=== PATIENT | female | born 1975 | race Caucasian/White ===

== ENCOUNTER 2017-09-21 10:27 | Emergency (ER) | payer OTHER, SELFPAY ==
[2017-09-21 10:27] VITALS: BP 152/92; PULSE 80; RESP 15; TEMP 36.8; O2SAT 97; BMI 38.5
[2017-09-21 10:36] VITALS: BP 121/73; PULSE 77; RESP 16; O2SAT 100
--- NOTE | 2017-09-21 10:40 | EKG12_ITS ---
Test Reason : REPEAT TROP. Blood Pressure : / mmHG Vent. Rate : 063 BPM Atrial Rate : 063 BPM P-R Int : 138 ms QRS Dur : 078 ms QT Int : 418 ms P-R-T Axes : 026 006 023 degrees QTc Int : 427 ms Normal sinus rhythm Normal ECG Confirmed by GIOVANA ZAPATA, ZOHAIB ([id number]), video tape editor JAZLYN MARIANO ([id number]) on 09/25/2017 1:57:03 PM Referred By: SPENCER Confirmed By:ZOHAIB AKHTAR MD
[2017-09-21 10:59] LABS: Hematocrit 37.9 % (37-47); Hemoglobin 11.9 g/dl (12.0-15.0); Mean Corp Hgb Conc 31.4 g/gl (32-36); Mean Corpuscular Hgb 26.5 pg (27.0-32.0); Mean Corpuscular Volume 84.4 fL (81-99); Mean Platelet Vol. 10.1 fl (6.2-12.0); Platelet Count 272 K/mm3 (150-450); RBC Distribution Width CV 14.4 % (11.6-14.6); RBC Distribution Width SD 44.4 fl (35.1-43.9); Red Blood Count 4.49 M/mm3 (4.2-5.4); White Blood Count 7.2 K/mm3 (4.4-11.0)
[2017-09-21 11:00] LABS: Scan Indicated on CBC? Y/N NO
[2017-09-21 11:16] LABS: Anion Gap 5 (5-15); BUN 11 mg/dL (7-18); BUN/Creat Ratio 13.4 RATIO (10-20); Calcium,Total 8.6 mg/dL (8.5-10.1); Chloride 107 mmol/L (98-107); Creatinine, Serum 0.82 mg/dL (0.55-1.02); EST Glomerular Filtration Rate 81 mL/min (>60); Est Glom Filt Rate - Afr Amer 98 mL/min (>60); Estimated Creatinine Clearance 83.67 ml/min; Glucose 89 mg/dL (74-106); Potassium 4.1 mmol/L (3.5-5.1); Sodium Level 140 mmol/L (136-145)
[2017-09-21 11:36] VITALS: BP 117/70; PULSE 80; RESP 14; O2SAT 100
--- NOTE | 2017-09-21 11:38 | RAD_ITS ---
STUDY: X-RAY CHEST REASON FOR EXAM: Female, 41 years old. Chest pain. TECHNIQUE: PA and lateral views of the chest. COMPARISON: None. FINDINGS: The lungs are clear and expanded. There is no demonstrated pleural abnormality. Normal size heart. Normal mediastinum and maame. Normal visualized pulmonary arteries. Normal visualized aortic arch and descending thoracic aorta. There are stable multilevel degenerative changes of the visualized thoracic spine. Normal visualized ribs, clavicles, and shoulders. There is no demonstrated abnormality of the visualized soft tissue structures of the upper abdomen. RAD/Chest PA and Lateral IMPRESSION: No acute cardiopulmonary disease. Electronically Signed: Tommie London MD at 12:09 EDT , Service support ,
[2017-09-21 12:05] VITALS: BP 125/70; PULSE 80; RESP 14; O2SAT 99
[2017-09-21 13:02] VITALS: BP 136/74; PULSE 75; RESP 14; O2SAT 98
--- NOTE | 2017-09-21 13:45 | EKG12_ITS ---
Test Reason : CP Blood Pressure : / mmHG Vent. Rate : 067 BPM Atrial Rate : 067 BPM P-R Int : 142 ms QRS Dur : 078 ms QT Int : 394 ms P-R-T Axes : 011 002 017 degrees QTc Int : 416 ms Normal sinus rhythm Normal ECG Confirmed by ZOHAIB AKHTAR MD ([id number]), communications editor JAZLYN MARIANO ([id number]) on 09/25/2017 1:40:48 PM Referred By: Confirmed By:ZOHAIB AKHTAR MD
[2017-09-21 14:22] VITALS: BP 128/78; PULSE 68; RESP 14; O2SAT 99
--- NOTE | 2017-09-21 14:29 | ED.VISSUMM ---
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 She had no associated symptoms. She had prior episode 10 years ago that lasted intermittently for 5 months. No workup was undertaken at that time. She denies history of hiatal hernia, reflux or peptic ulcer disease. She denies hematemesis, melena hematochezia. She denied radiation to her back or extremities. She denies headache. Denies visual, ocular auditory symptoms. I trouble speech or swallowing. She localizes the pain in the xiphoid region. She denies food intolerance. Denies leg pain, swelling discoloration. Physical Examination: Signs are unremarkable. Patient appears slightly uncomfortable. Head is atraumatic normocephalic. Pupils are equal round reactive. Extraocular muscles are intact. TMs are pearly white with landmarks noted. Nares patent with no drainage. Posterior pharynx without erythema or exudate. Uvula is midline. There is no dysphonia or dysphasia. Trachea is midline. There is no stridor with auscultation of the neck. Heart is regular without murmur, gallop or rub. S1 and S2 are normal. Lungs are clear to auscultation with good movement of air bilaterally. Abdomen is soft nontender with negative Mcwilliams sign. There is no CVA tenderness noted. There is no asymmetry, swelling, discoloration, leg vein distention, palpable cords or tenderness along the distribution of the deep venous system. Neuro exam is nonfocal. Test Results: Next field EKG #1 sinus rhythm with no ischemic changes and is normal. EKG #2 obtained 3 hours later is normal with a rate of 63. First troponin second troponin less than 0.015. Delta 0. Hemoglobin is 11.9. Emergency Department Course and Treatment: Based on description this may represent GI versus cardiac etiology. Workup included EKG, chest x-ray and appropriate blood work. 3 hour troponin was obtained. She reported increased pain and was given a GI cocktail with resolution of her symptoms. Since there is a published study in [employer] in the 80s that include documents relief of pain with GI cocktail was not really out cardiac etiology, some presented symptoms of cardiac etiology reason for repeat troponin and EKG. Treatment Plan: H2 david and follow-up with PCP Disposition: Discharged home Impression: Chest pain secondary to esophageal/GI etiology This note was generated with [employer] dictation software. It may contain incorrect words, spelling, and punctuation that were not noted in review of the chart prior to signing ED Disposition - Plan for ED Patient: Disposition: Home or Assisted Living Chief Complaint: Chest Pain Instructions: ED GERD Prescriptions: Famotidine [Pepcid] 40 mg PO DAILY #30 tab Referrals: Dhara Guzman MD [Primary Care Provider] - 1-2 Weeks
== END 2017-09-21 14:48 | disposition home or self-care (01) ==
PROVIDERS: Emergency Provider Emergency Medicine; Family Provider Family Medicine; PCP Family Medicine
DX: R07.89 Other chest pain (principal); E66.9 Obesity, unspecified; Z68.38 Body mass index [BMI] 38.0-38.9, adult
CPT/HCPCS: 71046; 80048; 84484; 85027; 93005; 99285; A4216

== ENCOUNTER 2020-07-10 09:28 | Outpatient (RCR) | payer OTHER, SELFPAY | END 2020-07-10 23:59 | LOC: IMMUN 09:28 | PROVIDERS: Visit Provider Family Medicine | DX: Z23 Encounter for immunization (principal) | CPT/HCPCS: 0011A; 0012A ==

== ENCOUNTER 2023-05-28 01:28 | Emergency (ER) | payer OTHER, SELFPAY ==
[2023-05-28 01:30] VITALS: BP 129/92; PULSE 79; RESP 18; TEMP 36.3; O2SAT 94; BMI 37.1
--- OUTSIDE RECORDS SUMMARY | 2023-05-28 01:41 | XMS RPT_ITS | CCD ---
Author Name Unknown Address [address] [place] [address] Organization [facility] Care Team Providers Care Ultrasound Supervisor Name Role Phone Tony WHEELER, Tameka Primary Care Provider YELITZA WONG CNP Attending Unavail able TONY MANE-PRESERVATIONIST, TAMEKA Primary Care Unavaila ble TONY MANE-SHAMAR, TAMEKA Primary Care Physician Tony WHEELER, Tameka Primary Care Provider PROVIDER, UNKNOWN Referring Unavailable JIMENEZ, TAMEKA Primary Care Unavailable JUDITH MANE-SHAMAR, YELITZA Musa Primary Care Physi chele JIMENEZ, TAMEKA Primary Care Unavailable MCKEON, SYDNI Referring Unavailable JIMENEZ, TAMEKA Primary Care Unavailable MCKEON, SYDNI Attending Unavailable JIMENEZ, TAMEKA Primary Care Unavailable LENNIE DAWSON Referring Unavailable JIMENEZ, TAMEKA Primary Care Unavailable MCKEON, SYDNI Referring Unavailable JIMENEZ, TAMEKA Primary Care Unavailable JIMENEZ, TAMEKA Primary Care Unavailable JIMENEZ, TAMEKA Primary Care Unavailable EWA KATE Referring Unavailable JIMENEZ, TAMEKA Primary Care Unavailable MCKEON, SYDNI Referring Unavailable JIMENEZ, TAMEKA Primary Care Unavailable MCKEON, SYDNI Referring Unavailable Allergies Allergy Classification Reported Allergen(s) Allergy Type Date of Onset Reaction(s) Facility (14 sources) Homeopathic Products; Translations: [HOMEOPATHIC PRODUCTS] Propensity to adverse reactions 6 [facility] (12 sources) no drug allergies [Other] Propensity to adverse reactions 8 [facility] Work Phone: (2 sources) Allergic rhinitis due to pollen Allergy to substance Itching of eye (finding), Asthma (disorder), Sneezing (finding), Watery eye (finding) [facility] [place] (2 sources) OTHER; Translations: [OTHER] Propensity to adverse reactions (disorder) [facility] Other [facility] Medications Current Medications Medication Drug Class(es) Dates Sig (Normalized) Sig (Original) gabapentin 100 mg oral capsule (1 source) Anti-epileptic Agent Start: 3 End: 3 gabapentin 100 mg oral capsule Dose : 100 mg = 1 cap(s), Oral, TID, # 42 cap(s), 0 Refill(s), Pharmacy: [facility]/pharmacy #[id number], Burn of right thigh, 167.6, cm, 01/22/23 16:50:00 EDT, Height, 107.4, kg, 01/22/23 16:42:00 EDT, Dosing Weight Start Date: 01/22/23 Stop Date: 02/05/23 Status: Ordered methylPREDNISolone (1 source) Corticosteroid Start: 3 End: 3 methylPREDNISolone (MEDROL, BILL,) 4 mg Dose-Pack Indications: Burning sensation of skin Follow dosing instructions, take with food. 21 tablet 0 01/13/2023 01/19/2023 Active Completed/Discontinued Medications Medication Drug Class(es) Dates Sig (Normalized) Sig (Original) cyclobenzaprine hydrochloride 10 mg oral tablet (3 sources) Muscle Relaxant Start: 02-20-2022 End: 05-16-2022 take 5-10 mg by mouth every eight hours as needed cyclobenzaprine (FLEXERIL) 10 mg tablet Take 0.5-1 tablets by mouth three times daily as needed for muscle spasm. 12 tablet 0 02/20/2022 05/16/2022 Discontinued Problems Active Problems Problem Classification Problem Date Documented Date Episodic/Chronic Abdominal pain (2 sources) Pain in pelvis 02-27-2022 Episodic Disorders of teeth and jaw (2 sources) Temporomandibular hxoda-unlq-duhrelorine syndrome 08-09-2021 Episodic Esophageal disorders (1 source) Gastroesophageal reflux disease 11-21-2022 Chronic Nonmalignant breast conditions (1 source) Other specified disorders of breast; Translations: [Pseudoangiomatous stromal hyperplasia of breast] Onset: 01-24-2023 Episodic Other circulatory disease (2 sources) Elevated blood-pressure reading without diagnosis of hypertension 12-16-2021 Episodic Other nervous system disorders (1 source) Burning sensation of skin; Translations: [Other disturbances of skin sensation] 01-13-2023 Episodic Other screening for suspected conditions (not mental disorders or infectious disease) (13 sources) Patient encounter status; Translations: [Encounter for screening mammogram for malignant neoplasm of breast] Onset: 05-16-2022 Episodic Residual codes; unclassified (1 source) Past history of procedure 08-09-2022 Episodic Past or Other Problems Problem Classification Problem Date Documented Da te Episodic/Chronic Other and unspecified benign neoplasm (12 sources) Benign neoplasm of soft tissue; Translations: [Benign neoplasm of connective and other soft tissue, unspecified] Onset: 09-15-2005 09-15-2005 Episodic Other skin disorders (12 sources) Skin lesion; Translations: [Disorder of the skin and subcutaneous tissue, unspecified] Onset: 10-17-2013 10-17-2013 Episodic Varicose veins of lower extremity (12 sources) Varicose vein of leg with phlebitis; Translations: [Varicose veins of unspecified lower extremity with inflammation] Onset: 09-22-2005 09-22-2005 Episodic Results Test Name Value Interpretation Reference Range Facil ity Vital Signs Date Time Vital Sign Value Performing Clinician Lashell muniz 01-13-2023 08:22-0400 Body temperature 97.9 [degF] Veronica Vivas APRN.CNP Work Phone: [facility] 01-13-2023 08:22-0400 Body weight 107.05 kg Veronica Vivas APRN.PRESERVATIONIST Work Phone: [facility] 01-13-2023 08:22-0400 Diastolic blood pressure 82 mm[Hg] Veronica Vivas APRN.PRESERVATIONIST Work Phone: [facility] 01-13-2023 08:22-0400 Heart rate 72 /min Veronica Vivas APRN.PRESERVATIONIST Work Phone: [facility] 01-13-2023 08:22-0400 Respiratory rate 18 /min Veronica Vivas APRN.PRESERVATIONIST Work Phone: [facility] 01-13-2023 08:22-0400 SaO2% (BldA) [Mass fraction] 98 % Veronica Vivas APRN.PRESERVATIONIST Work Phone: [facility] 01-13-2023 08:22-0400 Systolic blood pressure 118 mm[Hg] Veronica Vivas APRN.PRESERVATIONIST Work Phone: [facility] 05-16-2022 12:58-0500 Body height 167.6 cm Sydni Mckeon APRN.PRESERVATIONIST Work Phone: [facility] 05-16-2022 12:58-0500 Body weight 107.5 kg Sydni Mckeon APRN.PRESERVATIONIST Work Phone: [facility] 05-16-2022 12:58-0500 Diastolic blood pressure 72 mm[Hg] Sydni Mckeon APRN.PRESERVATIONIST Work Phone: [facility] 05-16-2022 12:58-0500 Systolic blood pressure 128 mm[Hg] Sydni Mckeon APRN.PRESERVATIONIST Work Phone: [facility] Encounters Encounter Date Encounter Type Care Provider Facility Start: 01-24-2023 End: 01-24-2023 ambulatory SYDNI MCKEON Facility:[facility] Start: 01-23-2023 End: 01-23-2023 Patient encounter procedure YELITZA WONG APRN-PRESERVATIONIST [facility] Start: 01-13-2023 End: 01-13-2023 ambulatory ATMEKA JIMENEZ Facility:[facility] Start: 01-13-2023 End: 01-13-2023 Patient encounter procedure Veronica Vivas APRN.PRESERVATIONIST Work Phone: [facility] Procedures Date Procedure Procedure Detail Performing Clinician Start: 07-17-2022 Bx breast w/device 1 st lesion stereotactic guid Ewa Kate MD Work Phone: Start: 06-28-2022 Us breast uni real t bryon with image limited Burt Lenz MD Work Phone: Start: 06-13-2022 Us breast uni real t bryon with image limited Sydni Mckeon APRN.PRESERVATIONIST Work Phone: Start: 06-13-2022 MARTY CRISTINA W DELFIN LEFT Am y Mike MANE.SHAMAR Work Phone: Start: 05-16-2022 End: 05-16-2022 Mammography Sydni Mckeon APRN.PRESERVATIONIST Work Phone: Start: 05-10-2021 Mammography Lennie Dawson PA-C Work Phone: Start: 02-09-2011 Lipid 1996 panel - S breanna or Plasma Us 1 Work Phone: Plan of Treatment Date Care Activity Detail Author Start: 05-14-2028 Urine microalbumin profile [facility] Start: 05-10-2026 HPV TESTING HPV TESTING [facility] Start: 05-10-2026 PAP TESTING PAP TESTING [facility] Start: 05-16-2023 Mammography [facility] Start: 01-12-2023 Covid-19 Vaccine ( season) Covid-19 Vaccine ( season) [facility] Start: 01-12-2023 Influenza vaccination [facility] Start: 05-14-2022 DEPRESSION ASSESSMENT DEPRESSION ASSESSMENT [facility] Start: 05-10-2022 Mammography MAMMOGRAM [facility] Start: 01-12-2022 Influenza vaccination INFLUENZA (#1) [facility] Start: 07-06-2021 COVID-19 VACCINE (5 - Booster for Moderna series) COVID-19 VACCINE (5 - Booster for Moderna series) [facility] Start: 07-06-2021 COVID-19 VACCINE (5 - Moderna series) COVID-19 VACCINE (5 - Moderna series) [facility] Start: 05-14-2021 DEPRESSION ASSESSMENT DEPRESSION ASSESSMENT [facility] Start: 09-30-2020 COVID-19 VACCINE (3 - Booster for Moderna series) COVID-19 VACCINE (3 - Booster for Moderna series) [facility] Start: 12-05-2019 COLOGUARD (FIT-DNA) COLOGUARD (FIT-DNA) [facility] Start: 12-05-2019 Colonoscopy COLONOSCOPY [facility] Start: 12-05-2019 COLORECTAL CANCER SCREENING COLORECTAL CANCER SCREENING [facility] Start: 12-05-[address] COLONOGRAPHY [facility] Start: 12-05-2019 DIABETES SCREEN DIABETES SCREEN [facility] Start: 12-05-2019 Diabetes Screening Diabetes Screening [facility] Start: 12-05-2019 FECAL OCCULT BLOOD FECAL OCCULT BLOOD [facility] Start: 12-05-2019 Lipid 1996 panel - Serum or Plasma Lipid Screening [facility] Start: 12-05-2019 LIPID SCREEN LIPID SCREEN [facility] Start: 12-05-2019 SIGMOIDOSCOPY SIGMOIDOSCOPY [facility] Start: 1992 HEPATITIS C SCREENING HEPATITIS C SCREENING [facility] Start: 1992 HIV SCREENING HIV SCREENING [facility] Start: 1974 HEPATITIS B (1 of 3 - 3-dose series) HEPATITIS B (1 of 3 - 3-dose series) [facility] Start: 1974 Hepatitis B Vaccine (1 of 3 - 3-dose series) Hepatitis B Vaccine (1 of 3 - 3-dose series) [facility] End: 07-28-2023 Bx breast w/device 1st lesion stereotactic guid MARTY STEREO BX BREAST LT Radiology Routine Abnormal finding on radiological examination of breast 1 Occurrences starting 06/28/2022 until 07/28/2023 [facility] Work Phone: Immunizations Immunization Date Immunization Notes Care Provider Juliette alvarenga 05-11-2021 SARS-CoV-2 mRNA (tobarbinameran) vaccine YELITZA WONG DAY CARE ATTENDANT-PRESERVATIONIST [facility] 08-22-2020 SARS-CoV-2 (COVID-19 ) Ad26 vaccine, recombinant YELITZA WONG DAY CARE ATTENDANT-PRESERVATIONIST [facility] 08-05-2020 SARS-CoV-2 (COVID-19 ) mRNA-1273 vaccine YELITZA WONG DAY CARE ATTENDANT-PRESERVATIONIST [facility] 07-08-2020 SARS-CoV-2 (COVID-19 ) mRNA-1273 vaccine YELITZA WONG DAY CARE ATTENDANT-PRESERVATIONIST [facility] Payers Date Payer Category Payer Unknown [id number] 2018 Unknown [id number] 1975 Unknown [id number] Social History Date Type Detail Facility Start: 11-10-2020 End: 02-20-2022 Tobacco smoking status NHIS Never smoked tobacco [facility] Work Phone: Start: 02-20-2022 Tobacco use and exposure Smokeless tobacco non-user [facility] Work Phone: Start: 02-20-2022 End: 05-16-2022 Alcohol intake Current non-drinker of alcohol (finding) [facility] Start: 05-05-2020 History SDOH Social Connections Phone 5 [facility] Start: 05-05-2020 History SDOH Social Connections Get Together 2 [facility] Start: 05-05-2020 History SDOH Social Connections Membership 1 [facility] Start: 05-05-2020 History SDOH Social Connections Meetings 3 [facility] Start: 05-05-2020 History SDOH Physical Activity MPS 6 [facility] Start: 1975 Sex Assigned At Female [facility] Start: 02-10-2022 End: 02-20-2022 Exposure to SARS-CoV-2 (event) Not sure [facility] Work Phone: Sex Assigned At Sex [facility] Start: 05-05-2020 End: 06-06-2022 History of Social function [facility] Work Phone: Start: 05-05-2020 End: 06-06-2022 Social connection and isolation panel [facility] Work Phone: Do you belong to any clubs or organizations such as catholic groups, unions, fraternal or athletic groups, or school groups? Yes [facility] Work Phone: Are you now , , , , never or living with a partner? [facility] Work Phone: Do you feel stress - tense, restless, nervous, or anxious, or unable to sleep at night because your mind is troubled all the time - these days [OSQ] Only a little [facility] Work Phone: National Score (1-10 0), lower number is lower risk 63 [facility] Start: 02-20-2022 Sexual orientation Heterosexual (finding) [facility] Medical Equipment Procedure Code Equipment Code Equipment Origin al Text Equipment Identifier Dates Stereotactic Bio psy Clip [id number] Start: 07-17-2022 Clinical Notes 02-20-2022 to 01-24-2023 Patient InstructionsVeronica Vivas APRN.PRESERVATIONIST - 01/13/2023 8:31 AM EDTPatient Education - Danelle Monzon, RT(R) - 07/17/2022 12:12 PM Lisa Johnson RT(R) - 06/13/2022 3:00 PM EST Note Date & Type Note Facility 01-24-2023 Note HNO ID: [id number] Author: Antony Cunha Mammo Tech Service: ? Author Type: Technologist Type: Progress Notes Filed: 01/24/2023 1:45 PM Note Text: Radiology Service Progress Note PATIENT NAME: Gladys Dodd DATE OF SERVICE: January 24, 2023 TIME: 1:31 PM PATIENT IDENTITY VERIFICATION COMPLETED USING TWO (2) IDENTIFIERS: Name and Date of confirmed by patient verbally. FALL SCREENING: Has the patient had 2 falls in the last year or 1 fall with injury or currently using an Ambulatory Assistive Device (Walker, Cane, Wheelchair, Crutches, etc.)? No PATIENT GENDER DATA: Female. status: : No status: NO. PATIENT RELEVANT IMPLANT DATA REVIEWED: Not Applicable RADIOLOGY DEPARTMENT: Mammography PERIPHERAL IV DATA: Not applicable SIGNED BY: Melchor Peralta January 24, 2023 1:31 PM [facility] 01-13-2023 Note HNO ID: [id number] Author: Veronica Vivas APRN.PRESERVATIONIST Service: ? Author Type: Nurse Practitioner Type: Progress Notes Filed: 01/13/2023 9:21 AM Note Text: Subjective HPI Gladys Dodd is a 47 year old female who presents with a burning sensation on right thigh, present for the past 2 weeks. She believes this started as a bug bite in the area but does not recall a specific area of inflammation. She had several other bug bites at the same time, including one on her right lower back area with an area of rash surrounding it. She states this area on her right lower back was not painful but it was itchy. It is now dried and no longer itching. She has used hydrocortisone cream on her right thigh without relief. She denies back pain. Review of Systems Constitutional: Negative for chills, fever and malaise/fatigue. Respiratory: Negative. Cardiovascular: Negative. Musculoskeletal: Negative for back pain and myalgias. Skin: Positive for itching and rash (right lower back, resolving). BP 118/82 Pulse 72 Temp 36.6 ?C (97.9 ?F) Resp 18 Wt 107 kg (236 lb) LMP 05/05/2022 SpO2 98% BMI 38.09 kg/m? PAST MEDICAL HISTORY Diagnosis Date Other specified anemias PMS (premenstrual syndrome) Seasonal allergies Springtime. PAST SURGICAL HISTORY Procedure Laterality Date PAST SURGICAL HISTORY OF cyst removed from right wrist TYMPANOSTOMY LOCAL/TOPICAL ANESTHESIA 1979 ALLERGIES Hayfever [Homeopathic Products] and No Drug Allergies [Other] MEDICATIONS methylPREDNISolone (MEDROL, BILL,) 4 mg Dose-Pack Follow dosing instructions, take with food. FAMILY HISTORY Problem Relation Age of Onset Diabetes Mother Hypertension Mother other (dermatomyositis) Mother other (congestive heart failure) Father age 80 Diabetes Maternal Grandmother other (Ovarian Cancer) Maternal Grandmother Heart Maternal Grandfather Hypertension Maternal Grandfather Diabetes Maternal Grandfather other (CVA) Maternal Grandfather Social History Tobacco Use Smoking status: Never Smokeless tobacco: Never Vaping Use Vaping Use: Never used Substance Use Topics Alcohol use: No Drug use: No Objective Physical Exam Vitals and nursing note reviewed. Constitutional: Appearance: Normal appearance. Cardiovascular: Rate and Rhythm: Normal rate. Pulmonary: Effort: Pulmonary effort is normal. Skin: General: Skin is warm and dry. Findings: Rash present. No bruising, erythema or lesion. Neurological: Mental Status: She is alert. ASSESSMENT/PLAN: 1. Burning sensation of skin - ICD9: 782.0, ICD10: R20.8 - suspect shingles neuropathy - METHYLPREDNISOLONE 4 MG TABLETS IN A DOSE PACK - Follow-up with your PCP in 3-5 days if symptoms have not improved or sooner if symptoms worsen - Discussed red flags and need for immediate medical evaluation if any occur. - Discussed supportive care treatment with fluids, rest and analgesia. - Discussed expected course of illness Veronica Vivas APRN.CNP [facility] 01-13-2023 Instructions Veronica Vivas APRN.CNP - 01/13/2023 8:33 AM EDT ASSESSMENT/PLAN: 1. Burning sensation of skin - ICD9: 782.0, ICD10: R20.8 - METHYLPREDNISOLONE 4 MG TABLETS IN A DOSE PACK - Follow-up with your PCP in 3-5 days if symptoms have not improved or sooner if symptoms worsen - Discussed red flags and need for immediate medical evaluation if any occur. - Discussed supportive care treatment with fluids, rest and analgesia. - Discussed expected course of illness Veronica Vivas APRN.SHAMAR documented in this encounter [facility] 01-13-2023 History of Present illness Narrative Images from the original note were not included. Subjective HPI Gladys Dodd is a 47 year old female who presents with a burning sensation on right thigh, present for the past 2 weeks. She believes this started as a bug bite in the area but does not recall a specific area of inflammation. She had several other bug bites at the same time, including one on her right lower back area with an area of rash surrounding it. She states this area on her right lower back was not painful but it was itchy. It is now dried and no longer itching. She has used hydrocortisone cream on her right thigh without relief. She denies back pain. Review of Systems Constitutional: Negative for chills, fever and malaise/fatigue. Respiratory: Negative. Cardiovascular: Negative. Musculoskeletal: Negative for back pain and myalgias. Skin: Positive for itching and rash (right lower back, resolving). BP 118/82 Pulse 72 Temp 36.6 C (97.9 F) Resp 18 Wt 107 kg (236 lb) LMP 05/05/2022 SpO2 98% BMI 38.09 kg/m PAST MEDICAL HISTORY Diagnosis Date Other specified anemias PMS (premenstrual syndrome) Seasonal allergies Springtime. PAST SURGICAL HISTORY Procedure Laterality Date PAST SURGICAL HISTORY OF cyst removed from right wrist TYMPANOSTOMY LOCAL/TOPICAL ANESTHESIA 1979 ALLERGIES Hayfever [Homeopathic Products] and No Drug Allergies [Other] MEDICATIONS methylPREDNISolone (MEDROL, BILL,) 4 mg Dose-Pack Follow dosing instructions, take with food. FAMILY HISTORY Problem Relation Age of Onset Diabetes Mother Hypertension Mother other (dermatomyositis) Mother other (congestive heart failure) Father age 80 Diabetes Maternal Grandmother other (Ovarian Cancer) Maternal Grandmother Heart Maternal Grandfather Hypertension Maternal Grandfather Diabetes Maternal Grandfather other (CVA) Maternal Grandfather Social History Tobacco Use Smoking status: Never Smokeless tobacco: Never Vaping Use Vaping Use: Never used Substance Use Topics Alcohol use: No Drug use: No Objective Physical Exam Vitals and nursing note reviewed. Constitutional: Appearance: Normal appearance. Cardiovascular: Rate and Rhythm: Normal rate. Pulmonary: Effort: Pulmonary effort is normal. Skin: General: Skin is warm and dry. Findings: Rash present. No bruising, erythema or lesion. Neurological: Mental Status: She is alert. ASSESSMENT/PLAN: 1. Burning sensation of skin - ICD9: 782.0, ICD10: R20.8 - suspect shingles neuropathy - METHYLPREDNISOLONE 4 MG TABLETS IN A DOSE PACK - Follow-up with your PCP in 3-5 days if symptoms have not improved or sooner if symptoms worsen - Discussed red flags and need for immediate medical evaluation if any occur. - Discussed supportive care treatment with fluids, rest and analgesia. - Discussed expected course of illness Veronica Vivas APRN.SHAMAR documented in this encounter [facility] 07-17-2022 Miscellaneous Notes AMBULATORY PATIENT EDUCATION RADIOLOGY TOPIC: Pre- Procedure Teaching:Logistics / Protocols / Complication Prevention Post- Procedure Teaching: Symptom Management / Wound Care READINESS TO LEARN COGNITIVE ABILITY: Alert and oriented MOTIVATION TO LEARN: Interested FAMILY SUPPORT: Unable to assess - Family not present INSTRUCTION PROVIDED TO: Patient PATIENT LEARNS BEST BY: Individual Instruction Written Instruction - Hand-outs Verbal Instruction FACTORS AFFECTING LEARNING: None PHYSICAL LIMITATIONS AFFECTING LEARNING: None LEARNING RESPONSE Radiology Procedures Breast BX, Vacuum Assist METHOD OF INSTRUCTION: Individual instruction Written instruction - handouts Verbal instruction PATIENT / FAMILY RESPONSE: Performs skill independently: Wound care FOLLOW-UP PLAN: Follow up phone call. SUPPLEMENTAL MATERIAL: Homegoing instructions REFERRAL (RECOMMENDATION): None documented in this encounter [facility] 06-13-2022 Note HNO ID: [id number] Author: RT Daniel(Cosmo) Service: ? Author Type: Technologist Type: Progress Notes Filed: 06/13/2022 3:01 PM Note Text: Radiology Service Progress Note PATIENT NAME: Gladys Dodd DATE OF SERVICE: June 13, 2022 TIME: 2:59 PM PATIENT IDENTITY VERIFICATION COMPLETED USING TWO (2) IDENTIFIERS: Name and Date of confirmed by patient verbally. FALL SCREENING: Has the patient had 2 falls in the last year or 1 fall with injury or currently using an Ambulatory Assistive Device (Walker, Cane, Wheelchair, Crutches, etc.)? No PATIENT GENDER DATA: Female. status: : No status: NO. PATIENT RELEVANT IMPLANT DATA REVIEWED: Not Applicable RADIOLOGY DEPARTMENT: Mammography PERIPHERAL IV DATA: Not applicable SIGNED BY: RT Daniel(Cosmo) June 13, 2022 2:59 PM [facility] 06-13-2022 History of Present illness Narrative Radiology Service Progress Note PATIENT NAME: Gladys Dodd DATE OF SERVICE: June 13, 2022 TIME: 2:59 PM PATIENT IDENTITY VERIFICATION COMPLETED USING TWO (2) IDENTIFIERS: Name and Date of confirmed by patient verbally. FALL SCREENING: Has the patient had 2 falls in the last year or 1 fall with injury or currently using an Ambulatory Assistive Device (Walker, Cane, Wheelchair, Crutches, etc.)? No PATIENT GENDER DATA: Female. status: : No status: NO. PATIENT RELEVANT IMPLANT DATA REVIEWED: Not Applicable RADIOLOGY DEPARTMENT: Mammography PERIPHERAL IV DATA: Not applicable SIGNED BY: RT Daniel(R) June 13, 2022 2:59 PM documented in this encounter [facility] 05-17-2022 Miscellaneous Notes May 17, 2022 PID: [id number] Gladys Dodd [address] [place] [address] Dear Ms. Mercedes Dodd, Your recent breast imaging exam on 05/16/2022 showed a possible finding that requires additional imaging studies for a complete evaluation. Most such findings are probably benign (not cancer). Your mammogram demonstrates that you have dense breast tissue, which could hide abnormalities. Dense breast tissue, in and of itself, is a relatively common condition. Therefore, this information is not provided to cause undue concern; rather, it is to raise your awareness and promote discussion with your health care provider regarding the presence of dense breast tissue in addition to other risk factors. If you have a healthcare provider who ordered/prescribed your screening mammogram: Please call [phone] or EXT: [id number] to schedule an appointment for your additional imaging (if you have not already done so). If you DO NOT have a healthcare provider (ie you did not have an order/prescription for your screening mammogram): Please call to schedule an appointment for your additional imaging (if you have not already done so). You must have an order/prescription from your physician when calling to schedule your appointment. If your order/prescription is not electronic, you must bring the hard copy with you on the day of your exam to avoid delays. Your imaging studies and reports are kept on file at [facility] as part of your permanent medical record, and are available for your continuing care. Thank you for allowing us to help in meeting your health care needs. Sincerely, Dr. Duncan Interpreting Radiologist [facility] Center (Additional imaging) documented in this encounter [facility] 05-16-2022 Note HNO ID: [id number] Author: RT Daniel(R) Service: ? Author Type: Technologist Type: Progress Notes Filed: 05/16/2022 2:04 PM Note Text: Radiology Service Progress Note PATIENT NAME: Gladys Dodd DATE OF SERVICE: May 16, 2022 TIME: 1:55 PM PATIENT IDENTITY VERIFICATION COMPLETED USING TWO (2) IDENTIFIERS: Name and Date of confirmed by patient verbally. FALL SCREENING: Has the patient had 2 falls in the last year or 1 fall with injury or currently using an Ambulatory Assistive Device (Walker, Cane, Wheelchair, Crutches, etc.)? No PATIENT GENDER DATA: Female. status: : No status: NO. PATIENT RELEVANT IMPLANT DATA REVIEWED: Not Applicable RADIOLOGY DEPARTMENT: Mammography PERIPHERAL IV DATA: Not applicable SIGNED BY: RT Daniel(R) May 16, 2022 1:55 PM [facility] 05-16-2022 Note HNO ID: [id number] Author: Sydni Mckeon APRN.PRESERVATIONIST Service: ? Author Type: Nurse Practitioner Type: Progress Notes Filed: 05/16/2022 1:20 PM Note Text: Die Cast Operator offered: Patient declinesHilary Chávez is a 46 year old who presents for an annual gynecologic exam without complaints. Menses: Menses: cycles every 28 days and 3-4 days of flow. Contraception: vasectomy HPV vaccine: No Last Pap: 05/10/2021 normal HPV: negative History of abnormal pap: No Last mammogram: 04/2021 normal Abnormal mammogram: No - normal bilateral diagnostic mammogram for breast pain Sexually active: Yes Patient concerns for STD exposure: No. Time with current partner: 23 years Pain with intercourse: No Postcoital bleeding: No Hot flashes: 2/weeks Night sweats: generally warm Documentation from previous visit of 05/10/2021 was copied and pasted, documentation has been reviewed and edited as necessary for today's visit. 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 PAST SURGICAL HISTORY Procedure Laterality Date PAST SURGICAL HISTORY OF cyst removed from right wrist TYMPANOSTOMY LOCAL/TOPICAL ANESTHESIA 1979 FAMILY HISTORY Problem Relation Age of Onset Diabetes Mother Hypertension Mother other (dermatomyositis) Mother other (congestive heart failure) Father age 80 Diabetes Maternal Grandmother other (Ovarian Cancer) Maternal Grandmother Heart Maternal Grandfather Hypertension Maternal Grandfather Diabetes Maternal Grandfather other (CVA) Maternal Grandfather SOCIAL HISTORY Social History Tobacco Use Smoking status: Never Smokeless tobacco: Never Vaping Use Vaping Use: Never used Substance Use Topics Alcohol use: No Drug use: No REVIEW OF SYSTEMS Abdomen: No abdominal pain, nausea, vomiting, diarrhea, or constipation. No bloating, early satiety, indigestion, or increased flatulence. Bladder: No dysuria, gross hematuria, urinary frequency, urinary urgency, or incontinence. Breast: No breast lumps, nipple d/c, overlying skin changes, redness or skin retraction. Allergies and current medication updated:Yes EXAM: BP 128/72 Ht 5' 6 (1.68m) Wt 237 lb (107.5kg) LMP 05/05/2022 BMI 38.27 kg/(m2). GENERAL: pleasant, female in no apparent distress HEENT: Normocephalic, atraumatic, mucus membranes moist, and no lesions NECK: Supple, full range of motion, no adenopathy, and thyroid normal DERMATOLOGY: Normal, without lesions, non-icteric, and non-hirsute BREAST: soft, non-tender, symmetric, no dominant mass, normal nipple-areolar complex, no lymphadenopathy, and no nipple discharge CHEST: Normal inspiratory effort ABDOMEN: soft, non-tender, and no masses PELVIC: external genitalia normal, normal Bartholin's glands, urethra, Welch's glands, no vulvar lesions, no cervical lesions, good vaginal support, physiologic discharge present, normal appearing perineal body and perianal region BIMANUAL: uterus normal size, shape and consistency, no adnexal masses, and non-tender RECTOVAGINAL: deferred. NEURO: alert and oriented x3,exam grossly non-focal EXTREMITIES: normal ASSESSMENT/PLAN: 1) Health maintenance: Pap/HPV up to date. Mammogram ordered. Nutrition, exercise and routine health maintenance exams reviewed. 2) Contraception: vasectomy. Contraceptive options reviewed and information provided. 3) STD screening: Declined STD check. 4) Follow up one year or sooner as needed Syndi Mckeon APRN.SHAMAR [facility] 05-16-2022 History of Present illness Narrative Radiology Service Progress Note PATIENT NAME: Gladys Dodd DATE OF SERVICE: May 16, 2022 TIME: 1:55 PM PATIENT IDENTITY VERIFICATION COMPLETED USING TWO (2) IDENTIFIERS: Name and Date of confirmed by patient verbally. FALL SCREENING: Has the patient had 2 falls in the last year or 1 fall with injury or currently using an Ambulatory Assistive Device (Walker, Cane, Wheelchair, Crutches, etc.)? No PATIENT GENDER DATA: Female. status: : No status: NO. 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 Gladys is a 46 year old who presents for an annual gynecologic exam without complaints. Menses: Menses: cycles every 28 days and 3-4 days of flow. Contraception: vasectomy HPV vaccine: No Last Pap: 05/10/2021 normal HPV: negative History of abnormal pap: No Last mammogram: 04/2021 normal Abnormal mammogram: No - normal bilateral diagnostic mammogram for breast pain Sexually active: Yes Patient concerns for STD exposure: No. Time with current partner: 23 years Pain with intercourse: No Postcoital bleeding: No Hot flashes: 2/weeks Night sweats: generally warm Documentation from previous visit of 05/10/2021 was copied and pasted, documentation has been reviewed and edited as necessary for today's visit. 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 PAST SURGICAL HISTORY Procedure Laterality Date PAST SURGICAL HISTORY OF cyst removed from right wrist TYMPANOSTOMY LOCAL/TOPICAL ANESTHESIA 1979 FAMILY HISTORY Problem Relation Age of Onset Diabetes Mother Hypertension Mother other (dermatomyositis) Mother other (congestive heart failure) Father age 80 Diabetes Maternal Grandmother other (Ovarian Cancer) Maternal Grandmother Heart Maternal Grandfather Hypertension Maternal Grandfather Diabetes Maternal Grandfather other (CVA) Maternal Grandfather SOCIAL HISTORY Social History Tobacco Use Smoking status: Never Smokeless tobacco: Never Vaping Use Vaping Use: Never used Substance Use Topics Alcohol use: No Drug use: No REVIEW OF SYSTEMS Abdomen: No abdominal pain, nausea, vomiting, diarrhea, or constipation. No bloating, early satiety, indigestion, or increased flatulence. Bladder: No dysuria, gross hematuria, urinary frequency, urinary urgency, or incontinence. Breast: No breast lumps, nipple d/c, overlying skin changes, redness or skin retraction. Allergies and current medication updated:Yes EXAM: BP 128/72 Ht 5' 6 (1.68m) Wt 237 lb (107.5kg) LMP 05/05/2022 BMI 38.27 kg/(m^2). GENERAL: pleasant, female in no apparent distress HEENT: Normocephalic, atraumatic, mucus membranes moist, and no lesions NECK: Supple, full range of motion, no adenopathy, and thyroid normal DERMATOLOGY: Normal, without lesions, non-icteric, and non-hirsute BREAST: soft, non-tender, symmetric, no dominant mass, normal nipple-areolar complex, no lymphadenopathy, and no nipple discharge CHEST: Normal inspiratory effort ABDOMEN: soft, non-tender, and no masses PELVIC: external genitalia normal, normal Bartholin's glands, urethra, Welch's glands, no vulvar lesions, no cervical lesions, good vaginal support, physiologic discharge present, normal appearing perineal body and perianal region BIMANUAL: uterus normal size, shape and consistency, no adnexal masses, and non-tender RECTOVAGINAL: deferred. NEURO: alert and oriented x3,exam grossly non-focal EXTREMITIES: normal ASSESSMENT/PLAN: 1) Health maintenance: Pap/HPV up to date. Mammogram ordered. Nutrition, exercise and routine health maintenance exams reviewed. 2) Contraception: vasectomy. Contraceptive options reviewed and information provided. 3) STD screening: Declined STD check. 4) Follow up one year or sooner as needed Sydni Mckeon APRN.SHAMAR documented in this encounter [facility] 02-21-2022 Miscellaneous Notes Patient given results and verbalized understanding of instructions given. Marlee Kwong ----- Message from Veronica Vivas APRN.SHAMAR sent at 02/21/2022 9:55 AM EDT ----- Urine culture did not show clear evidence of infection, however it appears sample may have been contaminated with skin bacteria during collection. If not improving, recommend follow up with PCP. Veronica Vivas CNP documented in this encounter [facility] 02-20-2022 Miscellaneous Notes Patient given results and verbalized understanding of instructions given. Marlee Kwong Please let patient know that her XR showed some degenerative (arthritic) changes. Otherwise normal. Recommend treatment plan as discussed at office visit. Follow up in 5-7 days if not improving, sooner if any worsening symptoms. Lennie Dawson PA-C 02/20/2022 documented in this encounter [facility] 02-20-2022 Note HNO ID: [id number] Author: Maria L Thorne RT(R) Service: Radiology Author Type: Technologist Type: Progress Notes Filed: 02/20/2022 8:14 AM Note Text: Radiology Service Progress Note PATIENT NAME: Gladys Dodd DATE OF SERVICE: February 20, 2022 TIME: 8:02 AM PATIENT IDENTITY VERIFICATION COMPLETED USING TWO (2) IDENTIFIERS: Name and Date of confirmed by patient verbally. FALL SCREENING: Has the patient had 2 falls in the last year or 1 fall with injury or currently using an Ambulatory Assistive Device (Walker, Cane, Wheelchair, Crutches, etc.)? No PATIENT GENDER DATA: Female. status: : No status: NO. PATIENT RELEVANT IMPLANT DATA REVIEWED: Yes RADIOLOGY DEPARTMENT: General X-ray: Exam(s) Completed: Spine X-Ray(s): Lumbar AP / LAT / L5-S1 PERIPHERAL IV DATA: Not applicable SIGNED BY: RT Shimon(R) February 20, 2022 8:02 AM [facility] 02-20-2022 Note HNO ID: [id number] Author: Lennie Dawson PA-C Service: ? Author Type: Physician Quill Reamer Type: Progress Notes Filed: 02/20/2022 12:31 PM Note Text: 02/20/2022 Patient presents with: Back Pain: low back pain started in right groin area x 1 day SUBJECTIVE: This is a 46 year old that is here today for Complaint(s) of right lower pelvic paint that has radiated and now moved to mid low back.Tells me started in right lower pelvic/groin then moved more to h ip area and this morning now mid back. Does have previous history of throwing out back . Pain worse with certain movements. Pain with walking. No radiation of symptoms into the legs and no numbness/tingling. Denies fever/chills, vomiting, diarrhea, dysuria, urinary frequency, hematuria, bowel or bladder incontinence, saddle anesthesia, hx of kidney stones, hx of ovarian cysts, chest pain, SOB, rash, weakness. PAST MEDICAL HISTORY Diagnosis Date Other specified anemias PMS (premenstrual syndrome) Seasonal allergies Springtime. ALLERGIES Hayfever [Homeopathic Products] and No Drug Allergies [Other] MEDICATIONS No current outpatient medications on file. No current facility-administered medications for this visit. SOCIAL HISTORY Social History Tobacco Use Smoking status: Never Smokeless tobacco: Never Vaping Use Vaping Use: Never used Substance Use Topics Alcohol use: No Drug use: No REVIEW OF SYSTEMS See HPI OBJECTIVE: BP 128/80 Pulse 88 Temp 37.1 ?C (98.7 ?F) Resp 16 Wt 106.1 kg (234 lb) LMP 04/21/2021 (Exact Date) SpO2 98% BMI 36.92 kg/m? APPEARANCE Well appearing, alert, in no acute distress, well-hydrated, well nourished. NECK Supple, no adenopathy; thyroid symmetric, normal size, no bruits HEART RRR with normal S1 and S2 LUNG clear to auscultation ABDOMEN soft, non-tender, non-distended, without organomegaly or palpable masses, no tenderness to palpation BACK: Normal exam, no vertebral TTP. No CVA TTP. Limited ROM with flexion/extension and rotation secondary to pain. EXTREMITIES Extremities normal, No deformities, No skin discoloration, No edema, and Normal pulses bilaterally. Neuro: reflexes normal and symmetric. Sensation grossly intact. SKIN no obvious rash. ASSESSMENT/PLAN: 1. Acute bilateral low back pain without sciatica - ICD9: 724.2, 338.19, ICD10: M54.50 Ice/heat, stretching, rest Reviewed red flags and when to seek care sooner in ER Recommend f/u in 3-5 days if not improving. If persisting pain and returning right lower pelvic discomfort consider additional imaging, including pelvic US. Patient f/u with [facility] in the next few weeks. - UA DIP, URINE (POC) - URINE CULTURE - XR LUMBAR GENERAL 3V AP/LAT/L5-S1 The patient indicates understanding of these issues and agrees with the plan. Lennie Dawson PA-C I spent a total of 30 minutes on the date of the service which included [id number] patient care, completing clinical documentation, performing a medically appropriate examination, counseling and educating the patient/family/caregiver, ordering medications, tests, or procedures, and communicating results to the patient/family/caregiver. [facility] Evaluation + Plan note No data available for this section [facility] [place] [facility] [place] [facility] Diagnosis Abnormal finding on radiological examination of breast- Primary Other (abnormal) findings on radiological examination of breast documented in this encounter [facility] note* Diagnosis Abnormal mammogram Abnormal mammogram, unspecified documented in this encounter [facility] note* Diagnosis Abnormal finding on radiological examination of breast Other (abnormal) findings on radiological examination of breast documented in this encounter [facility] note* Diagnosis Burning sensation of skin- Primary documented in this encounter [facility] note* Diagnosis Encounter for gynecological examination (general) (routine) without abnormal findings Encounter for screening mammogram for breast cancer documented in this encounter [facility] note* Diagnosis Abnormal mammogram Abnormal mammogram, unspecified documented in this encounter [facility] note* Diagnosis Abnormal mammogram Abnormal mammogram, unspecified documented in this encounter [facility] Discharge instructions No data available for this section [facility] Progress note No data available for this section [facility] Reason for referral (narrative)* Diagnostic Procedure Only (Routine) - Pending Review Specialty Diagnoses / Procedures Referred By Cassius espinoza Referred To Contact [facility] Diagnoses Encounter for screening mammogram for breast cancer Dense breast tissue Procedures M[facility]Y SCREENING W DELFIN SCREENING DIGITAL BREAST TOMOSYNTHESIS BI SCREENING MAMMOGRAPHY BI 2-VIEW BREAST INC Sydni Arzate APRN.CNP [address] [place] [address] [facility] [address] [place] [phone] Referral ID Status Reason Start Date Expiration Date Visits Requested Visits Authorized [id number] Pending Review Auto-Generat ed Referral 05/16/2022 06/15/2023 1 1 [facility] for referral (narrative)* Diagnostic Procedure Only (Routine) - Authorized Specialty Diagnoses / Procedures Referred By Cassius espinoza Referred To Contact [facility] Diagnoses Abnormal finding on radiological examination of breast Procedures M[facility]Y STEREO BX BREAST LT BX BREAST W/DEVICE 1ST [facility] Ewa Gale MD [address] [place] [address] [facility] [address] [place] [address] Referral ID Status Reason Start Date Expiration Date Visits Requested Visits Authorized [id number] Authorized Auto-Generat ed Referral 06/28/2022 07/28/2023 1 1 [facility] for referral (narrative)* Diagnostic Procedure Only (Routine) - Closed Specialty Diagnoses / Procedures Referred By Contac t Referred To Contact [facility] Diagnoses Abnormal finding on radiological examination of breast Procedures [facility]Y STEREO BX BREAST LT BX BREAST W/DEVICE 1ST [facility] GUID Ewa Kate MD [address] [place] [address] [facility] [address] [place] [phone] Referral ID Status Reason Start Date Expiration Date V isits Requested Visits Authorized [id number] Closed Auto-Generate d Referral 06/28/2022 07/28/2023 1 1 [facility] for referral (narrative)* Diagnostic Procedure Only (Routine) - Closed Specialty Diagnoses / Procedures Referred By Contac t Referred To Contact [facility] Diagnoses Encounter for gynecological examination (general) (routine) without abnormal findings Encounter for screening mammogram for breast cancer Procedures [place] SCREENING SCREENING MAMMOGRAPHY BI 2-VIEW BREAST INC CAD Sydni Mckeon APRN.CNP [address] [place] [address] [facility] [address] [place] [address] Referral ID Status Reason Start Date Expiration Date V isits Requested Visits Authorized [id number] Closed Auto-Generate d Referral 05/10/2021 06/09/2022 1 1 [facility] for referral (narrative)* Diagnostic Procedure Only (Routine) - Closed Specialty Diagnoses / Procedures Referred By Contac t Referred To Contact [facility] Diagnoses Abnormal mammogram Procedures US BREAST LTD LT US BREAST UNI REAL TIME WITH IMAGE LIMITED Sydni Mckeon APRN.CNP [address] [place] [address] [facility] [address] [place] [phone] Referral ID Status Reason Start Date Expiration Date V isits Requested Visits Authorized [id number] Closed Auto-Generate d Referral 05/17/2022 06/16/2023 1 1 [facility] for visit Narrative* Diagnostic Procedure Only (Routine) - Closed Specialty Diagnoses / Procedures Referred By Contac t Referred To Contact [facility] Diagnoses Abnormal mammogram Procedures US BIOPSY BREAST LT BX BREAST W/DEVICE 1ST [facility] ULTRASOUND Burt Flower MD [address] [place] [address] [facility] [address] [place] [phone] Referral ID Status Reason Start Date Expiration Date V isits Requested Visits Authorized [id number] Closed Auto-Generate d Referral 06/14/2022 07/14/2023 1 1 [facility] for visit Narrative* Diagnostic Procedure Only (Routine) - Closed Specialty Diagnoses / Procedures Referred By Contac t Referred To Contact [facility] Diagnoses Abnormal finding on radiological examination of breast Procedures M[facility]Y STEREO BX BREAST LT BX BREAST W/DEVICE 1[facility] Ewa Gale MD [address] [place] [address] [facility] [address] [place], [place] [phone] Referral ID Status Reason Start Date Expiration Date V isits Requested Visits Authorized [id number] Closed Auto-Generate d Referral 06/28/2022 07/28/2023 1 1 [facility] for visit Narrative* Diagnostic Procedure Only (Routine) - Closed Specialty Diagnoses / Procedures Referred By Contac t Referred To Contact [facility] Diagnoses Encounter for gynecological examination (general) (routine) without abnormal findings Encounter for screening mammogram for breast cancer Procedures [place] SCREENING SCREENING MAMMOGRAPHY BI 2-VIEW BREAST INC Sydni Arzate APRN.PRESERVATIONIST [address] [place] [address] [facility] [address] [place] [address] Referral ID Status Reason Start Date Expiration Date V isits Requested Visits Authorized [id number] Closed Auto-Generate d Referral 05/10/2021 06/09/2022 1 1 [facility] for visit Narrative* Diagnostic Procedure Only (Routine) - Closed Specialty Diagnoses / Procedures Referred By Contac t Referred To Contact [facility] Diagnoses Abnormal mammogram Procedures M[facility]Y DIAGNOSTIC LT DIAGNOSTIC MAMMOGRAPHY COMPUTER-AIDED DETCJ UNI Sydni Mckeon APRN.PRESERVATIONIST [address] [place] [address] [facility] [address] [place] [phone] Referral ID Status Reason Start Date Expiration Date V isits Requested Visits Authorized [id number] Closed Auto-Generate d Referral 05/17/2022 06/16/2023 1 1 [facility] for visit Narrative* Diagnostic Procedure Only (Routine) - Closed Specialty Diagnoses / Procedures Referred By Contac t Referred To Contact [facility] Diagnoses Abnormal mammogram Procedures US BREAST LTD LT US BREAST UNI REAL TIME WITH IMAGE LIMITED Sydni Mckeon, DAY CARE ATTENDANT.PRESERVATIONIST [address] [place] [address] [facility] [address] [place] [address] Referral ID Status Reason Start Date Expiration Date V isits Requested Visits Authorized [id number] Closed Auto-Generate d Referral 05/17/2022 06/16/2023 1 1 [facility] Summary Purpose Family History No Family History Records FoundNo Family History Records Found No data available for this section No Family History Records Found Advance Directives No Advanced Directives Records FoundNo Advanced Directives Records FoundNo Advanced Directives Records Found Medications Administered Section Inactive Administered Medications - up to 3 most recent administrations Medication Order MAR Action Action Date Dose Rate Site bupivacaine-EPINEPHrine 0.5 %-1:200,000 injection (SENSORCAINE) OTHER, X (OR/PROCEDURE) PRN, Starting on 07/17/22 at 1159, Until Sun07/17/22 at 1159, Intraprocedure Given 07/17/2022 11:59 AM EST 10 mL Breast, Left lidocaine 20 mg/mL (2 %) injection (XYLOCAINE) X (OR/PROCEDURE) PRN, Starting on Sun07/17/22 at 1155, Until Sun07/17/22 at 1155, Intraprocedure Given 07/17/2022 11:55 AM EST 5 mL Breast, Left Additional Source Comments Source Comments (unrecognize d section and content) In the event this informatio n is protected by the Federal Confidentiality of Alcohol and Drug Abuse Patient Records regulations: The Federal rules restrict any use of the information to criminally investigate or prosecute any alcohol or drug abuse patient.[facility] the event this information is protected by the Federal Confidentiality of Alcohol and Drug Abuse Patient Records regulations: The Federal rules restrict any use of the information to criminally investigate or prosecute any alcohol or drug abuse patient.[facility] the event this information is protected by the Federal Confidentiality of Alcohol and Drug Abuse Patient Records regulations: The Federal rules restrict any use of the information to criminally investigate or prosecute any alcohol or drug abuse patient.[facility] the event this information is protected by the Federal Confidentiality of Alcohol and Drug Abuse Patient Records regulations: The Federal rules restrict any use of the information to criminally investigate or prosecute any alcohol or drug abuse patient.[facility] the event this information is protected by the Federal Confidentiality of Alcohol and Drug Abuse Patient Records regulations: The Federal rules restrict any use of the information to criminally investigate or prosecute any alcohol or drug abuse patient.[facility] the event this information is protected by the Federal Confidentiality of Alcohol and Drug Abuse Patient Records regulations: The Federal rules restrict any use of the information to criminally investigate or prosecute any alcohol or drug abuse patient.[facility] Hospital[facility] the event this information is protected by the Federal Confidentiality of Alcohol and Drug Abuse Patient Records regulations: The Federal rules restrict any use of the information to criminally investigate or prosecute any alcohol or drug abuse patient.[facility] the event this information is protected by the Federal Confidentiality of Alcohol and Drug Abuse Patient Records regulations: The Federal rules restrict any use of the information to criminally investigate or prosecute any alcohol or drug abuse patient.[facility] HospitalIn the event this information is protected by the Federal Confidentiality of Alcohol and Drug Abuse Patient Records regulations: The Federal rules restrict any use of the information to criminally investigate or prosecute any alcohol or drug abuse patient.[facility] HospitalIn the event this information is protected by the Federal Confidentiality of Alcohol and Drug Abuse Patient Records regulations: The Federal rules restrict any use of the information to criminally investigate or prosecute any alcohol or drug abuse patient.[facility] HospitalIn the event this information is protected by the Federal Confidentiality of Alcohol and Drug Abuse Patient Records regulations: The Federal rules restrict any use of the information to criminally investigate or prosecute any alcohol or drug abuse patient.[facility] HospitalIn the event this information is protected by the Federal Confidentiality of Alcohol and Drug Abuse Patient Records regulations: The Federal rules restrict any use of the information to criminally investigate or prosecute any alcohol or drug abuse patient.[facility] Reason for Visit (unrecogniz ed section and content) Reason Comments Results, Lab Reason Comments Well Woman Reason Comments Derm Problem Bug bite R thigh and rash on back with bite x 1.5 wks Care Teams (unrecognized sec tion and content) Ultrasound Supervisor Relationship Specialty Start Date End Date Tameka Jimenez APRN.PRESERVATIONIST [address] [place] [address] PCP - General Family Medicine 02/20/22 Ultrasound Supervisor Relationship Specialty Start Date End Date Tameka Jimenez APRN.PRESERVATIONIST [address] [place] [address] PCP - General Family Medicine 02/20/22 Ultrasound Supervisor Relationship Specialty Start Date End Date Tameka Jimenez APRN.PRESERVATIONIST [address] [place] [address] PCP - General Family Medicine 02/20/22 Ultrasound Supervisor Relationship Specialty Start Date End Date Tameka Jimenez APRN.PRESERVATIONIST [address] [place] [address] PCP - General Family Medicine 02/20/22 Ultrasound Supervisor Relationship Specialty Start Date End Date Tameka Jimenez APRN.PRESERVATIONIST [address] [place] [address] PCP - General Family Medicine 02/20/22 Ultrasound Supervisor Relationship Specialty Start Date End Date Tamkea Jimenez APRN.CNP [address] [place] [address] PCP - General Family Medicine 02/20/22 Ultrasound Supervisor Relationship Specialty Start Date End Date Tameka Jimenez APRN.CNP [address] [place] [address] PCP - General Family Medicine 02/20/22 INFORMATION SOURCE (unrecogn ized section and content) DATE CREATED AUTHOR AUTHOR'S ORGANIZ ATION 06/29/2022 [facility] DATE CREATED AUTHOR AUTHOR'S ORGANIZ ATION 01/26/2023 [facility] Care Team (unrecognized sect ion and content) Care Team Personnel Name: TAMEKA JIMENEZ APRN-SHAMAR Position: P4 Advanced Practice Nurse Member Role: Primary Care Physician Address: Address: [address] [place] [id number]- Care Team Related Persons Name: TC DODD FOR RECORDS PERTAINING TO PATIENTS WHO ARE OR HAVE BEEN ENROLLED IN A CHEMICAL DEPENDENCY/SUBSTANCEABUSE PROGRAM, SOME INFORMATION MAY BE OMITTED. This clinical summary was aggregated from multiple sources. Caution should be exercised in using it in the provision of clinical care. This summary normalizes information from multiple sources, and as a consequence, information in this document may materially change the coding, format and clinical context of patient data. In addition, data may be omitted in some cases. CLINICAL DECISIONS SHOULD BE BASED ON THE PRIMARY CLINICAL RECORDS. [employer] provides no warranty or guarantee of the accuracy or completeness of information in this document.
--- NOTE | 2023-05-28 01:44 | EX.ED.UPPERE ---
HPI History of Present Illness HPI Narrative: Patient presents with pain in her right shoulder and scapular area that began yesterday. Patient states it came on gradually. Patient states the pain is constant. Patient describes it as dull and aching. Patient states it is worse with certain movements. Patient denies any trauma or injury. Patient denies any paresthesias or weakness. Patient denies any chest pain or shortness of breath. Patient denies any fevers or chills. Patient denies any redness or swelling. Chief Complaint: Upper Extremity Injury Informant: patient Onset/Context/Timing Onset: Yesterday Context: Gradual Onset Timing: Continuous Quality of Pain: Dull and Aching Location: Right shoulder and scapula Worsened by: Movement Relieved by: Nothing Associated Symptoms Associated Symptoms: Negative for Parasthesia, Weakness or Loss of Funtion PFSH PFSH Medical History no medical history Home Medications pantoprazole 20 mg tablet,delayed release (Protonix) 20 mg PO DAILY 05/28/23 [History Last Taken Unknown] Allergy/AdvReac Type Severity Reaction Status Date / Time No Known Allergies Allergy Verified 05/28/23 01:28 Surgical History no surgical history no surgical history Social History Smoking Status: Never smoker ROS ROS ED Constitutional Constitutional ED: Denies chills or fever(s) Eyes Eyes: Denies blurry vision or change in vision ENT ENT ED: Denies rhinorrhea or sore throat Cardiovascular Cardiovascular: Denies chest pain or palpitations Respiratory/Chest Respiratory/Chest: Denies cough or dyspnea Gastrointestinal Gastrointestinal: Denies nausea or vomiting Genitourinary Genitourinary ED: Denies dysuria or hematuria Musculoskeletal Musculoskeletal: Reports back pain; Denies neck pain Integumentary Denies abscess or rash Neurologic Neurologic: Denies headache(s) or weakness Allergic/Immunologic Allergic/Immunologic ED: Denies mouth swelling or urticaria EXAM Physical Exam Const Vital Signs: 05/28/23 01:30 Temperature 97.4 F L Temperature Source Temporal Pulse Rate 79 Respiratory Rate 18 Blood Pressure 129/92 H Blood Pressure Mean 104 Pulse Ox 94 Positive well nourished and well developed General Appearance ED: well developed and NAD HEENT Reports moist mucous membranes Neck full ROM and supple Chest Wall palpation of chest normal Extremity Extremity Narrative: There is tenderness over the posterior aspect of the right shoulder. There is no bony crepitance or step-off. There is no deformity noted. No edema or ecchymosis noted. Range of motion was only slightly limited in extension and abduction secondary to pain. Strength is 5/5 in the radial, median, and ulnar areas. Sensation was intact to light touch in the radial, median, ulnar, and axillary areas. Radial pulses are equal bilaterally. Neuro oriented x3, CN's II-XII intact bilaterally, moves all extremities, no focal motor deficits and no sensory deficits noted Sensorium / Orientation: alert Motor Exam: strength 5/5 throughout Psych mental status grossly normal MDM MDM MDM Narrative Medical decision making narrative: Differential diagnosis includes degenerative arthritis, occult fracture, and right upper lobe infiltrate. X-rays of the right shoulder will be obtained to assess for arthritis and fracture. Chest x-ray will be obtained to assess for pneumonia. Radiography Chest X-Ray - ED: 2 View, Read by ED Physician, Read by Radiologist and No Acute Disease Diagnostic Testing: X-rays of the right shoulder were obtained. There are 4 views. On my independent interpretation, there is no acute fracture or dislocation noted. There is no degenerative changes noted. Radiologist also interpreted the x-rays and agrees. PA and lateral chest x-ray was obtained. There are 2 views. On my independent interpretation, lung ceja are clear. There is normal cardiac silhouette. Bony thorax is normal. There is no acute process noted. Radiologist also interpreted the x-ray and agrees. Treatment and Re-Evaluation Narrative: Patient was advised of her findings. Patient was instructed use ice to the area. Patient was instructed to take Tylenol or ibuprofen as needed for pain. Patient was instructed to follow-up with her primary care physician in 5 to 7 days. Patient understood and was agreeable with the plan. All questions were answered. Discharge Plan Triage Chief Complaint: Upper Extremity Injury ED Provider: Nick Polo Dx/Rx/DC Orders Clinical Impression: Acute pain of right shoulder Instructions: ED Shoulder Pain, Uncertain Cause Prescriptions: No Action pantoprazole [Protonix] 20 mg tablet,delayed release (DR/EC) 20 mg PO DAILY Primary Care Provider: Raysa Jesus NP Referrals: Raysa Jesus NP, COMMUNICATIONS ATTENDANT-C [Primary Care Provider] - 3-5 Days Disposition Disposition: Home, Self Care
--- NOTE | 2023-05-28 02:37 | RAD_ITS ---
EXAM: XR RIGHT SHOULDER COMPLETE, 2 OR MORE VIEWS CLINICAL INDICATION: Injury/Pain TECHNIQUE: Two or more views of the right shoulder. COMPARISON: No relevant prior studies available. FINDINGS: BONES/JOINTS: Unremarkable. No acute fracture. No subluxation. Normal alignment. Preservation of the joint space. No sclerotic or destructive changes observed. SOFT TISSUES: Unremarkable. No soft tissue swelling or gas. No radiopaque foreign body. RAD/Shoulder min 2 Views IMPRESSION: Negative right shoulder x-rays. Electronically Signed: Weston Dumont MD at 3:54 EST ,
--- NOTE | 2023-05-28 03:20 | RAD_ITS ---
EXAM: XR CHEST, 2 VIEWS CLINICAL INDICATION: Pain TECHNIQUE: Frontal and lateral views of the chest. COMPARISON: No relevant prior studies available. FINDINGS: LUNGS AND PLEURAL SPACES: Unremarkable. No consolidation or edema. No pneumothorax. No effusion. HEART: Unremarkable. Cardiac silhouette not enlarged. MEDIASTINUM: Central airways and mediastinal contour are unremarkable. BONES/JOINTS: Unremarkable. No acute fracture. SOFT TISSUES: Unremarkable. RAD/Chest PA and Lateral IMPRESSION: No radiographic evidence of acute cardiopulmonary disease. Electronically Signed: Weston Dumont MD at 3:53 EST ,
== END 2023-05-28 04:40 | disposition home or self-care (01) ==
PROVIDERS: Emergency Provider Emergency Medicine; PCP Registered Nurse; Visit Provider Emergency Medicine
DX: M25.511 Pain in right shoulder (principal); Z79.899 Other long term (current) drug therapy
CPT/HCPCS: 71046; 73030; 99282

== ENCOUNTER 2023-08-21 19:06 | Emergency (ER) | payer OTHER, SELFPAY ==
[2023-08-21 19:07] VITALS: BP 140/86; PULSE 98; RESP 16; TEMP 36.3; O2SAT 99; BMI 37.1
--- NOTE | 2023-08-21 19:09 | EKG12_ITS ---
Test Reason : CP Blood Pressure : / mmHG Vent. Rate : 073 BPM Atrial Rate : 073 BPM P-R Int : 150 ms QRS Dur : 078 ms QT Int : 392 ms P-R-T Axes : 010 002 028 degrees QTc Int : 431 ms Normal sinus rhythm Normal ECG Confirmed by Weston Solares ([id number]), editor trade journal DUSTY HERRERA ([id number]) on 08/22/2023 10:35:09 AM Referred By: Confirmed By:Weston Solares
[2023-08-21 19:26] LABS: Absolute Lymphocyte Count 2.39 X10^3/uL (0.83-4.51); Absolute Neutrophil Count 5.7 X10^3/uL (2.0-7.7); Basophil# 0.05 X10^3/uL; Basophil% 0.6 % (0-1); Eosinophil# 0.07 X10^3/uL; Eosinophils% 0.8 % (0-5); Hematocrit 38.8 % (37-47); Hemoglobin 12.4 g/dL (12.0-15.0); Lymphocyte # 2.39 X10^3/ul (0.83-4.51); Lymphocyte % 27.4 % (19-41); Mean Corpuscular Hgb 26.8 pg (27.0-32.0); Monocyte# 0.52 X10^3/uL; NRBC Flagged by Analyzer 0 % (0-5); Neutrophil # 5.67 X10^3/uL (2.7-7.7); Platelet Count 314 K/mm3 (150-450); RBC Distribution Width CV 13.5 % (11.6-14.6); RBC Distribution Width SD 41.3 fl (35.1-43.9); Red Blood Count 4.62 M/mm3 (4.2-5.4); White Blood Count 8.7 K/mm3 (4.4-11.0)
--- NOTE | 2023-08-21 19:35 | RAD_ITS ---
STUDY: X-RAY CHEST REASON FOR EXAM: Female, 47 years old. chest pain TECHNIQUE: AP portable COMPARISON: May 28, 2023. FINDINGS: The lungs are clear and expanded. There is no demonstrated pleural abnormality. Normal size heart. Normal mediastinum and maame. Normal visualized pulmonary arteries. Normal visualized aortic arch and descending thoracic aorta. Normal visualized thoracic spine. Normal visualized ribs, clavicles, and shoulders. There is no demonstrated abnormality of the visualized soft tissue structures of the upper abdomen. RAD/Chest 1 View (Portable) IMPRESSION: Normal x-ray examination of the chest. Electronically Signed: Anselmo Paez MD at 19:58 EDT ,
[2023-08-21 19:46] LABS: Anion Gap 6 (5-15); BUN 14 mg/dL (7-18); BUN/Creat Ratio 15.7 RATIO (10-20); Calcium,Total 9.4 mg/dL (8.5-10.1); Chloride 103 mmol/L (98-107); Creatinine, Serum 0.89 mg/dL (0.55-1.02); EST Glomerular Filtration Rate 72 mL/min (>60); Est Glom Filt Rate - Afr Amer 87 mL/min (>60); Estimated Creatinine Clearance 94.41 ml/min; Glucose 97 mg/dL (74-106); Potassium 3.5 mmol/L (3.5-5.1); Sodium Level 137 mmol/L (136-145); Troponin-I HS (w/2H Reflex) 5 pg/mL (3.0-54.0)
[2023-08-21 20:07] VITALS: BP 122/78; PULSE 78; RESP 22; O2SAT 98
--- NOTE | 2023-08-21 20:23 | EDS_ITS ---
HPI History of Present Illness Chief Complaint: Chest Pain Narrative Narrative: 47-year-old female presenting with chest pain. It is very mild dull ache in the left shoulder. She equates it to her GERD which is severe. She has had it since about 10 or 11 this morning. Denies lightheadedness or dizziness. No fevers or chills. No cough or shortness of breath. The pain does not radiate. Patient history. No history of DVT/PE and no risk factors. Patient states that she noticed she had some pain on the anterior thigh today. She states that it gets this way from time to time. States is worse when she sitting and gets better when she gets up to move around. Patient went to urgent care today with a constellation of symptoms she was sent to the emergency room. Patient did take an extra pantoprazole today. She said that she currently feels better. [facility] Medical History Anemia Chronic GERD HTN (hypertension) Migraine Nausea Pelvic pain RUQ abdominal pain TMJ syndrome Home Medications pantoprazole 40 mg tablet,delayed release 40 mg PO DAILY 07/20/23 [History Last Taken Unknown] sumatriptan succinate 25 mg tablet See Rx Instructions PO .COMPLEX 07/20/23 [History Last Taken Unknown] Allergy/AdvReac Type Severity Reaction Status Date / Time No Known Allergies Allergy Verified 08/21/23 19:07 Family History Mother High cholesterol Rheumatic arteritis Diabetes Lung disease due to connective tissue disorder Grandmother Diabetes Uterine cancer Surgical History History of breast biopsy Social History Smoking Status: Never smoker alcohol intake: never ROS ROS ED Constitutional Constitutional ED: Denies chills or fever(s) Eyes Eyes: Denies blurry vision or change in vision ENT ENT ED: Denies rhinorrhea or sore throat Cardiovascular Cardiovascular: Reports chest pain; Denies palpitations Respiratory/Chest Respiratory/Chest: Denies cough or dyspnea Gastrointestinal Gastrointestinal: Denies nausea or vomiting Genitourinary Genitourinary ED: Denies dysuria or hematuria Musculoskeletal Musculoskeletal: Reports back pain and other Details: Left leg pain ; Denies neck pain Integumentary Denies abscess or rash Neurologic Neurologic: Denies headache(s) or weakness Allergic/Immunologic Allergic/Immunologic ED: Denies mouth swelling or urticaria EXAM Physical Exam Const Vital Signs: 08/21/23 19:07 08/21/23 19:28 08/21/23 19:28 Temperature 97.3 F L Temperature Source Temporal Pulse Rate 98 Respiratory Rate 16 Respiratory Effort Normal Blood Pressure 140/86 H Blood Pressure Mean 104 Pulse Ox 99 Oxygen Delivery Method Room Air 08/21/23 20:07 Temperature Temperature Source Pulse Rate 78 Respiratory Rate 22 H Respiratory Effort Blood Pressure 122/78 H Blood Pressure Mean 92 Pulse Ox 98 Oxygen Delivery Method Room Air Positive well nourished General Appearance ED: Negative for pallor HEENT Reports moist mucous membranes normocephalic and atraumatic Eyes PERRL Resp normal respiratory effort and clear to auscultation bilaterally Auscultation: Negative for rales, rhonchi or wheezes Cardio regular rate and regular rhythm GI normal to inspection, nondistended, normoactive bowel sounds Neuro oriented x3 and CN's II-XII intact bilaterally Sensorium / Orientation: awake Psych mental status grossly normal Skin General Skin Exam: Negative for jaundice or pallor Heart Score History: Slightly/Non-Suspicious Age: </= 45 years Risk Factors: No Risk Factors Troponin: </= Normal Limit Score: 0 MDM MDM MDM Narrative Medical decision making narrative: Patient presenting with chest pain which she felt was a dull pressure. Is been present today for over 9 hours. High-sensitivity troponin was 5. EKG on my interpretation shows a sinus rhythm with a ventricular rate of 73 bpm without sign of ischemic change or ectopy. Chest x-ray my interpretation shows no acute process. The radiologist interprets this and agrees. CBC shows normal white blood cell count, hemoglobin, platelets. BMP shows normal renal function, electrolytes. High-sensitivity troponin again normal at 5. I do not believe she did delta troponin. On examination she has some tenderness over the anterior thigh distally but nothing in the deep vein distribution and no cords palpated. This is not reproducible with range of motion however. I do not believe she has a DVT nor do I believe she has a PE as she is PERC negative. Patient will be discharged home to follow-up with her PCP and return precautions discussed. Impression: 1. Chest pain 2. Leg pain Lab Data Attestation: I reviewed the patient's lab results. Labs: Laboratory Results - last 24 hr 08/21/23 19:15 WBC 8.7 RBC 4.62 Hgb 12.4 Hct 38.8 MCV 84.0 MCH 26.8 L MCHC 32.0 RDW Std Deviation 41.3 RDW Coeff of [place] 13.5 Plt Count 314 MPV 10.0 Immature Gran % (Auto) 0.200 Neut % (Auto) 65.0 Lymph % (Auto) 27.4 Mineral % (Auto) 6.0 Eos % (Auto) 0.8 Baso % (Auto) 0.6 Absolute Neuts (auto) 5.7 Absolute Lymphs (auto) 2.39 Nucleated RBC % 0 Sodium 137 Potassium 3.5 Chloride 103 Carbon Dioxide 28.0 Anion Gap 6 BUN 14 Creatinine 0.89 Estim Creat Clear Calc 94.41 Est GFR (MDRD) Af Amer 87 Est GFR (MDRD) Non-Af 72 BUN/Creatinine Ratio 15.7 Glucose 97 Calcium 9.4 Troponin I High Sens 5 Radiography Diagnostic Testing: Clinical Impression(s) from Imaging Studies Chest X-Ray 08/21/23 19:35 IMPRESSION: Normal x-ray examination of the chest. Electronically Signed: Anselmo Paez MD at 19:58 EDT , Discharge Plan Triage Chief Complaint: Chest Pain ED Provider: Donald Holguin Dx/Rx/DC Orders Instructions: ED Chest Pain, Noncardiac Prescriptions: No Action pantoprazole 40 mg tablet,delayed release (DR/EC) 40 mg PO DAILY sumatriptan succinate 25 mg tablet See Rx Instructions PO .COMPLEX Rx Instructions: take 1 tab at onset of headache; if no relief may repeat 1 tab after at least 2 hrs; max = 4 tabs/24 hr PO Primary Care Provider: Raysa Jesus NP Referrals: Raysa Jesus NP, [facility] [Primary Care Provider] - Disposition Disposition: Home, Self Care
[2023-08-21 20:47] VITALS: BP 125/86; PULSE 72; RESP 16; TEMP 36.9; O2SAT 99
[2023-08-21 21:22] LABS: Reflex Troponin-HS? (from REC) Y
== END 2023-08-21 20:50 | disposition home or self-care (01) ==
LOC: ED 20:21
PROVIDERS: Emergency Provider Student in an Organized Health Care Education/Training Program; PCP Registered Nurse; Visit Provider Student in an Organized Health Care Education/Training Program
DX: R07.9 Chest pain, unspecified (principal); M79.606 Pain in leg, unspecified
CPT/HCPCS: 71045; 80048; 84484; 85025; 93005; 99284; A4216

== ENCOUNTER 2023-10-26 05:55 | Day surgery (SDC) | payer OTHER, SELFPAY ==
--- NOTE | 2023-10-25 08:42 | PCM.HP.BLA ---
History and Physical Date of Admission: 10/26/23 Expand All Collapse AllExpand All by Default Pre-Op History and Physical HPI: The patient is a 47 year old female presenting for discussion regarding endocervical polyp. Noted on routine exam and on ultrasound. Pt also has fibroid uterus. No concerns with AUB. pre-operative visit. She is scheduled for Hysteroscopy D&C and polypectomy with symphion, for endocervical polyp on 10/26/23. Procedure discussed along with risks, benefits and complications. Other alternatives discussed for management. Consent form signed? Yes. PAST MEDICAL HISTORY PAST MEDICAL HISTORY Diagnosis Date ? Other specified anemias ? PMS (premenstrual syndrome) ? 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 Seasonal allergies Springtime. PAST SURGICAL HISTORY PAST SURGICAL HISTORY Procedure Laterality Date ? BX OF BREAST; INCISIONAL Left 2022 PASH ? PAST SURGICAL HISTORY OF cyst removed from right wrist ? TYMPANOSTOMY LOCAL/TOPICAL ANESTHESIA 05/14/1979 CURRENT MEDICATIONS Current Outpatient Medications Medication Sig Dispense Refill ? pantoprazole DR (PROTONIX) 40 mg tablet No current facility-administered medications for this visit. ALLERGIES: Hayfever [Homeopathic Products] PERSONAL HISTORY: SOCIAL HISTORY Social History Tobacco Use ? Smoking status: Never ? Smokeless tobacco: Never Vaping Use ? Vaping Use: Never used Substance Use Topics ? Alcohol use: No ? Drug use: No FAMILY HISTORY: FAMILY HISTORY FAMILY HISTORY Problem Relation Age of Onset ? Diabetes Mother ? Hypertension Mother ? other (dermatomyositis) Mother ? other (congestive heart failure) Father age 80 ? Diabetes Maternal Grandmother ? other (Ovarian Cancer) Maternal Grandmother ? Heart Maternal Grandfather ? Hypertension Maternal Grandfather ? Diabetes Maternal Grandfather ? other (CVA) Maternal Grandfather REVIEW OF SYMPTOMS: negative except as noted above PHYSICAL EXAMINATION: VITALS: Blood pressure 118/74, weight 230 lb (104.3 kg), last menstrual period 10/04/2023. GENERAL: The patient is well nourished, well hydrated in no acute distress. , The patient is oriented to time, place, and person. NECK: full range of motion LUNGS: Clear to auscultation bilaterally. no wheezes, rhonchi or rales HEART: Regular rate and rhythm, Normal heart sounds, and No murmurs or gallops GENITALIA: deferred WET PREP: Not indicated IMPRESSION: 47yo with Endocervical polyp PLAN: Hysteroscopy, D&C, polypectomy with symphion Pt has been counseled on risks/benefits and alternatives of surgery including but not limited to anesthesia, bleeding, infection, uterine perforation injury to pelvic structures including bowel, bladder, ureters and vessels. Pt wishes to proceed with surgery at this time. Pre and post op instructions reviewed I have reviewed and updated past medical and surgical history, medications and allergies Meghan Redd MD
[2023-10-26] VITALS (8 sets, daily range): BP systolic 100–119; BP diastolic 67–75; PULSE 67–81; RESP 16–18; TEMP 36.1–36.3; O2SAT 93–98; BMI 37.3
[2023-10-26 06:23] LABS: Internal QC Validated? YES +Cl - CLEAR BKGD; Pregnancy, Urine Negative Negative
[2023-10-26] MEDS: Lactated Ringers 1,000 ML 15 ML IV (06:46)
--- NOTE | 2023-10-26 07:27 | PRE.ANES_ITS ---
ASA Classification* ASA Classification ASA Classification: 3 Assessment & Plan Anesthesia* Anesthesia Assessment Anesthesia Assessment: Discussed sedation and/or anesthesia options, risks, benefits, and alternatives with patient/parents/legal guardian/POA. Questions invited. The patient/parents/legal guardian/POA seems to understand and agrees to proceed with anesthesia plan. Reviewed the physical assessment, medical history, allergy history and patient home medications list prior to surgery/procedure/anesthetic and documented any changes. Performed airway and anesthesia risk assessments. 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 When Was Last Pacemaker Check QUESTION #4 FULL TEXT: You/Your Family Experience fever (hyperthermia) with Anesthesia Last Oral Intake Last Oral intake: Last Oral Intake NPO since 00:00 10/26/23 06:15 Meds taken in AM with sips of Yes 10/26/23 06:15 water? Meds patient instructed to see mar 10/26/23 06:15 take am of surgery PONV PONV - powder worker tnt: PONV - powder worker tnt Female Yes 10/15/23 11:13 HX of Motion Sickness No 10/15/23 11:13 HX of N/V After Surgery No 10/15/23 11:13 Non-Smoker Yes 10/15/23 11:13 Duration of Surgery greater No 10/15/23 11:13 than 60 minutes Number of Risk Factors 2 10/15/23 11:13 PONV Score Moderate Risk 10/15/23 11:13 Height & Weight Height & Weight: Anesthesia: Height & Weight Height 5 ft 6 in 10/26/23 06:15 Weight: 104.78 kg 10/26/23 06:15 Body Mass Index (BMI) 37.3 10/26/23 06:15 Respiratory Assessment Respiratory Assessment - powder worker tnt: Respiratory Tract Infection Hx - powder worker tnt Hx Respiratory Tract Infection No 10/15/23 11:13 STOP Sleep Apnea STOP Sleep Apnea - powder worker tnt: STOP Sleep Apnea - powder worker tnt Hx Hypertension No 10/15/23 11:13 Hx Sleep Apnea No 10/15/23 11:13 CPAP BIPAP Do you snore loudly (louder No 10/15/23 11:13 than talking or can be heard Do you often feel tired/ No 10/15/23 11:13 fatigued/ sleepy during daytime? Has anyone observed you stop No 10/15/23 11:13 breathing during sleep? STOP Results Negative 10/15/23 11:13 QUESTION #5 FULL TEXT : Do you snore loudly (louder than talking or can be heard through closed doors)? 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 Specify any problems Hx of Preganancy in last 3 No 10/15/23 11:13 Months Nurse Filling Out Transfusion DSCHRIBER 10/15/23 11:13 & Questions: Date: 10/15/23 10/15/23 11:13 Time: 11:14 10/15/23 11:13 Patient unable to answer at this time (ie. confused, unrespo /Reproduction History /Reproductive History - powder worker tnt: /Reproductive Hx- powder worker tnt Hx Now No 10/15/23 11:13 Gestational Age (in weeks): EDC: Hx Hx Para Hx Section SAB No 10/15/23 11:13 Active Medications Active Medications: Current Medications Generic Name Dose Route Start Last Admin Trade Name Freq PRN Reason Stop Dose Admin Lactated Ringer's 1,000 mls @ 15 mls/hr 10/26/23 06:15 10/26/23 06:46 IV 15 mls/hr .Q48H YUNIER Administration Anesthesia Focused Assessment* Temperature: 97.4 F Pulse Rate: 68 Blood Pressure: 119/75 Respiratory Rate: 16 Pulse Ox: 98 Airway Assessment Mouth opens: >3 cm Mallampati Score: III Focused Labs Anesthesia Preop lab: CBC WBC 8.7 K/mm3 (4.4-11.0) 08/21/23 19:15 RBC 4.62 M/mm3 (4.2-5.4) 08/21/23 19:15 Hgb 12.4 g/dL (12.0-15.0) 08/21/23 19:15 Hct 38.8 % (37-47) 08/21/23 19:15 Plt Count 314 K/mm3 (150-450) 08/21/23 19:15 CHEMISTRY Potassium 3.5 mmol/L (3.5-5.1) 08/21/23 19:15 Sodium 137 mmol/L (136-145) 08/21/23 19:15 BUN 14 mg/dL (7-18) 08/21/23 19:15 Creatinine 0.89 mg/dL (0.55-1.02) 08/21/23 19:15 Glucose 97 mg/dL (74-106) 08/21/23 19:15 COAG Urine Test Negative Negative 10/26/23 06:10 Review of Systems (Anesthesia) ROS Narrative System reviewed and no additional complaints, except as documented. [facility] Medical History Wears glasses Arthritis Back pain Gastric reflux Non-smoker Leg cramps TMJ syndrome Pelvic pain Anemia Migraine Home Medications ?Medication ?Instructions ?Recorded ?Last Taken ?Type pantoprazole 40 mg tablet,delayed 40 mg PO DAILY 07/20/23 10/26/23 05:15 History release sumatriptan succinate 25 mg tablet 25 mg PO PRN PRN migraine headache 07/20/23 Unknown History Allergy/AdvReac Type Severity Reaction Status Date / Time No Known Allergies Allergy Verified 10/26/23 06:14 Family History Mother High cholesterol Rheumatic arteritis Diabetes Lung disease due to connective tissue disorder Grandmother Diabetes Uterine cancer Social History Smoking Status: Never smoker alcohol intake: never
--- NOTE | 2023-10-26 07:30 | EMB_PTH ---
PATIENT: GLADYS PETER LOC: [facility] U#:[id number] AGE/SX: 47/F ROOM: RE10/26/[address]: Dr. Meghan Mares, MDDOB: 1975 BED: DIS: 10/26/2023 SPEC #: [id number] RECD: 10/26/23 10:50 STATUS: GALDINO BING #: [id number] RENU: 10/26/23 07:[address]: Meghan Mares DEPT: SURGICAL PATHOLOGY RECD BY: Cece Vicente ENTERED: 10/26/23 12:36 SP TYPE: ENDOM BX/C MILES DR: Raysa Jesus, SEAMER OPERATOR-C Tissues: Endometrium, NOS Procedures: Surgery Specimen Level IV HEADER OPERATION: Hysteroscopy D&C, polypectomy, syphmion PRE-OP DIAGNOSIS: Endocervical polyp TISSUE SUBMITTED: Endometrial shavings, endocervical polyp MICROSCOPIC DIAGNOSIS Endometrium, curettings and polyp: Secretory endometrium. Fragments of benign myometrial and endocervical tissue. RACHEL/ 10/29/2023 MICROSCOPIC DESCRIPTION Slides are reviewed. GROSS DESCRIPTION Received in fixative is one container labeled with the patient's name and designated Endocervical shavings and polyp. The specimen consists of multiple irregular fragments of bernstein soft tissue that in aggregate measure 5.0 x 3.0 x 0.3 cm. The specimen is totally submitted in two cassettes. RIC/ 10/26/2023 TC:5 CPT:48940
--- NOTE | 2023-10-26 08:12 | PCM.POST.ANE ---
Anesthesia: Postop Eval I Current Vital Signs Temperature: 97 F Pulse Rate: 80 Blood Pressure: 107/73 Respiratory Rate: 18 Pulse Ox: 93 Oxygen Delivery Method: Room Air Assessment Airway patent: Yes Spontaneous unlabored respirations: Yes Mental status: Awake nausea: No Vomiting: No Anesthesia Complication: No Fluid Hydration Crystalloid volume administer (ml): 500 Total IV fluid infused: 500 Progress Note Anesthesia document: Postop Eval 1 completed: Yes
--- NOTE | 2023-10-26 08:41 | PCM.DC ---
Discharge Instructions Diet Discharge Diet: No restrictions Activity May resume sexual activity in: 1 week Dressing / Incision Call your doctor if you observe: Fever of 101 or Higher, Inability to urinate, Using more than 1 pad per hour and Uncontrolled pain Follow Up Care Please Follow Up With: Meghan Mares MD When: 1-2 weeks post OP if you need an appointment please call [phone] Test Results: Test results from this visit will be discussed in further detail at your follow-up appointment, if applicable. Discharge Plan Admission Attending Provider: Meghan Mares Primary Care Provider: Raysa Jesus NP Instructions Print Language: [place] Discharge Orders/Prescriptions Prescriptions: No Action pantoprazole 40 mg tablet,delayed release (DR/EC) 40 mg PO DAILY sumatriptan succinate 25 mg tablet 25 mg PO PRN PRN (Reason: migraine headache) Rx Instructions: take 1 tab at onset of headache; if no relief may repeat 1 tab after at least 2 hrs; max = 4 tabs/24 hr PO Referrals / Follow Up: Raysa Jesus NP, GREEN MARKETING SPECIALIST-C [Primary Care Provider] - Disposition Disposition (needs filled in before D/C Order can be placed): Home, Self Care
--- NOTE | 2023-10-26 08:42 | OP.PCM_ITS ---
Report of Operation Date of Procedure: 10/26/23 Pre-Operative Diagnosis: Endocervical polyp Post-Operative Diagnosis: Same Surgery/Procedure Performed:: Hysteroscopy, D&C, polypectomy Description of Surgical Findings:: Endocervical polyp Surgeon: Meghan Mares manager cargo: None Type of Anesthesia: MAC Specimen's removed: endocervical polyp, Endometrial curettings Estimated Blood Loss (mL): <5cc Fluids Replaced: 500 Description of Procedure: [facility] Medical Records Department [address] [place] [address] Operative Report 10/26/23 0758 MR#: [id number] Acct: [id number] Name: GERALD FRAGA Rep #: [id number] : 06/25/1998 25 From: Meghan Mares MD PCP: Care Physician,No Primary Status: ADM IN Location: [place] [address] Informed consent was obtained the patient was taken the operating room she was placed in supine position. She was given anesthesia. She was then placed in the [facility] where she was prepped and draped in the normal sterile fashion. bladder drained prior to start of procedure. At this time the weighted speculum was placed in the posterior fornix of vagina. Single-tooth tenaculum was used to gently grasp the anterior lip the cervix. At this time the uterine cavity was sounded to approximately 8 cm. endocervical polyp noted prolapsing out of os. Gentle dilatation was performed once adequate dilatation of the cervix was achieved the hysteroscope using normal saline as a distention medium was placed. Tubal ostia visualized. Symphion resecting device used to obtain endometrial curettings and to perform endocervical polypectomy. Tissue will be sent to pathology for evaluation. Tenaculum removed. Good hemostasis. Instrument, lap count correct x 2. Vaginal Sweep was negative. fluid deficit 600cc Grafts/Implants Used: none Procedure Start Time: 07:50 Procedure Stop Time: 07:58 Complications none Admit VTE Documentation VTE Present on Admission: Yes VTE Mechan Device Prophylaxis: SCD's VTE Pharm Prophylaxis ordered?: No Reason prophylaxis not ordered:: Procedure Not Indicated
--- NOTE | 2023-10-26 09:32 | POSTOPAN2_ITS ---
Anesthesia Postop Eval I Sum Postop Eval Completion status Anesthesia document: Postop Eval 1 completed: Yes Anesthesia Postop Eval I Summary Anesthesia Postop Eval I Summary: Anesthesia Postop Eval I: Assessment Summary Airway patent Yes 10/26/23 08:13 DRIVER COURIER.CSIR Spontaneous unlabored Yes 10/26/23 08:13 DRIVER COURIER.CSIR respirations Mental status Awake 10/26/23 08:13 DRIVER COURIER.CSIR nausea No 10/26/23 08:13 DRIVER COURIER.CSIR Vomiting No 10/26/23 08:13 DRIVER COURIER.CSIR Anesthesia Postop Eval I: Fluid Summary Crystalloid volume administer 500 10/26/23 08:13 DRIVER COURIER.CSIR (ml) Colloids volume administered ( ml) Blood Product volume administered (ml) Total IV fluid infused 500 10/26/23 08:13 DRIVER COURIER.CSIR Anesthesia Postop Eval I: Summary Notes Anesthesia Complication No 10/26/23 08:13 DRIVER COURIER.CSIR Anesthesia Complication Comment: Post-operative progress note Anesthesia: Postop Eval II Evaluation Mental status: Awake Pain Level: 0 nausea: No Vomiting: No Complications Anesthesia Complication: No
--- NOTE | 2023-10-26 09:32 | PCM.POSTANE2 ---
Anesthesia Postop Eval I Sum Postop Eval Completion status Anesthesia document: Postop Eval 1 completed: Yes Anesthesia Postop Eval I Summary Anesthesia Postop Eval I Summary: Anesthesia Postop Eval I: Assessment Summary Airway patent Yes 10/26/23 08:13 BUSINESS DEVELOPMENT SALES EXECUTIVE.CSIR Spontaneous unlabored Yes 10/26/23 08:13 BUSINESS DEVELOPMENT SALES EXECUTIVE.CSIR respirations Mental status Awake 10/26/23 08:13 BUSINESS DEVELOPMENT SALES EXECUTIVE.CSIR nausea No 10/26/23 08:13 BUSINESS DEVELOPMENT SALES EXECUTIVE.CSIR Vomiting No 10/26/23 08:13 BUSINESS DEVELOPMENT SALES EXECUTIVE.CSIR Anesthesia Postop Eval I: Fluid Summary Crystalloid volume administer 500 10/26/23 08:13 BUSINESS DEVELOPMENT SALES EXECUTIVE.CSIR (ml) Colloids volume administered ( ml) Blood Product volume administered (ml) Total IV fluid infused 500 10/26/23 08:13 BUSINESS DEVELOPMENT SALES EXECUTIVE.CSIR Anesthesia Postop Eval I: Summary Notes Anesthesia Complication No 10/26/23 08:13 BUSINESS DEVELOPMENT SALES EXECUTIVE.CSIR Anesthesia Complication Comment: Post-operative progress note Anesthesia: Postop Eval II Evaluation Mental status: Awake Pain Level: 0 nausea: No Vomiting: No Complications Anesthesia Complication: No
== END 2023-10-26 08:57 | disposition home or self-care (01) ==
LOC: SDC 05:56 → AC 05:57
PROVIDERS: PCP Registered Nurse; Referring Provider Obstetrics & Gynecology; Visit Provider Obstetrics & Gynecology
PROC: 0UB98ZZ Excision of Uterus, Via Natural or Artificial Opening Endoscopic (ICD-10-PCS; CPT 58558; principal; 2023-10-26 07:15)
DX: N84.1 Polyp of cervix uteri (principal); D25.9 Leiomyoma of uterus, unspecified; K21.9 Gastro-esophageal reflux disease without esophagitis; Z79.899 Other long term (current) drug therapy
CPT/HCPCS: 58558; 00952; 81025; 88305; J7120; J2405

== ENCOUNTER → 2024-01-03 | Outpatient (CLI) | payer OTHER, SELFPAY ==
[2024-01-03 17:26] LABS: Erythrocyte Sedimentation Rate 10 mm/hr (0-30)
[2024-01-03 17:45] LABS: Amylase 41 U/L (25-115); CPK Total, Creatine Kinase 111 U/L (26-192); CRP < 2.90 mg/L (0.0-3.0); LDH 202 U/L (84-246); Lipase 54 U/L (13-75)
[2024-01-05 18:10] LABS: Bedside Glucose 116 mg/dL (74-106)
[2024-01-10 17:08] LABS: Albumin 3.7 g/dL (2.9-4.4); Alpha-1-Globulins 0.2 g/dL (0.0-0.4); Alpha-2-Globulins 0.6 g/dL (0.4-1.0); Cytoplasmic Ab (C-ANCA) <1:20 titer (Neg:<1:20); Endomysial Antibody IgA Negative (Negative); Gamma Globulin 1.5 g/dL (0.4-1.8); Gastrin, Serum 55 pg/mL (0-115); Immunoglobulin A 242 mg/dL (87-352); Immunoglobulin E 24 IU/mL (6-495); Immunoglobulin G 1334 mg/dL (586-1602); Immunoglobulin M 332 mg/dL (26-217); Intrinsic Factor Ab 1.1 AU/mL (0.0-1.1); Perinuclear Ab (P-ANCA) <1:20 titer (Neg:<1:20); t-Transglutaminase IgA <2 U/mL (0-3)
[2024-01-11 04:07] LABS: Anti-Centromere B Ab <0.2 AI (0.0-0.9); Anti-Chromatin <0.2 AI (0.0-0.9); Anti-Jo <0.2 AI (0.0-0.9); Anti-Scleroderma-70 AB <0.2 AI (0.0-0.9); Anti-dsDNA Ab <1 IU/mL (0-9); Beef <0.10 kU/L (Class 0); Chocolate <0.10 kU/L (Class 0); Codfish <0.10 kU/L (Class 0); Corn <0.10 kU/L (Class 0); Egg, Whole <0.10 kU/L (Class 0); Milk (Cow) <0.10 kU/L (Class 0); Mussels <0.10 kU/L (Class 0); Peanut <0.10 kU/L (Class 0); Pork <0.10 kU/L (Class 0); RNP Ab 0.2 AI (0.0-0.9); SJOGREN'S Anti-SS-A test < 0.2 AI (0.0-0.9); SJOGREN'S Anti-SS-B test < 0.2 AI (0.0-0.9); Salmon <0.10 kU/L (Class 0); Shrimp <0.10 kU/L (Class 0); Smith Ab <0.2 AI (0.0-0.9); Soybean <0.10 kU/L (Class 0); Tuna <0.10 kU/L (Class 0); Wheat <0.10 kU/L (Class 0)
== END | disposition home or self-care (01) ==
LOC: LAB 16:26
PROVIDERS: PCP Registered Nurse; Referring Provider Internal Medicine Gastroenterology; Visit Provider Internal Medicine Gastroenterology
DX: K21.9 Gastro-esophageal reflux disease without esophagitis (principal)
CPT/HCPCS: 36415; 82150; 82550; 82784; 82785; 82941; 82962; 83516; 83615; 83690; 84165; 85652; 86003; 86005; 86140; 86225; 86235; 86255; 86256; 86334; 86340

== ENCOUNTER → 2024-01-21 | Outpatient (CLI) | payer OTHER, SELFPAY ==
--- NOTE | 2024-01-21 07:55 | US_ITS ---
INDICATION: bloating EXAMINATION: Ultrasound US Abdomen Limited (quadrant) TECHNIQUE: Dyer scale and color doppler imaging was performed of the right upper quadrant. COMPARISON: No relevant prior comparison study available FINDINGS: LIVER: 15.1 cm length. Increased echogenicity. GALLBLADDER Size: Distended. Stones: None. Wall thickness: Not thickened. 2 mm. Pericholecystic fluid: None. Sonographic Mcwilliams sign: Negative. EXTRAHEPATIC BILE DUCTS: Common bile duct 4 mm not dilated. PANCREAS: Unremarkable. RIGHT KIDNEY: No hydronephrosis. ASCITES: None. US/Abdomen Limited IMPRESSION: No acute findings. Fatty infiltration liver. Electronically Signed: Carolina Burgos MD at 8:04 EDT ,
== END | disposition home or self-care (01) ==
PROVIDERS: PCP Registered Nurse; Referring Provider Internal Medicine Gastroenterology; Visit Provider Internal Medicine Gastroenterology
DX: K21.9 Gastro-esophageal reflux disease without esophagitis (principal)
CPT/HCPCS: 76705

== ENCOUNTER 2024-01-22 06:01 | Day surgery (SDC) | payer OTHER, SELFPAY ==
[2024-01-22] VITALS (8 sets, daily range): BP systolic 108–112; BP diastolic 68–74; PULSE 71–82; RESP 14–18; TEMP 35.8–36.4; O2SAT 94–98; BMI 33.1
--- NOTE | 2024-01-22 | GASB_PTH ---
PATIENT: GLADYS PETER LOC: [place] U#:[id number] AGE/SX: 48/F ROOM: RE01/22/[address]: Dr. Mikey Solares DO : 1975 BED: DIS: 01/22/2024 SPEC #: [id number] RECD: 01/22/24 08:37 STATUS: GALIDNO REDuke #: [id number] RENU: 01/22/24 00:[address]: Mikey Solares DEPT: SURGICAL PATHOLOGY RECD BY: Tadeo Newell ENTERED: 01/22/24 10:19 SP TYPE: Gastric Bx OTHR DR: Raysa Jesus, DECORATING MACHINE OPERATOR-C Tissues: A - Duodenum, NOS B - Gastric mucous membrane C - Esophageal mucous membrane Procedures: Special Stain Group I Surgery Specimen Level IV Alcian Blue/PAS (control) HEADER OPERATION: EGD, biopsy PRE-OP DIAGNOSIS: Nausea/vomiting, GERD TISSUE SUBMITTED: A- Duodenum biopsy, B- Antrum biopsy, C- Distal esophagus biopsy MICROSCOPIC DIAGNOSIS A. Duodenum, biopsy: Fragments of duodenal mucosa, no pathologic diagnosis. B. Antrum, biopsy: Mild gastritis. See microscopic description and comment. C. Distal esophagus, biopsy: Fragments of gastroesophageal mucosa with moderate chronic inflammation. Intestinal metaplasia (goblet cell metaplasia) not identified. See comment. 01/23/2024 COMMENT B. The results of immunohistochemistry for Helicobacter pylori will be reported separately ([id number]). C. Alcian blue/PAS stain with matched control is used in the evaluation of the specimen. MICROSCOPIC DESCRIPTION Slides are reviewed. B. The specimen shows fragments of gastric mucosa with chronic inflammatory cell infiltrates in the lamina propria consisting of lymphocytes and plasma cells, consistent with mild chronic gastritis. GROSS DESCRIPTION A. Received in fixative is one container labeled with the patient's name and designated Duodenum biopsy. The specimen consists of two irregular fragments of light bernstein soft tissue that in aggregate measure 0.8 x 0.4 x 0.1 cm. The specimen is totally submitted in one cassette. B. Received in fixative is one container labeled with the patient's name and designated Antrum biopsy. The specimen consists of two irregular fragments of light bernstein soft tissue that in aggregate measure 0.8 x 0.4 x 0.1 cm. The specimen is totally submitted in one cassette. C. Received in fixative is one container labeled with the patient's name and designated Distal esophagus biopsy. The specimen consists of two irregular fragments of light bernstein soft tissue that in aggregate measure 0.8 x 0.5 x 0.1 cm. The specimen is totally submitted in one cassette. SJ.mr 01/22/2024 TC:3 CPT:[id number],74918
--- NOTE | 2024-01-22 06:32 | HP.PCM_ITS ---
History and Physical Date of Admission: 01/22/24 GLADYS BROCK, is a 48 F who presents to the office today for initial consult. *BGI established 8pt reports that she will have episodes of nausea that last for about a month. Pt reports that in November she had a week of bad gas pressure and had to sleep propped up, her PCP switched her from pantoprazole to Nexium which she reports has been helpful; denies HB or reflux symptoms. Pt reports that she has never had an EGD. ROS Const Constitutional: No fatigue, fever(s) or weight change ENT ENT: No difficulty swallowing Gastro GI: No abdominal pain, belching, bloating, change in bowel habits, change in stool character, coffee ground emesis, constipation, cramping, diarrhea, heartburn, difficulty swallowing, feeling full early, excessive flatus, incontinent of stools, Vomiting blood/hematemesis, Blood in stool, loose stools, Black,tarry stools, nausea/dyspepsia, pain with swallowing, vomiting or other Musc Musculoskeletal: Positive for back pain; No joint pain Skin Skin: No yellowing of the eye or itchy eyes Psych Psychiatric: No anxiety and No depression Endo Endocrine: No fatigue or weight change Aller/Imm Allergy/Immunologic: No itchy eyes Maynor/Lymp Hematologic/Lymphatic: No easy bleeding or easy bruising Exam Const General: cooperative and comfortable Nutritional Appearance: average body habitus and well nourished [facility] Head: normal to inspection Ears: hearing grossly normal bilaterally Nose: external nose normal Face and sinus: normal facial exam Mouth: oral mucosae normal Throat: posterior oropharynx normal Eyes General: appearance normal, both eyes and all related structures Neck Neck: normal visual inspection Chest Chest palpation & inspection: normal inspection of the chest and normal palpation of entire chest wall Resp Effort & Inspection: normal respiratory effort Auscultation: Bilateral: Clear to Auscultation Cardio Palpation: normal PMI Rate: regular rate Rhythm: regular rhythm GI Inspection: normal to inspection Auscultation: normal bowel sounds Percussion: normal to percussion Palpation: no hepatosplenomegaly Skin General: no rashes or lesions noted Neuro General: patient alert Extrem General: normal to inspection Psych Affect: normal affect Assessment and Plan Assessment and Plan (1) Nausea and vomiting: (2) GERD (gastroesophageal reflux disease): Status: Acute Plan: Very pleasant 48-year-old with a year of new onset nausea associated with some bloating and intermittent reflux symptoms. She has not had any surgeries. She does not smoke cigarettes. She does not drink much alcohol. She has no known food allergies. She has no previous diagnosis of functional GI disease. She did have an right upper quadrant ultrasound at another institution but she does not know what the findings were. She does not know if she has had a any functional test including gastric emptying study or HIDA scan with cholecystokinin. She denies any rash, arthralgia. She does have some neck pain and some low back pain which she sees a chiropractor for. She is possibly preme nopausal. She has no previous history of osteoporosis, iron deficiency anemia or any other hematologic problem. She has no past medical history of autoimmune disease. Her weight has been about the same. Differential diagnosis includes erosive esophagitis, gastroparesis, gas bloat syndrome, atypical gallbladder abnormalities including bile induced gastritis and esophagitis. Recommendations include gastric emptying study, HIDA scan with CCK, upper endoscopy with biopsies for Rushing's esophagus screening, gastritis with or without H. pylori and duodenitis. Also because this is acute onset we will look for signs of autoimmune disease since her mom of dermatomyositis. Orders: Orders Allergen, Food Profile 14 Today K21.9 - Gastro-esophageal reflux disease without esophagitis Anti-Parietal Cell AB, QN Today K21.9 - Gastro-esophageal reflux disease without esophagitis Gastrin, Serum Today K21.9 - Gastro-esophageal reflux disease without esophagitis Intrinsic Factor Ab Today K21.9 - Gastro-esophageal reflux disease without esophagitis ADDISON + Protein Elect, Serum Today K21.9 - Gastro-esophageal reflux disease without esophagitis Celiac Disease Profile Today K21.9 - Gastro-esophageal reflux disease without esophagitis ANCA Today K21.9 - Gastro-esophageal reflux disease without esophagitis CRP Today K21.9 - Gastro-esophageal reflux disease without esophagitis Erythrocyte Sed Rate Today K21.9 - Gastro-esophageal reflux disease without esophagitis Immunoglobulins G/A/M/E Today K21.9 - Gastro-esophageal reflux disease without esophagitis LDH Today K21.9 - Gastro-esophageal reflux disease without esophagitis Gastric Emptying Study Today K21.9 - Gastro-esophageal reflux disease without esophagitis Hepatobilliary Img w/Pharm Int Today K21.9 - Gastro-esophageal reflux disease without esophagitis Abdomen Limited Today K21.9 - Gastro-esophageal reflux disease without esophagitis Amylase Today K21.9 - Gastro-esophageal reflux disease without esophagitis Lipase Today K21.9 - Gastro-esophageal reflux disease without esophagitis SOHAIL Comprehensive Panel Today K21.9 - Gastro-esophageal reflux disease without esophagitis CPK Total, Creatine Kinase Today K21.9 - Gastro-esophageal reflux disease without esophagitis I have examined the patient and the H&P has been reviewed. There are no clinical changes since date of exam.
[2024-01-22 06:33] LABS: Internal QC Validated? YES +Cl - CLEAR BKGD; Pregnancy, Urine Negative Negative
[2024-01-22] MEDS: Lactated Ringers 1,000 ML 15 ML IV (06:34)
--- NOTE | 2024-01-22 07:00 | IMM_PTH ---
PATIENT: GLADYS PETER LOC: [place] U#:[id number] AGE/SX: 48/F ROOM: RE01/22/[address]: Dr. Mikey Solares DO : 1975 BED: DIS: 01/22/2024 SPEC #: [id number] RECD: 01/22/24 10:29 STATUS: GALDINO REQ #: [id number] RENU: 01/22/24 07:[address]: Mikey Solares DEPT: IMMUNOHISTOCHEMISTRY RECD BY: Sancho Julian ENTERED: 01/22/24 10:29 SP TYPE: IMMUNO OTHR DR: Raysa Jesus, FEED ADVISER-C Tissues: B - Gastric mucous membrane Procedures: H Pylori (initial) PHYSICIAN & INSTITUTION [place] [address] SPECIMEN INFORMATION: Tissue Source: B- Antrum biopsy Clinical Info: Nausea/vomiting, GERD Specimen Number: [id number] CPT code: 08816 METHODOLOGY: Deparaffinized sections of prefer/formalin-fixed tissue or PAP/DQ stained slides are incubated with monoclonal/polyclonal antibodies/oligonucleotide probes. Localization is made via biotin free immunoperoxidase method. Appropriate controls are performed and reacted as expected. Results on target cell population are indicated in the following table: RESULTS: ANTIBODY / CLONE RESULT Block B H Pylori (polyclonal) negative These tests were developed and their performance characteristics determined by Laboratory. They may not have been cleared or approved by the U.S. Food and Drug Administration. The FDA has determined that such clearance or approval is not necessary. The above immunohistochemical/dualISH markers are ordered and reviewed by the Pathologist. INTERPRETATION: B. Antrum, biopsy: Negative for Helicobacter pylori organisms. 01/23/2024
--- NOTE | 2024-01-22 07:05 | PRE.ANES_ITS ---
ASA Classification* ASA Classification ASA Classification: 2 Assessment & Plan Anesthesia* Anesthesia Assessment Anesthesia Assessment: Discussed sedation and/or anesthesia options, risks, benefits, and alternatives with patient/parents/legal guardian/POA. Questions invited. The patient/parents/legal guardian/POA seems to understand and agrees to proceed with anesthesia plan. Reviewed the physical assessment, medical history, allergy history and patient home medications list prior to surgery/procedure/anesthetic and documented any changes. Performed airway and anesthesia risk assessments. Anesthesia Type Anesthesia Type: MAC (see written pre anesthesia record for full assessment) Anesthesia Focused Assessment* Temperature: 97.5 F Pulse Rate: 78 Blood Pressure: 112/68 Respiratory Rate: 18 Pulse Ox: 98 Airway Assessment Mouth opens: >3 cm Mallampati Score: II Focused Labs Anesthesia Preop lab: CBC WBC 8.7 K/mm3 (4.4-11.0) 08/21/23 19:15 RBC 4.62 M/mm3 (4.2-5.4) 08/21/23 19:15 Hgb 12.4 g/dL (12.0-15.0) 08/21/23 19:15 Hct 38.8 % (37-47) 08/21/23 19:15 Plt Count 314 K/mm3 (150-450) 08/21/23 19:15 CHEMISTRY Potassium 3.5 mmol/L (3.5-5.1) 08/21/23 19:15 Sodium 137 mmol/L (136-145) 08/21/23 19:15 BUN 14 mg/dL (7-18) 08/21/23 19:15 Creatinine 0.89 mg/dL (0.55-1.02) 08/21/23 19:15 Glucose 97 mg/dL (74-106) 08/21/23 19:15 POC Glucose 116 mg/dL (74-106) H 01/03/24 16:44 COAG Urine Test Negative Negative 01/22/24 06:20 Pre-Assessment Diagnosis/Proposed Procedure Planned Operative Procedure(s): EGD Anesthesia History 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 When Was Last Pacemaker Check QUESTION #4 FULL TEXT: You/Your Family Experience fever (hyperthermia) with Anesthesia Last Oral Intake Last Oral intake: Last Oral Intake NPO since 00:00 01/22/24 06:35 Meds taken in AM with sips of No 01/22/24 06:35 water? Meds patient instructed to take am of surgery PONV PONV - telephone interceptor operator: PONV - telephone interceptor operator Female Yes 01/17/24 12:43 HX of Motion Sickness No 01/17/24 12:43 HX of N/V After Surgery No 01/17/24 12:43 Non-Smoker Yes 01/17/24 12:43 Duration of Surgery greater No 01/17/24 12:43 than 60 minutes Number of Risk Factors 2 01/17/24 12:43 PONV Score Moderate Risk 01/17/24 12:43 Height & Weight Height & Weight: Anesthesia: Height & Weight Height 5 ft 10 in 01/22/24 06:35 Weight: 104.689 kg 01/22/24 06:35 Body Mass Index (BMI) 33.1 01/22/24 06:35 Respiratory Assessment Respiratory Assessment - telephone interceptor operator: Respiratory Tract Infection Hx - telephone interceptor operator Hx Respiratory Tract Infection No 01/17/24 12:43 STOP Sleep Apnea STOP Sleep Apnea - telephone interceptor operator: STOP Sleep Apnea - telephone interceptor operator Hx Hypertension No 01/17/24 12:43 Hx Sleep Apnea No 01/17/24 12:43 CPAP BIPAP Do you snore loudly (louder No 01/17/24 12:43 than talking or can be heard Do you often feel tired/ No 01/17/24 12:43 fatigued/ sleepy during daytime? Has anyone observed you stop No 01/17/24 12:43 breathing during sleep? STOP Results Negative 01/17/24 12:43 QUESTION #5 FULL TEXT : Do you snore loudly (louder than talking or can be heard through closed doors)? 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 Specify any problems Hx of Preganancy in last 3 No 01/17/24 12:43 Months Nurse Filling Out Transfusion VCHRISTIN 01/17/24 12:43 & Questions: Date: 01/17/24 01/17/24 12:43 Time: 12:45 01/17/24 12:43 Patient unable to answer at this time (ie. confused, unrespo /Reproduction History /Reproductive History - telephone interceptor operator: /Reproductive Hx- telephone interceptor operator Hx Now Gestational Age (in weeks): EDC: Hx Hx Para Hx Section SAB No 01/17/24 12:43 Active Medications Active Medications: Current Medications Generic Name Dose Route Start Last Admin Trade Name Freq PRN Reason Stop Dose Admin Lactated Ringer's 1,000 mls @ 15 mls/hr 01/22/24 06:15 01/22/24 06:34 IV 15 mls/hr .Q48H YUNEIR Administration PFSH Medical History Wears glasses Arthritis Back pain Gastric reflux Non-smoker Leg cramps TMJ syndrome Pelvic pain Anemia Migraine Home Medications ?Medication ?Instructions ?Recorded ?Last Taken ?Type sumatriptan succinate 25 mg tablet 25 mg PO PRN PRN migraine headache 07/20/23 Unknown History esomeprazole magnesium 20 mg 20 mg PO DAILY 01/03/24 01/21/24 History capsule,delayed release (Nexium) Lactobacillus acidophilus 10 100 mmu cells PO DAILY 01/17/24 01/21/24 History billion cell capsule (NewFlora) Allergy/AdvReac Type Severity Reaction Status Date / Time No Known Allergies Allergy Verified 01/22/24 06:32 Family History Mother High cholesterol Rheumatic arteritis Diabetes Lung disease due to connective tissue disorder Grandmother Diabetes Uterine cancer Surgical History History of hysteroscopy Social History Smoking Status: Never smoker alcohol intake: never Review of Systems (Anesthesia) ROS Narrative System reviewed and no additional complaints, except as documented.
--- NOTE | 2024-01-22 07:29 | OP.EGD_ITS ---
Patient Name: Saira Dodd Procedure Date: 01/22/2024 7:06 AM Date of : 1975 Age: 48 Procedure: Upper GI endoscopy Indications: Functional Dyspepsia Providers: Mikey Solares DO Medicines: Monitored Anesthesia Care Patient Profile: This is a 48 year old female. Refer to note in patient chart for documentation of history and physical. Patient has symptoms of chronic dyspepsia and chronic nausea. Complications: No immediate complications. Procedure: Pre-Anesthesia Assessment: - Prior to the procedure, a History and Physical was performed, and patient medications and allergies were reviewed. The patient is competent. The risks and benefits of the procedure and the sedation options and risks were discussed with the patient. All questions were answered and informed consent was obtained. Patient identification and proposed procedure were verified by the physician in the pre-procedure area. Mental Status Examination: alert and oriented. Airway Examination: normal oropharyngeal airway and neck mobility. Respiratory Examination: clear to auscultation. CV Examination: normal. Prophylactic Antibiotics: The patient does not require prophylactic antibiotics. Prior Anticoagulants: The patient has taken no anticoagulant or antiplatelet agents. ASA Grade Assessment: II - A patient with mild systemic disease. After reviewing the risks and benefits, the patient was deemed in satisfactory condition to undergo the procedure. The anesthesia plan was to use monitored anesthesia care (MAC). Immediately prior to administration of medications, the patient was re-assessed for adequacy to receive sedatives. The heart rate, respiratory rate, oxygen saturations, blood pressure, adequacy of pulmonary ventilation, and response to care were monitored throughout the procedure. The physical status of the patient was re-assessed after the procedure. After obtaining informed consent, the endoscope was passed under direct vision. Throughout the procedure, the patient's blood pressure, pulse, and oxygen saturations were monitored continuously. The Endoscope was introduced through the mouth, and advanced to the second part of duodenum. The upper GI endoscopy was accomplished without difficulty. The patient tolerated the procedure well. Scope In: 7:17:29 AM Scope Out: 7:23:24 AM Total Procedure Duration Time 0 hours 5 minutes 55 seconds Findings: The Z-line was irregular and was found 38 cm from the incisors. Biopsies were taken with a cold forceps for histology. Verification of patient identification for the specimen was done. Estimated blood loss was minimal. Patchy mildly erythematous mucosa without bleeding was found in the gastric antrum. Biopsies were taken with a cold forceps for histology. Verification of patient identification for the specimen was done. Estimated blood loss was minimal. Biopsies were taken with a cold forceps for Helicobacter pylori testing. Verification of patient identification for the specimen was done. Estimated blood loss was minimal. No gross lesions were noted in the first portion of the duodenum. Biopsies were taken with a cold forceps for histology. Verification of patient identification for the specimen was done. Estimated blood loss was minimal. Impression: - Z-line irregular, 38 cm from the incisors. Biopsied. - Erythematous mucosa in the antrum. Biopsied. - No gross lesions in the first portion of the duodenum. Biopsied. Recommendation: - Discharge patient to home. - Resume previous diet. - Continue present medications. - Await pathology results. - Gastric emptying study Procedure Code(s): --- Professional --- 67309, Esophagogastroduodenoscopy, flexible, transoral; with biopsy, single or multiple CPT copyright 2021 [employer]. All rights reserved. The codes documented in this report are preliminary and upon category planner review may be revised to meet current compliance requirements. Mikey Solares DO 01/22/2024 7:28:49 AM This report has been signed electronically. Number of Addenda: 0 Note Initiated On: 01/22/2024 7:06 AM
--- NOTE | 2024-01-22 07:29 | OP.CCLET_ITS ---
01/22/2024 Skylar Hernandez Re : Upper GI endoscopy procedure for Saira Dodd Dear Edin This procedure was performed on Monday, January 22, 2024. My impressions and recommendations are as follows: Impressions : - Z-line irregular, 38 cm from the incisors. Biopsied. - Erythematous mucosa in the antrum. Biopsied. - No gross lesions in the first portion of the duodenum. Biopsied. Recommendations : - Discharge patient to home. - Resume previous diet. - Continue present medications. - Await pathology results. - Gastric emptying study My findings are described in the full procedure note, which is enclosed. If I can be of further assistance, please feel free to contact me at . Sincerely, Mikey Solares, 01/22/2024 7:28:49 AM This report has been signed electronically.
--- NOTE | 2024-01-22 07:30 | PCM.POST.ANE ---
Anesthesia: Postop Eval I Current Vital Signs Temperature: 97.4 F Pulse Rate: 82 Blood Pressure: 111/73 Respiratory Rate: 16 Pulse Ox: 95 Oxygen Delivery Method: Room Air Assessment Airway patent: Yes Spontaneous unlabored respirations: Yes Mental status: Asleep nausea: No Vomiting: No Anesthesia Complication: No Fluid Hydration Crystalloid volume administer (ml): 400 Total IV fluid infused: 400 Progress Note Anesthesia document: Postop Eval 1 completed: Yes
--- NOTE | 2024-01-22 07:45 | PCM.POSTANE2 ---
Anesthesia Postop Eval I Sum Postop Eval Completion status Anesthesia document: Postop Eval 1 completed: Yes Anesthesia Postop Eval I Summary Anesthesia Postop Eval I Summary: Anesthesia Postop Eval I: Assessment Summary Airway patent Yes 01/22/24 07:31 [email or web address] Spontaneous unlabored Yes 01/22/24 07:31 [email or web address] respirations Mental status Asleep 01/22/24 07:31 [email or web address] nausea No 01/22/24 07:31 [email or web address] Vomiting No 01/22/24 07:31 [email or web address] Anesthesia Postop Eval I: Fluid Summary Crystalloid volume administer 400 01/22/24 07:31 [email or web address] (ml) Colloids volume administered ( ml) Blood Product volume administered (ml) Total IV fluid infused 400 01/22/24 07:31 [email or web address] Anesthesia Postop Eval I: Summary Notes Anesthesia Complication No 01/22/24 07:31 [email or web address] Anesthesia Complication Comment: Post-operative progress note Anesthesia: Postop Eval II Evaluation Mental status: Awake Pain Level: 0 nausea: No Vomiting: No
== END 2024-01-22 08:07 | disposition home or self-care (01) ==
LOC: EN 06:01 → AC 06:02
PROVIDERS: Anesthesiology; PCP Registered Nurse; Referring Provider Registered Nurse; Visit Provider Internal Medicine Gastroenterology
PROC: 0DJ08ZZ Inspection of Upper Intestinal Tract, Via Natural or Artificial Opening Endoscopic (ICD-10-PCS; CPT 43235; principal; 2024-01-22 06:55)
DX: K31.89 Other diseases of stomach and duodenum (principal); K21.00 Gastro-esophageal reflux disease with esophagitis, without bleeding; Z79.899 Other long term (current) drug therapy
CPT/HCPCS: 43239; 81025; 88305; 88312; 88342; J7120; J2405

== ENCOUNTER → 2024-02-07 | Outpatient (CLI) | payer OTHER, SELFPAY ==
--- NOTE | 2024-02-07 09:49 | NM_ITS ---
CLINICAL: 48-year-old female with history of abdominal bloating. RADIONUCLIDE HEPATOBILIARY SCINTIGRAPHY COMPARISON: Abdominal ultrasound report 01/21/2024 FINDINGS: Following the intravenous administration of 6.0 mCi of 99m Tc Mebrofenin, hepatobiliary images reveal: 1. Relatively prompt and homogeneous radiopharmaceutical concentration is noted by a normal sized liver. No parenchymal defects are identified. 2. Gallbladder activity is identified at 15 minutes post radiopharmaceutical administration. 3. Small intestinal tract is observed at 45 minutes following tracer injection. 4. Washout of the radiopharmaceutical by the hepatic parenchyma appears qualitatively normal. Cholecystokinin (0.02 ug/kg) was administered intravenously over a 30-minute period. The post CCK gallbladder ejection fraction calculated at 20 minutes following Cholecystokinin administration was noted to be 86.0 % (normal greater than 35%). During 30 minutes of post CCK imaging, there is no scintigraphic evidence of reflux of the radiotracer into the common hepatic duct or significant refilling of the gallbladder. WI/Hepatobilliary Img w/Pharm Int IMPRESSION: 1. NORMAL 99m Tc Mebrofenin hepatobiliary imaging examination with Cholecystokinin. A. A gallbladder ejection fraction calculated to be greater than 35% following the administration of Cholecystokinin makes the probability of functional hepatobiliary disease (gallbladder and/or sphincter of Oddi dyskinesia) and/or organic hepatobiliary disease (chronic acalculous cholecystitis and/or cystic duct syndrome) to be low. (Pili Nielson et al, Journal of Nuclear Medicine 32:1695, 1991). Electronically Signed: Milo Mendoza DO at 10:03 EDT ,
== END | disposition home or self-care (01) ==
PROVIDERS: PCP Registered Nurse; Referring Provider Internal Medicine Gastroenterology; Visit Provider Internal Medicine Gastroenterology
DX: K21.9 Gastro-esophageal reflux disease without esophagitis (principal)
CPT/HCPCS: 78227; A9537; J2805

== ENCOUNTER → 2024-03-12 | Outpatient (CLI) | payer OTHER, SELFPAY ==
--- NOTE | 2024-03-12 11:37 | NM_ITS ---
CLINICAL: 48-year-old female with history of abdominal bloating. SEMI-SOLID PHASE 99m Tc SULFUR COLLOID GASTRIC EMPTYING STUDY COMPARISON: None available FINDINGS: The patient was administered 1.1 mCi of 99m Tc sulfur colloid mixed with oatmeal and consumed per os. Image acquisitions in the anterior-posterior projections were obtained for 60 minutes. There is prompt visualization of the stomach. There is no gastroesophageal reflux identified. The T ? linear fit was calculated to be 34.15 minutes, (Normal: 12-56 minutes). NM/Gastric Emptying Study IMPRESSION: 1. NORMAL 99m Tc sulfur colloid semi-solid phase (oatmeal) gastric emptying imaging examination. A. There is normal and preserved semi-solid phase gastric emptying compared to normal controls. (Tia et al, J Nucl Med Tech 38: 186, 2010). Electronically Signed: Milo Mendoza DO at 12:08 EDT ,
== END | disposition home or self-care (01) ==
PROVIDERS: PCP Registered Nurse; Referring Provider Internal Medicine Gastroenterology; Visit Provider Internal Medicine Gastroenterology
DX: K21.9 Gastro-esophageal reflux disease without esophagitis (principal)
CPT/HCPCS: 78264; A9541

== ENCOUNTER → 2024-05-06 | Outpatient (CLI) | payer OTHER, SELFPAY ==
--- NOTE | 2024-05-06 08:18 | MRI_ITS ---
STUDY: MR CHOLANGIOPANCREATOGRAPHY (MRCP) REASON FOR EXAM: Female, 48 years old. RUQ pain, nausea TECHNIQUE: Standard MRCP technique was utilized. COMPARISON: Ultrasound 01/21/2024 FINDINGS: Gall Bladder: Multiple hypointense filling defects within the gallbladder consistent with stones. Cystic duct: Normal with no demonstrated fixed filling defect. Intrahepatic ducts: Normal visualized intrahepatic ducts with no demonstrated fixed filling defect, dilation or stricture. Common hepatic duct: Normal with no demonstrated fixed filling defect, dilation or stricture. Common bile duct: Normal with no demonstrated fixed filling defect, dilation or stricture. Pancreatic duct: Normal with no demonstrated fixed filling defect, dilation or stricture. MRI/MRCP Abdomen without Contrast IMPRESSION: Cholelithiasis. Electronically Signed: Milo Rizzo MD at 12:51 EST ,
== END | disposition home or self-care (01) ==
PROVIDERS: PCP Registered Nurse; Referring Provider Internal Medicine Gastroenterology; Visit Provider Internal Medicine Gastroenterology
DX: R10.11 Right upper quadrant pain (principal); R11.0 Nausea
CPT/HCPCS: 74181

== ENCOUNTER 2024-09-16 16:20 | Emergency (ER) | payer OTHER, SELFPAY ==
[2024-09-16 16:23] VITALS: BP 120/74; PULSE 124; RESP 20; TEMP 36.1; O2SAT 100; BMI 34.0
[2024-09-16 16:27] VITALS: BP 120/74; PULSE 124; RESP 20; TEMP 36.1; O2SAT 100
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
[2024-09-16] MEDS: Diphth,Pertuss(Acell),Tet Vac 0.5 ML Vial IM (16:57)
[2024-09-16] MEDS: HYDROcodone Bitartrate/Apap 5/325 Tablet PO (16:57)
[2024-09-16] MEDS: Amox/Clavulanate 875 MG Tablet PO (16:57)
[2024-09-16] MEDS: LORazepam 0.5 MG Tablet PO (16:57)
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
--- NOTE | 2024-09-16 17:12 | RAD_ITS ---
EXAM: RIGHT FEMUR, TWO VIEWS CLINICAL HISTORY: Dog bite. Trauma. COMPARISON: No relevant prior. TECHNIQUE: AP and lateral projections of the femur. FINDINGS: Bones: No fractures or other osseous abnormalities. Joints: No subluxations or dislocations. Soft tissues: Unremarkable. RAD/Femur Min 2 Views IMPRESSION: NO ACUTE OSSEOUS ABNORMALITIES. Reading Location: [facility]
[2024-09-16 18:30] VITALS: BP 120/74; PULSE 124; RESP 20; TEMP 36.1; O2SAT 100
== END 2024-09-16 18:36 | disposition home or self-care (01) ==
LOC: ED 17:54
PROVIDERS: Emergency Provider Emergency Medicine; PCP Registered Nurse; Visit Provider Emergency Medicine
DX: S71.151A Open bite, right thigh, initial encounter (principal); S81.852A Open bite, left lower leg, initial encounter; W54.0XXA Bitten by dog, initial encounter
CPT/HCPCS: 73552; 73590; 90715; 99282

== ENCOUNTER → 2025-01-29 | Outpatient (CLI) | payer OTHER, SELFPAY ==
--- NOTE | 2025-01-29 07:46 | US_ITS ---
PROCEDURE: ABDOMEN LIMITED 01/29/2025 REASON FOR EXAM: RIGHT SIDED ABD DISCOMFORT - HX OF CHOLELITHIASIS TECHNIQUE: Procedure Code: USABDL Modality: US Procedure: ABDOMEN LIMITED COMPARISON: MRI from 05/06/2024 FINDINGS: Liver: Measures 14.5 cm, shows diffuse fatty infiltration without a discrete lesion. Gallbladder: No evidence of echogenic debris. Gallbladder wall is normal at 3 mm. No pericholecystic fluid Common bile duct: Normal measuring 4 mm. Pancreas: Visualized portions are sonographically unremarkable. Kidneys: The right kidney measures 11.8 cm no hydronephrosis, calculi or mass. Cortex is normal at 1.4 cm. US/Abdomen Limited IMPRESSION: Fatty liver, no discrete lesion. Otherwise unremarkable right upper quadrant u ltrasound Reading Location: [id number]
--- OUTSIDE RECORDS SUMMARY | 2025-01-29 08:02 | XMS RPT_ITS | CCD ---
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 and what your pqb-io-imllol expense will be. Please reach out through [employer] or by phone if you would li (more content not included)... Normal [facility] Gastroenterology Visit Repor ton 06-03-2024 Gastroenterology Visit Report [facility] Gastroenterology [address] [place] [address] OFFICE VISIT Date of Service: 06/03/24 MR#: [id number] Acct: [id number] Name: GLDAYS JACKSON Rep #: [id number] : 1975 Provider: Mikey Solares DO Age/Sex: 48/F [place] [facility] [place]: Signed Intake Vital Signs 01/22/24 06:35 Height 5 ft 10 in Intake Visit Reasons: 3 M FU Allergies No Known Allergies Allergy (Verified 01/22/24 06:32) Medications ???Medication ???Instructions ???Recorded ???Confirmed ???Type sumatriptan succinate 25 mg tablet 25 mg PO PRN PRN migraine headache 07/20/23 06/03/24 History esomeprazole magnesium 20 mg 20 mg PO DAILY 01/03/24 06/03/24 History capsule,delayed release (Nexium) Lactobacillus acidophilus 10 100 mmu cells PO DAILY 01/17/24 06/03/24 History billion cell capsule (NewFlora) ondansetron 4 mg disintegrating 4 mg PO Q8H PRN nausea and 01/24/24 06/03/24 Rx tablet vomiting #90 tabs prochlorperazine maleate 10 mg 10 mg PO Q8H PRN nausea and 04/04/24 06/03/24 Rx tablet (Compazine) vomiting #90 tabs PFSH Medical History Wears glasses Arthritis Back pain Gastric reflux Non-smoker Leg cramps TMJ syndrome Pelvic pain Anemia Migraine Surgical History History of hysteroscopy Family History Mother High cholesterol Rheumatic arteritis Diabetes Lung disease due to connective tissue disorder Grandmother Diabetes Uterine cancer Social History Smoking Status: Never smoker alcohol intake: never HPI HPI Details: GLADYS DODD, is a 48 F who presents to the office today for follow up. *BGI established 8.24 pt reports that she will have episodes of nausea that last for about a month. Pt reports that in November she had a week of bad gas pressure and had to sleep propped up, her PCP switched her from pantoprazole to Nexium which she reports has been helpful; denies HB or reflux symptoms. Pt reports that she has never had an EGD. abd US 9..24 No acute findings. Fatty infiltration liver. EGD 01.22.24 Z-line irregular, 38 cm from the incisors. Biopsied. Erythematous mucosa in the antrum. Biopsied. No gross lesions in the first portion of the duodenum. Biopsied. HIDA 9.26.24 normal 86% GET 10.30.24 normal 34.15 minutes OV 11.14.24 pt reports that her nausea and gas/bloating have improved since starting Nexium. Pt reports that she will still occasionally get nausea in the middle of the night and some gas pressure in her chest. Pt requesting to review test results to determine next steps in plan of care. MRCP 12..24 Cholelithiasis. OV 1.21.25 pt reports constant sharp/stabbing pain on her right side for the past two days. pt denies other GI symptoms of concern at this time. ROS Const Constitutional: No fatigue, fever(s) or weight change ENT ENT: No difficulty swallowing Gastro GI: Positive for abdominal pain, bloating and excessive flatus; No belching, change in bowel habits, change in stool character, coffee ground emesis, constipation, cramping, diarrhea, heartburn, difficulty swallowing, feeling full early, incontinent of stools, Vomiting blood/hematemesis, Blood in stool, loose stools, Black,tarry stools, nausea/dyspepsia, pain with swallowing, vomiting or other Musc Musculoskeletal: Positive for Arthritis; No joint pain Skin Skin: No yellowing of the eye or itchy eyes Psych Psychiatric: No anxiety and No depression Endo Endocrine: No fatigue or weight change Aller/Imm Allergy/Immunologic: No itchy eyes Maynor/Lymp Hematologic/Lymphatic: No easy bleeding or easy bruising Exam Const General: cooperative and comfortable Nutritional Appearance: average body habitus and well nourished HENMT Head: normal to inspection Ears: hearing grossly normal bilaterally Nose: external nose normal Face and sinus: normal facial exam Mouth: oral mucosae normal Throat: posterior oropharynx normal Eyes General: appearance normal, both eyes and all related structures Neck Neck: normal visual inspection Chest Chest palpation inspection: normal inspection of the chest and normal palpation of entire chest wall Resp Effort Inspection: normal respiratory effort Auscultation: Bilateral: Clear to Auscultation Cardio Palpation: normal PMI Rate: regular rate Rhythm: regular rhythm GI Inspection: normal to inspection Auscultation: normal bowel sounds Percussion: normal to percussion Palpation: no hepatosplenomegaly Skin General: no rashes or lesions noted Neuro General: patient alert Extrem General: normal to inspect (more content not included)... Normal [facility] MRCP Abdomen without Contras ton 05-06-2024 MRCP Abdomen without Contrast [facility] Imaging Services [address] [place] [id number] MRCP Abdomen without Contrast MR#: [id number] Acct: [id number] Name: GLADYS JACKSON Rep #: [id number] : 1975 F 48 From: Milo Rizzo MD PCP: Raysa Wong, MOTION STUDY ENGINEER-C Status: REG CLI Study: MRCP Abdomen without Contrast Date of Exam: Exam# [id number] Ordering Dr: Mikey Solares DO [id number] STUDY: MR CHOLANGIOPANCREATOGRAPHY (MRCP) REASON FOR EXAM: Female, 48 years old. RUQ pain, nausea TECHNIQUE: Standard MRCP technique was utilized. COMPARISON: Ultrasound 01/21/2024 FINDINGS: Gall Bladder: Multiple hypointense filling defects within the gallbladder consistent with stones. Cystic duct: Normal with no demonstrated fixed filling defect. Intrahepatic ducts: Normal visualized intrahepatic ducts with no demonstrated fixed filling defect, dilation or stricture. Common hepatic duct: Normal with no demonstrated fixed filling defect, dilation or stricture. Common bile duct: Normal with no demonstrated fixed filling defect, dilation or stricture. Pancreatic duct: Normal with no demonstrated fixed filling defect, dilation or stricture. MRI/MRCP Abdomen without Contrast IMPRESSION: Cholelithiasis. Electronically Signed: Milo Rizzo MD at 12:51 EST , CC: GENESIS Wong; Mikey Solares DO Dry Cell Assembly Machine Tender: Signed Normal [facility] MARTY SCREENING W TOMOon 05-02 MARTY SCREENING W DELFIN * * *Final Report* * * DATE OF EXAM: May 02 2024 12:44PM [facility] 0582 - MARTY SCREENING W DELFIN / PROCEDURE REASON: multiple diagnoses * * * * Physician Interpretation * * * * RESULT: [place] [address] [place] [address] #[id number] - MARTY SCREENING W DELFIN HISTORY: Patient is 48 years old and is seen for screening and is asymptomatic in both breasts. Patient states no personal history of breast cancer. Patient states no personal history of other cancers. COMPARISON STUDIES: The present examination has been compared to prior imaging studies dated 05/10/2021 (mammogram), 05/16/2022 (mammogram), 07/17/2022, 01/24/2023 (mammogram) and 07/25/2023 (mammogram). MAMMOGRAM TECHNIQUE: The study was acquired using full field digital technology and interpreted from soft copy. Digital Breast Tomosynthesis (DBT) images were obtained and used to assist in the interpretation of this examination. Computer-aided detection was utilized by the radiologist in the interpretation of this examination. MAMMOGRAM FINDINGS: The breasts are heterogeneously dense, which may obscure small masses. No suspicious masses, calcifications or other abnormalities are seen in either breast. There are no significant interval changes. IMPRESSION: There is no mammographic evidence of malignancy in either breast. Routine screening mammogram is recommended. Annual mammogram will be due in 1 year. BI-RADS Category 1: Negative RISK: Based on the Tyrer-Cuzick (TC) risk assessment model, this patient has a 11.8% lifetime risk of developing breast cancer, meaning they are at average risk for developing breast cancer. However, this is only an estimate based on available history provided on the patient's questionnaire. We encourage all patients to talk with their providers about these results, further recommendations for managing breast health, and appropriate supplemental screening options if the patient has dense breast tissue. Interpreting Radiologist: Dudley Castro M.D. Electronically signed on: 05/05/2024 Dry Cell Assembly Machine Tender: LUDY Transcrichristopher Date/Time: May 02 2024 12:34P Dictated by: DUDLEY CASTRO MD This examination was interpreted and the report reviewed and electronically signed by: DUDLEY CASTRO MD on May 05 2024 10:22AM EST [id number] Normal [facility] Gastroenterology Visit Repor ton 03-27-2024 Gastroenterology Visit Report [facility] Gastroenterology [address] [place] [address] OFFICE VISIT Date of Service: 03/27/24 MR#: [id number] Acct: [id number] Name: GLADYS JACKSON Rep #: [id number] : 1975 Provider: Mikey Solares DO Age/Sex: 48/F [place] [facility] [place] Status: Signed Intake Vital Signs 01/22/24 06:35 Height 5 ft 10 in Intake Visit Reasons: FOLLOW TESTING Allergies No Known Allergies Allergy (Verified 01/22/24 06:32) Medications ???Medication ???Instructions ???Recorded ???Confirmed ???Type sumatriptan succinate 25 mg tablet 25 mg PO PRN PRN migraine headache 07/20/23 03/27/24 History esomeprazole magnesium 20 mg 20 mg PO DAILY 01/03/24 03/27/24 History capsule,delayed release (Nexium) Lactobacillus acidophilus 10 100 mmu cells PO DAILY 01/17/24 03/27/24 History billion cell capsule (NewFlora) ondansetron 4 mg disintegrating 4 mg PO Q8H PRN nausea and 01/24/24 03/27/24 Rx tablet vomiting #90 tabs PFSH Medical History Wears glasses Arthritis Back pain Gastric reflux Non-smoker Leg cramps TMJ syndrome Pelvic pain Anemia Migraine Surgical History History of hysteroscopy Family History Mother High cholesterol Rheumatic arteritis Diabetes Lung disease due to connective tissue disorder Grandmother Diabetes Uterine cancer Social History Smoking Status: Never smoker alcohol intake: never HPI HPI Details: GLADYS DODD, is a 48 F who presents to the office today for follow up. *BGI established 01.03.24 pt reports that she will have episodes of nausea that last for about a month. Pt reports that in November she had a week of bad gas pressure and had to sleep propped up, her PCP switched her from pantoprazole to Nexium which she reports has been helpful; denies HB or reflux symptoms. Pt reports that she has never had an EGD. abd US 01.21.24 No acute findings. Fatty infiltration liver. EGD 01.22.24 Z-line irregular, 38 cm from the incisors. Biopsied. Erythematous mucosa in the antrum. Biopsied. No gross lesions in the first portion of the duodenum. Biopsied. HIDA 02.07.24 normal 86% GET 03.12.24 normal 34.15 minutes OV 03.27.24 pt reports that her nausea and gas/bloating have improved since starting Nexium. Pt reports that she will still occasionally get nausea in the middle of the night and some gas pressure in her chest. Pt requesting to review test results to determine next steps in plan of care. ROS Const Constitutional: No fatigue, fever(s) or weight change ENT ENT: No difficulty swallowing Gastro GI: Positive for bloating, excessive flatus and nausea/dyspepsia; No abdominal pain, belching, change in bowel habits, change in stool character, coffee ground emesis, constipation, cramping, diarrhea, heartburn, difficulty swallowing, feeling full early, incontinent of stools, Vomiting blood/hematemesis, Blood in stool, loose stools, Black,tarry stools, pain with swallowing, vomiting or other Musc Musculoskeletal: Positive for muscle cramps; No joint pain Skin Skin: No yellowing of the eye or itchy eyes Psych Psychiatric: No anxiety and No depression Endo Endocrine: No fatigue or weight change Aller/Imm Allergy/Immunologic: No itchy eyes Maynor/Lymp Hematologic/Lymphatic: No easy bleeding or easy bruising Exam Const General: cooperative and comfortable Nutritional Appearance: average body habitus and well nourished HENMT Head: normal to inspection Ears: hearing grossly normal bilaterally Nose: external nose normal Face and sinus: normal facial exam Mouth: oral mucosae normal Throat: posterior oropharynx normal Eyes General: appearance normal, both eyes and all related structures Neck Neck: normal visual inspection Chest Chest palpation inspection: normal inspection of the chest and normal palpation of entire chest wall Resp Effort Inspection: normal respiratory effort Auscultation: Bilateral: Clear to Auscultation Cardio Palpation: normal PMI Rate: regular rate Rhythm: regular rhythm GI Inspection: normal to inspection Auscultation: normal bowel sounds Percussion: normal to percussion Palpation: no hepatosplenomegaly Skin General: no rashes or lesions noted Neuro General: patient alert Extrem General: normal to inspection Psych Affect: normal affect Assessment and Plan Assessment and Plan (1) Nausea and vomiting: (2) GERD (gastroesophageal reflux disease): Status: Acute Plan: Very pleasant 48-year-old with a year of new onset nausea associated with some bloating and intermittent reflux sym (more content not included)... Normal [facility] Gastric Emptying Studyon Gastric Emptying Study [facility] Imaging Services [address] [place] [id number] Gastric Emptying Study MR#: [id number] Acct: [id number] Name: GLADYS JACKSON Rep #: [id number] : 1975 F 48 From: [place] PCP: GENESIS Hernandez Status: REG CLI Study: Gastric Emptying Study Date of Exam: 03/12/24 Exam# [id number] Ordering Dr: Mikey Solares DO [id number] CLINICAL: 48-year-old female with history of abdominal bloating. SEMI-SOLID PHASE 99m Tc SULFUR COLLOID GASTRIC EMPTYING STUDY COMPARISON: None available FINDINGS: The patient was administered 1.1 mCi of 99m Tc sulfur colloid mixed with oatmeal and consumed per os. Image acquisitions in the anterior-posterior projections were obtained for 60 minutes. There is prompt visualization of the stomach. There is no gastroesophageal reflux identified. The T ? linear fit was calculated to be 34.15 minutes, (Normal: 12-56 minutes). NM/Gastric Emptying Study IMPRESSION: 1. NORMAL 99m Tc sulfur colloid semi-solid phase (oatmeal) gastric emptying imaging examination. A. There is normal and preserved semi-solid phase gastric emptying compared to normal controls. (Kljennasmith et al, J Nucl Med Tech 38: 186, 2010). Electronically Signed: Milo Mendoza DO at 12:08 EDT Reading Location ID and State: [facility] / [place] Tel , Service support , CC: GENESIS Wong; Mikey Solares DO Dry Cell Assembly Machine Tender: Signed Normal [facility] 02-25-2024 [facility] Telephone ([facility]) -- GLADYS JACKSON ([id number]) 1975 F Date Time Provider Department 02/25/24 HERLINDA ALBA [facility] During your visit today, we recorded the following information about you: Herlinda Alba APRN.MOLD MAKER APPRENTICE 02/25/2024 4:59 PM Signed Xray of cervical spine normal. Xray of shoulder normal Continue treatment plan and medicines at time of evaluatoin. Follow up with PCP and or ortho for continued symptoms. Please advise patient. Tianna Yi LPN 02/25/2024 5:38 PM Signed Patient notified and verbalized understanding of instructions given.Tianna Yi LPN Allergies As of Date: 02/25/2024 (No Active Allergies) Date Reviewed: 10/10/2023 Reviewed by: Rosa Maria Camarena MA - Fully Assessed Reason for Visit: Results [95] Prescriptions as of 02/25/2024 - sucralfate (CARAFATE) 1 gram tablet - predniSONE (DELTASONE) 10 mg tablet Take 4 tabs daily for 3 days, then 2 tabs daily for 3 days, then 1 tab daily for 3 days with food. - pantoprazole DR (PROTONIX) 40 mg tablet Meds Comments as of 10/10/2013: No Routine Rx, otc or supplement Problem List As Of Date 02/25/2024 Noted Resolved BENIGN JERAD SOFT TISSUE NOS [D21.9] 09/15/2005 LEG VARICOSITY W INFLAM [I83.10] 09/22/2005 Skin lesion [L98.9] 10/17/2013 Encounter Status:Closed by TIANNA YI on 02/25/24 Normal [facility] No Panel Informationon 02-24 Radiology Study observation (narrative) [facility] XR CERVICAL 4V AP/LAT/OBLon 02-25-2024 XR CERVICAL 4V AP/LAT/OBL * * *Final Report* * * DATE OF EXAM: Feb 25 2024 4:31PM WOX [id number] - XR CERVICAL 4V AP/LAT/OBL / PROCEDURE REASON: multiple diagnoses * * * * Physician Interpretation * * * * EXAM TITLE: XR CERVICAL 4V AP/LAT/OBL EXAM DATE/TIME: 02/25/2024 4:31 PM COMPARISON: None. CLINICAL INDICATION/HISTORY: Right shoulder pain. TECHNIQUE: AP, lateral, oblique and swimmer's views of the cervical spine are presented. FINDINGS: No acute fractures or subluxations are noted. There appears be C4-5 and C5-6 and C6-7 mild disc space narrowing. There is mild osteophyte formation. Degenerative changes involving the bilateral Luschka joints. Right-sided C5-6 neural foraminal narrowing is demonstrated. The prevertebral soft tissues are normal. IMPRESSION: Negative cervical spine X-ray. Dry Cell Assembly Machine Tender: ROBERTS CHAPELB Transcribe Date/Time: Feb 25 2024 4:34P Dictated by : CHAYA BEJARANO MD This examination was interpreted and the report reviewed and electronically signed by: CHAYA BEJARANO MD on Feb 25 2024 4:36PM EST [id number] Normal [facility] XR Cervical spine AP and Lat eral and obliqueon 02-25-2024 IMPRESSION: Negative cervical spine X-ray. Dry Cell Assembly Machine Tender: [facility] Transcribe Date/Time: Feb 25 2024 4:34P Dictated by : CHAYA BEJARANO MD This examination was interpreted and the report reviewed and electronically signed by: CHAYA BEJARANO MD on Feb 25 2024 4:36PM EST DIVISION OF RADIOLOGY * * *Final Report* * * DATE OF EXAM: Feb 25 2024 4:31PM [facility] [id number] - XR CERVICAL 4V AP/LAT/OBL / PROCEDURE REASON: multiple diagnoses * * * * Physician Interpretation * * * * EXAM TITLE: XR CERVICAL 4V AP/LAT/OBL EXAM DATE/TIME: 02/25/2024 4:31 PM COMPARISON: None. CLINICAL INDICATION/HISTORY: Right shoulder pain. TECHNIQUE: AP, lateral, oblique and swimmer's views of the cervical spine are presented. FINDINGS: No acute fractures or subluxations are noted. There appears be C4-5 and C5-6 and C6-7 mild disc space narrowing. There is mild osteophyte formation. Degenerative changes involving the bilateral Luschka joints. Right-sided C5-6 neural foraminal narrowing is demonstrated. The prevertebral soft tissues are normal. DIVISION OF RADIOLOGY [facility], [facility]25/[facility] * * *Final Report* * * DATE OF EXAM: Oct 14 2024 4:31PM [facility] [id number] - XR CERVICAL 4V AP/LAT/OBL / PROCEDURE REASON: multiple diagnoses * * * * Physician Interpretation * * * * EXAM TITLE: XR CERVICAL 4V AP/LAT/OBL EXAM DATE/TIME: 02/25/2024 4:31 PM COMPARISON: None. CLINICAL INDICATION/HISTORY: Right shoulder pain. TECHNIQUE: AP, lateral, oblique and swimmer's views of the cervical spine are presented. FINDINGS: No acute fractures or subluxations are noted. There appears be C4-5 and C5-6 and C6-7 mild disc space narrowing. There is mild osteophyte formation. Degenerative changes involving the bilateral Luschka joints. Right-sided C5-6 neural foraminal narrowing is demonstrated. The prevertebral soft tissues are normal. IMPRESSION IMPRESSION: Negative cervical spine X-ray. Dry Cell Assembly Machine Tender: RAYO Transcribe Date/Time: Feb 25 2024 4:34P Dictated by : CHAYA BEJARANO MD This examination was interpreted and the report reviewed and electronically signed by: CHAYA BEJARANO MD on Feb 25 2024 4:36PM [facility] XR SHLDR >/=3V AP/DARSHAN AP/OTH R RTon 02-25-2024 XR SHLDR >/=3V AP/DARSHAN AP/OTHR RT * * *Final Report* * * DATE OF EXAM: Feb 25 2024 4:31PM WOX 5253 - XR SHLDR >/=3V AP/DARSHAN AP/OTHR RT / PROCEDURE REASON: multiple diagnoses * * * * Physician Interpretation * * * * EXAM(s): XR SHLDR >/=3V AP/DARSHAN AP/OTHR RT EXAM DATE/TIME: 02/25/2024 4:31 PM HISTORY: 48 years old Clinical information: Cervical pain Acute pain of right shoulder Chronic neck and anterior right shoulder pain that has increased over the last 3 months without injury. TECHNIQUE: Images: XR SHLDR >/=3V AP/DARSHAN AP/OTHR RT Comparison: None. RESULT: Findings: The clavicle, scapula, and proximal humerus are intact. The acromioclavicular and glenohumeral joints are preserved in normal anatomic alignment without significant underlying degenerative changes. No acute fracture or dislocation of the right shoulder. No high riding humeral head. IMPRESSION: No acute osseous abnormality or significant underlying degenerative changes. Dry Cell Assembly Machine Tender: PSCB Transcribe Date/Time: Feb 25 2024 4:34P Dictated by : KAILYN HUMPHRIES MD This examination was interpreted and the report reviewed and electronically signed by: KAILYN HUMPHRIES MD on Feb 25 2024 4:35PM EST [id number] Normal [facility] XR Shoulder - right 3 Viewso n 02-25-2024 IMPRESSION: No acute osseous abnormality or significant underlying degenerative changes. Dry Cell Assembly Machine Tender: PSCB Transcribe Date/Time: Feb 25 2024 4:34P Dictated by : KAILYN HUMPHRIES MD This examination was interpreted and the report reviewed and electronically signed by: KAILYN HUMPHRIES MD on Feb 25 2024 4:35PM EST DIVISION OF RADIOLOGY * * *Final Report* * * DATE OF EXAM: Feb 25 2024 4:31PM WOX 5253 - XR SHLDR >/=3V AP/DARSHAN AP/OTHR RT / PROCEDURE REASON: multiple diagnoses * * * * Physician Interpretation * * * * EXAM(s): XR SHLDR >/=3V AP/DARSHAN AP/OTHR RT EXAM DATE/TIME: 02/25/2024 4:31 PM HISTORY: 48 years old Clinical information: Cervical pain Acute pain of right shoulder Chronic neck and anterior right shoulder pain that has increased over the last 3 months without injury. TECHNIQUE: Images: XR SHLDR >/=3V AP/DARSHAN AP/OTHR RT Comparison: None. RESULT: Findings: The clavicle, scapula, and proximal humerus are intact. The acromioclavicular and glenohumeral joints are preserved in normal anatomic alignment without significant underlying degenerative changes. No acute fracture or dislocation of the right shoulder. No high riding humeral head. DIVISION OF RADIOLOGY Provider, [facility] - 02/25/2024 * * *Final Report* * * DATE OF EXAM: Feb 25 2024 4:31PM WOX 5253 - XR SHLDR >/=3V AP/DARSHAN AP/OTHR RT / PROCEDURE REASON: multiple diagnoses * * * * Physician Interpretation * * * * EXAM(s): XR SHLDR >/=3V AP/DARSHAN AP/OTHR RT EXAM DATE/TIME: 02/25/2024 4:31 PM HISTORY: 48 years old Clinical information: Cervical pain Acute pain of right shoulder Chronic neck and anterior right shoulder pain that has increased over the last 3 months without injury. TECHNIQUE: Images: XR SHLDR >/=3V AP/DARSHAN AP/OTHR RT Comparison: None. RESULT: Findings: The clavicle, scapula, and proximal humerus are intact. The acromioclavicular and glenohumeral joints are preserved in normal anatomic alignment without significant underlying degenerative changes. No acute fracture or dislocation of the right shoulder. No high riding humeral head. IMPRESSION IMPRESSION: No acute osseous abnormality or significant underlying degenerative changes. [employer] Machine Tender: RAYO Transcribe Date/Time: Feb 25 2024 4:34P Dictated by : KAILYN HUMPHRIES MD This examination was interpreted and the report reviewed and electronically signed by: KAILYN HUMPHRIES MD on Feb 25 2024 4:35PM EST [facility] XR Shoulder - right 3 ViewsO rdered By: Ccf Provider on 02-25-2024 [facility] CNOVon 02-23-2024 CNOV Office Visit (UCWSTR ) -- GLADYS JACKSON ([id number]) 1975 F Date Time Provider Department 02/23/24 3:15 PM KASSANDRA CABELLO [facility] During your visit today, we recorded the following information about you: Temperature Pulse Respiration Blood pressure 98.2 degrees 95/minute 18/minute 132/78 Weight 100 kg Kassandra Cabello PA 02/23/2024 3:29 PM Signed This note was created using NoteWriter. Subjective Gladys Woods Faizan Dodd is a 48 year old female. HPI 48-year-old female presents for right shoulder and right sided neck pain. Symptoms have been present for several months. Patient states they have recently gotten worse. Patient states that she has been having pain to her right shoulder and neck for the past few months, she has known arthritis in her neck. No history of surgery on the cervical spine. She states that the pain radiates from the right side of her neck towards her right shoulder and towards the right anterior shoulder towards her pectoralis muscle. She denies any chest pain or shortness of breath. No numbness or tingling or weakness in the arms. She has been seeing a DO which has been doing adjustments, but she states they are not really helping. She denies any specific fall or injury prior to pain starting, but she states the only thing she can think of is that she has an 85 pound dog that she walks and pulls on the leash which she uses her right arm for. She denies ever having imaging on the neck or shoulder since pain started. She has taken Advil with minimal relief today. No loss of bowel or bladder function. No fevers. No history of cancer or IV drug use. No other complaint. 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 PAST SURGICAL HISTORY Procedure Laterality Date BX OF BREAST; INCISIONAL Left 2022 [facility] DANDC, DIAG AND/OR THERAPEUTIC 10/26/2023 Hysteroscopy, DANDC, Polypectomy PAST SURGICAL HISTORY OF cyst removed from right wrist TYMPANOSTOMY LOCAL/TOPICAL ANESTHESIA 05/14/1979 ALLERGIES Patient has no active allergies. MEDICATIONS sucralfate (CARAFATE) [address] (PROTONIX) 40 mg tablet predniSONE (DELTASONE) 10 mg tablet Take 4 tabs daily for 3 days, then 2 tabs daily for 3 days, then 1 tab daily for 3 days with food. FAMILY HISTORY Problem Relation Age of Onset Diabetes Mother Hypertension Mother other (dermatomyositis) Mother other (congestive heart failure) Father age 80 Diabetes Maternal Grandmother other (Ovarian Cancer) Maternal Grandmother Heart Maternal Grandfather Hypertension Maternal Grandfather Diabetes Maternal Grandfather other (CVA) Maternal Grandfather Social History Tobacco Use Smoking status: Never Smokeless tobacco: Never Vaping Use Vaping status: Never Used Substance Use Topics Alcohol use: No Drug use: No Review of Systems Constitutional: Negative for chills and fever. HENT: Negative for congestion, ear pain and sore throat. Respiratory: Negative for cough and shortness of breath. Cardiovascular: Negative for chest pain. Gastrointestinal: Negative for diarrhea and vomiting. Musculoskeletal: Positive for arthralgias and neck pain. Objective BP 132/78 Pulse 95 Temp 36.8 ?C (98.2 ?F) (Tympanic) Resp 18 Wt 100 kg (220 lb 7.4 oz) LMP 10/04/2023 SpO2 100% BMI 35.58 kg/m? Physical Exam Vitals and nursing note reviewed. Constitutional: General: She is not in acute distress. Appearance: Normal appearance. She is not toxic-appearing. Cardiovascular: Rate and Rhythm: Normal rate and regular rhythm. Pulmonary: Effort: Pulmonary effort is normal. Breath sounds: Normal breath sounds. Musculoskeletal: Right shoulder: Tenderness present. No deformity. Normal range of motion. Cervical back: No tenderness or bony tenderness. Pain with movement present. Normal range of motion. Comments: Patient has normal ROM right shoulder. Patient does report pain in the right shoulder/right side neck area with movement of the shoulder. Normal ROM cervical spine. She does report some pain with movement of the neck and the right shoulder/right trapezius area. Nontender neck. Nontender shoulder. Normal sensation right upper extremity. Normal strength right upper extremity. No obvious deformity. No rash or swelling present. Skin: General: Skin is warm and dry. Neurological: Mental Status: She is alert. Assessment and Plan ASSESSMENT/PLAN: 1. Cervical pain - ICD9: 723.1, ICD10: M54.2 (primary diagnosis) -Suspect musculoskeletal pain. Pain x several months. May also have component of cervical radiculopathy. -No XR available at time of exam. -Patient will return Sunday for XR. -Rx for prednisone -Follow-up with PCP as s (more content not included)... Normal [facility] Hepatobilliary Img w/Pharm I nton 02-07-2024 Hepatobilliary Img w/Pharm Int [facility] [address] [place] [address] Hepatobilliary Img w/Pharm Int MR#: [id number] Acct: [id number] Name: GLADYS JACKSON #: [id number] 3 : 1975 F 48 From: [place] PCP: BREANN HernandezC Status: REG CLI Study: Hepatobilliary Img w/Pharm Int Date of Exam: 0 02/07/24 Exam# [id number] Ordering Dr: Mikey Solares DO [id number] CLINICAL: 48-year-old female with history of abdominal bloating. RADIONUCLIDE HEPATOBILIARY SCINTIGRAPHY COMPARISON: Abdominal ultrasound report 01/21/2024 FINDINGS: Following the intravenous administration of 6.0 mCi of 99m Tc Mebrofenin, hepatobiliary images reveal: 1. Relatively prompt and homogeneous radiopharmaceutical concentration is noted by a normal sized liver. No parenchymal defects are identified. 2. Gallbladder activity is identified at 15 minutes post radiopharmaceutical administration. 3. Small intestinal tract is observed at 45 minutes following tracer injection. 4. Washout of the radiopharmaceutical by the hepatic parenchyma appears qualitatively normal. Cholecystokinin (0.02 ug/kg) was administered intravenously over a 30-minute period. The post CCK gallbladder ejection fraction calculated at 20 minutes following Cholecystokinin administration was noted to be 86.0 % (normal greater than 35%). During 30 minutes of post CCK imaging, there is no scintigraphic evidence of reflux of the radiotracer into the common hepatic duct or significant refilling of the gallbladder. NM/Hepatobilliary Img w/Pharm Int IMPRESSION: 1. NORMAL 99m Tc Mebrofenin hepatobiliary imaging examination with Cholecystokinin. A. A gallbladder ejection fraction calculated to be greater than 35% following the administration of Cholecystokinin makes the probability of functional hepatobiliary disease (gallbladder and/or sphincter of Oddi dyskinesia) and/or organic hepatobiliary disease (chronic acalculous cholecystitis and/or cystic duct syndrome) to be low. (Pili Bruce al, Journal of Nuclear Medicine 32:1695, 1990). Electronically Signed: Milo Mendoza DO at 10:03 EDT , CC: GENESIS Wong; Mikey Friend, [employer] Cell Assembly Machine Tender: Signed Normal [facility] XR SPINE CERVICAL AP/LATon 0 09-20-2023 XR SPINE CERVICAL AP/LAT ORIGINAL EXAMINATION: 3 XRAY VIEWS OF THE CERVICAL SPINE 09/19/2023 2:23 pm COMPARISON: None. HISTORY: ORDERING SYSTEM PROVIDED HISTORY: Reason for Exam: neck and shoulder pain, headaches FINDINGS: The cervical spine alignment is normal. Vertebral bodies are normal in height with no fracture. There is mild narrowing of intervertebral disc spaces and mild endplate degenerative spurring seen from C3-C4 through C6-C7. Facet joint alignment is normal. No abnormality of posterior elements is detected. The odontoid process is intact. There is no prevertebral soft tissue swelling. IMPRESSION: 1. Mild multilevel cervical spondylosis. 2. No subluxation or fracture. Interpreted by: Arie Barakat MD Preliminary Report By: Arie Barakat MD Electronically signed By Arie Barakat MD Dictated Date: 09/20/2023 12:12:41 AM Prelim Date: 09/20/2023 12:14:02 AM Sign Date: 09/20/2023 12:14:02 AM Ordering Provider: RAYSA WONG [facility] ([place]) Absolute lymphocyte countOrd ered By: ED PROVIDER on 08-21-2023 Lymphocytes Auto (Unsp spec) [#/Vol] 2.39 10*3/uL 0.83-4.51 [facility] Automated lymphocyte count a s percentage of total leukocytesOrdered By: ED PROVIDER on 08-21-2023 Lymphocytes/100 WBC Auto (Unsp spec) 27.4 % 19-41 [facility] Basophil percentageOrdered B y: ED PROVIDER on 08-21-2023 Basophils/100 WBC (Bld) 0.6 % 0-1 [facility] Chloride [Moles/Vol] 103 mmol/L 98-107 [facility] Eosinophils/100 WBC (Bld) 0.8 % 0-5 [facility] Glucose [Mass/Vol] 97 mg/dL 74-106 [facility] Hemoglobin (Bld) [Mass/Vol] 12.4 g/dL 12.0-15.0 [facility] Monocytes/100 WBC (Bld) 6.0 % 0-10 [facility] Neutrophils (Bld) [#/Vol] 5.7 10*3/uL 2.0-7.7 [facility] Neutrophils/100 WBC (Bld) 65.0 % 47-70 [facility] Potassium [Moles/Vol] 3.5 mmol/L 3.5-5.1 [facility] Sodium [Moles/Vol] 137 mmol/L 136-145 [facility] WBC (Bld) [#/Vol] 8.7 10*3/uL 4.4-11.0 [facility] Determination of erythrocyte mean corpuscular volume (MCV)Ordered By: ED PROVIDER on 08-21-2023 MCV (RBC) [Entitic vol] 84.0 fL 81-99 [facility] Erythrocyte distribution wid th ratioOrdered By: ED PROVIDER on 08-21-2023 Erythrocyte distribution width (RBC) [Ratio] 13.5 % 11.6-14.6 [facility] Erythrocyte distribution wid th standard deviationOrdered By: ED PROVIDER on 08-21-2023 Erythrocyte distribution width (RBC) [Entitic vol] 41.3 fL 35.1-43.9 [facility] Hematocrit Auto (Bld) [Volum e fraction]Ordered By: ED PROVIDER on 08-21-2023 Hematocrit (Bld) [Volume fraction] 38.8 % 37-47 [facility] Immature granulocytes/100 WB C Auto (Bld)Ordered By: ED PROVIDER on 08-21-2023 Immature granulocytes/100 WBC (Bld) 0.200 % 0.0-0.9 [facility] Comment on above: IG% - Immature Granu locytes (promyelocytes, myelocytes and metamyelocytes) > 1% indicates that a LEFT SHIFT is Present. Laboratory - Chemistry and C hemistry - challengeOrdered By: ED PROVIDER on 08-21-2023 CO2 [Moles/Vol] 28.0 mmol/L 21.0-32.0 [facility] Urea nitrogen/Creatinine [Mass ratio] 15.7 mg/mg 10-20 [facility] Laboratory - Hematology and Cell countsOrdered By: ED PROVIDER on 08-21-2023 MCH (RBC) [Entitic mass] 26.8 pg 27.0-32.0 [facility] MCHC (RBC) [Mass/Vol] 32.0 g/dL 32-36 [facility] Nucleated RBC/100 WBC (Bld) [Ratio] 0 % 0-5 [facility] Platelet mean volume (Bld) [Entitic vol] 10.0 fL 6.2-12.0 [facility] Platelets (Bld) [#/Vol] 314 10*3/uL 150-450 [facility] No Panel InformationOrdered By: ED PROVIDER on 08-21-2023 Estimated Creatinine Clearance Calc 94.41 ml/min [facility] Estimated GFR (MDRD) Amer 87 mL/min >60 [facility] Comment on above: GFR Calc Estimated GFR (MDRD) Non-Af Amer 72 mL/min >60 [facility] Comment on above: Non- GFR Calc RBC Auto (Bld) [#/Vol]Ordere d By: ED PROVIDER on 08-21-2023 RBC (Bld) [#/Vol] 4.62 10*6/uL 4.2-5.4 [facility] Serum or plasma calcium dayron urement (mass/volume)Ordered By: ED PROVIDER on 08-21-2023 Calcium [Mass/Vol] 9.4 mg/dL 8.5-10.1 [facility] Serum or plasma cardiac trop onin I panel by high sensitivity methodOrdered By: ED PROVIDER on 08-21-2023 Tropinin I.cardiac panel High sensitivity method 5 pg/mL 3.0-54.0 [facility] Comment on above: Please Note: New Delfina t Units and Gender Specific Reference Ranges. For more information see Policy Stat Procedure [place] High Sensitivity Troponin (TNIH) and attachments. Serum or plasma creatinine m easurement (mass/volume)Ordered By: ED PROVIDER on 08-21-2023 Creatinine [Mass/Vol] 0.89 mg/dL 0.55-1.02 [facility] Comment on above: The validity of the calculated GFR & GFRAA in patients over 70 years has not been determined. Clinical correlation is essential. Serum or plasma urea nitroge n measurement (mass/volume)Ordered By: ED PROVIDER on 08-21-2023 Urea nitrogen [Mass/Vol] 14 mg/dL 7-18 [facility] Thin prep Papanicolaou smear with manual screeningOrdered By: ED PROVIDER on 08-21-2023 Thin prep Papanicolaou smear with manual screening 6 5-15 [facility] US Pelvison 08-01-2023 [facility] DBT Breast - bilateral diagn ostic for implanton 07-25-2023 [facility] US ABDOMEN LIMITEDon 024 US ABDOMEN LIMITED ORIGINAL EXAMINATION: RIGHT UPPER QUADRANT ULTRASOUND 06/07/2023 10:04 am COMPARISON: CT abdomen/pelvis 05/02/2017 HISTORY: ORDERING SYSTEM PROVIDED HISTORY: Reason for Exam: right upper quadrant and epigastric area d/t pain and tenderness FINDINGS: Exam is somewhat limited secondary to body habitus and overlying bowel gas. LIVER: The liver demonstrates increased echogenicity with poor through transmission of sound. No evidence of intrahepatic biliary ductal dilatation. Probable subcentimeter cyst. BILIARY SYSTEM: Gallbladder is unremarkable without evidence of pericholecystic fluid, wall thickening or stones. Negative sonographic Mcwilliams's sign. Common bile duct is within normal limits measuring 3 mm. RIGHT KIDNEY: Right kidney is suboptimally evaluated although demonstrates no pelvicaliectasis. PANCREAS: Visualized portions of the pancreas are unremarkable. OTHER: No evidence of right upper quadrant ascites. IMPRESSION: No acute process. Findings suggestive of hepatic steatosis versus other nonspecific diffuse chronic hepatocellular process. I have personally reviewed the images of this examination and agree with the resident's findings and interpretations. Interpreted by: Weston Sargent MD Preliminary Report By: Mercy Petit Electronically signed By Weston Sargent MD Dictated Date: 06/12/2023 8:48:10 AM Prelim Date: 06/12/2023 8:59:03 AM Sign Date: 06/12/2023 8:59:03 AM Ordering Provider: RAYSA WONG [facility] ([place] .Auto Diffon 05-28-2023 Basophil, Absolute 0.0 10 3/mcL Normal 0.0-0.2 [facility] ([place]) Comment on above: Performed By: #### A MY, LIPID, GFR, ADIFF, ANEU, CBC, LIP, CMP #### [place] [id number] [place], [place] [address] Basophils/100 WBC (Bld) 0.8 % Normal 0.0-2.5 [facility] ([place]) Comment on above: Performed By: #### A MY, LIPID, GFR, ADIFF, ANEU, CBC, LIP, CMP #### [address] [address] Eosinophil, Absolute 0.1 10 3/mcL Normal 0.0-0.4 [facility] ([place]) Comment on above: Performed By: #### A MY, LIPID, GFR, ADIFF, ANEU, CBC, LIP, CMP #### [address] [address] Eosinophils/100 WBC (Bld) 1.5 % Normal 0.0-7.0 [facility] ([place] Comment on above: Performed By: #### A MY, LIPID, GFR, ADIFF, ANEU, CBC, LIP, CMP #### [address] [address] Lymphocyte, Absolute 2.2 10 3/mcL Normal 0.8-3.9 [facility] ([place]) Comment on above: Performed By: #### A MY, LIPID, GFR, ADIFF, ANEU, CBC, LIP, CMP #### [address] [address] Lymphocytes/100 WBC (Bld) 39.2 % Normal 10.0-50.0 [facility] ([place] Comment on above: Performed By: #### A MY, LIPID, GFR, ADIFF, ANEU, CBC, LIP, CMP #### [address] [address] Monocyte, Absolute 0.5 10 3/mcL Normal 0.2-1.0 [facility] ([place]) Comment on above: Performed By: #### A MY, LIPID, GFR, ADIFF, ANEU, CBC, LIP, CMP #### [address] [address] Monocytes/100 WBC (Bld) 8.0 % Normal 1.7-13.0 [facility] ([place] Comment on above: Performed By: #### A MY, LIPID, GFR, ADIFF, ANEU, CBC, LIP, CMP #### [address] [address] Neutrophils/100 WBC (Bld) 50.5 % Normal 37.0-80.0 [facility] ([place] Comment on above: Performed By: #### A MY, LIPID, GFR, ADIFF, ANEU, CBC, LIP, CMP #### [address] [address] .GFRon 05-28-2023 GFR Non- 66 ml/min/1.73sqm [facility] ([place] Comment on above: Result Comment: GFR Population mean for , Non- Americans Ages 20-29 = 116 mL/min/1.73 sq.m. Ages 30-39 = 107 mL/min/1.73 sq.m. Ages 40-49 = 99 mL/min/1.73 sq.m. Ages 50-59 = 93 mL/min/1.73 sq.m. Ages 60-69 = 85 mL/min/1.73 sq.m. Ages 70+ = 75 mL/min/1.73 sq.m. Chronic Kidney Disease: Less than 60 mL/min/1.73 square meters End Stage Renal Disease: Less than 15 mL/min/1.73 square meters Performed By: #### A MY, LIPID, GFR, ADIFF, ANEU, CBC, LIP, CMP #### [address] [address] GFR 80 ml/min/1.73sqm [facility] ([place] Comment on above: Result Comment: GFR Population mean for , Non- Americans Ages 20-29 = 116 mL/min/1.73 sq.m. Ages 30-39 = 107 mL/min/1.73 sq.m. Ages 40-49 = 99 mL/min/1.73 sq.m. Ages 50-59 = 93 mL/min/1.73 sq.m. Ages 60-69 = 85 mL/min/1.73 sq.m. Ages 70+ = 75 mL/min/1.73 sq.m. Chronic Kidney Disease: Less than 60 mL/min/1.73 square meters End Stage Renal Disease: Less than 15 mL/min/1.73 square meters Performed By: #### A MY, LIPID, GFR, ADIFF, ANEU, CBC, LIP, CMP #### [place] [address] .NEUABSon 05-28-2023 Neutrophil, Absolute 2.9 10 3/mcL Normal 2.9-6.2 [facility] ([place]) Comment on above: Performed By: #### A MY, LIPID, GFR, ADIFF, ANEU, CBC, LIP, CMP #### [place] [address] AMYon 05-28-2023 Amylase [Catalytic activity/Vol] 34 U/L Normal 25-115 [facility] ([place] Comment on above: Performed By: #### A MY, LIPID, GFR, ADIFF, ANEU, CBC, LIP, CMP #### [place] [address] CBCon 05-28-2023 Erythrocyte distribution width (RBC) [Ratio] 14.0 % Normal 11.5-14.5 [facility] [place] Comment on above: Performed By: #### A MY, LIPID, GFR, ADIFF, ANEU, CBC, LIP, CMP #### [place] [address] Hematocrit (Bld) [Volume fraction] 37.8 % Normal 37.0-47.0 [facility] [place] Comment on above: Performed By: #### A MY, LIPID, GFR, ADIFF, ANEU, CBC, LIP, CMP #### [place] [address] Hgb 12.8 G/dL Normal 12.0-16.0 [facility] ([place] Comment on above: Performed By: #### A MY, LIPID, GFR, ADIFF, ANEU, CBC, LIP, CMP #### [place] [address] MCH (RBC) [Entitic mass] 28.7 pg Normal 27.0-31.2 [facility] ([place] Comment on above: Performed By: #### A MY, LIPID, GFR, ADIFF, ANEU, CBC, LIP, CMP #### [address] [address] MCHC 33.9 G/dL Normal 33.0-37.0 [facility] [place] Comment on above: Performed By: #### A MY, LIPID, GFR, ADIFF, ANEU, CBC, LIP, CMP #### [address] [address] MCV (RBC) [Entitic vol] 84.6 fL Normal 80.0-94.0 [facility] ([place] Comment on above: Performed By: #### A MY, LIPID, GFR, ADIFF, ANEU, CBC, LIP, CMP #### [address] [address] Platelet 315 10 3/mcL Normal 130-400 [facility] ([place] Comment on above: Performed By: #### A MY, LIPID, GFR, ADIFF, ANEU, CBC, LIP, CMP #### [place] [id number] Platelet mean volume (Bld) [Entitic vol] 8.6 fL Normal 7.4-10.4 [facility] ([place] Comment on above: Performed By: #### A MY, LIPID, GFR, ADIFF, ANEU, CBC, LIP, CMP #### [address] [address] RBC 4.47 10 6/mcL Normal 4.20-5.40 [facility] ([place] Comment on above: Performed By: #### A MY, LIPID, GFR, ADIFF, ANEU, CBC, LIP, CMP #### [address] [address] WBC 5.7 10 3/mcL Normal 4.6-10.8 [facility] ([place] Comment on above: Performed By: #### A MY, LIPID, GFR, ADIFF, ANEU, CBC, LIP, CMP #### [address] [address] CMPon 05-28-2023 Albumin Level 3.4 G/dL Low 3.5-5.0 [facility] ([place] Comment on above: Performed By: #### A MY, LIPID, GFR, ADIFF, ANEU, CBC, LIP, CMP #### [place] [address] Albumin/Globulin [Mass ratio] 1.0 {ratio} Low 1.1-2.5 [facility] ([place] Comment on above: Performed By: #### A MY, LIPID, GFR, ADIFF, ANEU, CBC, LIP, CMP #### [place] [address] ALP [Catalytic activity/Vol] 86 U/L Normal 40-135 [facility] ([place] Comment on above: Performed By: #### A MY, LIPID, GFR, ADIFF, ANEU, CBC, LIP, CMP #### [place] [address] ALT [Catalytic activity/Vol] 25 U/L Normal 14-59 [facility] ([place] Comment on above: Performed By: #### A MY, LIPID, GFR, ADIFF, ANEU, CBC, LIP, CMP #### [place] [address] AST [Catalytic activity/Vol] 11 U/L Normal 10-40 [facility] ([place] Comment on above: Performed By: #### A MY, LIPID, GFR, ADIFF, ANEU, CBC, LIP, CMP #### [place] [address] Bili Total 0.5 mg/dL Normal 0.2-1.0 [facility] ([place] Comment on above: Result Comment: Use of this assay is not recommended for patients undergoing treatment with eltrombopag due to the potential for falsely elevated results. Performed By: #### A MY, LIPID, GFR, ADIFF, ANEU, CBC, LIP, CMP #### [place] [address] BUN/Creatinine Ratio 15 ratio Normal 7-27 [facility] ([place]) Comment on above: Performed By: #### A MY, LIPID, GFR, ADIFF, ANEU, CBC, LIP, CMP #### [place] [id number] Calcium [Mass/Vol] 8.7 mg/dL Normal 8.4-10.2 [facility] ([place]) Comment on above: Performed By: #### A MY, LIPID, GFR, ADIFF, ANEU, CBC, LIP, CMP #### [place] [address] Chloride [Moles/Vol] 106 mmol/L Normal 98-107 [facility] ([place] Comment on above: Performed By: #### A MY, LIPID, GFR, ADIFF, ANEU, CBC, LIP, CMP #### [place] [address] CO2 [Moles/Vol] 28 mmol/L Normal 22-29 [facility] ([place] Comment on above: Performed By: #### A MY, LIPID, GFR, ADIFF, ANEU, CBC, LIP, CMP #### [place] [address] Creatinine [Mass/Vol] 0.91 mg/dL Normal 0.55-1.02 [facility] ([place] Comment on above: Performed By: #### A MY, LIPID, GFR, ADIFF, ANEU, CBC, LIP, CMP #### [place] [address] Electrolyte Balance 9.0 mEq/L Normal 4.0-15.0 [facility] ([place]) Comment on above: Performed By: #### A MY, LIPID, GFR, ADIFF, ANEU, CBC, LIP, CMP #### [place] [address] Globulin 3.5 G/dL Normal [facility] ([place] Comment on above: Performed By: #### A MY, LIPID, GFR, ADIFF, ANEU, CBC, LIP, CMP #### [place] [address] Glucose [Mass/Vol] 107 mg/dL High 70-105 [facility] ([place] Comment on above: Performed By: #### A MY, LIPID, GFR, ADIFF, ANEU, CBC, LIP, CMP #### [address] [address] Potassium [Moles/Vol] 3.9 mmol/L Normal 3.5-5.1 [facility] ([place] Comment on above: Performed By: #### A MY, LIPID, GFR, ADIFF, ANEU, CBC, LIP, CMP #### [place] [address] [place], [place] [address] Sodium [Moles/Vol] 143 mmol/L Normal 136-145 [facility] ([place] Comment on above: Performed By: #### A MY, LIPID, GFR, ADIFF, ANEU, CBC, LIP, CMP #### [address] [address] Total Protein 6.9 G/dL Normal 6.4-8.2 [facility] ([place] Comment on above: Performed By: #### A MY, LIPID, GFR, ADIFF, ANEU, CBC, LIP, CMP #### [address] [address] Urea nitrogen [Mass/Vol] 14 mg/dL Normal 7-18 [facility] ([place] Comment on above: Performed By: #### A MY, LIPID, GFR, ADIFF, ANEU, CBC, LIP, CMP #### [address] [address] LABORATORYOrdered By: SYSTEM SYSTEM on 05-28-2023 Albumin BCP dye [Mass/Vol] 3.4 G/dL Low 3.5 - 5.0 G/dL AO ADM SS Albumin/Globulin [Mass ratio] 1.0 {ratio} Low 1.1 - 2.5 ratio AO ADM SS ALP [Catalytic activity/Vol] 86 U/L Normal 40 - 135 U/L AO ADM SS ALT With P-5'-P [Catalytic activity/Vol] 25 U/L Normal 14 - 59 U/L AO ADM SS Amylase [Catalytic activity/Vol] 34 U/L Normal 25 - 115 U/L AO ADM SS AST With P-5'-P [Catalytic activity/Vol] 11 U/L Normal 10 - 40 U/L AO ADM SS Basophil, Absolute 0.0 103/mcL Normal 0.0 - 0.2 10^3/mcL AO Workflow SS Basophils/100 WBC (Bld) 0.8 % Normal 0.0 - 2.5 % AO Workflow SS Bilirubin [Mass/Vol] 0.5 mg/dL Normal 0.2 - 1 .0 mg/dL AO ADM SS Comment on above: Interpretive Data: U se of this assay is not recommended for patients undergoing treatment with eltrombopag due to the potential for falsely elevated results. Calcium [Mass/Vol] 8.7 mg/dL Normal 8.4 - 10. 2 mg/dL AO ADM SS Chloride [Moles/Vol] 106 mmol/L Normal 98 - 10 7 mmol/L AO ADM SS CO2 [Moles/Vol] 28 mmol/L Normal 22 - 29 mmol/L AO ADM SS Creatinine [Mass/Vol] 0.91 mg/dL Normal 0.55 - 1.02 mg/dL AO ADM SS Electrolyte Balance 9.0 mEq/L Normal 4.0 - 15 .0 mEq/L AO ADM SS Eosinophil, Absolute 0.1 103/mcL Normal 0.0 - 0 .4 10^3/mcL AO Workflow SS Eosinophils/100 WBC (Bld) 1.5 % Normal 0.0 - 7.0 % AO Workflow SS Erythrocyte distribution width (RBC) [Ratio] 14.0 % Normal 11.5 - 14.5 % AO Workflow SS GFR/1.73 sq M.predicted among blacks MDRD (S/P/Bld) [Vol rate/Area] 80 ml/min/1.73sqm Invalid Interpretation Code AO Chemistry S Comment on above: Interpretive Data: GFR Population mean for , Non- Americans Ages 20-29 = 116 mL/min/1.73 sq.m. Ages 30-39 = 107 mL/min/1.73 sq.m. Ages 40-49 = 99 mL/min/1.73 sq.m. Ages 50-59 = 93 mL/min/1.73 sq.m. Ages 60-69 = 85 mL/min/1.73 sq.m. Ages 70+ = 75 mL/min/1.73 sq.m. Chronic Kidney Disease: Less than 60 mL/min/1.73 square meters End Stage Renal Disease: Less than 15 mL/min/1.73 square meters GFR/1.73 sq M.predicted among non-blacks MDRD (S/P/Bld) [Vol rate/Area] 66 ml/min/1.73sqm Invalid Interpretation Code AO Chemistry S Comment on above: Interpretive Data: GFR Population mean for , Non- Americans Ages 20-29 = 116 mL/min/1.73 sq.m. Ages 30-39 = 107 mL/min/1.73 sq.m. Ages 40-49 = 99 mL/min/1.73 sq.m. Ages 50-59 = 93 mL/min/1.73 sq.m. Ages 60-69 = 85 mL/min/1.73 sq.m. Ages 70+ = 75 mL/min/1.73 sq.m. Chronic Kidney Disease: Less than 60 mL/min/1.73 square meters End Stage Renal Disease: Less than 15 mL/min/1.73 square meters Globulin 3.5 G/dL Invalid Interpretation Code AO ADM SS Glucose [Mass/Vol] 107 mg/dL High 70 - 105 mg/dL AO ADM SS Hematocrit (Bld) [Volume fraction] 37.8 % Normal 37.0 - 47.0 % AO Workflow SS Hemoglobin (Bld) [Mass/Vol] 12.8 G/dL Normal 12.0 - 16.0 G/dL AO Workflow SS Lipase [Catalytic activity/Vol] 45 U/L Normal 16 - 77 U/L AO ADM SS Lymphocyte, Absolute 2.2 103/mcL Normal 0.8 - 3 .9 10^3/mcL AO Workflow SS Lymphocytes/100 WBC (Bld) 39.2 % Normal 10.0 - 50.0 % AO Workflow SS MCH (RBC) [Entitic mass] 28.7 pg Normal 27.0 - 31.2 pg AO Workflow SS MCHC 33.9 G/dL Normal 33.0 - 37.0 G/dL AO Workflow SS MCV (RBC) [Entitic vol] 84.6 fL Normal 80.0 - 94.0 fL AO Workflow SS Monocyte, Absolute 0.5 103/mcL Normal 0.2 - 1.0 10^3/mcL AO Workflow SS Monocytes/100 WBC (Bld) 8.0 % Normal 1.7 - 13.0 % AO Workflow SS Neutrophil, Absolute 2.9 103/mcL Normal 2.9 - 6 .2 10^3/mcL AO Workflow SS Neutrophils/100 WBC (Bld) 50.5 % Normal 37.0 - 80.0 % AO Workflow SS Platelet mean volume (Bld) [Entitic vol] 8.6 fL Normal 7.4 - 10.4 fL AO Workflow SS Platelets (Bld) [#/Vol] 315 103/mcL Normal 130 - 400 10^3/mcL AO Workflow SS Potassium [Moles/Vol] 3.9 mmol/L Normal 3.5 - 5.1 mmol/L AO ADM SS Protein [Mass/Vol] 6.9 G/dL Normal 6.4 - 8.2 G/dL AO ADM SS RBC (Bld) [#/Vol] 4.47 106/mcL Normal 4.20 - 5.4 0 10^6/mcL AO Workflow SS Sodium [Moles/Vol] 143 mmol/L Normal 136 - 145 mmol/L AO ADM SS Urea nitrogen [Mass/Vol] 14 mg/dL Normal 7 - 18 mg/dL AO ADM SS Urea nitrogen/Creatinine [Mass ratio] 15 ratio Normal 7 - 27 ratio AO ADM SS WBC (Bld) [#/Vol] 5.7 103/mcL Normal 4.6 - 10.8 10^3/mcL AO Workflow SS LABORATORYOrdered By: Pina Espinosa on 05-28-2023 Cholesterol [Mass/Vol] 243 mg/dL High 0 - 200 mg/dL AO ADM SS Comment on above: Interpretive Data: C holesterol Reference Interval: Less than 200 Desirable 200-239 Borderline high risk 240 and above High risk Cholesterol in HDL [Mass/Vol] 63 mg/dL High 40 - 60 mg/dL AO ADM SS Cholesterol in LDL [Mass/Vol] 170 mg/dL High 0 - 130 mg/dL AO ADM SS Triglyceride [Mass/Vol] 52 mg/dL Normal 0 - 150 mg/dL AO ADM SS Comment on above: Interpretive Data: T riglyceride Reference Interval: Less than 150 Normal 150-199 Borderline high risk 200-499 High risk 500 or higher Very high risk LIPon 05-28-2023 Lipase Level 45 U/L Normal 16-77 [facility] Comment on above: Performed By: #### A MY, LIPID, GFR, ADIFF, ANEU, CBC, LIP, CMP #### [facility] [address] [address] LIPIDon 05-28-2023 Cholesterol [Mass/Vol] 243 mg/dL High 0-200 [facility] Comment on above: Result Comment: Chol esterol Reference Interval: Less than 200 Desirable 200-239 Borderline high risk 240 and above High risk Performed By: #### A MY, LIPID, GFR, ADIFF, ANEU, CBC, LIP, CMP ####[facility] [place], [place] [address] Cholesterol in HDL [Mass/Vol] 63 mg/dL High 40-60 [facility] [place] Comment on above: Performed By: #### A MY, LIPID, GFR, ADIFF, ANEU, CBC, LIP, CMP ####[facility] [address] [place], [place] [address] Cholesterol in LDL [Mass/Vol] 170 mg/dL High 0-130 [facility] [place] Comment on above: Performed By: #### A MY, LIPID, GFR, ADIFF, ANEU, CBC, LIP, CMP ####[facility] [place], [place] [address] Triglyceride [Mass/Vol] 52 mg/dL Normal 0-150 [facility] [place] Comment on above: Result Comment: Trig lyceride Reference Interval: Less than 150 Normal 150-199 Borderline high risk 200-499 High risk 500 or higher Very high risk Performed By: #### A MY, LIPID, GFR, ADIFF, ANEU, CBC, LIP, CMP ####[facility] [place], [place] [address] XR SPINE LUMBAR AP/LATon XR SPINE LUMBAR AP/LAT ORIGINAL EXAMINATION: 3 XRAY VIEWS OF THE LUMBAR SPINE01/23/2023 2:41 pm COMPARISON: CT abdomen pelvis April 2017 HISTORY: ORDERING SYSTEM PROVIDED HISTORY: Reason for Exam: right thigh pain FINDINGS: There are 5 ntd-mmb-comffzd lumbar type vertebral bodies. Alignment and curvature are maintained. Mild vertebral body anterior wedging of T11 and T12 vertebra. Lumbar vertebral body heights maintained.. Multilevel marginal osteophyte intervertebral disc space narrowing and moderate facet arthropathy seen..SI joints are symmetric. The visualized sacrum and pelvis are unremarkable. The visualized soft tissues exhibit no acute abnormalities. IMPRESSION: Mild T11 and T12 vertebral body anterior wedging likely degenerative, seen on previous CT abdomen pelvis from April 2017. No significant listhesis. Moderate degenerative change, greatest at L5-S1. I have personally reviewed the images of this examination and agree with the resident's findings and interpretation. Interpreted by: Wes Alberto MD Preliminary Report By: Bogdan Corcoran Electronically signed By Wes Alberto MD Dictated Date: 01/26/2023 11:10:57 AM Prelim Date: 01/26/2023 11:28:21 AM Sign Date: 01/26/2023 11:28:21 AM Ordering Provider: RAYSA WONG [facility] ([place]) [facility] STEREO BX BREAST LTon [facility] US BREAST LTD LTon 06-28 MARTY US BREAST LTD LT * * *Final Report* * * DATE OF EXAM: Jun 28 2022 9:31AM SHIELA [id number] - [facility] US BREAST LTD LT / PROCEDURE REASON: R92.8-Abnormal mammogram * * * * Physician Interpretation * * * * #[id number] - [facility] US BREAST LTD LT LIMITED ULTRASOUND OF LEFT BREAST: 06/28/2022 HISTORY: R92.8-Abnormal Mammogram. RESULT: Comparison is made to exams dated: 06/13/2022 ultrasound and 06/13/2022 mammogram - [facility]. Real-time ultrasound of the left breast upper inner quadrant was performed. Neely scale images of the real-time examination were reviewed. Imaging of the area of interest located at 11:00, 9 cm from the nipple demonstrated a vague isoechoic area thought to represent the mammogram finding. Due to the poor conspicuity of the finding on ultrasound on the current study, tomosynthesis guided biopsy is advised. IMPRESSION: SUSPICIOUS FINDING - BIOPSY SHOULD BE CONSIDERED The patient will reschedule for a site with tomosynthesis guided biopsy capabilities. Ewa Olivo M.D., mc/leidy:06/28/2022 09:47:39 Director Of Food And Beverage Services(s): Sarah Robison, [facility] Ultrasound BI-RADS: 4 Suspicious finding - Biopsy should be considered Multiple national specialty organizations have released breast cancer screening guidelines for women at average risk for developing breast cancer - guidelines that are based on both evidence and opinion, yet differ on when to start and how often to screen for breast cancer. With representation from Breast Imaging, Internal Medicine, Women's Health, Family Medicine, and Medical/Surgical Oncology, the [facility] has carefully reviewed the data and reached the following consensus: 1) All women should engage in shared decision-making with their providers to decide when to start and how often to screen; 2) All women should have the opportunity to start screening mammography at age 40; 3) For women ages 45-55, we recommend annual screening mammograms; 4) For women ages 55 and over, we support both the transition from an annual to a biennial interval if this aligns more with patient's values and preferences, or continuation with annual screening; 5) All women should discuss with their providers when to stop screening mammograms. Dry Cell Assembly Machine Tender: Leidy Transcribe Date/Time: Jun 28 2022 9:31A Dictated by : EWA OLIVO MD This examination was interpreted and the report reviewed and electronically signed by: EWA OLIVO MD on Jun 28 2022 9:47AM EST [id number] Normal [facility] US BREAST LTD LTon 3 [facility] MARTY DIAG W DELFIN LTon 023 [facility] US BREAST LTD LTon 3 [facility] LABORATORYOrdered By: SYSTEM SYSTEM on 06-10-2022 Albumin BCP dye [Mass/Vol] 3.6 G/dL Invalid Interpretation Code 3.5 - 5.0 G/dL AO ADM SS Albumin/Globulin [Mass ratio] 1.1 {ratio} Invalid Interpretation Code 1.1 - 2.5 ratio AO ADM SS ALP [Catalytic activity/Vol] 86 U/L Invalid Interpretation Code 40 - 135 U/L AO ADM SS ALT With P-5'-P [Catalytic activity/Vol] 24 U/L Invalid Interpretation Code 14 - 59 U/L AO ADM SS AST With P-5'-P [Catalytic activity/Vol] 15 U/L Invalid Interpretation Code 10 - 40 U/L AO ADM SS Bilirubin [Mass/Vol] 0.4 mg/dL Invalid Interpretation Code 0.2 - 1.0 mg/dL AO ADM SS Calcium [Mass/Vol] 8.6 mg/dL Invalid Interpretation Code 8.4 - 10.2 mg/dL AO ADM SS Chloride [Moles/Vol] 103 mmol/L Invalid Interpretation Code 98 - 107 mmol/L AO ADM SS CO2 [Moles/Vol] 30 mmol/L Invalid Interpretation Code 22 - 29 mmol/L AO ADM SS Creatinine [Mass/Vol] 0.93 mg/dL Invalid Interpretation Code 0.55 - 1.02 mg/dL AO ADM SS Electrolyte Balance 5.0 mEq/L Invalid Interpretation Code 4.0 - 15.0 mEq/L AO ADM SS GFR 78 ml/min/1.73sqm Invalid Interpretation Code AO Chemistry S GFR Non- 65 ml/min/1.73sqm Invalid Interpretation Code AO Chemistry S Globulin 3.4 G/dL Invalid Interpretation Code AO ADM SS Glucose [Mass/Vol] 100 mg/dL Invalid Interpretation Code 70 - 105 mg/dL AO ADM SS Potassium [Moles/Vol] 4.3 mmol/L Invalid Interpretation Code 3.5 - 5.1 mmol/L AO ADM SS Protein [Mass/Vol] 7.0 G/dL Invalid Interpretation Code 6.4 - 8.2 G/dL AO ADM SS Sodium [Moles/Vol] 138 mmol/L Invalid Interpretation Code 136 - 145 mmol/L AO ADM SS Urea nitrogen [Mass/Vol] 11 mg/dL Invalid Interpretation Code 7 - 18 mg/dL AO ADM SS Urea nitrogen/Creatinine [Mass ratio] 12 ratio Invalid Interpretation Code 7 - 27 ratio AO ADM SS LABORATORYOrdered By: Tianna Alexandra on 06-10-2022 Basophil, Absolute 0.0 103/mcL Invalid Interpretation Code 0.0 - 0.2 10^3/mcL AO Workflow SS Basophils/100 WBC (Bld) 0.8 % Invalid Interpretation Code 0.0 - 2.5 % AO Workflow SS Cholesterol [Mass/Vol] 231 mg/dL Invalid Interpretation Code 0 - 200 mg/dL AO ADM SS Cholesterol in HDL [Mass/Vol] 67 mg/dL Invalid Interpretation Code 40 - 60 mg/dL AO ADM SS Cholesterol in LDL [Mass/Vol] 150 mg/dL Invalid Interpretation Code 0 - 130 mg/dL AO ADM SS Eosinophil, Absolute 0.1 103/mcL Invalid Interpretation Code 0.0 - 0.4 10^3/mcL AO Workflow SS Eosinophils/100 WBC (Bld) 2.1 % Invalid Interpretation Code 0.0 - 7.0 % AO Workflow SS Erythrocyte distribution width (RBC) [Ratio] 16.2 % Invalid Interpretation Code 11.5 - 14.5 % AO Workflow SS Hematocrit (Bld) [Volume fraction] 36.6 % Invalid Interpretation Code 37.0 - 47.0 % AO Workflow SS Hemoglobin (Bld) [Mass/Vol] 12.1 G/dL Invalid Interpretation Code 12.0 - 16.0 G/dL AO Workflow SS Lymphocyte, Absolute 1.7 103/mcL Invalid Interpretation Code 0.8 - 3.9 10^3/mcL AO Workflow SS Lymphocytes/100 WBC (Bld) 33.1 % Invalid Interpretation Code 10.0 - 50.0 % AO Workflow SS MCH (RBC) [Entitic mass] 26.3 pg Invalid Interpretation Code 27.0 - 31.2 pg AO Workflow SS MCHC 33.0 G/dL Invalid Interpretation Code 33.0 - 37.0 G/dL AO Workflow SS MCV (RBC) [Entitic vol] 79.6 fL Invalid Interpretation Code 80.0 - 94.0 fL AO Workflow SS Monocyte, Absolute 0.5 103/mcL Invalid Interpretation Code 0.2 - 1.0 10^3/mcL AO Workflow SS Monocytes/100 WBC (Bld) 9.5 % Invalid Interpretation Code 1.7 - 13.0 % AO Workflow SS Neutrophil, Absolute 2.8 103/mcL Invalid Interpretation Code 2.9 - 6.2 10^3/mcL AO Workflow SS Neutrophils/100 WBC (Bld) 54.5 % Invalid Interpretation Code 37.0 - 80.0 % AO Workflow SS Platelet mean volume (Bld) [Entitic vol] 8.6 fL Invalid Interpretation Code 7.4 - 10.4 fL AO Workflow SS Platelets (Bld) [#/Vol] 332 103/mcL Invalid Interpretation Code 130 - 400 10^3/mcL AO Workflow SS RBC (Bld) [#/Vol] 4.60 106/mcL Invalid Interpretation Code 4.20 - 5.40 10^6/mcL AO Workflow SS Triglyceride [Mass/Vol] 68 mg/dL Invalid Interpretation Code 0 - 150 mg/dL AO ADM SS WBC (Bld) [#/Vol] 5.1 103/mcL Invalid Interpretation Code 4.6 - 10.8 10^3/mcL AO Workflow SS MARTY SCREENINGon 05-16-2022 [facility] XR Lumbar spine 3 Viewson IMPRESSION: Lumbar s pine degenerative changes as described above. [employer] Machine Tender: RAYO Transcribe Date/Time: Feb 20 2022 8:24A Dictated by : CHAYA BEJARANO MD This examination was interpreted and the report reviewed and electronically signed by: CHAYA BEJARANO MD on Feb 20 2022 8:27AM [facility] DIVISION OF RADIOLOGY * * *Final Report* * * DATE OF EXAM: Feb 20 2022 8:13AM WOX [id number] - XR LUMBAR 3V AP/LAT/L5-S1 / PROCEDURE REASON: Acute right-sided low back pain without sciatica * * * * Physician Interpretation * * * * EXAM TITLE: XR LUMBAR 3V AP/LAT/L5-S1 EXAM DATE/TIME: 02/20/2022 8:13 AM COMPARISON: None. CLINICAL INDICATION/HISTORY: Low back pain. TECHNIQUE: AP, lateral and cone down lateral views of the lumbar spine are presented. FINDINGS: There are five ayl-srb-vkkehon lumbar vertebrae. No fracture or subluxations are noted. There is mild left-sided curvature. The disc spaces are grossly preserved. There is mild osteophyte formation, with facet arthrosis in the lower lumbar spine. DIVISION OF RADIOLOGY [facility] * * *Final Report* * * DATE OF EXAM: Feb 20 2022 8:13AM WOX [id number] - XR LUMBAR 3V AP/LAT/L5-S1 / PROCEDURE REASON: Acute right-sided low back pain without sciatica * * * * Physician Interpretation * * * * EXAM TITLE: XR LUMBAR 3V AP/LAT/L5-S1 EXAM DATE/TIME: 02/20/2022 8:13 AM COMPARISON: None. CLINICAL INDICATION/HISTORY: Low back pain. TECHNIQUE: AP, lateral and cone down lateral views of the lumbar spine are presented. FINDINGS: There are five slq-quz-qfrozpk lumbar vertebrae. No fracture or subluxations are noted. There is mild left-sided curvature. The disc spaces are grossly preserved. There is mild osteophyte formation, with facet arthrosis in the lower lumbar spine. IMPRESSION IMPRESSION: Lumbar spine degenerative changes as described above. [employer] Machine Tender: RAYO Transcribe Date/Time: Feb 20 2022 8:24A Dictated by : CHAYA BEJARANO MD This examination was interpreted and the report reviewed and electronically signed by: CHAYA BEJARANO MD on Feb 20 2022 8:27AM [facility] Radiology Study observation (narrative) [facility] XR Lumbar spine 3 ViewsOrder ed By: [facility] Provider on 02-20-2022 [facility] Vital Signs Date Time Vital Sign Value Performing Clinician Lashell muniz 12-22-2024 15:09-0400 Body mass index (BMI) [Ratio] 32.91 kg/m2 Anselmo Puentes TRACK EQUIPMENT OPERATOR.MOLD MAKER APPRENTICE Work Phone: [facility] 12-22-2024 15:09-0400 Body temperature 99.7 [degF] Anselmo Puentes TRACK EQUIPMENT OPERATOR.MOLD MAKER APPRENTICE Work Phone: [facility] 12-22-2024 15:09-0400 Body weight 93.9 kg Anselmo Puentes TRACK EQUIPMENT OPERATOR.MOLD MAKER APPRENTICE Work Phone: [facility] 12-22-2024 15:09-0400 Diastolic blood pressure 72 mm[Hg] Anselmo Puentes TRACK EQUIPMENT OPERATOR.MOLD MAKER APPRENTICE Work Phone: [facility] 12-22-2024 15:09-0400 Heart rate 80 /min Anselmo Puentes TRACK EQUIPMENT OPERATOR.MOLD MAKER APPRENTICE Work Phone: [facility] 12-22-2024 15:09-0400 Respiratory rate 18 /min Anselmo Puentes TRACK EQUIPMENT OPERATOR.MOLD MAKER APPRENTICE Work Phone: [facility] 12-22-2024 15:09-0400 SaO2% (BldA) [Mass fraction] 98 % Anselmo Puentes TRACK EQUIPMENT OPERATOR.MOLD MAKER APPRENTICE Work Phone: [facility] 12-22-2024 15:09-0400 Systolic blood pressure 112 mm[Hg] Anselmo Puentes TRACK EQUIPMENT OPERATOR.MOLD MAKER APPRENTICE Work Phone: [facility] 09-16-2024 18:30-0400 Body temperature 97 [degF] Raysa Wong NP-C Work Phone: [facility] 09-16-2024 18:30-0400 Diastolic blood pressure 74 mm[Hg] Raysa Wong MOTION STUDY ENGINEER-C Work Phone: [facility] 09-16-2024 18:30-0400 Heart rate 124 /min Raysa Wong NP-C Work Phone: [facility] 09-16-2024 18:30-0400 Respiratory rate 20 /min Raysa Wong MOTION STUDY ENGINEER-C Work Phone: [facility] 09-16-2024 18:30-0400 SaO2% (BldA) [Mass fraction] 100 % Raysa Wong MOTION STUDY ENGINEER-C Work Phone: [facility] 09-16-2024 18:30-0400 Systolic blood pressure 120 mm[Hg] Raysa Wong MOTION STUDY ENGINEER-C Work Phone: [facility] 09-16-2024 16:23-0400 Body height 167.64 cm Raysa Wong MOTION STUDY ENGINEER-C Work Phone: [facility] 09-16-2024 16:23-0400 Body mass index (BMI) [Ratio] 34 kg/m2 Raysa Wong MOTION STUDY ENGINEER-C Work Phone: [facility] 09-16-2024 16:23-0400 Body weight 95.48 kg Raysa Wong MOTION STUDY ENGINEER-C Work Phone: [facility] 08-08-2024 09:13-0400 Body height 168.9 cm Sydni Munoz APRN.MOLD MAKER APPRENTICE Work Phone: [facility] 08-08-2024 09:13-0400 Body mass index (BMI) [Ratio] 33.07 kg/m2 Sydni Munoz APRN.MOLD MAKER APPRENTICE Work Phone: [facility] 08-08-2024 09:13-0400 Body weight 94.35 kg Sydni Munoz APRN.MOLD MAKER APPRENTICE Work Phone: [facility] 08-08-2024 09:13-0400 Diastolic blood pressure 74 mm[Hg] Sydni Munoz APRN.MOLD MAKER APPRENTICE Work Phone: [facility] 08-08-2024 09:13-0400 Systolic blood pressure 98 mm[Hg] Sydni Munoz APRN.MOLD MAKER APPRENTICE Work Phone: [facility] 02-23-2024 15:16-0400 Body mass index (BMI) [Ratio] 35.58 kg/m2 Krislyn Aberegg PA Work Phone: [facility] 02-23-2024 15:16-0400 Body temperature 98.2 [degF] Krislyn Aberegg PA Work Phone: [facility] 02-23-2024 15:16-0400 Body weight 100 kg Krislyn Aberegg PA Work Phone: [facility] 02-23-2024 15:16-0400 Diastolic blood pressure 78 mm[Hg] Krislyn Aberegg PA Work Phone: [facility] 02-23-2024 15:16-0400 Heart rate 95 /min Krislyn Aberegg PA Work Phone: [facility] 02-23-2024 15:16-0400 Respiratory rate 18 /min Krislyn Aberegg PA Work Phone: [facility] 02-23-2024 15:16-0400 SaO2% (BldA) [Mass fraction] 100 % Krislyn Aberegg PA Work Phone: [facility] 02-23-2024 15:16-0400 Systolic blood pressure 132 mm[Hg] Krislyn Aberegg PA Work Phone: [facility] 10-10-2023 09:23-0400 Body mass index (BMI) [Ratio] 37.12 kg/m2 Meghan Redd MD Work Phone: [facility] 10-10-2023 09:23-0400 Body weight 104.33 kg Meghan Redd MD Work Phone: [facility] 10-10-2023 09:23-0400 Diastolic blood pressure 74 mm[Hg] Meghan Redd MD Work Phone: [facility] 10-10-2023 09:23-0400 Systolic blood pressure 118 mm[Hg] Meghan Redd MD Work Phone: [facility] 08-21-2023 20:47-0400 Body temperature 98.4 [degF] [facility] 08-21-2023 20:47-0400 Diastolic blood pressure 86 mm[Hg] [facility] 08-21-2023 20:47-0400 Heart rate 72 /min [facility] 08-21-2023 20:47-0400 Respiratory rate 16 /min [facility] 08-21-2023 20:47-0400 SaO2% (BldA) [Mass fraction] 99 % [facility] 08-21-2023 20:47-0400 Systolic blood pressure 125 mm[Hg] [facility] 08-21-2023 19:07-0400 Body height 167.64 cm [facility] 08-21-2023 19:07-0400 Body mass index (BMI) [Ratio] 37.1 kg/m2 [facility] 08-21-2023 19:07-0400 Body weight 104.46 kg [facility] 07-20-2023 09:03-0500 Body height 167.6 cm Sydni Munoz APRN.MOLD MAKER APPRENTICE Work Phone: [facility] 07-20-2023 09:03-0500 Body weight 103.87 kg Sydni Munoz APRN.MOLD MAKER APPRENTICE Work Phone: [facility] 07-20-2023 09:03-0500 Diastolic blood pressure 80 mm[Hg] Sydni Munoz APRN.MOLD MAKER APPRENTICE Work Phone: [facility] 07-20-2023 09:03-0500 Systolic blood pressure 112 mm[Hg] Sydni Munoz APRN.MOLD MAKER APPRENTICE Work Phone: [facility] 05-28-2023 01:30-0500 Body height 167.64 cm [facility] 05-28-2023 01:30-0500 Body mass index (BMI) [Ratio] 37.1 kg/m2 [facility] 05-28-2023 01:30-0500 Body temperature 97.4 [degF] [facility] 05-28-2023 01:30-0500 Body weight 104.32 kg [facility] 05-28-2023 01:30-0500 Diastolic blood pressure 92 mm[Hg] [facility] 05-28-2023 01:30-0500 Heart rate 79 /min [facility] 05-28-2023 01:30-0500 Respiratory rate 18 /min [facility] 05-28-2023 01:30-0500 SaO2% (BldA) [Mass fraction] 94 % [facility] 05-28-2023 01:30-0500 Systolic blood pressure 129 mm[Hg] [facility] 01-13-2023 08:22-0400 Body temperature 97.9 [degF] Veronica Praisler-Wood TRACK EQUIPMENT OPERATOR.MOLD MAKER APPRENTICE Work Phone: [facility] 01-13-2023 08:22-0400 Body weight 107.05 kg Veronica Praisler-Wood TRACK EQUIPMENT OPERATOR.MOLD MAKER APPRENTICE Work Phone: [facility] 01-13-2023 08:22-0400 Diastolic blood pressure 82 mm[Hg] Veronica Praisler-Wood TRACK EQUIPMENT OPERATOR.MOLD MAKER APPRENTICE Work Phone: [facility] 01-13-2023 08:22-0400 Heart rate 72 /min Vreonica Praisler-Wood TRACK EQUIPMENT OPERATOR.MOLD MAKER APPRENTICE Work Phone: [facility] 01-13-2023 08:22-0400 Respiratory rate 18 /min Veronica Praisler-Wood TRACK EQUIPMENT OPERATOR.MOLD MAKER APPRENTICE Work Phone: [facility] 01-13-2023 08:22-0400 SaO2% (BldA) [Mass fraction] 98 % Veronica Praisler-Wood TRACK EQUIPMENT OPERATOR.MOLD MAKER APPRENTICE Work Phone: [facility] 01-13-2023 08:22-0400 Systolic blood pressure 118 mm[Hg] Veronica Praisler-Wood TRACK EQUIPMENT OPERATOR.MOLD MAKER APPRENTICE Work Phone: [facility] 05-16-2022 12:58-0500 Body height 167.6 cm Sydni Munoz TRACK EQUIPMENT OPERATOR.MOLD MAKER APPRENTICE Work Phone: [facility] 05-16-2022 12:58-0500 Body weight 107.5 kg Sydni Munoz APRN.MOLD MAKER APPRENTICE Work Phone: [facility] 05-16-2022 12:58-0500 Diastolic blood pressure 72 mm[Hg] Sydni Munoz APRN.MOLD MAKER APPRENTICE Work Phone: [facility] 05-16-2022 12:58-0500 Systolic blood pressure 128 mm[Hg] Sydni Munoz APRN.MOLD MAKER APPRENTICE Work Phone: [facility] Encounters Encounter Date Encounter Type Care Provider Facility Start: 01-29-2025 ambulatory Mikey Solares Facility :[facility] Start: 12-22-2024 End: 12-22-2024 Office outpatient visit 15 minutes Anselmo Puentes APRN.MOLD MAKER APPRENTICE Work Phone: [facility] Comment on above: Allergic reaction to insect sting, accidental or unintentional, initial encounter (Primary Dx) Start: 12-22-2024 End: 12-22-2024 ambulatory RAYSA WONG Facility:[facility] Start: 12-01-2024 End: 12-01-2024 Patient encounter procedure Mikey Solares DO -[facility] Work Phone: Start: 12-01-2024 End: 12-01-2024 ambulatory Raysa CRAINC Work Phone: -[facility] Start: 09-16-2024 End: 09-16-2024 Emergency department patient visit Raysa CRAINC Work Phone: -Emergency Department Work Phone: Start: 09-13-2024 End: 09-13-2024 ambulatory RAYSA WONG TRACK EQUIPMENT OPERATOR-MOLD MAKER APPRENTICE Facility:[facility] Start: 09-13-2024 End: 09-13-2024 Patient encounter procedure RAYSA WONG APRN-MOLD MAKER APPRENTICE [facility] Start: 08-13-2024 End: 08-13-2024 Patient encounter procedure Bernadette PAULINO -[facility] Work Phone: Start: 08-13-2024 End: 08-13-2024 ambulatory Raysa Wong [place]: 08-08-2024 End: 08-08-2024 ambulatory SYDNI MUNOZ Facility:[facility] Start: 08-08-2024 End: 08-08-2024 Patient encounter procedure Sydni Munoz APRN.MOLD MAKER APPRENTICE Work Phone: OB/Gynecology Comment on above: Encounter for gyneco logical examination (general) (routine) without abnormal findings (Primary Dx); Encounter for screening mammogram for breast cancer Start: 08-08-2024 End: 08-08-2024 Patient encounter status Sydni Munoz APRN.MOLD MAKER APPRENTICE Work Phone: [facility] Start: 06-03-2024 End: 06-03-2024 Patient encounter procedure Mikey Solares DO -[facility] Work Phone: Start: 06-03-2024 End: 06-03-2024 ambulatory Raysa Wong NP [place] Start: 05-06-2024 End: 05-06-2024 ambulatory Raysa Wong NP Facility:[facility] Start: 05-02-2024 End: 05-02-2024 ambulatory SYDNI MUNOZ Facility:[facility] Start: 05-02-2024 End: 05-02-2024 Subsequent hospital visit by physician Screen Mammo [facility] Comment on above: Encounter for screen ing mammogram for breast cancer [Z12.31] Start: 03-27-2024 End: 03-27-2024 ambulatory Raysa Wong NP [place] Start: 03-12-2024 End: 03-12-2024 ambulatory Mikey Solares Facility:[facility] Start: 02-25-2024 End: 02-25-2024 ambulatory KASSANDRA CABELLO Facility:[facility] Start: 02-25-2024 End: 02-25-2024 Subsequent hospital visit by physician Xr [facility] Work Phone: Radiology Comment on above: Cervical pain [M54.2 ] Start: 02-25-2024 End: 02-25-2024 Telephone encounter Herlinda Alba TRACK EQUIPMENT OPERATOR.MOLD MAKER APPRENTICE Work Phone: [facility] Comment on above: Results Start: 02-23-2024 End: 02-23-2024 ambulatory RAYSA WONG Facility:[facility] Start: 02-23-2024 End: 02-23-2024 Patient encounter procedure Kassandra PAULINO Work Phone: [facility] Comment on above: Cervical pain (Prima ry Dx); Acute pain of right shoulder Start: 02-07-2024 End: 02-07-2024 ambulatory Mikey Solares Facility:[facility] Start: 01-04-2024 End: 01-04-2024 ambulatory RAYSA WONG TRACK EQUIPMENT OPERATOR-MOLD MAKER APPRENTICE Facility:[facility] Start: 01-04-2024 End: 01-04-2024 Patient encounter procedure RAYSA WONG TRACK EQUIPMENT OPERATOR-MOLD MAKER APPRENTICE [facility] Start: 10-10-2023 End: 10-10-2023 Patient encounter procedure Meghan Redd MD Work Phone: OB/Gynecology Comment on above: Endocervical polyp ( Primary Dx); Pre-op exam Start: 10-10-2023 End: 10-10-2023 Preprocedural examination done Meghan Redd MD Work Phone: [facility] Start: 09-24-2023 Admission to [facility] Meghan Redd MD Work Phone: OB/Gynecology Comment on above: surgery confirmation Start: 09-24-2023 E-mail encounter fro m caregiver Megahn Redd MD Work Phone: OB/Gynecology Start: 09-19-2023 End: 09-19-2023 ambulatory RAYSA WONG TRACK EQUIPMENT OPERATOR-MOLD MAKER APPRENTICE Facility:[facility] Start: 09-03-2023 End: 2023 ambulatory RAYSA WONG TRACK EQUIPMENT OPERATOR-MOLD MAKER APPRENTICE Facility:[facility] Start: 09-03-2023 End: 2023 Physical therapy management RAYSA WONG APRN-MOLD MAKER APPRENTICE [facility] Start: 08-21-2023 End: 08-21-2023 Emergency department patient visit [facility]-Emergency Department Work Phone: Start: 08-21-2023 End: 08-21-2023 Patient encounter procedure Basil Gardiner APRN.MOLD MAKER APPRENTICE Work Phone: [facility] Comment on above: Chest pressure (Prim jorge Dx) Start: 08-01-2023 End: 08-01-2023 ambulatory Ob Ultrasound Work Phone: OB/Gynecology Comment on above: Other (polyp) Start: 08-01-2023 End: 08-01-2023 Patient encounter procedure Curve Saw Operator [facility] Work Phone: [facility] Start: 07-25-2023 End: 07-25-2023 Subsequent hospital visit by physician Diagnostic Mammo [facility] Start: 07-20-2023 End: 07-20-2023 Patient encounter procedure Sydni Munoz APRN.MOLD MAKER APPRENTICE Work Phone: OB/Gynecology Comment on above: Encounter for gyneco logical examination with abnormal finding (Primary Dx); Endocervical polyp; Encounter for screening mammogram for breast cancer; Heterogeneously dense tissue of both breasts on mammography; Pseudoangiomatous stromal hyperplasia of breast Start: 07-20-2023 End: 07-20-2023 Patient encounter status Sydni Munoz APRN.MOLD MAKER APPRENTICE Work Phone: [facility] Work Phone: Start: 06-07-2023 End: 06-07-2023 ambulatory RAYSA WONG APRN-MOLD MAKER APPRENTICE Facility:[facility] Start: 05-28-2023 End: 05-28-2023 ambulatory RAYSA WONG APRN-MOLD MAKER APPRENTICE Facility:[facility] Start: 05-28-2023 End: 05-28-2023 Patient encounter procedure RAYSA WONG APRN-MOLD MAKER APPRENTICE [facility] Start: 05-28-2023 End: 05-28-2023 Emergency department patient visit [facility]-Emergency Department Work Phone: Start: 01-23-2023 End: 01-23-2023 ambulatory RAYSA WONG TRACK EQUIPMENT OPERATOR-MOLD MAKER APPRENTICE Facility:[facility] Start: 01-23-2023 End: 01-23-2023 Patient encounter procedure RAYSA WONG TRACK EQUIPMENT OPERATOR-MOLD MAKER APPRENTICE [facility] Start: 01-13-2023 End: 01-13-2023 Patient encounter procedure Veronica Vivas APRN.MOLD MAKER APPRENTICE Work Phone: [facility] Comment on above: Burning sensation of skin (Primary Dx) Start: 07-20-2022 Telephone encounter Linette hazel RN Work Phone: Mammography Comment on above: Results Start: 07-17-2022 End: 07-17-2022 Subsequent hospital visit by physician Procedure [facility] Comment on above: Abnormal finding on radiological examination of breast [R92.8] Start: 06-28-2022 End: 06-28-2022 Orders Only Ewa Olivo MD Work Phone: Mammography Comment on above: Abnormal finding on radiological examination of breast (Primary Dx) Start: 06-13-2022 End: 06-13-2022 Subsequent hospital visit by physician Diagnostic Mammo [facility] Comment on above: Abnormal mammogram [ R92.8] Start: 06-10-2022 End: 06-10-2022 Patient encounter procedure RAYSA WONG TRACK EQUIPMENT OPERATOR-MOLD MAKER APPRENTICE [facility] Start: 05-17-2022 Documentation procedure Mammography Coordinator [facility] Start: 05-17-2022 Letter encounter Mammography Coordinator [facility] Department Start: 05-16-2022 End: 05-16-2022 Patient encounter procedure Sydni Munoz TRACK EQUIPMENT OPERATOR.MOLD MAKER APPRENTICE Work Phone: OB/Gynecology Comment on above: Encounter for gyneco logical examination (general) (routine) without abnormal findings (Primary Dx); Encounter for screening mammogram for breast cancer; Dense breast tissue Start: 05-16-2022 End: 05-16-2022 Patient encounter status Sydni Munoz APRN.CNP Work Phone: OB/Gynecology Start: 05-16-2022 End: 05-16-2022 Subsequent hospital visit by physician Screen Mammo [facility] Comment on above: Encounter for gyneco logical examination (general) (routine) without abnormal findings [Z01.419] Start: 02-21-2022 Telephone encounter Veronica Harrell APRN.CNP Work Phone: [facility] Comment on above: Results, Lab Start: 02-20-2022 Telephone encounter Lennie South PA-C Work Phone: [facility] Comment on above: Results Start: 02-20-2022 End: 02-20-2022 Subsequent hospital visit by physician Xr [facility] Work Phone: Radiology Comment on above: Acute right-sided lo w back pain without sciatica [M54.50] Start: 07-10-2020 End: 07-10-2020 Discharged Recurring [facility]-Immunizations Procedures Date Procedure Procedure Detail Performing Clinician Start: 09-16-2024 Plain X-ray of femur Kin HURTADO Work Phone: Start: 09-16-2024 Plain X-ray of tibia and fibula Raysa Wong NP-C Work Phone: Start: 02-25-2024 Radex spine cervical 4 or 5 views Kassandra PAULINO Work Phone: Start: 08-21-2023 Plain chest X-ray Start: 08-01-2023 Us pelvic nonobstetr ic real-time image complete Sydni Munoz APRN.CNP Work Phone: Start: 07-25-2023 Digital breast tomosynthesis bilateral Sydni Munoz APRN.CNP Work Phone: Start: 05-28-2023 Plain chest X-ray Start: 05-28-2023 Plain X-ray of shoulder Start: 07-17-2022 Bx breast w/device 1 st lesion stereotactic guid Ewa Olivo MD Work Phone: Start: 06-28-2022 Us breast uni real t bryon with image limited Burt Lenz MD Work Phone: Start: 06-13-2022 Us breast uni real t bryon with image limited Sydni Munoz APRN.MOLD MAKER APPRENTICE Work Phone: Start: 06-13-2022 MARTY DIAG W DELFIN LEFT Am y Mike MANE.MOLD MAKER APPRENTICE Work Phone: Start: 05-16-2022 End: 05-16-2022 Mammography Sydni Munoz APRN.MOLD MAKER APPRENTICE Work Phone: Start: 02-20-2022 Radex spine lumbosac ral 2/3 views Lennie South PA-C Work Phone: Start: 05-10-2021 Mammography Lennie South PA-C Work Phone: Start: 02-09-2011 Lipid 1996 panel - S breanna or Plasma Us 1 Work Phone: Plan of Treatment Date Care Activity Detail Author Start: 09-16-2034 Urine microalbumin profile DTaP,Tdap,Td Vaccine (4 - Td or Tdap) [facility] Start: 05-14-2028 Urine microalbumin profile [facility] Start: 05-10-2026 HPV TESTING HPV TESTING [facility] Start: 05-10-2026 PAP TESTING PAP TESTING [facility] Start: 05-10-2026 Screening for malign ant neoplasm of cervix [facility] Start: 08-12-2025 End: 08-12-2025 Patient encounter procedure Mammogram Comment on above: MARTY SCREENING W DELFIN annual Start: 05-02-2025 Screening for malign ant neoplasm of breast Mammogram Screening [facility] Start: 03-04-2025 Screening for malign ant neoplasm of colon [facility] Start: 01-12-2025 Influenza vaccination Influenza Vacc ine (#1) [facility] Start: 2024 Pneumococcal Vaccine : 50+ (1 of 1 - PCV) Pneumococcal Vaccine: 50+ (1 of 1 - PCV) [facility] Start: 2024 Shingrix Vaccine (1 of 2) Shingrix Vaccine (1 of 2) [facility] Start: 09-16-2024 [facility] Start: 08-08-2024 End: 08-08-2024 Patient encounter procedure 08/08/2024 9:30 AM EDT Office Visit OB/Gynecology [address] [place] [address] Sydni Munoz, TRACK EQUIPMENT OPERATOR.MOLD MAKER APPRENTICE [address] [place] [address] annual OB/Gynecology Comment on above: annual Start: 07-24-2024 Screening for malign ant neoplasm of breast Mammogram Screening [facility] Start: 07-22-2024 End: 07-22-2024 Patient encounter procedure 07/22/2024 9:00 AM EDT Office Visit OB/Gynecology [address] [place] [address] Sydni Munoz, TRACK EQUIPMENT OPERATOR.MOLD MAKER APPRENTICE [address] [place] [address] annual exam OB/Gynecology Comment on above: annual exam Start: 01-13-2024 Covid-19 Vaccine ( season) Covid-19 Vaccine ( season) [facility] Start: 01-13-2024 Influenza vaccination [facility] Start: 10-10-2023 End: 10-10-2023 Patient encounter procedure 10/10/2023 9:20 AM EDT Office Visit OB/Gynecology [address] [place] [address] Meghan Da Silva MD [address] [place] [address] surgery 10/25 OB/Gynecology Comment on above: surgery 10/25 Start: 08-21-2023 [facility] Start: 08-21-2023 Blood chemistry [facility] Start: 08-21-2023 [facility] Start: 07-20-2023 End: 07-19-2024 US Pelvis PELVIC US [facility] Anc Imaging Routine Endocervical polyp Expected: 07/20/2023, Expires: 07/19/2024 [facility] Work Phone: Comment on above: Expected: 07/20/2023 , Expires: 07/19/2024 Start: 05-28-2023 [facility] Start: 05-16-2023 Mammography [facility] Start: 05-16-2023 Screening for malign ant neoplasm of breast Mammogram Screening [facility] Start: 05-14-2023 Behavioral Health Screening Behavioral Health Screening [facility] Start: 05-14-2023 Depression Assessment Depression Ass essment [facility] Start: 01-12-2023 Covid-19 Vaccine ( season) Covid-19 Vaccine ( season) [facility] Start: 01-12-2023 Influenza vaccination C [facility] Start: 05-14-2022 DEPRESSION ASSESSMENT DEPRESSION ASS ESSMENT [facility] Start: 05-10-2022 Mammography MAMMOGRAM [facility] Start: 01-12-2022 Influenza vaccination INFLUENZA (#1) [facility] Start: 07-06-2021 COVID-19 VACCINE (5 - Booster for Moderna series) COVID-19 VACCINE (5 - Booster for Moderna series) [facility] Start: 07-06-2021 COVID-19 VACCINE (5 - Moderna series) COVID-19 VACCINE (5 - Moderna series) [facility] Start: 05-14-2021 DEPRESSION ASSESSMENT DEPRESSION ASS ESSMENT [facility] Start: 09-30-2020 COVID-19 VACCINE (3 - Booster for Moderna series) COVID-19 VACCINE (3 - Booster for Moderna series) [facility] Start: 12-05-2019 COLOGUARD (FIT-DNA) COLOGUARD (FIT-D NA) [facility] Start: 12-05-2019 Colonoscopy COLONOSCOPY [facility] Start: 12-05-2019 COLORECTAL CANCER SCREENING COLORECTAL CANCER SCREENING [facility] Start: 12-05-[address] COLONOGRAPHY [facility] Start: 12-05-2019 DIABETES [facility]CREEN [facility] Start: 12-05-2019 Diabetes Screening Diabetes Screenin g [facility] Start: 12-05-2019 FECAL OCCULT BLOOD FECAL OCCULT BLOO D [facility] Start: 12-05-2019 Lipid 1996 panel - Serum or Plasma Lipid Screening [facility] Start: 12-05-2019 Lipid panel Lipid Screening [facility] Start: 12-05-2019 LIPID SCREEN LIPID SCREEN [facility] Start: 12-05-2019 Screening for malign ant neoplasm of colon [facility] Start: 12-05-2019 SIGMOIDOSCOPY SIGMOIDOSCOPY [facility] Start: 1993 Hepatitis B Vaccine (1 of 3 - 19+ 3-dose series) Hepatitis B Vaccine (1 of 3 - 19+ 3-dose series) [facility] Start: 1992 Anxiety Screening Anxiety Screening [facility] Start: 1992 Depression Screening Depression Scre ening [facility] Start: 1992 HEPATITIS C SCREENING HEPATITIS C [facility] Start: 1992 Hepatitis C screening Hepatitis C [facility] Start: 1992 HIV SCREENING HIV SCREENING [facility] Start: 1992 HIV screening HIV Screening [facility] Start: 1974 HEPATITIS B (1 of 3 - 3-dose series) HEPATITIS B (1 of 3 - 3-dose series) [facility] Start: 1974 Hepatitis B Vaccine (1 of 3 - 3-dose series) Hepatitis B Vaccine (1 of 3 - 3-dose series) [facility] End: 07-28-2023 Bx breast w/device 1st lesion stereotactic guid MARTY STEREO BX BREAST LT Radiology Routine Abnormal finding on radiological examination of breast 1 Occurrences starting 06/28/2022 until 07/28/2023 [facility] Work Phone: Comment on above: 1 Occurrences starti ng 06/28/2022 until 07/28/2023 End: 08-18-2024 DBT Breast - bilateral screening MARTY SCREENING W DELFIN Radiology Routine Encounter for screening mammogram for breast cancer Heterogeneously dense tissue of both breasts on mammography Pseudoangiomatous stromal hyperplasia of breast 1 Occurrences starting 07/20/2023 until 08/18/2024 [facility] Work Phone: Comment on above: 1 Occurrences starti ng 07/20/2023 until 08/18/2024 DBT Breast - bilater al screening MARTY SCREENING W DELFIN Radiology Routine Encounter for screening mammogram for breast cancer Heterogeneously dense tissue of both breasts on mammography Pseudoangiomatous stromal hyperplasia of breast 05/02/2024 12:44 PM EST [facility] Work Phone: End: 09-07-2025 DBT Breast - bilateral screening MARTY SCREENING W DELFIN Radiology Routine Encounter for gynecological examination (general) (routine) without abnormal findings Encounter for screening mammogram for breast cancer 1 Occurrences starting 08/08/2024 until 09/07/2025 [facility] Work Phone: Comment on above: 1 Occurrences starti ng 08/08/2024 until 09/07/2025 End: 06-15-2023 MARTY SCREENING W DELFIN MARTY SCREENING W DELFIN Radiology Routine Encounter for screening mammogram for breast cancer Dense breast tissue 1 Occurrences starting 05/16/2022 until 06/15/2023 [facility] Work Phone: Comment on above: 1 Occurrences starti ng 05/16/2022 until 06/15/2023 Patient Education [facility] Work Phone: Patient referral [facility] Work Phone: SURGICAL PATHOLOGY [facility] Work Phone: Comment on above: Release Upon Katheryn mercer for 1 Occurrences starting 07/17/2022, 1 completed End: 03-24-2025 XR Cervical spine AP and Lateral and oblique XR CERV OTHER 4V AP/LAT/OBL Radiology STAT Cervical pain Acute pain of right shoulder 1 Occurrences starting 02/23/2024 until 03/24/2025 [facility] Comment on above: 1 Occurrences starti ng 02/23/2024 until 03/24/2025 End: 03-24-2025 XR Shoulder - right 3 Views XR SHOULDER GENERAL 3V OR MORE AP/TRUE AP/OTHER RIGHT Radiology STAT Cervical pain Acute pain of right shoulder 1 Occurrences starting 02/23/2024 until 03/24/2025 [facility] Work Phone: Comment on above: 1 Occurrences starti ng 02/23/2024 until 03/24/2025 [facility] Immunizations Immunization Date Immunization Notes Care Provider Juliette sosa 09-16-2024 tetanus toxoid, reduced diphtheria toxoid, and acellular pertussis vaccine, adsorbed Raysavernoica Copelander MOTION STUDY ENGINEER-C Work Phone: [facility] 05-11-2021 SARS-CoV-2 mRNA (tozinameran) vaccine RAYSA JUDITH TRACK EQUIPMENT OPERATOR-MOLD MAKER APPRENTICE [facility] 08-22-2020 SARS-CoV-2 (COVID-19 ) Ad26 vaccine, recombinant RAYSA JUDITH TRACK EQUIPMENT OPERATOR-MOLD MAKER APPRENTICE [facility] 08-05-2020 Covid (Moderna) [facility] 07-08-2020 Covid (Moderna) [facility] Comment on above: Result Comment: 2022: [id number] 04-30-2019 influenza virus vaccine, unspecified formulation RAYSA JUDITH TRACK EQUIPMENT OPERATOR-MOLD MAKER APPRENTICE [facility] 05-14-2018 tetanus toxoid, reduced diphtheria toxoid, and acellular pertussis vaccine, adsorbed Lennie OLSONC Work Phone: [facility] 02-07-2018 influenza virus vaccine, unspecified formulation RAYSA JUDITH TRACK EQUIPMENT OPERATOR-MOLD MAKER APPRENTICE [facility] 06-05-2016 influenza virus vaccine, unspecified formulation RAYSA JUDITH TRACK EQUIPMENT OPERATOR-MOLD MAKER APPRENTICE [facility] 07-30-2014 tetanus toxoid, reduced diphtheria toxoid, and acellular pertussis vaccine, adsorbed RAYSA JUDITH TRACK EQUIPMENT OPERATOR-MOLD MAKER APPRENTICE [facility] Payers Date Payer Category Payer Self-pay [id number] 2018 Private Health Insurance MMO SUP ERMED PPO Member Subscriber Plan / Payer (Effective 2018-Present) Name: Gladys Jackson Relation to Subscriber: Self Name: Gladys Jackson Payer ID: Not on file Type: PPO Address: [place] [id number] 2018 Unknown [id number] 2018 Unknown [id number] 1974 Unknown [id number] [id number]. 1974 Unknown [id number] 2.840.1.452876.3.579.2. 1974 Unknown [id number] 2.840.1.204150.3.579.2. 1974 Unknown [id number] 2.840.1.234709.3.579.2. 1974 Unknown [id number] [id number] 1974 Unknown [id number] 2.16840.1.983138.3.579.2. 1974 Unknown [id number] [id number]. 627 Unknown [id number] Unknown [id number] [id number]. 462 Unknown [id number] 2.16.840.1.360324.3.579.2. 462 Unknown [id number] 2.16.840.1.211210.3.579.2. 462 Unknown [id number] 2.16.840.1.876776.3.579.2. 462 Unknown [id number] 2.16.840.1.415430.3.579.2. 462 Unknown [id number] [id number]. 462 Unknown [id number] [id number]. 462 Unknown [id number] [id number]. 462 Unknown [id number]. 462 Social History Date Type Detail Facility Start: 09-21-2017 End: 08-21-2023 Tobacco smoking status IAIS Unknown if ever smoked [facility] Start: 1975 Sex Assigned At Female [facility] Start: 02-20-2022 End: 09-16-2024 Tobacco smoking status IAIS Never smoked tobacco [facility] Work Phone: Start: 02-20-2022 Tobacco use and exposure Smokeless tobacco non-user [facility] Work Phone: Start: 02-20-2022 End: 12-22-2024 Alcohol intake Current non-drinker of alcohol (finding) [facility] Start: 05-05-2020 History SDOH Social Connections Phone 5 [facility] Start: 05-05-2020 History SDOH Social Connections Get Together 2 [facility] Start: 05-05-2020 History SDOH Social Connections Membership 1 [facility] Start: 05-05-2020 History SDOH Social Connections Meetings 3 [facility] Start: 05-05-2020 History SDOH Physical Activity MPS 6 [facility] Start: 02-10-2022 End: 02-20-2022 Exposure to SARS-CoV-2 (event) Not sure [facility] Work Phone: Sex Assigned At [facility] Start: 05-05-2020 End: 07-20-2023 History of Social function [facility] Work Phone: Start: 05-05-2020 End: 07-20-2023 Social connection and isolation panel [facility] Work Phone: Do you belong to any clubs or organizations such as mu-ism groups, unions, fraternal or athletic groups, or school groups? Yes [facility] Work Phone: Are you now , , , , never or living with a partner? [facility] Work Phone: Do you feel stress - tense, restless, nervous, or anxious, or unable to sleep at night because your mind is troubled all the time - these days [OSQ] Only a little [facility] Work Phone: Start: 04-14-2012 National Score (1-100), lower number is lower risk 63 [facility] Start: 02-20-2022 Sexual orientation Heterosexual (finding) [facility] Start: 02-02-2016 End: 09-16-2024 Sex Female (finding) [facility] Medical Equipment Procedure Code Equipment Code Equipment Origin al Text Equipment Identifier Dates Stereotactic Bio psy Clip [id number] Start: 07-17-2022 Comment on above: Description: Stoplig ht clip Goals Date Patient Goal Desired Activity /State Functional Status Date Assessment Result Facility 09-03-2023 Functional Status Home Living Ad ditional Information OBJECTIVE Posture: lazy sitting in chair, no lateral shift observed Gait: amb with no AD and no deficit Transfers: WNL, no deficits Sensation: no abnormalities or asymmetries with light touch grossly Reflexes: patellar bilat normal Edema: none AROM: lumbar flexion no restrictions, lumbar extension mod restriction, lateral flexion min restriction bilat, rotation to R min restriction, rotation to L WNL lumbar flexion x10: no pain/symptoms lumbar extension x10: no pain/no symptoms Leg length: symmetrical Pelvis: symmetrical Lorena's Test (rectus femoris prone): WNL left, muscle cramping with R 90-90 hamstring: WNL [facility] 05-09-2014 Are you deaf, or do you have serious difficulty hearing No 05/09/2014 8:00 AM Genet Bean LPN No [facility] 05-09-2014 Are you blind, or do you have serious difficulty seeing, even when wearing glasses No 05/09/2014 8:00 AM Genet Bean LPN No [facility] 05-09-2014 Do you have serious difficulty walking or climbing stairs No 05/09/2014 8:00 AM Genet eBan LPN No [facility] 05-09-2014 Do you have difficul ty dressing or bathing No 05/09/2014 8:00 AM Genet Bean LPN No [facility] 05-09-2014 Because of a physica l, mental, or emotional condition, do you have difficulty doing errands alone such as visiting a physician's office or shopping No 05/09/2014 8:00 AM Genet Bean LPN No [facility] Mental Status Date Assessment Result Facility 08-21-2023 Cognitive function Voice/Name [facility] Work Phone: 05-09-2014 Because of a physica l, mental, or emotional condition, do you have serious difficulty concentrating, remembering, or making decisions No 05/09/2014 8:00 AM Genet Bean LPN No [facility] Clinical Notes 02-20-2022 to 12-22-2024 Anselmo Puentes APRN.[employer] - 12/22/2024 3:10 PM EDT Note Date & Type Note Facility 12-22-2024 Note HNO ID: [id number] Author: ANSELMO PUENTES APRN.SHAMAR Service: ? Author Type: Nurse Practitioner Type: Progress Notes Filed: 12/22/2024 15:30 Note Text: URGENT CARE NYLA Dodd is a 49 year old female. Patient presents with: Trauma: Insect bite/sting on right forearm x 1 day HPI Nontoxic-appearing 49-year-old female presents urgent care chief complaint unintentional insect sting or bite. States was walking outside around 8 PM when she was stung or bit by an unknown insect. She did have a well. Has some redness and itching this morning. Mild discomfort. OTC medications Benadryl this has helped some. Overall feels well. No fever body aches or chills. No change in bowel or bladder habits. No rashes. No difficulty swallowing his secretions or difficulty breathing. Past medical history prescription medications allergies reviewed Review of Systems Constitutional: Negative for chills, diaphoresis, fatigue and fever. HENT: Negative for congestion, drooling, ear discharge, ear pain, rhinorrhea, sinus pressure, sinus pain, sneezing, sore throat and trouble swallowing. Eyes: Negative for pain, discharge, redness, itching and visual disturbance. Respiratory: Negative for cough, chest tightness, shortness of breath and wheezing. Cardiovascular: Negative for chest pain. Gastrointestinal: Negative for abdominal distention, abdominal pain, blood in stool, constipation, diarrhea, nausea and vomiting. Genitourinary: Negative for difficulty urinating and dysuria. Musculoskeletal: Negative for arthralgias, joint swelling, neck pain and neck stiffness. Skin: Negative for rash. Neurological: Negative for dizziness, weakness, numbness and headaches. Objective BP 112/72 Pulse 80 Temp 37.6 ?C (99.7 ?F) Resp 18 Wt 93.9 kg (207 lb 0.2 oz) LMP 07/10/2024 (Exact Date) SpO2 98% BMI 32.91 kg/m? Physical Exam Constitutional: Appearance: Normal appearance. HENT: Head: Normocephalic. Jaw: No trismus, tenderness, swelling or pain on movement. Nose: No congestion. Mouth/Throat: Mouth: Mucous membranes are moist. Pharynx: Oropharynx is clear. Uvula midline. No oropharyngeal exudate or posterior oropharyngeal erythema. Eyes: Conjunctiva/sclera: Conjunctivae normal. Cardiovascular: Rate and Rhythm: Normal rate. Pulmonary: Effort: Pulmonary effort is normal. Breath sounds: Normal breath sounds. No wheezing, rhonchi or rales. Musculoskeletal: General: Normal range of motion. Cervical back: Normal range of motion and neck supple. No edema, erythema or rigidity. No pain with movement. Normal range of motion. Lymphadenopathy: Cervical: No cervical adenopathy. Skin: General: Skin is warm. Findings: No rash. Comments: Approximately a 6 cm x 6-minute area of erythema noted. It is tender erythematous represents insect bite noted. No foreign bodies. Neurovascular intact. No remote redness or lymphatic streaking Neurological: General: No focal deficit present. Mental Status: She is alert and oriented to person, place, and time. Mental status is at baseline. {ASSESSMENT/PLAN: 1. Allergic reaction to insect sting, accidental or unintentional, initial encounter - ICD9: 989.5, E905.5, ICD10: T63.481A Diagnosed with allergic reaction to insect bite or sting. Recommend second-generation antihistamines. Will use steroid cream as instructed. Return for red flag symptoms. Patient was educated on supportive therapies. Patient will follow up with primary care provider as needed. Patient was instructed to immediately proceed to emergency room for any new, worsening, or symptoms lasting longer than anticipated. The patient's clinical presentation is otherwise unremarkable at this time. Based on exam and clinical finding, the patient is stable for discharge. Plan of care was discussed with patient. Patient verbalizes understanding and agrees to plan of care. This note was generated using [employer] software. It may contain errors in wording, punctuation, or spelling. Ansemlo Puentes APRN.[employer] APPRENTICE History and Record Review Clinical information obtained from an independent historian. History obtained from or confirmed by: parent. External record(s) reviewed: prior outpatient record. Disposition The patient was discharged. OTC Medications were advised: Procedures [facility] 12-22-2024 History of Present illness Narrative Images from the original note were not included. URGENT CARE NYLA Subjective Gladysjonel Dodd is a 49 year old female. Patient presents with: Trauma: Insect bite/sting on right forearm x 1 day HPI Nontoxic-appearing 49-year-old female presents urgent care chief complaint unintentional insect sting or bite. States was walking outside around 8 PM when she was stung or bit by an unknown insect. She did have a well. Has some redness and itching this morning. Mild discomfort. OTC medications Benadryl this has helped some. Overall feels well. No fever body aches or chills. No change in bowel or bladder habits. No rashes. No difficulty swallowing his secretions or difficulty breathing. Past medical history prescription medications allergies reviewed Review of Systems Constitutional: Negative for chills, diaphoresis, fatigue and fever. HENT: Negative for congestion, drooling, ear discharge, ear pain, rhinorrhea, sinus pressure, sinus pain, sneezing, sore throat and trouble swallowing. Eyes: Negative for pain, discharge, redness, itching and visual disturbance. Respiratory: Negative for cough, chest tightness, shortness of breath and wheezing. Cardiovascular: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 encounterMi[facility]10-14-2024 NoteHNO ID: [id number] Author: MELINA THORNE RT(R) Service: Radiology Author Type: Technologist Type: Progress Notes Filed: 02/25/2024 16:32 Note Text: Radiology Service Progress Note PATIENT NAME: Gladys Dodd DATE OF SERVICE: February 25, 2024 TIME: 4:19 PM PATIENT IDENTITY VERIFICATION COMPLETED USING TWO (2) IDENTIFIERS: Name and Date of confirmed by patient verbally. FALL SCREENING: Has the patient had 2 falls in the last year or 1 fall with injury or currently using an Ambulatory Assistive Device (Walker, Cane, Wheelchair, Crutches, etc.)? No PATIENT GENDER DATA: Female. status: : No status: NO. PATIENT RELEVANT IMPLANT DATA REVIEWED: Yes PATIENT PRESENTS WITH AN IMPLANTABLE OR ATTACHED SWIMMING POOL SALESPERSON: No RADIOLOGY DEPARTMENT: General X-ray: Exam(s) Completed: Spine X-Ray(s): Cervical AP / LAT / OBL Upper Extremity X-Ray(s): Shoulder, AP / TRUE AP / AXILLARY right PERIPHERAL IV DATA: Not applicable SIGNED BY: RT Shimon(R) February 25, 2024 4:[address] [facility]10-12-2024 NoteHNO ID: [id number] Author: KASSANDRA CABELLO PA Service: ? Author Type: Physician Member Service Representative Type: Progress Notes Filed: 02/23/2024 15:29 Note Text: This note was created using [employer]. Subjective Gladys Dodd is a 48 year old female. HPI 48-year-old female presents for right shoulder and right sided neck pain. Symptoms have been present for several months. Patient states they have recently gotten worse. Patient states that she has been having pain to her right shoulder and neck for the past few months, she has known arthritis in her neck. No history of surgery on the cervical spine. She states that the pain radiates from the right side of her neck towards her right shoulder and towards the right anterior shoulder towards her pectoralis muscle. She denies any chest pain or shortness of breath. No numbness or tingling or weakness in the arms. She has been seeing a DO which has been doing adjustments, but she states they are not really helping. She denies any specific fall or injury prior to pain starting, but she states the only thing she can think of is that she has an 85 pound dog that she walks and pulls on the leash which she uses her right arm for. She denies ever having imaging on the neck or shoulder since pain started. She has taken Advil with minimal relief today. No loss of bowel or bladder function. No fevers. No history of cancer or IV drug use. No other complaint. 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 PAST SURGICAL HISTORY Procedure Laterality Date BX OF BREAST; INCISIONAL Left 2022 PASH DANDC, DIAG AND/OR THERAPEUTIC 10/26/2023 Hysteroscopy, DANDC, Polypectomy PAST SURGICAL HISTORY OF cyst removed from right wrist TYMPANOSTOMY LOCAL/TOPICAL ANESTHESIA 05/14/1979 ALLERGIES Patient has no active allergies. MEDICATIONS sucralfate (CARAFATE) [address] (PROTONIX) 40 mg tablet predniSONE (DELTASONE) 10 mg tablet Take 4 tabs daily for 3 days, then 2 tabs daily for 3 days, then 1 tab daily for 3 days with food. FAMILY HISTORY Problem Relation Age of Onset Diabetes Mother Hypertension Mother other (dermatomyositis) Mother other (congestive heart failure) Father age 80 Diabetes Maternal Grandmother other (Ovarian Cancer) Maternal Grandmother Heart Maternal Grandfather Hypertension Maternal Grandfather Diabetes Maternal Grandfather other (CVA) Maternal Grandfather Social History Tobacco Use Smoking status: Never Smokeless tobacco: Never Vaping Use Vaping status: Never Used Substance Use Topics Alcohol use: No Drug use: No Review of Systems Constitutional: Negative for chills and fever. HENT: Negative for congestion, ear pain and sore throat. Respiratory: Negative for cough and shortness of breath. Cardiovascular: Negative for chest pain. Gastrointestinal: Negative for diarrhea and vomiting. Musculoskeletal: Positive for arthralgias and neck pain. Objective BP 132/78 Pulse 95 Temp 36.8 ?C (98.2 ?F) (Tympanic) Resp 18 Wt 100 kg (220 lb 7.4 oz) LMP 10/04/2023 SpO2 100% BMI 35.58 kg/m? Physical Exam Vitals and nursing note reviewed. Constitutional: General: She is not in acute distress. Appearance: Normal appearance. She is not toxic-appearing. Cardiovascular: Rate and Rhythm: Normal rate and regular rhythm. Pulmonary: Effort: Pulmonary effort is normal. Breath sounds: Normal breath sounds. Musculoskeletal: Right shoulder: Tenderness present. No deformity. Normal range of motion. Cervical back: No tenderness or bony tenderness. Pain with movement present. Normal range of motion. Comments: Patient has normal ROM right shoulder. Patient does report pain in the right shoulder/right side neck area with movement of the shoulder. Normal ROM cervical spine. She does report some pain with movement of the neck and the right shoulder/right trapezius area. Nontender neck. Nontender shoulder. Normal sensation right upper extremity. Normal strength right upper extremity. No obvious deformity. No rash or swelling present. Skin: General: Skin is warm and dry. Neurological: Mental Status: She is alert. Assessment and Plan ASSESSMENT/PLAN: 1. Cervical pain - ICD9: 723.1, ICD10: M54.2 (primary diagnosis) -Suspect musculoskeletal pain. Pain x several months. May also have component of cervical radiculopathy. -No XR available at time of exam. -Patient will return Sunday for XR. -Rx for prednisone -Follow-up with PCP as scheduled. -If any new or worsening pain, numbness, loss of bowel or bladder function, chest pain or shortness of breath, go to ER. - XR SHOULDER GENERAL 3V OR MORE AP/TRUE AP/OTHER RIGHT - XR CERV OTHER 4V AP/LAT/OBL 2. Acute pain of right shoulder - ICD9: 719.41, ICD10: M25.511 - XR SHOULDER GEN (more content not included)...[facility] 02-23-2024 History of Present illness Narrative* Kassandra Cabello PA - 02/23/2024 3:26 PM EDT This note was created using [employer]. Subjective Gladys Dodd is a 48 year old female. HPI 48-year-old female presents for right shoulder and right sided neck pain. Symptoms have been present for several months. Patient states they have recently gotten worse. Patient states that she has been having pain to her right shoulder and neck for the past few months, she has known arthritis in her neck. No history of surgery on the cervical spine. She states that the pain radiates from the right side of her neck towards her right shoulder and towards the right anterior shoulder towards her pectoralis muscle. She denies any chest pain or shortness of breath. No numbness or tingling or weakness in the arms. She has been seeing a DO which has been doing adjustments, but she states they are not really helping. She denies any specific fall or injury prior to pain starting, but she statesthe only thing she can think of is that she has an 85 pound dog that she walks and pulls on the leash which she uses her right arm for. She denies ever having imaging on the neck or shoulder since pain started. She has taken Advil with minimal relief today. No loss of bowel or bladder function. No fevers. No history of cancer or IV drug use. No other complaint. 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 PAST SURGICAL HISTORY Procedure Laterality Date BX OF BREAST; INCISIONAL Left 2022 PASH D&C, DIAG AND/OR THERAPEUTIC 10/26/2023 Hysteroscopy, D&C, Polypectomy PAST SURGICAL HISTORY OF cyst removed from right wrist TYMPANOSTOMY LOCAL/TOPICAL ANESTHESIA 05/14/1979 ALLERGIES Patient has no active allergies. MEDICATIONS sucralfate (CARAFATE) [address] (PROTONIX) 40 mg tablet predniSONE (DELTASONE) 10 mg tablet Take 4 tabs daily for 3 days, then 2 tabs daily for 3 days, then 1 tab daily for 3 days with food. FAMILY HISTORY Problem Relation Age of Onset Diabetes Mother Hypertension Mother other (dermatomyositis) Mother other (congestive heart failure) Father age 80 Diabetes Maternal Grandmother other (Ovarian Cancer) Maternal Grandmother Heart Maternal Grandfather Hypertension Maternal Grandfather Diabetes Maternal Grandfather other (CVA) Maternal Grandfather Social History Tobacco Use Smoking status: Never Smokeless tobacco: Never Vaping Use Vaping status: Never Used Substance Use Topics Alcohol use: No Drug use: No Review of Systems Constitutional: Negative for chills and fever. HENT: Negative for congestion, ear pain and sore throat. Respiratory: Negative for cough and shortness of breath. Cardiovascular: Negative for chest pain. Gastrointestinal: Negative for diarrhea and vomiting. Musculoskeletal: Positive for arthralgias and neck pain. Objective BP 132/78 Pulse 95 Temp 36.8 C (98.2 F) (Tympanic) Resp 18 Wt 100 kg (220 lb 7.4 oz) LMP 10/04/2023 SpO2 100% BMI 35.58 kg/m Physical Exam Vitals and nursing note reviewed. Constitutional: General: She is not in acute distress. Appearance: Normal appearance. She is not toxic-appearing. Cardiovascular: Rate and Rhythm: Normal rate and regular rhythm. Pulmonary: Effort: Pulmonary effort is normal. Breath sounds: Normal breath sounds. Musculoskeletal: Right shoulder: Tenderness present. No deformity. Normal range of motion. Cervical back: No tenderness or bony tenderness. Pain with movement present. Normal range of motion. Comments: Patient has normal ROM right shoulder. Patient does report pain in the right shoulder/right side neck area with movement of the shoulder. Normal ROM cervical spine. She does report some pain with movement of the neck and the right shoulder/right trapezius area. Nontender neck. Nontender shoulder. Normal sensation right upper extremity. Normal strength right upper extremity. No obvious deformity. No rash or swelling present. Skin: General: Skin is warm and dry. Neurological: Mental Status: She is alert. Assessment and Plan ASSESSMENT/PLAN: 1. Cervical pain - ICD9: 723.1, ICD10: M54.2 (primary diagnosis) -Suspect musculoskeletal pain. Pain x several months. May also have component of cervical radiculopathy. -No XR available at time of exam. -Patient will return Sunday for XR. -Rx for prednisone -Follow-up with PCP as scheduled. -If any new or worsening pain, numbness, loss of bowel or bladder function, chest pain or shortnessof breath, go to ER. - XR SHOULDER GENERAL 3V OR MORE AP/TRUE AP/OTHER RIGHT - XR CERV OTHER 4V AP/LAT/OBL 2. Acute pain of right shoulder - ICD9: 719.41, ICD10: M25.511 - XR SHOULDER GENERAL 3V OR MORE AP/TRUE AP/OTHER RIGHT - XR CERV OTHER 4V AP/LAT/OBL Diagnosis and treatment plan were discussed and questions were answered to the patient's satisfaction. Pt acknowledged understanding of concepts and follow up plan. Specific signs and symptoms that would indicate the need for higher level of care were discussed in detail warranting prompt ER evaluation. LORA Melara documented [facility] History of Present illness Narrative* Meghan Da Silva MD - 10/10/2023 9:44 AM EDT documented in this encounterMi[facility]05-29-[facility] History and physical note * Meghan Da Silva MD - 10/10/2023 9:37 AM EDT Pre-Op History and Physical HPI: The patient is a 47 year old female presenting for discussion regarding endocervical polyp. Noted on routine exam and on ultrasound. Pt also has fibroid uterus. No concerns with AUB. pre-operative visit. She is scheduled for Hysteroscopy D&C and polypectomy with symphion, for endocervical polyp on 10/26/23. Procedure discussed along with risks, benefits and complications. Other alternatives discussed for management. Consent form signed? Yes. 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 PAST SURGICAL HISTORY Procedure Laterality Date BX OF BREAST; INCISIONAL Left 2022 PASH PAST SURGICAL HISTORY OF cyst removed from right wrist TYMPANOSTOMY LOCAL/TOPICAL ANESTHESIA 05/14/1979 Current Outpatient Medications Medication Sig Dispense Refill pantoprazole DR (PROTONIX) 40 mg tablet No current facility-administered medications for this visit. ALLERGIES: Hayfever [Homeopathic Products] PERSONAL HISTORY: Social History Tobacco Use Smoking status: Never Smokeless tobacco: Never Vaping Use Vaping Use: Never used Substance Use Topics Alcohol use: No Drug use: No FAMILY HISTORY: FAMILY HISTORY Problem Relation Age of Onset Diabetes Mother Hypertension Mother other (dermatomyositis) Mother other (congestive heart failure) Father age 80 Diabetes Maternal Grandmother other (Ovarian Cancer) Maternal Grandmother Heart Maternal Grandfather Hypertension Maternal Grandfather Diabetes Maternal Grandfather other (CVA) Maternal Grandfather REVIEW OF SYMPTOMS: negative except as noted above PHYSICAL EXAMINATION: VITALS: Blood pressure 118/74, weight 230 lb (104.3 kg), last menstrual period 10/04/2023. GENERAL: The patient is well nourished, well hydrated in no acute distress. , The patient is oriented to time, place, and person. NECK: full range of motion LUNGS: Clear to auscultation bilaterally. no wheezes, rhonchi or rales HEART: Regular rate and rhythm, Normal heart sounds, and No murmurs or gallops GENITALIA: deferred WET PREP: Not indicated IMPRESSION: 47yo with Endocervical polyp PLAN: Hysteroscopy, D&C, polypectomy with symphion Pt has been counseled on risks/benefits and alternatives of surgery including but not limited to anesthesia, bleeding, infection, uterine perforation injury to pelvic structures including bowel, bladder, ureters and vessels. Pt wishes to proceed with surgery at this time. Pre and post op instructions reviewed I have reviewed and updated past medical and surgical history, medications and allergies Meghan Redd MD [facility] History and physical note* Meghan Da Silva MD - 10/10/2023 9:37 AM EDT Pre-Op History and Physical HPI: The patient is a 47 year old female presenting for discussion regarding endocervical polyp. Noted on routine exam and on ultrasound. Pt also has fibroid uterus. No concerns with AUB. pre-operative visit. She is scheduled for Hysteroscopy D&C and polypectomy with symphion, for endocervical polyp on 10/26/23. Procedure discussed along with risks, benefits and complications. Other alternatives discussed for management. Consent form signed? Yes. 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 PAST SURGICAL HISTORY Procedure Laterality Date BX OF BREAST; INCISIONAL Left 2022 PASH PAST SURGICAL HISTORY OF cyst removed from right wrist TYMPANOSTOMY LOCAL/TOPICAL ANESTHESIA 05/14/1979 Current Outpatient Medications Medication Sig Dispense Refill pantoprazole DR (PROTONIX) 40 mg tablet No current facility-administered medications for this visit. ALLERGIES: Hayfever [Homeopathic Products] PERSONAL HISTORY: Social History Tobacco Use Smoking status: Never Smokeless tobacco: Never Vaping Use Vaping Use: Never used Substance Use Topics Alcohol use: No Drug use: No FAMILY HISTORY: FAMILY HISTORY Problem Relation Age of Onset Diabetes Mother Hypertension Mother other (dermatomyositis) Mother other (congestive heart failure) Father age 80 Diabetes Maternal Grandmother other (Ovarian Cancer) Maternal Grandmother Heart Maternal Grandfather Hypertension Maternal Grandfather Diabetes Maternal Grandfather other (CVA) Maternal Grandfather REVIEW OF SYMPTOMS: negative except as noted above PHYSICAL EXAMINATION: VITALS: Blood pressure 118/74, weight 230 lb (104.3 kg), last menstrual period 10/04/2023. GENERAL: The patient is well nourished, well hydrated in no acute distress. , The patient is oriented to time, place, and person. NECK: full range of motion LUNGS: Clear to auscultation bilaterally. no wheezes, rhonchi or rales HEART: Regular rate and rhythm, Normal heart sounds, and No murmurs or gallops GENITALIA: deferred WET PREP: Not indicated IMPRESSION: 47yo with Endocervical polyp PLAN: Hysteroscopy, D&C, polypectomy with symphion Pt has been counseled on risks/benefits and alternatives of surgery including but not limited to anesthesia, bleeding, infection, uterine perforation injury to pelvic structures including bowel, bladder, ureters and vessels. Pt wishes to proceed with surgery at this time. Pre and post op instructions reviewed I have reviewed and updated past medical and surgical history, medications and allergies Meghan Redd MD documented in this encounter[facility]04-[facility] History of Present illness Narrative* Basil Gardiner APRN.CNP - 08/21/2023 6:52 PM EDT Patient triaged at [facility]. Here today with worsening left chest pressure/shoulder pain. Also having dull ache in left leg/nagging. Patient concerned for heart related problem. I will refer to ER. Patient in no apparent distress at time of triage. documented in this encounterMi[facility]04-[facility] Discharge summary Author Donald Holguin [facility] August 21, 2023 8:28pm Note Date/Time August 21, 2023 8:28 pm [facility] Medical Records Department [address] [place] [address] Emergency Department Summary 08/21/23 MR#: [id number] Acct: [id number] Name: GLADYS JACKSON Rep #:[id number] : 1975 47 From: Donald Holguin DO PCP: Raysa Wong NP-C Status:RE G ER Location: ED HPI History of Present Illness Chief Complaint: Chest Pain Narrative Narrative: 47-year-old female presenting with chest pain. It is very mild dull ache in theleft shoulder. She equates it to her GERD which is severe. She has had it since about 10 or 11 this morning. Denies lightheadedness or dizziness. No fevers or chills. No cough or shortness of breath. The pain does not radiate. Patient history. No history of DVT/PE and no risk factors. Patient states thatshe noticed she had some pain on the anterior thigh today. She states that it gets this way from time to time. States is worse when she sitting and gets better when she gets up to move around. Patient went to urgent care today with a constellation of symptoms she was sent to the emergency room. Patient did take an extra pantoprazole today. She said that she currently feels better. PFSH PFS Medical History Anemia Chronic GERD HTN (hypertension) Migraine Nausea Pelvic pain RUQ abdominal pain TMJ syndrome Home Medications pantoprazole 40 mg tablet,delayed release 40 mg PO DAILY 07/20/23 [History Last Taken Unknown] sumatriptan succinate 25 mg tablet See Rx Instructions PO .COMPLEX 07/20/23 [History Last Taken Unknown] Allergy/AdvReac Type Severity Reaction Status Date / Time No Known Allergies Allergy Verified 08/21/23 19:07 Family History Mother High cholesterol Rheumatic arteritis Diabetes Lung disease due to connective tissue disorder Grandmother Diabetes Uterine cancer Surgical History History of breast biopsy Social History Smoking Status: Never smoker alcohol intake: never ROS ROS ED Constitutional Constitutional ED: Denies chills or fever(s) Eyes Eyes: Denies blurry vision or change in vision ENT ENT ED: Denies rhinorrhea or sore throat Cardiovascular Cardiovascular: Reports chest pain; Denies palpitations Respiratory/Chest Respiratory/Chest: Denies cough or dyspnea Gastrointestinal Gastrointestinal: Denies nausea or vomiting Genitourinary Genitourinary ED: Denies dysuria or hematuria Musculoskeletal Musculoskeletal: Reports back pain and other Details: Left leg pain ; Denies neck pain Integumentary Denies abscess or rash Neurologic Neurologic: Denies headache(s) or weakness Allergic/Immunologic Allergic/Immunologic ED: Denies mouth swelling or urticaria EXAM Physical Exam Const Vital Signs: 08/21/23 19:07 08/21/23 19:28 08/21/23 19:28 Temperature 97.3 F L Temperature Source Temporal Pulse Rate 98 Respiratory Rate 16 Respiratory Effort Normal Blood Pressure 140/86 H Blood Pressure Mean 104 Pulse Ox 99 Oxygen Delivery Method Room Air 08/21/23 20:07 Temperature Temperature Source Pulse Rate 78 Respiratory Rate 22 H Respiratory Effort Blood Pressure 122/78 H Blood Pressure Mean 92 Pulse Ox 98 Oxygen Delivery Method Room Air Positive well nourished General Appearance ED: Negative for pallor HEENT Reports moist mucous membranes normocephalic and atraumatic Eyes PERRL Resp normal respiratory effort and clear to auscultation bilaterally Auscultation: Negative for rales, rhonchi or wheezes Cardio regular rate and regular rhythm GI normal to inspection, nondistended, normoactive bowel sounds Neuro oriented x3 and CN's II-XII intact bilaterally Sensorium / Orientation: awake Psych mental status grossly normal Skin General Skin Exam: Negative for jaundice or pallor Heart Score History: Slightly/Non-Suspicious Age: </= 45 years Risk Factors: No Risk Factors Troponin: </= Normal Limit Score: 0 MDM MDM MDM Narrative Medical decision making narrative: Patient presenting with chest pain which she felt was a dull pressure. Is been present today for over 9 hours. High-sensitivity troponin was 5. EKG on my interpretation shows a sinus rhythm with a ventricular rate of 73 bpm without sign of ischemic change or ectopy. Chest x-ray my interpretation shows no acuteprocess. The radiologist interprets this and agrees. CBC shows normal white blood cell count, hemoglobin, platelets. BMP shows normal renal function, electrolytes. High-sensitivity troponin again normal at 5. I do not believe she did delta troponin. On examination she has some tenderness over the anterior thigh distally but nothing in the deep vein distribution and no cords palpated. This is not reproducible with range of motion however. I do not believe she has a DVT nor do I believe she has a PE as she is PERC negative. Patient will be discharged home to follow-up with her PCP and return precautionsdiscussed. Impression: 1. Chest pain 2. Leg pain Lab Data Attestation: I reviewed the patient's lab results. Labs: Laboratory Results - last 24 hr 08/21/23 19:15 WBC 8.7 RBC 4.62 Hgb 12.4 Hct 38.8 MCV 84.0 MCH 26.8 L MCHC 32.0 RDW Std Deviation 41.3 RDW Coeff of [place] 13.5 Plt Count 314 MPV 10.0 Immature Gran % (Auto) 0.200 Neut % (Auto) 65.0 Lymph % (Auto) 27.4 [place] % (Auto) 6.0 Eos % (Auto) 0.8 Baso % (Auto) 0.6 Absolute Neuts (auto) 5.7 Absolute Lymphs (auto) 2.39 Nucleated RBC % 0 Sodium 137 Potassium 3.5 Chloride 103 Carbon Dioxide 28.0 Anion Gap 6 BUN 14 Creatinine 0.89 Estim Creat Clear Calc 94.41 Est GFR (MDRD) Af Amer 87 Est GFR (MDRD) Non-Af 72 BUN/Creatinine Ratio 15.7 Glucose 97 Calcium 9.4 Troponin I High Sens 5 Radiography Diagnostic Testing: Clinical Impression(s) from Imaging Studies Chest X-Ray 08/21/23 19:35 IMPRESSION: Normal x-ray examination of the chest. Electronically Signed: Anselmo Paez MD at 19:58 EDT , Discharge Plan Triage Chief Complaint: Chest Pain ED Provider: Donald Holguin Dx/Rx/DC Orders Instructions: ED Chest Pain, Noncardiac Prescriptions: No Action pantoprazole 40 mg tablet,delayed release (DR/EC) 40 mg PO DAILY sumatriptan succinate 25 mg tablet See Rx Instructions PO .COMPLEX Rx Instructions: take 1 tab at onset of headache; if no relief may repeat 1 tab after at least2 hrs; max = 4 tabs/24 hr PO Primary Care Provider: Raysa Wong NP Referrals: Raysa Wong NP, MOTION STUDY ENGINEER-C [Primary Care Provider] - Disposition Disposition: Home, Self Care What to do if you have Problems For any increased pain, shortness of breath, bleeding, nausea or vomiting, chestpain, or any unexpected problems, contact your Primary Care Provider. Call [facility] ([phone]) or report to the closest Emergency Room. Call 911 if necessary. 08/21/232027 <Electronically signed by Donald Holguin DO> Cosigner Signature (if applicable): CC: MOTION STUDY ENGINEERLiam Wong ~ Signed [facility] Work Phone: [phone]) 236-295403-13-2024 History of Present illness Narrative* Antony Cunha Mammo Tech - 07/25/2023 1:30 PM EDT Radiology Service Progress Note PATIENT NAME: Gladys Dodd DATE OF SERVICE: July 25, 2023 TIME: 1:52 PM PATIENT IDENTITY VERIFICATION COMPLETED USING TWO (2) IDENTIFIERS: Name and Date of confirmedby patient verbally. FALL SCREENING: Has the patient had 2 falls in the last year or 1 fall with injury or currently using an Ambulatory Assistive Device (Walker, Cane, Wheelchair, Crutches, etc.)? No PATIENT GENDER DATA: Female. status: : No status: NO. PATIENT RELEVANT IMPLANT DATA REVIEWED: Not Applicable PATIENT PRESENTS WITH AN IMPLANTABLE OR ATTACHED SWIMMING POOL SALESPERSON: No RADIOLOGY DEPARTMENT: Mammography PERIPHERAL IV DATA: Not applicable SIGNED BY: Melchor Peralta July 25, 2023 1:52 PM documented in this encounterMiami [facility] Hospital03-08-2024 History of Present illness Narrative* Sydni MunozANTONIETTA.MOLD MAKER APPRENTICE - 07/20/2023 9:00 AM EST Lump Receiver offered: Patient declines. Gladys is a 47 year old who presents for an annual gynecologic exam without complaints. Menses: Menses: cycles every 28 days and 3-4 days of flow. 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 Sexually active: Yes Patient concerns for STD exposure: No. Time with current partner: 24 years Pain with intercourse: No Postcoital bleeding: No Hot flashes: 2/week Night sweats: generally warm Documentation from previous visit of 05/16/2022 was copied and pasted, documentation has been reviewed and edited as necessary for today's visit. 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 PAST SURGICAL HISTORY Procedure Laterality Date BX OF BREAST; INCISIONAL Left 2022 PASH PAST SURGICAL HISTORY OF cyst removed from right wrist TYMPANOSTOMY LOCAL/TOPICAL ANESTHESIA 05/14/1979 FAMILY HISTORY Problem Relation Age of Onset [...] Allergies and current medication updated:Yes EXAM: BP 112/80 Ht 5' 6 (1.68m) Wt 229 lb (103.9kg) LMP 07/13/2023 BMI 36.98 kg/(m^2). GENERAL: pleasant, female in no apparent [...] external genitalia normal, normal Bartholin's glands, urethra, [place]'s glands, no vulvar lesions, good vaginal support, physiologic discharge present, normal appearing perineal body and perianal region, small endocervical polyp BIMANUAL: uterus normal size, shape and consistency, no adnexal masses, and non-tender RECTOVAGINAL: deferred. NEURO: alert and oriented x3,exam grossly non-focal EXTREMITIES: normal ASSESSMENT/PLAN: 1) Health maintenance: Pap/HPV up to date. Mammogram ordered. 2. Endocervical polyp - ICD9: 622.7, ICD10: N84.1 - asymptomatic, noted on exam - PELVIC US WHI - Will notify of results and determine POC. 3. Pseudoangiomatous stromal hyperplasia of breast - ICD9: 611.89, ICD10: N64.89 Left breast biopsy pathology 2022 - MARTY SCREENING W DELFIN 4) Contraception: vasectomy. Contraceptive options reviewed and information provided. 5) STD screening: Declined STD check. 6) Follow up one year or sooner as needed. Sydni Munoz APRN.SHAMAR documented in this encounterMiami Valley Hospital01-12-2024 Evaluation + Plan note Future Scheduled Tests Radiology* US Abdomen Limited 05/25/23 [facility] 09-02-2023 Instructions* Patient Instructions* Veronica Vivas APRN.CNP - 01/13/2023 8:33 AM [...] expected course of illness Veronica Vivas APRN.CNP documented in this encounterMiami Valley Hospital09-02-2023 History of Present illness Narrative* Veronica Vivas APRN.CNP - 01/13/2023 8:31 AM EDT Images from the original note were not [...] Discussed expected course of illness Veronica Vivas APRN.MOLD MAKER APPRENTICE documented in this encounterMiami Valley Hospital03-06-2023 Miscellaneous Notes* Patient Education - Danelle Monzon RT(R) - 07/17/2022 12:12 PM EST AMBULATORY PATIENT EDUCATION RADIOLOGY TOPIC: Pre- Procedure [...] instructions REFERRAL (RECOMMENDATION): None documented in this encounterMiami Valley Hospital01-31-2023 History of Present illness Narrative* Lisa Weiss RT(R) - 06/13/2022 3:00 PM EST Radiology Service Progress Note PATIENT NAME: Gladys Dodd DATE OF SERVICE: June 13, 2022 TIME: 2:59 PM PATIENT IDENTITY VERIFICATION COMPLETED USING TWO (2) IDENTIFIERS: Name and Date of confirmedby patient verbally. FALL SCREENING: Has the patient [...] 13, 2022 2:59 PM documented in this encounterMiami Valley Hospital01-04-2023 Miscellaneous Notes* Letter - Mammography Coordinator - 05/17/2022 11:45 AM EST May 17, 2022 PID: [id number] Gladys Dodd [id number] [id number] Dear Ms. Faizan Dodd, Your recent breast imaging exam on [...] dense breast tissue in addition to other riskfactors. If you have a healthcare provider who ordered/prescribed your screening mammogram: Please call [phone] or [phone]: [phone] to schedule an appointment for your additional imaging (if youhave not already done so). If you DO [...] and reports are kept [facility] as part of your permanent medical record, and are available for your continuing care. Thank you for allowing us to help in meeting your health care needs. Sincerely, Dr. Duncan Interpreting Radiologist [facility] (Additional imaging) documented in this encounterMiami Valley Hospital01-03-2023 History of Present illness Narrative* Lisa Weiss RT(R) - 05/16/2022 1:50 PM EST Radiology Service Progress Note PATIENT NAME: Gladys Dodd DATE OF SERVICE: May 16, 2022 TIME: 1:55 PM PATIENT IDENTITY VERIFICATION COMPLETED USING TWO (2) IDENTIFIERS: Name and Date of confirmedby patient verbally. FALL SCREENING: Has the patient [...] 16, 2022 1:55 PM documented in this encounterMiami Valley Hospital01-03-2023 History of Present illness Narrative* Sydni Munoz APRN.MOLD MAKER APPRENTICE - 05/16/2022 12:52 PM EST Lump Receiver offered: Patient declines. Gladys is a 46 [...] L2 SAB0 IAB0 Ectopic0 Multiple0 Live Births2 Paratransit Driver History LMP: 04/21/2021 (Exact Date), Having periods Age at Menarche: Age at First : Age at Menopause: Paratransit Driver History Comments: Sexual Activity: Yes; Male; has [...] external genitalia normal, normal Bartholin's glands, urethra, [place]'s glands, no vulvar lesions, no cervical lesions, [...] one year or sooner as needed Sydni Munoz APRN.MOLD MAKER APPRENTICE documented in this encounterMiami Valley Hospital10-11-2022 Miscellaneous Notes* Telephone Encounter - Marlee Kwong - 02/21/2022 10:04 AM EDT Patient given results and verbalized understanding of instructions given. Marlee Kwong * Telephone Encounter - Marlee Kwong - 02/21/2022 10:04 AM EDT ----- Message from Veronica Vivas APRN.SHAMAR sent at 02/21/2022 9:55 AM EDT ----- Urine culture did not show clear evidence of infection, however it appears sample may have been contaminated with skin bacteria during collection. If not improving, recommend follow up with PCP. Veronica Vivas CNP documented in this encounterMiami Valley Hospital10-10-2022 Miscellaneous Notes* Telephone Encounter - Marlee Kwong - 02/20/2022 11:37 AM EDT Patient given results and verbalized understanding of instructions given. Marlee Kwong * Telephone Encounter - Lennie South PA-C - 02/20/2022 10:08 AM EDT Please let patient know that her XR showed some degenerative (arthritic) changes. Otherwise normal.Recommend treatment plan as discussed at office visit. Follow up in 5-7 days if not improving, sooner if any worsening symptoms. Lennie South PA-C 02/20/2022 documented in this encounterMiami Valley Hospital10-10-2022 History of Present illness Narrative* Melina Thorne, RT(R) - 02/20/2022 8:00 AM EDT Radiology Service Progress Note PATIENT NAME: Gladys Dodd DATE OF SERVICE: February 20, 2022 TIME: 8:02 AM PATIENT IDENTITY VERIFICATION COMPLETED USING TWO (2) IDENTIFIERS: Name and Date of confirmedby patient verbally. FALL SCREENING: Has the patient [...] RT Shimon(R) February 20, 2022 8:02 AM documented in this encounterOhio[facility]uation + Plan note No data available for this section [facility] Evaluation + Plan note Future Appointments Appointment Date:01/08/2024 01:30:00 PM Scheduled Provider:SANDIE CHAVIS DO Location:[facility] Appointment Type:PC Office Procedure OMT [facility] evaluation note* Diagnosis Encounter for gynecological examination (general) (routine) without abnormal findings- Primary Encounter for screening mammogram for breast cancer Dense breast tissue [facility]* Diagnosis Abnormal finding on radiological examination of breast- Primary Other (abnormal) findings on radiological examination of breast [facility]* Diagnosis Abnormal mammogram Abnormal mammogram, unspecified [facility]* Diagnosis Abnormal finding on radiological examination of breast Other (abnormal) findings on radiological examination of breast [facility]* Diagnosis Burning sensation of skin- Primary [facility]* Diagnosis Encounter for gynecological examination (general) (routine) without abnormal findings Encounter for screening mammogram for breast cancer documented [facility] encounter [facility]* Diagnosis Abnormal mammogram Abnormal mammogram, unspecified documented [facility]* Diagnosis Abnormal mammogram Abnormal mammogram, unspecified documented in this encounter [facility] noteNo assessment information availableWCleveland Clinic [facility] Work Phone: Evqxipgpqi note* Diagnosis Encounter for gynecological examination with abnormal finding- Primary Routine gynecological examination Endocervical polyp Mucous polyp of cervix Encounter for screening mammogram for breast cancer Heterogeneously dense tissue of both breasts on mammography 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 documented [facility]* Diagnosis Abnormal mammogram Abnormal mammogram, unspecified documented in this encounter [facility] note* Diagnosis Endocervical polyp Mucous polyp of cervix documented in this encounter [facility] note* Diagnosis Chest pressure- Primary Other chest pain documented in this encounter [facility] note* Diagnosis Endocervical polyp- Primary Mucous polyp of cervix Pre-op exam Preoperative examination, unspecified documented in this encounter [facility] note* Diagnosis Acute right-sided low back pain without sciatica documented in this encounter [facility] note* Diagnosis Cervical pain- Primary Cervicalgia Acute pain of right shoulder documented in this encounter [facility] note* Diagnosis Cervical pain Cervicalgia Acute pain of right shoulder documented in this encounter [facility] note* Diagnosis Encounter for screening mammogram for breast cancer Heterogeneously dense tissue of both breasts on mammography 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 documented in this encounter [facility] note* Diagnosis Encounter for gynecological examination (general) (routine) without abnormal findings- Primary Encounter for screening mammogram for breast cancer documented in this encounter [facility] note* Diagnosis Allergic reaction to insect sting, accidental or unintentional, initial encounter- Primary documented in this encounter [facility] Discharge instructions No data available for this section [facility] Progress note No data available for this section [facility] Reason for referral (narrative)* Diagnostic Procedure Only (Routine) - Pending Review Specialty Diagnoses / Procedures Referred By Cassius t Referred To Contact [facility] Diagnoses Encounter for screening mammogram for breast cancer Dense breast tissue Procedures MARTY SCREENING W DELFIN SCREENING DIGITAL BREAST TOMOSYNTHESIS BI SCREENING MAMMOGRAPHY BI 2-VIEW BREAST INC Sydni Arzate APRN.CNP [address] [place] [address] [facility] [address] [place] [address] Referral ID Status Reason Start Date Expiration Date Visits Requested Visits Authorized [id number] Pending Review Auto-Generat ed Referral 05/16/2022 06/15/2023 1 1 [facility] for referral (narrative)* Diagnostic Procedure Only (Routine) - Authorized Specialty Diagnoses / Procedures Referred By Contac t Referred To Contact [facility] Diagnoses Abnormal finding on radiological examination of breast Procedures MARTY STEREO BX BREAST LT BX BREAST W/DEVICE 1ST [facility] Ewa Gale MD [address] [id number] [facility] [address] [place] [address] Referral ID Status Reason Start Date Expiration Date Visits Requested Visits Authorized [id number] Authorized Auto-Generat ed Referral 06/28/2022 07/28/2023 1 1 [facility] for referral (narrative)* Diagnostic Procedure Only (Routine) - Closed Specialty Diagnoses / Procedures Referred By Contac t Referred To Contact [facility] Diagnoses Abnormal finding on radiological examination of breast Procedures MARTY STEREO BX BREAST LT BX BREAST W/DEVICE 1ST [facility] Ewa Gale MD [address] [id number] [facility] [address] [place] [address] Referral ID Status Reason Start Date Expiration Date V isits Requested Visits Authorized [id number] Closed Auto-Generate d Referral 06/28/2022 07/28/2023 1 1 [facility] for referral (narrative)* Diagnostic Procedure Only (Routine) - Closed Specialty Diagnoses / Procedures Referred By Contac t Referred To Contact [facility] Diagnoses Encounter for gynecological examination (general) (routine) without abnormal findings Encounter for screening mammogram for breast cancer Procedures MARTY SCREENING SCREENING MAMMOGRAPHY BI 2-VIEW BREAST INC Sydni Arzate, ANTONIETTA.MOLD MAKER APPRENTICE [address] [place] [address] [facility] [address] [place] [address] Referral ID Status Reason Start Date Expiration Date V isits Requested Visits Authorized [id number] Closed Auto-Generate d Referral 05/10/2021 06/09/2022 1 1 [facility] for referral (narrative)* Diagnostic Procedure Only (Routine) - Closed Specialty Diagnoses / Procedures Referred By Cassius espinoza Referred To Contact [facility] Diagnoses Abnormal mammogram Procedures US BREAST LTD LT US BREAST UNI REAL TIME WITH IMAGE LIMITED Sydni Munoz APRN.CNP [address] [place] [address] [facility] [address] [place] [address] Referral ID Status Reason Start Date Expiration Date V isits Requested Visits Authorized [id number] Closed Auto-Generate d Referral 05/17/2022 06/16/2023 1 1 [facility] for referral (narrative)* Diagnostic Procedure Only (Routine) - Authorized Specialty Diagnoses / Procedures Referred By Cassius espinoza Referred To Contact [facility] Diagnoses Endocervical polyp Procedures PELVIC US WHI US PELVIC NONOBSTETRIC REAL-TIME IMAGE COMPLETE Sydni Munoz APRN.CNP [address] [place] [address] [facility] [address] [place] [address] Referral ID Status Reason Start Date Expiration Date Visits Requested Visits Authorized [id number] Authorized Auto-Generat ed Referral 07/20/2023 07/19/2024 1 1 * Diagnostic Procedure Only (Routine) - Pending Review Specialty Diagnoses / Procedures Referred By Cassius espinoza Referred To Contact [facility] Diagnoses Encounter for screening mammogram for breast cancer Heterogeneously dense tissue of both breasts on mammography Pseudoangiomatous stromal hyperplasia of breast Procedures MARTY SCREENING W DELFIN SCREENING DIGITAL BREAST TOMOSYNTHESIS BI SCREENING MAMMOGRAPHY BI 2-VIEW BREAST INC CAD Sydni Munoz APRN.CNP [address] [place] [address] [facility] [address] [place] [address] Referral ID Status Reason Start Date Expiration Date Visits Requested Visits Authorized [id number] Pending Review Auto-Generat ed Referral 07/20/2023 08/18/2024 1 1 [facility] for referral (narrative)* Diagnostic Procedure Only (Urgent) - Closed Specialty Diagnoses / Procedures Referred By Contac t Referred To Contact XR IMAGING Diagnoses Acute bilateral low back pain without sciatica Procedures XR LUMBAR GENERAL 3V AP/LAT/L5-S1 RADEX SPINE LUMBOSACRAL 2/3 VIEWS Lennie South PA-C [address] [place] [address] [place] [address] Referral ID Status Reason Start Date Expiration Date V isits Requested Visits Authorized [id number] Closed Auto-Generate d Referral 02/20/2022 03/22/2023 1 1 [facility] for referral (narrative)* Diagnostic Procedure Only (Urgent) - New Request Specialty Diagnoses / Procedures Referred By Contac t Referred To Contact XR IMAGING Diagnoses Cervical pain Acute pain of right shoulder Procedures XR CERV OTHER 4V AP/LAT/OBL RADEX SPINE CERVICAL 4 OR 5 VIEWS Kassandra Cabello PA [address] [place] [address] [place] [address] Referral ID Status Reason Start Date Expiration Date Visits Requested Visits Authorized [id number] New Request Auto-Generat ed Referral 03/24/2025 1 1 * Diagnostic Procedure Only (Urgent) - New Request Specialty Diagnoses / Procedures Referred By Contac t Referred To Contact XR IMAGING Diagnoses Cervical pain Acute pain of right shoulder Procedures XR SHOULDER GENERAL 3V OR MORE AP/TRUE AP/OTHER RIGHT RADEX SHOULDER COMPLETE MINIMUM 2 VIEWS Kassandra Cabello PA [address] [place] [address] [place] [address] Referral ID Status Reason Start Date Expiration Date Visits Requested Visits Authorized [id number] New Request Auto-Generat ed Referral 03/24/2025 1 1 [facility] for referral (narrative)* Diagnostic Procedure Only (Urgent) - Closed Specialty Diagnoses / Procedures Referred By Contac t Referred To Contact XR IMAGING Diagnoses Cervical pain Acute pain of right shoulder Procedures XR CERV OTHER 4V AP/LAT/OBL RADEX SPINE CERVICAL 4 OR 5 VIEWS Kassandra Cabello PA [address] [place] [address] [place] [address] Referral ID Status Reason Start Date Expiration Date V isits Requested Visits Authorized [id number] Closed Auto-Generate d Referral 02/23/2024 03/24/2025 1 1 * Diagnostic Procedure Only (Urgent) - Closed Specialty Diagnoses / Procedures Referred By Contac t Referred To Contact XR IMAGING Diagnoses Cervical pain Acute pain of right shoulder Procedures XR SHOULDER GENERAL 3V OR MORE AP/TRUE AP/OTHER RIGHT RADEX SHOULDER COMPLETE MINIMUM 2 VIEWS Kassandra Cabello PA [address] [place] [address] [place] [address] Referral ID Status Reason Start Date Expiration Date V isits Requested Visits Authorized [id number] Closed Auto-Generate d Referral 02/23/2024 03/24/2025 1 1 [facility] for referral (narrative)No reason for referral [facility] Phone: Reason for visit Narrative* Diagnostic Procedure Only (Routine) - Closed Specialty Diagnoses / Procedures Referred By Contac t Referred To Contact BR IMAGING Diagnoses Abnormal mammogram Procedures US BIOPSY BREAST LT BX BREAST W/DEVICE 1ST LESION ULTRASOUND GUID Burt Lenz MD [address] [place] [address] [facility] Imaging [address] [place] [id number] Referral ID Status Reason Start Date Expiration Date V isits Requested Visits Authorized [id number] Closed Auto-Generate d Referral 06/14/2022 07/14/2023 1 1 [facility] for visit Narrative* Diagnostic Procedure Only (Routine) - Closed Specialty Diagnoses / Procedures Referred By Contac t Referred To Contact BR IMAGING Diagnoses Abnormal finding on radiological examination of breast Procedures MARTY STEREO BX BREAST LT BX BREAST W/DEVICE 1ST LESION STEREOTACTIC GUID Ewa Olivo MD [address] [place] [address] [facility] Imaging [address] [place], [place] [phone] Referral ID Status Reason Start Date Expiration Date V isits Requested Visits Authorized [id number] Closed Auto-Generate d Referral 06/28/2022 07/28/2023 1 1 [facility] for visit Narrative* Diagnostic Procedure Only (Routine) - Closed Specialty Diagnoses / Procedures Referred By Contac t Referred To Contact BR IMAGING Diagnoses Encounter for gynecological examination (general) (routine) without abnormal findings Encounter for screening mammogram for breast cancer Procedures MARTY SCREENING SCREENING MAMMOGRAPHY BI 2-VIEW BREAST INC CAD Sydni Munoz, ANTONIETTA.MOLD MAKER APPRENTICE [address] [place] [address] [facility] Imaging [address] [place] [phone] Referral ID Status Reason Start Date Expiration Date V isits Requested Visits Authorized [id number] Closed Auto-Generate d Referral 05/10/2021 06/09/2022 1 1 [facility] for visit Narrative* Diagnostic Procedure Only (Routine) - Closed Specialty Diagnoses / Procedures Referred By Contac t Referred To Contact BR IMAGING Diagnoses Abnormal mammogram Procedures MARTY DIAGNOSTIC LT DIAGNOSTIC MAMMOGRAPHY COMPUTER-AIDED DETCJ UNI Sydni Munoz APRN.MOLD MAKER APPRENTICE [address] [place] [address] [facility] Imaging [address] [place] [address] Referral ID Status Reason Start Date Expiration Date V isits Requested Visits Authorized [id number] Closed Auto-Generate d Referral 05/17/2022 06/16/2023 1 1 [facility] for visit Narrative* Diagnostic Procedure Only (Routine) - Closed Specialty Diagnoses / Procedures Referred By Contac t Referred To Contact BR IMAGING Diagnoses Abnormal mammogram Procedures US BREAST LTD LT US BREAST UNI REAL TIME WITH IMAGE LIMITED Sydni Munoz, ANTONIETTA.MOLD MAKER APPRENTICE [address] [place] [address] [facility] Imaging [address] [place] [address] Referral ID Status Reason Start Date Expiration Date V isits Requested Visits Authorized [id number] Closed Auto-Generate d Referral 05/17/2022 06/16/2023 1 1 [facility] for visit Narrative* Diagnostic Procedure Only (Routine) - Closed Specialty Diagnoses / Procedures Referred By Contac t Referred To Contact BR IMAGING Diagnoses Abnormal mammogram Procedures MARTY DIAGNOSTIC BILATERAL DIAGNOSTIC MAMMOGRAPHY COMPUTER-AIDED DETCJ BI Sydni Munoz, TRACK EQUIPMENT OPERATOR.MOLD MAKER APPRENTICE [address] [place] [address] [facility] Imaging [address] [place] [address] Referral ID Status Reason Start Date Expiration Date V isits Requested Visits Authorized [id number] Closed Auto-Generate d Referral 07/25/2023 02/23/2024 1 1 [facility] for visit Narrative* Diagnostic Procedure Only (Urgent) - Closed Specialty Diagnoses / Procedures Referred By Contac t Referred To Contact XR IMAGING Diagnoses Acute bilateral low back pain without sciatica Procedures XR LUMBAR GENERAL 3V AP/LAT/L5-S1 RADEX SPINE LUMBOSACRAL 2/3 VIEWS Lennie South PA-C [address] [place] [address] [place] [address] Referral ID Status Reason Start Date Expiration Date V isits Requested Visits Authorized [id number] Closed Auto-Generate d Referral 02/20/2022 03/22/2023 1 1 [facility] for visit Narrative* Diagnostic Procedure Only (Urgent) - Closed Specialty Diagnoses / Procedures Referred By Cassius espinoza Referred To Contact XR IMAGING Diagnoses Cervical pain Acute pain of right shoulder Procedures XR CERV OTHER 4V AP/LAT/OBL RADEX SPINE CERVICAL 4 OR 5 VIEWS Kassandra Cabello, LORA [address] [place] [address] [place] [address] Referral ID Status Reason Start Date Expiration Date V isits Requested Visits Authorized [id number] Closed Auto-Generate d Referral 02/23/2024 03/24/2025 1 1 [facility] for visit Narrative* Diagnostic Procedure Only (Routine) - Closed Specialty Diagnoses / Procedures Referred By Cassius espinoza Referred To Contact BR IMAGING Diagnoses Encounter for screening mammogram for breast cancer Heterogeneously dense tissue of both breasts on mammography Pseudoangiomatous stromal hyperplasia of breast Procedures MARTY SCREENING W DELFIN SCREENING DIGITAL BREAST TOMOSYNTHESIS BI SCREENING MAMMOGRAPHY BI 2-VIEW BREAST INC Sydni Arzate, TRACK EQUIPMENT OPERATOR.MOLD MAKER APPRENTICE [address] [place] [address] [facility] Imaging [address] [place] [address] Referral ID Status Reason Start Date Expiration Date V isits Requested Visits Authorized [id number] Closed Auto-Generate d Referral 07/20/2023 08/18/2024 1 1 [facility] Chief Complaint and Reason for Visit Chief Complaint MODERNA VACCINE Chief Complaint r shoulder pain Chief Complaint r shoulder pain chest pain Chief Complaint Admit Date 3 M FU June 03, 2024 7 :56am 3 M FU August 13, 2024 3:30 pm dog bite September 16, 2024 4:20pm Reason for Visit Admit Date Cholelithiasis June 03, 2024 7 :56am GERD (gastroesophageal reflux disease) J anuary 2024 7:56am Nausea and vomiting June 03, 2024 7 :56am Cholelithiasis August 13, 2024 3:30 pm GERD (gastroesophageal reflux disease) A pril 2024 3:30pm Chief Complaint Admit Date 3 M FU August 13, 2024 3:30 pm dog bite September 16, 2024 4:20pm 3 M FU December 01, 2024 9:59 am Reason for Visit Admit Date Cholelithiasis August 13, 2024 3:30 pm GERD (gastroesophageal reflux disease) A pril 2024 3:30pm Advance Directives No Advanced Directives Records Found Advance Directive Response Recorded Date/ Time Living Will No September 21, 2017 1 0:36am Power of Aids Social Worker No September 21, 2017 10:36am Advance Directive Response Recorded Date/ Time Living Will No May 28 1:29am Power of Aids Social Worker No May 28, 2023 1:29am Advance Directive Response Recorded Date/ Time Name of Medical Power of Aids Social Worker Tc buenrostro August 21, 2023 7:10pm Living Will Yes August 21, 2023 7:10pm Power of Aids Social Worker Yes August 20 7:10pm Advance Directive Response Recorded Date/ Time Do you have a Healthcare Power of Aids Social Worker? No September 16, 2024 4:30pm Assessments No Assessments Information Available Summary Purpose Family History No Family History Records Found Relationship Condition Age at Onset Recorded Date/T bryon mother High blood cholesterol Unknown Rheumatic arteritis Unknown Diabetes mellitus Unknown Lung disease due to connective tissue disorder Unknown grandmother Diabetes mellitus Unknown Malignant neoplasm of uterus Unknown Medications Administered Section Inactive Administered Medications - up to 3 most recent administrations Medication Order MAR Action Action Date Dose Rate Site bupivacaine-EPINEPHrine 0.5 %-1:200,000 injection (SENSORCAINE) OTHER, X (OR/PROCEDURE) PRN, Starting on Sun07/17/22 at 1159, Until Sun07/17/22 at 1159, Intraprocedure [...] or prosecute any alcohol or drug abuse patient.[facility] the event this information is protected by the Federal Confidentiality of Alcohol and Drug Abuse Patient Records regulations: The Federal rules restrict any use of the information to criminally investigate or prosecute any alcohol or drug abuse patient.[facility] [facility] the event this information is protected by the Federal Confidentiality of Alcohol and Drug Abuse Patient Records regulations: The Federal rules restrict any use of the information to criminally investigate or prosecute any alcohol or drug abuse patient.[facility] [facility] the event this information is protected by the Federal Confidentiality of Alcohol and Drug Abuse Patient Records regulations: The Federal rules restrict any use of the information to criminally investigate or prosecute any alcohol or drug abuse patient.[facility] [facility] the event this information is protected by the Federal Confidentiality of Alcohol and Drug Abuse Patient Records regulations: The Federal rules restrict any use of the information to criminally investigate or prosecute any alcohol or drug abuse patient.[facility] [facility] the event this information is protected by the Federal Confidentiality of Alcohol and Drug Abuse Patient Records regulations: The Federal rules restrict any use of the information to criminally investigate or prosecute any alcohol or drug abuse patient.[facility] the event this information is protected by the Federal Confidentiality of Alcohol and Drug Abuse Patient Records regulations: The Federal rules restrict any use of the information to criminally investigate or prosecute any alcohol or drug abuse patient.[facility] the event this information is protected by the Federal Confidentiality of Alcohol and Drug Abuse Patient Records regulations: The Federal rules restrict any use of the information to criminally investigate or prosecute any alcohol or drug abuse patient.[facility] [facility] the event this information is protected by the Federal Confidentiality of Alcohol and Drug Abuse Patient Records regulations: The Federal rules restrict any use of the information to criminally investigate or prosecute any alcohol or drug abuse patient.[facility] the event this information is protected by the Federal Confidentiality of Alcohol and Drug Abuse Patient Records regulations: The Federal rules restrict any use of the information to criminally investigate or prosecute any alcohol or drug abuse patient.[facility] the event this information is protected by the Federal Confidentiality of Alcohol and Drug Abuse Patient Records regulations: The Federal rules restrict any use of the information to criminally investigate or prosecute any alcohol or drug abuse patient.[facility] the event this information is protected by the Federal Confidentiality of Alcohol and Drug Abuse Patient Records regulations: The Federal rules restrict any use of the information to criminally investigate or prosecute any alcohol or drug abuse patient.[facility] the event this information is protected by the Federal Confidentiality of Alcohol and Drug Abuse Patient Records regulations: The Federal rules restrict any use of the information to criminally investigate or prosecute any alcohol or drug abuse patient.[facility] the event this information is protected by the Federal Confidentiality of Alcohol and Drug Abuse Patient Records regulations: The Federal rules restrict any use of the information to criminally investigate or prosecute any alcohol or drug abuse patient.[facility] the event this information is protected by the Federal Confidentiality of Alcohol and Drug Abuse Patient Records regulations: The Federal rules restrict any use of the information to criminally investigate or prosecute any alcohol or drug abuse patient.[facility]In the event this information is protected by the Federal Confidentiality of Alcohol and Drug Abuse Patient Records regulations: The Federal rules restrict any use of the information to criminally investigate or prosecute any alcohol or drug abuse patient.[facility] the event this information is protected by the Federal Confidentiality of Alcohol and Drug Abuse Patient Records regulations: The Federal rules restrict any use of the information to criminally investigate or prosecute any alcohol or drug abuse patient.[facility] the event this information is protected by the Federal Confidentiality of Alcohol and Drug Abuse Patient Records regulations: The Federal rules restrict any use of the information to criminally investigate or prosecute any alcohol or drug abuse patient.[facility] the event this information is protected by the Federal Confidentiality of Alcohol and Drug Abuse Patient Records regulations: The Federal rules restrict any use of the information to criminally investigate or prosecute any alcohol or drug abuse patient.[facility] the event this information is protected by the Federal Confidentiality of Alcohol and Drug Abuse Patient Records regulations: The Federal rules restrict any use of the information to criminally investigate or prosecute any alcohol or drug abuse patient.[facility] HospitalIn the event this information is protected by the Federal Confidentiality of Alcohol and Drug Abuse Patient Records regulations: The Federal rules restrict any use of the information to criminally investigate or prosecute any alcohol or drug abuse patient.[facility] the event this information is protected by the Federal Confidentiality of Alcohol and Drug Abuse Patient Records regulations: The Federal rules restrict any use of the information to criminally investigate or prosecute any alcohol or drug abuse patient.[facility] the event this information is protected by the Federal Confidentiality of Alcohol and Drug Abuse Patient Records regulations: The Federal rules restrict any use of the information to criminally investigate or prosecute any alcohol or drug abuse patient.[facility]In the event this information is protected by the Federal Confidentiality of Alcohol and Drug Abuse Patient Records regulations: The Federal rules restrict any use of the information to criminally investigate or prosecute any alcohol or drug abuse patient.[facility] the event this information is protected by the Federal Confidentiality of Alcohol and Drug Abuse Patient Records regulations: The Federal rules restrict any use of the information to criminally investigate or prosecute any alcohol or drug abuse patient.[facility] Reason for Visit (unrecogniz ed section and content) Reason Comments Results Reason Comments Results, Lab Reason Comments Well Woman Reason Comments Derm Problem Bug bite R thigh and rash on back with bite x 1.5 wks Reason Comments Well Woman Reason Comments Other polyp Specialty Diagnoses / Procedures Referred By Cassius espinoza Referred To Contact [facility] Diagnoses Endocervical polyp Procedures PELVIC US WHI US PELVIC NONOBSTETRIC REAL-TIME IMAGE COMPLETE Sydni Munoz APRN.MOLD MAKER APPRENTICE [address] [place] [address] [facility] [address] [place] [address] Referral ID Status Reason Start Date Expiration Date V isits Requested Visits Authorized [id number] Closed Auto-Generate d Referral 07/20/2023 07/19/2024 1 1 Reason Comments Pain (Shoulder Pain) chest to shoulder p ain left side and left thigh pain x 3 days Reason Comments Pre-Op Exam Reason Comments right shoulder and neck pain X several m onths Reason Comments Trauma Insect bite/sting on right forearm x 1 day Care Teams (unrecognized sec tion and content) Plating Department Helper Relationship Specialty Start Date End Date Tameka Garcia APRN.MOLD MAKER APPRENTICE [address] [facility] [place] [address] PCP - General Family Medicine 02/20/22 Plating Department Helper Relationship Specialty Start Date End Date Tameka Garcia, TRACK EQUIPMENT OPERATOR.MOLD MAKER APPRENTICE [address] [place] [address] PCP - General Family Medicine 02/20/22 Plating Department Helper Relationship Specialty Start Date End Date Tameka Garcia, TRACK EQUIPMENT OPERATOR.MOLD MAKER APPRENTICE [address] [place] [address] PCP - General Family Medicine 02/20/22 Plating Department Helper Relationship Specialty Start Date End Date Tameka Garcia, TRACK EQUIPMENT OPERATOR.MOLD MAKER APPRENTICE [address] [place] [address] PCP - General Family Medicine 02/20/22 Plating Department Helper Relationship Specialty Start Date End Date Tameka Garcia, TRACK EQUIPMENT OPERATOR.MOLD MAKER APPRENTICE [address] [place] [address] PCP - General Family Medicine 02/20/22 Plating Department Helper Relationship Specialty Start Date End Date Tameka Garcia, TRACK EQUIPMENT OPERATOR.MOLD MAKER APPRENTICE [address] [place] [address] PCP - General Family Medicine 02/20/22 Plating Department Helper Relationship Specialty Start Date End Date Tameka Garcia, TRACK EQUIPMENT OPERATOR.MOLD MAKER APPRENTICE [address] [place] [address] PCP - General Family Medicine 02/20/22 Plating Department Helper Relationship Specialty Start Date End Date Tameka Garcia, TRACK EQUIPMENT OPERATOR.MOLD MAKER APPRENTICE [address] [place] [address] PCP - General Family Medicine 02/20/22 Team Status: Active Member Role Status Dates Dr. Sydni Mathis MD Family Provider Active Raysa Wong MOTION STUDY ENGINEER, MOTION STUDY ENGINEER-C Primary Care Provider Activ e Team Status: Inactive Member Role Status Dates Dr. Tc Polo , DO Emergency Provider Active Raysa Wong MOTION STUDY ENGINEER, MOTION STUDY ENGINEER-C Primary Care Provider Activ e Plating Department Helper Relationship Specialty Start Date End Date Raysa Wong CNP [address] [place] [address] PCP - General Family Medicine 07/20/23 Plating Department Helper Relationship Specialty Start Date End Date Raysa Wong CNP [address] [place] [address] PCP - General Family Medicine 07/20/23 Plating Department Helper Relationship Specialty Start Date End Date Raysa Wong CNP [address] [place] [address] PCP - General Family Medicine 07/20/23 Team Status: Inactive Member Role Status Dates Dr. Tc Polo , DO Attending Provider, Emergency P chichi Active Raysa Wong MOTION STUDY ENGINEER, MOTION STUDY ENGINEER-C Primary Care Provider Activ e Team Status: Inactive Member Role Status Dates Raysa Wong NP, MOTION STUDY ENGINEER-C Primary Care Provider Activ e Dr. Donald Holguin , DO Emergency Provider Active Plating Department Helper Relationship Specialty Start Date End Date Raysa Wong CNP [address] [place] [address] PCP - General Family Medicine 07/20/23 Plating Department Helper Relationship Specialty Start Date End Date Raysa Wong CNP [address] [place] [address] [place] [address] PCP - General Family Medicine 07/20/23 Plating Department Helper Relationship Specialty Start Date End Date Jose TamekaSUMMER [address] [place] [address] [place] [address] PCP - General Family Medicine 02/20/22 07/19/23 Plating Department Helper Relationship Specialty Start Date End Date Raysa Wong CNP [address] [place] [address] PCP - General Family Medicine 07/20/23 Plating Department Helper Relationship Specialty Start Date End Date Raysa Wong CNP [address] [place] [address] PCP - General Family Medicine 07/20/23 Plating Department Helper Relationship Specialty Start Date End Date Raysa Wong CNP [address] [place] [address] PCP - General Family Medicine 07/20/23 Plating Department Helper Relationship Specialty Start Date End Date Raysa Wong CNP [address] [place] [address] PCP - General Family Medicine 07/20/23 Team Status: Active Member Role Status Dates Raysa Wong NP MOTION STUDY ENGINEER-C Primary Care Provider Activ e Team Status: Inactive Member Role Status Dates Raysa Wong NP MOTION STUDY ENGINEER-C Primary Care Provider Activ e Start: June 03, 2024 End: June 03, 2024 Raysa Wong MOTION STUDY ENGINEER, MOTION STUDY ENGINEER-C Referring Provider Active Start: June 03, 2024 End: June 03, 2024 Dr. Mikey Solares DO Attending Provider Active Start: June 03, 2024 End: June 03, 2024 Team Status: Inactive Member Role Status Dates Raysa Wong MOTION STUDY ENGINEER, MOTION STUDY ENGINEER-C Primary Care Provider Activ e Start: August 13, 2024 End: August 13, 2024 Raysa Wong MOTION STUDY ENGINEER, MOTION STUDY ENGINEER-C Referring Provider Active Start: August 13, 2024 End: August 13, 2024 LORA Baltazar Attending Provider Active Start: August 13, 2024 End: August 13, 2024 Team Status: Inactive Member Role Status Dates Raysa Wong MOTION STUDY ENGINEER, MOTION STUDY ENGINEER-C Primary Care Provider Activ e Start: September 16, 2024 End: September 16, 2024 Bhupendra Gonzalez MD Emergency Provider Active Star t: September 16, 2024 End: September 16, 2024 Team Status: Active Member Role/Relationship Status Dates Raysa Wong MOTION STUDY ENGINEER, MOTION STUDY ENGINEER-C Primary Care Provider Activ e Team Status: Inactive Member Role/Relationship Status Dates Raysa Wong MOTION STUDY ENGINEER, MOTION STUDY ENGINEER-C Primary Care Provider Activ e Start: August 13, 2024 End: August 13, 2024 Raysa Wong MOTION STUDY ENGINEER, MOTION STUDY ENGINEER-C Referring Provider Active Start: August 13, 2024 End: August 13, 2024 LORA Baltazar Attending Provider Active Start: August 13, 2024 End: August 13, 2024 Team Status: Inactive Member Role/Relationship Status Dates Raysa Wong MOTION STUDY ENGINEER, MOTION STUDY ENGINEER-C Primary Care Provider Activ e Start: September 16, 2024 End: September 16, 2024 Bhupendra Gonzalez MD Attending Provider Active Star t: September 16, 2024 End: September 16, 2024 Bhupendra Gonzalez MD Emergency Provider Active Star t: September 16, 2024 End: September 16, 2024 Team Status: Inactive Member Role/Relationship Status Dates Raysa Wong MOTION STUDY ENGINEER, MOTION STUDY ENGINEER-C Primary Care Provider Activ e Start: December 01, 2024 End: December 01, 2024 Raysa Wong MOTION STUDY ENGINEER, MOTION STUDY ENGINEER-C Referring Provider Active Start: December 01, 2024 End: December 01, 2024 Dr. Mikey Solares DO Attending Provider Active Start: December 01, 2024 End: December 01, 2024 Plating Department Helper Relationship Specialty Start Date End Date Raysa Wong CNP [address] [place] [id number] PCP - General Family Medicine 07/20/23 Care Team (unrecognized sect ion and content) Care Team Personnel Name: IFEANYI GARCIAELA ANTONIETTA-SHAMAR Position: P4 Advanced Practice Nurse Member Role: Primary Care Physician Address: Address: [address] [place] [address]- Care Team Related Persons Name: TC DODD INFORMATION SOURCE (unrecogn ized section and content) DATE CREATED AUTHOR 06/29/2022 [facility] DATE CREATED AUTHOR AUTHOR'S ORGANIZ ATION 01/07/2024 [facility] ([place]) DATE CREATED AUTHOR AUTHOR'S ORGANIZ ATION 09/18/2024 [facility] DATE CREATED AUTHOR AUTHOR'S ORGANIZ ATION 12/23/2024 [facility] DATE CREATED AUTHOR AUTHOR'S ORGANIZ ATION 01/24/2025 [facility] Goals (unrecognized section and content) Goals may be documented in a n alternate section FOR RECORDS PERTAINING TO PATIENTS WHO ARE [...] BE BASED ON THE PRIMARY CLINICAL RECORDS. [employer] provides no warranty or guarantee of the accuracy or completeness of information in this document.
[2025-01-29 09:04] LABS: Hematocrit 30.1 % (37-47); Hemoglobin 8.4 g/dL (12.0-15.0); Immature Granulocytes Count 0.010 X10^3/uL (0.0-0.0); Mean Corp Hgb Conc 27.9 g/dL (32-36); Mean Corpuscular Volume 68.4 fL (81-99); Mean Platelet Vol. 10.2 fl (6.2-12.0); NRBC Flagged by Analyzer 0 % (0-5); Platelet Count 367 K/mm3 (150-450); RBC Distribution Width CV 20.0 % (11.6-14.6); RBC Distribution Width SD 48.7 fl (35.1-43.9); Red Blood Count 4.40 M/mm3 (4.2-5.4); White Blood Count 5.4 K/mm3 (4.4-11.0)
[2025-01-29 09:41] LABS: AST(SGOT) 17 U/L (<=31); Alanine Aminotransfer ALT/SGPT 13 U/L (<=34); Albumin, Serum 3.8 g/dL (3.5-5.0); Alkaline Phosphatase 79 U/L (35-104); Anion Gap 10 (5-15); BUN 15 mg/dL (4-19); BUN/Creat Ratio 20.8 RATIO (10-20); Calcium,Total 8.7 mg/dL (7.6-11.0); Carbon Dioxide 24.5 mmol/L (21.0-32.0); Chloride 106 mmol/L (98-108); Globulin 3.1 g/dL (2.2-4.2); Glucose 102 mg/dL (70-99); Potassium 4.1 mmol/L (3.3-5.1)
== END | disposition home or self-care (01) ==
LOC: US 07:39
PROVIDERS: PCP Registered Nurse; Referring Provider Internal Medicine Gastroenterology; Visit Provider Internal Medicine Gastroenterology
DX: K80.20 Calculus of gallbladder without cholecystitis without obstruction (principal); R10.9 Unspecified abdominal pain
CPT/HCPCS: 36415; 76705; 80053; 85025

== ENCOUNTER → 2025-02-13 | Outpatient (CLI) | payer OTHER, SELFPAY ==
--- NOTE | 2025-02-13 07:41 | US_ITS ---
PROCEDURE: ELASTOGRAPHY PARENCHYMA/ORGAN 02/13/2025 REASON FOR EXAM: FATTY LIVER TECHNIQUE: Procedure Code: USELPAROG Modality: US Procedure: ELASTOGRAPHY PARENCHYMA/ORGAN COMPARISON: Prior abdominal sonogram dated January 29, 2025. FINDINGS: KPA: 4.2. Velocity: 1.16 m/sec US/Elastography Parenchyma/Organ IMPRESSION: No significant hepatic fibrosis present. Reading Location: [facility]
--- OUTSIDE RECORDS SUMMARY | 2025-02-13 07:41 | XMS RPT_ITS | CCD ---
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 By: #### A MY, LIPID, GFR, ADIFF, ANEU, CBC, LIP, CMP #### [place] [id number] Platelet 315 10 3/mcL Normal 130-400 [facility] [place] Comment on above: Performed By: #### A MY, LIPID, GFR, ADIFF, ANEU, CBC, LIP, CMP #### [place] [id number] Platelet mean volume (Bld) [Entitic vol] 8.6 fL Normal 7.4-10.4 [facility] [place] Comment on above: Performed By: #### A MY, LIPID, GFR, ADIFF, ANEU, CBC, LIP, CMP #### [place] [id number] RBC 4.47 10 6/mcL Normal 4.20-5.40 [facility] [place] Comment on above: Performed By: #### A MY, LIPID, GFR, ADIFF, ANEU, CBC, LIP, CMP #### [place] [id number] WBC 5.7 10 3/mcL Normal 4.6-10.8 [facility] [place] Comment on above: Performed By: #### A MY, LIPID, GFR, ADIFF, ANEU, CBC, LIP, CMP #### [address] [address] CMPon 05-28-2023 Albumin Level 3.4 G/dL Low 3.5-5.0 [facility] [place] Comment on above: Performed By: #### A MY, LIPID, GFR, ADIFF, ANEU, CBC, LIP, CMP #### [place] [id number] Albumin/Globulin [Mass ratio] 1.0 {ratio} Low 1.1-2.5 [facility] [place] Comment on above: Performed By: #### A MY, LIPID, GFR, ADIFF, ANEU, CBC, LIP, CMP #### [address] [address] ALP [Catalytic activity/Vol] 86 U/L Normal 40-135 [facility] [place] Comment on above: Performed By: #### A MY, LIPID, GFR, ADIFF, ANEU, CBC, LIP, CMP #### [address] [address] ALT [Catalytic activity/Vol] 25 U/L Normal 14-59 [facility] [place] Comment on above: Performed By: #### A MY, LIPID, GFR, ADIFF, ANEU, CBC, LIP, CMP #### [address] [address] AST [Catalytic activity/Vol] 11 U/L Normal 10-40 [facility] [place] Comment on above: Performed By: #### A MY, LIPID, GFR, ADIFF, ANEU, CBC, LIP, CMP #### [address] [address] Bili Total 0.5 mg/dL Normal 0.2-1.0 [facility] [place] Comment on above: Result Comment: Use of this assay is not recommended for patients undergoing treatment with eltrombopag due to the potential for falsely elevated results. Performed By: #### A MY, LIPID, GFR, ADIFF, ANEU, CBC, LIP, CMP #### [address] [address] BUN/Creatinine Ratio 15 ratio Normal 7-27 [facility] ([place] Comment on above: Performed By: #### A MY, LIPID, GFR, ADIFF, ANEU, CBC, LIP, CMP #### [address] [address] Calcium [Mass/Vol] 8.7 mg/dL Normal 8.4-10.2 [facility] ([place]) Comment on above: Performed By: #### A MY, LIPID, GFR, ADIFF, ANEU, CBC, LIP, CMP #### [address] [address] Chloride [Moles/Vol] 106 mmol/L Normal 98-107 [facility] ([place] Comment on above: Performed By: #### A MY, LIPID, GFR, ADIFF, ANEU, CBC, LIP, CMP #### [address] [address] CO2 [Moles/Vol] 28 mmol/L Normal 22-29 [facility] [place] Comment on above: Performed By: #### A MY, LIPID, GFR, ADIFF, ANEU, CBC, LIP, CMP #### [address] [address] Creatinine [Mass/Vol] 0.91 mg/dL Normal 0.55-1.02 [facility] [place] Comment on above: Performed By: #### A MY, LIPID, GFR, ADIFF, ANEU, CBC, LIP, CMP #### [address] [address] Electrolyte Balance 9.0 mEq/L Normal 4.0-15.0 [facility] ([place]) Comment on above: Performed By: #### A MY, LIPID, GFR, ADIFF, ANEU, CBC, LIP, CMP #### [address] [address] Globulin 3.5 G/dL Normal [facility] [place] Comment on above: Performed By: #### A MY, LIPID, GFR, ADIFF, ANEU, CBC, LIP, CMP #### [address] [address] Glucose [Mass/Vol] 107 mg/dL High 70-105 [facility] [place] Comment on above: Performed By: #### A MY, LIPID, GFR, ADIFF, ANEU, CBC, LIP, CMP #### [address] [address] Potassium [Moles/Vol] 3.9 mmol/L Normal 3.5-5.1 [facility] [place] Comment on above: Performed By: #### A MY, LIPID, GFR, ADIFF, ANEU, CBC, LIP, CMP #### [address] [address] Sodium [Moles/Vol] 143 mmol/L Normal 136-145 [facility] [place] Comment on above: Performed By: #### A MY, LIPID, GFR, ADIFF, ANEU, CBC, LIP, CMP #### [address] [address] Total Protein 6.9 G/dL Normal 6.4-8.2 [facility] [place] Comment on above: Performed By: #### A MY, LIPID, GFR, ADIFF, ANEU, CBC, LIP, CMP #### [address] [address] Urea nitrogen [Mass/Vol] 14 mg/dL Normal 7-18 [facility]) Comment on above: Performed By: #### A MY, LIPID, GFR, ADIFF, ANEU, CBC, LIP, CMP #### [address] [address] LABORATORYOrdered By: SYSTEM SYSTEM on 05-28-2023 Albumin [...] 05-28-2023 Lipase Level 45 U/L Normal 16-77 [facility] [place] Comment on above: Performed By: #### A MY, LIPID, GFR, ADIFF, ANEU, CBC, LIP, CMP #### [place] [id number] [place], [place] [address] LIPIDon 05-28-2023 Cholesterol [Mass/Vol] 243 mg/dL High 0-200 [facility] [place] Comment on above: Result Comment: Chol esterol Reference Interval: Less than 200 Desirable 200-239 Borderline high risk 240 and above High risk Performed By: #### A MY, LIPID, GFR, ADIFF, ANEU, CBC, LIP, CMP ####[id number] [place], [place] [address] Cholesterol in HDL [Mass/Vol] 63 mg/dL High 40-60 [facility] [place] Comment on above: Performed By: #### A MY, LIPID, GFR, ADIFF, ANEU, CBC, LIP, CMP ####[id number] [place], [place] [address] Cholesterol in LDL [Mass/Vol] 170 mg/dL High 0-130 [facility] ([place]) Comment on above: Performed By: #### A MY, LIPID, GFR, ADIFF, ANEU, CBC, LIP, CMP ####[id number] [place], [place] [address] Triglyceride [Mass/Vol] 52 mg/dL Normal 0-150 [facility] [place] Comment on above: Result Comment: Trig lyceride Reference Interval: Less than 150 Normal 150-199 Borderline high risk 200-499 High risk 500 or higher Very high risk Performed By: #### A MY, LIPID, GFR, ADIFF, ANEU, CBC, LIP, CMP ####[id number] [place], [place] [address] XR SPINE LUMBAR AP/LATon XR SPINE LUMBAR AP/LAT ORIGINAL EXAMINATION: 3 XRAY VIEWS OF THE LUMBAR SPINE01/23/2023 2:41 pm COMPARISON: CT abdomen pelvis April 2017 HISTORY: ORDERING SYSTEM PROVIDED HISTORY: Reason for Exam: right thigh pain FINDINGS: There are 5 rff-jsu-fwqrtga lumbar type vertebral bodies. Alignment and curvature [...] 01/26/2023 11:28:21 AM Ordering Provider: RAYSA WONG [facility] ([place]) [facility] STEREO BX BREAST LTon [facility] US BREAST LTD LTon 06-28 [facility] US BREAST LTD LT * * *Final Report* * * DATE OF EXAM: Jun 28 2022 9:31AM SHIEAL 0593 - [facility] US BREAST LTD LT / PROCEDURE REASON: R92.8-Abnormal mammogram * * * * Physician Interpretation * * * * #[id number] - [facility] US BREAST LTD LT LIMITED ULTRASOUND OF LEFT BREAST: 06/28/2022 HISTORY: R92.8-Abnormal Mammogram. RESULT: Comparison is made to exams dated: 06/13/2022 ultrasound and 06/13/2022 mammogram - [facility]. Real-time ultrasound of the left breast upper [...] biopsy capabilities. Ewa Olivo M.D., mc/leidy:06/28/2022 09:47:39 Road Hogger Operator(s): Sarah Robison, [facility] Ultrasound BI-RADS: 4 Suspicious finding - Biopsy [...] Health, Family Medicine, and Medical/Surgical Oncology, the [facility] has carefully reviewed the data and [...] their providers when to stop screening mammograms. Highway Worker: Leidy Transcribe Date/Time: Jun 28 2022 9:31A Dictated by : EWA OLIVO MD This examination was interpreted and the report reviewed and electronically signed by: EWA OLIVO MD on Jun 28 2022 9:47AM EST [id number] Normal [facility] BREAST LTD LTon 3 [facility] DIAG W DELFIN LTon 023 [facility] BREAST LTD LTon 3 [facility] LABORATORYOrdered By: SYSTEM SYSTEM on 06-10-2022 [...] 10^3/mcL AO Workflow SS MARTY SCREENINGon 05-16-2022 [facility] XR Lumbar spine 3 Viewson IMPRESSION: Lumbar s pine degenerative changes as described above. Highway Worker: RAYO Transcribe Date/Time: Feb 20 2022 8:24A Dictated by : CHAYA BEJARANO MD This examination was interpreted and the report reviewed and electronically signed by: CHAYA BEJARANO MD on Feb 20 2022 8:27AM [facility] DIVISION OF RADIOLOGY * * *Final Report* [...] spine are presented. FINDINGS: There are five tro-rhn-ieyegvi lumbar vertebrae. No fracture or subluxations are noted. There is mild left-sided curvature. The disc spaces are grossly preserved. There is mild osteophyte formation, with facet arthrosis in the lower lumbar spine. DIVISION OF RADIOLOGY Provider, Amaury Sung [facility] - 02/20/2022 * * *Final Report* * [...] spine are presented. FINDINGS: There are five psb-lax-zmmyhtr lumbar vertebrae. No fracture or subluxations are noted. There is mild left-sided curvature. The disc spaces are grossly preserved. There is mild osteophyte formation, with facet arthrosis in the lower lumbar spine. IMPRESSION IMPRESSION: Lumbar spine degenerative changes as described above. Highway Worker: PSCB Transcribe Date/Time: Feb 20 2022 8:24A Dictated by : CHAYA BEJARANO MD This examination was interpreted and the report reviewed and electronically signed by: CHAYA BEJARANO MD on Feb 20 2022 8:27AM EST [facility] Radiology Study observation (narrative) [facility] XR Lumbar spine 3 ViewsOrder ed By: Ccf Provider on 02-20-2022 [facility] Vital Signs Date Time Vital Sign Value Performing Clinician Faci lity 12-22-2024 15:09-0400 Body mass index (BMI) [Ratio] 32.91 kg/m2 Anselmo [facility] UI DESIGNER.ORANGE PEEL OPERATOR Work Phone: [facility] 12-22-2024 15:09-0400 Body temperature 99.7 [degF] [facility] UI DESIGNER.ORANGE PEEL OPERATOR Work Phone: [facility] 12-22-2024 15:09-0400 Body weight 93.9 kg [facility] UI DESIGNER.ORANGE PEEL OPERATOR Work Phone: [facility] 12-22-2024 15:09-0400 Diastolic blood pressure 72 mm[Hg] [facility] UI DESIGNER.ORANGE PEEL OPERATOR Work Phone: [facility] 12-22-2024 15:09-0400 Heart rate 80 /min [facility] UI DESIGNER.ORANGE PEEL OPERATOR Work Phone: [facility] 12-22-2024 15:09-0400 Respiratory rate 18 /min [facility] UI DESIGNER.ORANGE PEEL OPERATOR Work Phone: [facility] 12-22-2024 15:09-0400 SaO2% (BldA) [Mass fraction] 98 % [facility] UI DESIGNER.ORANGE PEEL OPERATOR Work Phone: [facility] 12-22-2024 15:09-0400 Systolic blood pressure 112 mm[Hg] [facility] UI DESIGNER.ORANGE PEEL OPERATOR Work Phone: [facility] 09-16-2024 18:30-0400 Body temperature 97 [degF] Raysa Wong NO BAKE MOLDER-C Work Phone: [facility] 09-16-2024 18:30-0400 Diastolic blood pressure 74 mm[Hg] Raysa Wong NO BAKE MOLDER-C Work Phone: [facility] 09-16-2024 18:30-0400 Heart rate 124 /min Raysa Wong NO BAKE MOLDER-C Work Phone: [facility] 09-16-2024 18:30-0400 Respiratory rate 20 /min Raysa Wong NO BAKE MOLDER-C Work Phone: [facility] 09-16-2024 18:30-0400 SaO2% (BldA) [Mass fraction] 100 % Raysa Wong NO BAKE MOLDER-C Work Phone: [facility] 09-16-2024 18:30-0400 Systolic blood pressure 120 mm[Hg] Raysa Wong NO BAKE MOLDER-C Work Phone: [facility] 09-16-2024 16:23-0400 Body height 167.64 cm Raysa Wong NO BAKE MOLDER-C Work Phone: [facility] 09-16-2024 16:23-0400 Body mass index (BMI) [Ratio] 34 kg/m2 Raysa Wong NO BAKE MOLDER-C Work Phone: [facility] 09-16-2024 16:23-0400 Body weight 95.48 kg Raysa Wong NO BAKE MOLDER-C Work Phone: [facility] 08-08-2024 09:13-0400 Body height 168.9 cm Sydni Munoz APRN.ORANGE PEEL OPERATOR Work Phone: [facility] 08-08-2024 09:13-0400 Body mass index (BMI) [Ratio] 33.07 kg/m2 Sydni Munoz APRN.ORANGE PEEL OPERATOR Work Phone: [facility] 08-08-2024 09:13-0400 Body weight 94.35 kg Sydni Munoz APRN.ORANGE PEEL OPERATOR Work Phone: [facility] 08-08-2024 09:13-0400 Diastolic blood pressure 74 mm[Hg] Sydni Munoz APRN.ORANGE PEEL OPERATOR Work Phone: [facility] 08-08-2024 09:13-0400 Systolic blood pressure 98 mm[Hg] Sydni Munoz APRN.ORANGE PEEL OPERATOR Work Phone: [facility] 02-23-2024 15:16-0400 Body mass index (BMI) [Ratio] 35.58 kg/m2 Kassandra PAULINO Work Phone: [facility] 02-23-2024 15:16-0400 Body temperature 98.2 [degF] Krislyn Aberegg PA Work Phone: [facility] 02-23-2024 15:16-0400 Body weight 100 kg Krislyn Aberegg PA Work Phone: [facility] 02-23-2024 15:16-0400 Diastolic blood pressure 78 mm[Hg] Krislyn Aberegg PA Work Phone: [facility] 02-23-2024 15:16-0400 Heart rate 95 /min Krislyn Aberegg PA Work Phone: [facility] 02-23-2024 15:16-0400 Respiratory rate 18 /min Krislyn Aberegg PA Work Phone: [facility] 02-23-2024 15:16-0400 SaO2% (BldA) [Mass fraction] 100 % Krislyn Aberegg PA Work Phone: [facility] 02-23-2024 15:16-0400 Systolic blood pressure 132 mm[Hg] Krislyn Aberegg PA Work Phone: [facility] 10-10-2023 09:23-0400 Body mass index (BMI) [Ratio] 37.12 kg/m2 Meghan Redd MD Work Phone: [facility] 10-10-2023 09:23-0400 Body weight 104.33 kg Meghan Redd MD Work Phone: [facility] 10-10-2023 09:23-0400 Diastolic blood pressure 74 mm[Hg] Meghan Redd MD Work Phone: [facility] 10-10-2023 09:23-0400 Systolic blood pressure 118 mm[Hg] Meghan Redd MD Work Phone: [facility] 08-21-2023 20:47-0400 Body temperature 98.4 [degF] [facility] 08-21-2023 20:47-0400 Diastolic blood pressure 86 mm[Hg] [facility] 08-21-2023 20:47-0400 Heart rate 72 /min [facility] 08-21-2023 20:47-0400 Respiratory rate 16 /min [facility] 08-21-2023 20:47-0400 SaO2% (BldA) [Mass fraction] 99 % [facility] 08-21-2023 20:47-0400 Systolic blood pressure 125 mm[Hg] [facility] 08-21-2023 19:07-0400 Body height 167.64 cm [facility] 08-21-2023 19:07-0400 Body mass index (BMI) [Ratio] 37.1 kg/m2 [facility] 08-21-2023 19:07-0400 Body weight 104.46 kg [facility] 07-20-2023 09:03-0500 Body height 167.6 cm Sydni Munoz APRN.ORANGE PEEL OPERATOR Work Phone: [facility] 07-20-2023 09:03-0500 Body weight 103.87 kg Sydni Munoz APRN.ORANGE PEEL OPERATOR Work Phone: [facility] 07-20-2023 09:03-0500 Diastolic blood pressure 80 mm[Hg] Sydni Munoz APRN.ORANGE PEEL OPERATOR Work Phone: [facility] 07-20-2023 09:03-0500 Systolic blood pressure 112 mm[Hg] Sydni Munoz APRN.ORANGE PEEL OPERATOR Work Phone: [facility] 05-28-2023 01:30-0500 Body height 167.64 cm [facility] 05-28-2023 01:30-0500 Body mass index (BMI) [Ratio] 37.1 kg/m2 [facility] 05-28-2023 01:30-0500 Body temperature 97.4 [degF] [facility] 05-28-2023 01:30-0500 Body weight 104.32 kg [facility] 05-28-2023 01:30-0500 Diastolic blood pressure 92 mm[Hg] [facility] 05-28-2023 01:30-0500 Heart rate 79 /min [facility] 05-28-2023 01:30-0500 Respiratory rate 18 /min [facility] 05-28-2023 01:30-0500 SaO2% (BldA) [Mass fraction] 94 % [facility] 05-28-2023 01:30-0500 Systolic blood pressure 129 mm[Hg] [facility] 01-13-2023 08:22-0400 Body temperature 97.9 [degF] Veronica Praisler-Wood UI DESIGNER.ORANGE PEEL OPERATOR Work Phone: [facility] 01-13-2023 08:22-0400 Body weight 107.05 kg Veronica Praisler-Wood UI DESIGNER.ORANGE PEEL OPERATOR Work Phone: [facility] 01-13-2023 08:22-0400 Diastolic blood pressure 82 mm[Hg] Veronica Praisler-Wood UI DESIGNER.ORANGE PEEL OPERATOR Work Phone: [facility] 01-13-2023 08:22-0400 Heart rate 72 /min Veronica Praisler-Wood UI DESIGNER.ORANGE PEEL OPERATOR Work Phone: [facility] 01-13-2023 08:22-0400 Respiratory rate 18 /min Veronica Praisler-Wood UI DESIGNER.ORANGE PEEL OPERATOR Work Phone: [facility] 01-13-2023 08:22-0400 SaO2% (BldA) [Mass fraction] 98 % Veronica Praisler-Wood UI DESIGNER.ORANGE PEEL OPERATOR Work Phone: [facility] 01-13-2023 08:22-0400 Systolic blood pressure 118 mm[Hg] Veronica Praisler-Wood UI DESIGNER.ORANGE PEEL OPERATOR Work Phone: [facility] 05-16-2022 12:58-0500 Body height 167.6 cm Sydni Munoz UI DESIGNER.ORANGE PEEL OPERATOR Work Phone: [facility] 05-16-2022 12:58-0500 Body weight 107.5 kg Sydni Munoz UI DESIGNER.ORANGE PEEL OPERATOR Work Phone: [facility] 05-16-2022 12:58-0500 Diastolic blood pressure 72 mm[Hg] Sydni Munoz APRN.ORANGE PEEL OPERATOR Work Phone: [facility] 05-16-2022 12:58-0500 Systolic blood pressure 128 mm[Hg] Sydni Munoz APRN.ORANGE PEEL OPERATOR Work Phone: [facility] Encounters Encounter Date Encounter Type Care Provider Facility Start: 02-13-2025 ambulatory Raysa Segovia cility:[facility] Start: 01-29-2025 ambulatory Mikey Solares Facility :[facility] Start: 01-28-2025 End: 02-01-2025 ambulatory SANTIAGO MAST UI DESIGNER-ORANGE PEEL OPERATOR Facility:[facility] Start: 01-28-2025 End: 02-01-2025 Outreach Lab SANTIAGO MAST UI DESIGNER-ORANGE PEEL OPERATOR [facility] Start: 12-22-2024 End: 12-22-2024 Office outpatient visit 15 minutes Anselmo Puentes APRN.ORANGE PEEL OPERATOR Work Phone: [facility] Comment on above: Allergic reaction to insect sting, accidental or unintentional, initial encounter (Primary Dx) Start: 12-22-2024 End: 12-22-2024 ambulatory RAYSA WONG Facility:[facility] Start: 12-01-2024 End: 12-01-2024 Patient encounter procedure Mikey Solares DO -[facility] Work Phone: Start: 12-01-2024 End: 12-01-2024 ambulatory Raysa CRAINC Work Phone: -[facility] Start: 09-16-2024 End: 09-16-2024 Emergency department patient visit Raysa HURTADO Work Phone: -Emergency Department Work Phone: Start: 09-13-2024 End: 09-13-2024 ambulatory RAYSA WONG UI DESIGNER-ORANGE PEEL OPERATOR Facility:[facility] Start: 09-13-2024 End: 09-13-2024 Patient encounter procedure RAYSA WONG APRN-ORANGE PEEL OPERATOR [facility] Start: 08-13-2024 End: 08-13-2024 Patient encounter procedure Bernadette PAULINO -[facility] Work Phone: Start: 08-13-2024 End: 08-13-2024 ambulatory Raysa Wong NP Facility:[facility] Start: 08-08-2024 End: 08-08-2024 ambulatory SYDNI MUNOZ Facility:[facility] Start: 08-08-2024 End: 08-08-2024 Patient encounter procedure Sydni Munoz APRN.ORANGE PEEL OPERATOR Work Phone: OB/Gynecology Comment on above: Encounter for gyneco logical examination (general) (routine) without abnormal findings (Primary Dx); Encounter for screening mammogram for breast cancer Start: 08-08-2024 End: 08-08-2024 Patient encounter status Sydni Munoz APRN.ORANGE PEEL OPERATOR Work Phone: [facility] Start: 06-03-2024 End: 06-03-2024 Patient encounter procedure Mikey Solares DO -[facility] Work Phone: Start: 06-03-2024 End: 06-03-2024 ambulatory Mikey Solares Facility:[facility] Start: 05-06-2024 End: 05-06-2024 ambulatory Raysa Wong NP Facility:[facility] Start: 05-02-2024 End: 05-02-2024 ambulatory SYDNI MUNOZ Facility:[facility] Start: 05-02-2024 End: 05-02-2024 Subsequent hospital visit by physician Screen Mammo [facility] Comment on above: Encounter for screen ing mammogram for breast cancer [Z12.31] Start: 03-27-2024 End: 03-27-2024 ambulatory Mikey Solares Facility:[facility] Start: 03-12-2024 End: 03-12-2024 ambulatory Raysa Wong NP Facility:[facility] Start: 02-25-2024 End: 02-25-2024 ambulatory KASSANDRA CABELLO Facility:[facility] Start: 02-25-2024 End: 02-25-2024 Subsequent hospital visit by physician Xr [facility] Nyla Work Phone: Radiology Comment on above: Cervical pain [M54.2 ] Start: 02-25-2024 End: 02-25-2024 Telephone encounter Herlinda Alba APRN.ORANGE PEEL OPERATOR Work Phone: [facility] Comment on above: Results Start: 02-23-2024 End: 02-23-2024 ambulatory RAYSA WONG Facility:[facility] Start: 02-23-2024 End: 02-23-2024 Patient encounter procedure Kassandra PAULINO Work Phone: [facility] Comment on above: Cervical pain (Prima ry Dx); Acute pain of right shoulder Start: 02-07-2024 End: 02-07-2024 ambulatory Raysa Wong NP Facility:[facility] Start: 01-04-2024 End: 01-04-2024 ambulatory RAYSA WONG UI DESIGNER-ORANGE PEEL OPERATOR Facility: Start: 01-04-2024 End: 01-04-2024 Patient encounter procedure RAYSA WONG UI DESIGNER-ORANGE PEEL OPERATOR [facility] Start: 10-10-2023 End: 10-10-2023 Patient encounter procedure Meghan Redd MD Work Phone: OB/Gynecology Comment on above: Endocervical polyp ( Primary Dx); Pre-op exam Start: 10-10-2023 End: 10-10-2023 Preprocedural examination done Meghan Redd MD Work Phone: [facility] Start: 09-24-2023 [facility] Meghan Redd MD Work Phone: OB/Gynecology Comment on above: surgery confirmation Start: 09-24-2023 E-mail encounter papito m caregiver Meghan Redd MD Work Phone: OB/Gynecology Start: 09-19-2023 End: 09-19-2023 ambulatory RAYSA WONG APRN-ORANGE PEEL OPERATOR Facility:[facility] Start: 09-03-2023 End: 2023 ambulatory RAYSA WONG APRN-ORANGE PEEL OPERATOR Facility:[facility] Start: 09-03-2023 End: 2023 Physical therapy management RAYSA WONG APRN-ORANGE PEEL OPERATOR [facility] Start: 08-21-2023 End: 08-21-2023 Emergency department patient visit [facility] Work Phone: Start: 08-21-2023 End: 08-21-2023 Patient encounter procedure Basil Gardiner APRN.ORANGE PEEL OPERATOR Work Phone: [facility] Comment on above: Chest pressure (Prim jorge Dx) Start: 08-01-2023 End: 08-01-2023 ambulatory Ob Ultrasound Work Phone: OB/Gynecology Comment on above: Other (polyp) Start: 08-01-2023 End: 08-01-2023 Patient encounter procedure Wringer Machine Operator [facility] Work Phone: [facility] Start: 07-25-2023 End: 07-25-2023 Subsequent hospital visit by physician [facility] Start: 07-20-2023 End: 07-20-2023 Patient encounter procedure Sydni Munoz APRN.ORANGE PEEL OPERATOR Work Phone: OB/Gynecology Comment on above: Encounter for gyneco logical examination with abnormal finding (Primary Dx); Endocervical polyp; Encounter for screening mammogram for breast cancer; Heterogeneously dense tissue of both breasts on mammography; Pseudoangiomatous stromal hyperplasia of breast Start: 07-20-2023 End: 07-20-2023 Patient encounter status Sydni Munoz APRN.ORANGE PEEL OPERATOR Work Phone: [facility] Work Phone: Start: 06-07-2023 End: 06-07-2023 ambulatory RAYSA A JUDITH UI DESIGNER-ORANGE PEEL OPERATOR Facility:[facility] Start: 05-28-2023 End: 05-28-2023 ambulatory RAYSA Musa JUDITH UI DESIGNER-ORANGE PEEL OPERATOR Facility:[facility] Start: 05-28-2023 End: 05-28-2023 Patient encounter procedure RAYSA Musa JUDITH UI DESIGNER-ORANGE PEEL OPERATOR [facility] Start: 05-28-2023 End: 05-28-2023 Emergency department patient visit [facility] Work Phone: Start: 01-23-2023 End: 01-23-2023 ambulatory RAYSA Musa JUDITH UI DESIGNER-ORANGE PEEL OPERATOR Facility:[facility] Start: 01-23-2023 End: 01-23-2023 Patient encounter procedure RAYSA Musa JUDITH UI DESIGNER-ORANGE PEEL OPERATOR [facility] Start: 01-13-2023 End: 01-13-2023 Patient encounter procedure Veronica Vivas UI DESIGNER.ORANGE PEEL OPERATOR Work Phone: [facility] Comment on above: Burning sensation of [...] Subsequent hospital visit by physician Diagnostic Mammo [facility] Comment on above: Abnormal mammogram [ R92.8] Start: 06-10-2022 End: 06-10-2022 Patient encounter procedure RAYSA Lencho JUDITH UI DESIGNER-ORANGE PEEL OPERATOR [facility] Start: 05-17-2022 Documentation procedure Mammography Coordinator [facility] Start: 05-17-2022 Letter encounter Mammography Coordinator [facility] Department Start: 05-16-2022 End: 05-16-2022 Patient encounter procedure Sydni Munoz APRN.CNP Work Phone: OB/Gynecology Comment on above: Encounter for gyneco logical examination (general) (routine) without abnormal findings (Primary Dx); Encounter for screening mammogram for breast cancer; Dense breast tissue Start: 05-16-2022 End: 05-16-2022 Patient encounter status Sydni Mike CASTROORANGE PEEL OPERATOR Work Phone: OB/Gynecology Start: 05-16-2022 End: 05-16-2022 Subsequent hospital visit by physician Screen Mammo [facility] Comment on above: Encounter for gyneco logical examination (general) (routine) without abnormal findings [Z01.419] Start: 02-21-2022 Telephone encounter Veronica Harrell APRN.CNP Work Phone: [facility] Comment on above: Results, Lab Start: 02-20-2022 Telephone encounter Lennie South PA-C Work Phone: [facility] Comment on above: Results Start: 02-20-2022 End: 02-20-2022 Subsequent hospital visit by physician Xr [facility] Work Phone: Radiology Comment on above: Acute right-sided lo w back pain without sciatica [M54.50] Start: 07-10-2020 End: 07-10-2020 Discharged Recurring [facility]-Immunizations Procedures Date Procedure Procedure Detail Performing Clinician Start: 09-16-2024 Plain X-ray of femur Kin HURTADO Work Phone: Start: 09-16-2024 Plain X-ray of tibia and fibula Raysa HURTADO Work Phone: Start: 02-25-2024 Radex spine cervical 4 or 5 views Kassandra PAULINO Work Phone: Start: 08-21-2023 Plain chest X-ray Start: 08-01-2023 Us pelvic nonobstetr ic real-time image complete Sydni Munoz APRN.ORANGE PEEL OPERATOR Work Phone: Start: 07-25-2023 Digital breast tomosynthesis bilateral Sydni Munoz APRN.ORANGE PEEL OPERATOR Work Phone: Start: 05-28-2023 Plain chest X-ray Start: 05-28-2023 Plain X-ray of shoulder Start: 07-17-2022 Bx breast w/device 1 st lesion stereotactic guid Ewa Olivo MD Work Phone: Start: 06-28-2022 Us breast uni real t bryon with image limited Burt Lenz MD Work Phone: Start: 06-13-2022 Us breast uni real t bryon with image limited Sydni Munoz APRN.ORANGE PEEL OPERATOR Work Phone: Start: 06-13-2022 MARTY DIAG W DELFIN LEFT Am maynor Munoz APRN.ORANGE PEEL OPERATOR Work Phone: Start: 05-16-2022 End: 05-16-2022 Mammography Sydni Munoz APRN.ORANGE PEEL OPERATOR Work Phone: Start: 02-20-2022 Radex spine lumbosac ral 2/3 views Lennie South PA-C Work Phone: Start: 05-10-2021 Mammography Lennie South PA-C Work Phone: Start: 02-09-2011 Lipid 1996 panel - S breanna or Plasma Us 1 Work Phone: Plan of Treatment Date Care Activity Detail Author Start: 09-16-2034 Urine microalbumin profile DTaP,Tdap,Td Vaccine (4 - Td or Tdap) [facility] Start: 05-14-2028 Urine microalbumin profile [facility] Start: 05-10-2026 HPV TESTING HPV TESTING [facility] Start: 05-10-2026 PAP TESTING PAP TESTING [facility] Start: 05-10-2026 Screening for malign ant neoplasm of cervix [facility] Start: 08-12-2025 End: 08-12-2025 Patient encounter procedure Mammogram Comment on above: MARTY SCREENING W DELFIN annual Start: 05-02-2025 Screening for malign ant neoplasm of breast Mammogram Screening [facility] Start: 03-04-2025 Screening for malign ant neoplasm of colon [facility] Start: 01-12-2025 Influenza vaccination Influenza Vacc ine (#1) [facility] Start: 2024 Pneumococcal Vaccine : 50+ (1 of 1 - PCV) Pneumococcal Vaccine: 50+ (1 of 1 - PCV) [facility] Start: 2024 Shingrix Vaccine (1 of 2) Shingrix Vaccine (1 of 2) [facility] Start[facility] Start: 08-08-2024 End: 08-08-2024 Patient encounter procedure 08/08/2024 9:30 AM EDT Office Visit OB/Gynecology [address] [place] [address] Sydni Munoz APRN.ORANGE PEEL OPERATOR [address] [place] [address] annual OB/Gynecology Comment on above: annual Start: 07-24-2024 Screening for malign ant neoplasm of breast Mammogram Screening [facility] Start: 07-22-2024 End: 07-22-2024 Patient encounter procedure 07/22/2024 9:00 AM EDT Office Visit OB/Gynecology [address] [place] [address] Sydni Munoz APRN.ORANGE PEEL OPERATOR [address] [place] [address] (Fax) annual exam OB/Gynecology Comment on above: annual exam Start: 01-13-2024 Covid-19 Vaccine ( season) Covid-19 Vaccine ( season) [facility] Start: 01-13-2024 Influenza vaccination [facility] Start: 10-10-2023 End: 10-10-2023 Patient encounter procedure 10/10/2023 9:20 AM EDT Office Visit OB/Gynecology [address] [place] [address] Meghan Da Silva MD [address] [place] [address] surgery 10/25 OB/Gynecology Comment on above: surgery 10/25 Start: 08-21-2023 [facility] Start: 08-21-2023 Blood chemistry [facility] Start: 08-21-2023 [facility] Start: 07-20-2023 End: 07-19-2024 US Pelvis PELVIC US [facility] Anc Imaging Routine Endocervical polyp Expected: 07/20/2023, Expires: 07/19/2024 [facility] Work Phone: Comment on above: Expected: 07/20/2023 , Expires: 07/19/2024 Start: 05-28-2023 [facility] Start: 05-16-2023 Mammography [facility] Start: 05-16-2023 Screening for malign ant neoplasm of breast Mammogram Screening [facility] Start: 05-14-2023 Behavioral Health Screening Behavioral Health Screening [facility] Start: 05-14-2023 Depression Assessment Depression Ass essment [facility] Start: 01-12-2023 Covid-19 Vaccine ( season) Covid-19 Vaccine ( season) [facility] Start: 01-12-2023 Influenza vaccination C [facility] Start: 05-14-2022 DEPRESSION ASSESSMENT DEPRESSION ASS ESSMENT [facility] Start: 05-10-2022 Mammography MAMMOGRAM [facility] Start: 01-12-2022 Influenza vaccination INFLUENZA (#1) [facility] Start: 07-06-2021 COVID-19 VACCINE (5 - Booster for Moderna series) COVID-19 VACCINE (5 - Booster for Moderna series) [facility] Start: 07-06-2021 COVID-19 VACCINE (5 - Moderna series) COVID-19 VACCINE (5 - Moderna series) [facility] Start: 05-14-2021 DEPRESSION ASSESSMENT DEPRESSION ASS ESSMENT [facility] Start: 09-30-2020 COVID-19 VACCINE (3 - Booster for Moderna series) COVID-19 VACCINE (3 - Booster for Moderna series) [facility] Start: 12-05-2019 COLOGUARD (FIT-DNA) COLOGUARD (FIT-D NA) [facility] Start: 12-05-2019 Colonoscopy COLONOSCOPY [facility] Start: 12-05-2019 COLORECTAL CANCER SCREENING COLORECTAL CANCER SCREENING [facility] Start: 12-05-[address] COLONOGRAPHY [facility] Start: 12-05-2019 DIABETES SCREEN [facility] Start: 12-05-2019 Diabetes Screening Diabetes Screenin g [facility] Start: 12-05-2019 FECAL OCCULT BLOOD FECAL OCCULT BLOO D [facility] Start: 12-05-2019 Lipid 1996 panel - Serum or Plasma Lipid Screening [facility] Start: 12-05-2019 Lipid panel Lipid Screening [facility] Start: 12-05-2019 LIPID SCREEN LIPID SCREEN [facility] Start: 12-05-2019 Screening for malign ant neoplasm of colon [facility] Start: 12-05-2019 SIGMOIDOSCOPY SIGMOIDOSCOPY [facility] Start: 1993 Hepatitis B Vaccine (1 of 3 - 19+ 3-dose series) Hepatitis B Vaccine (1 of 3 - 19+ 3-dose series) [facility] Start: 1992 Anxiety Screening Anxiety Screening [facility] Start: 1992 Depression Screening Depression Scre ing [facility] Start: 1992 HEPATITIS C SCREENING HEPATITIS C [facility] Start: 1992 Hepatitis C screening Hepatitis C [facility] Start: 1992 HIV SCREENING HIV SCREENING [facility] Start: 1992 HIV screening HIV Screening [facility] Start: 1974 HEPATITIS B (1 of 3 - 3-dose series) HEPATITIS B (1 of 3 - 3-dose series) [facility] Start: 1974 Hepatitis B Vaccine (1 of 3 - 3-dose series) Hepatitis B Vaccine (1 of 3 - 3-dose series) [facility] End: 07-28-2023 Bx breast w/device 1st lesion stereotactic guid MARTY STEREO BX BREAST LT Radiology Routine Abnormal finding on radiological examination of breast 1 Occurrences starting 06/28/2022 until 07/28/2023 [facility] Work Phone: Comment on above: 1 Occurrences starti ng 06/28/2022 until 07/28/2023 End: 08-18-2024 DBT Breast - bilateral screening MARTY SCREENING W DELFIN Radiology Routine Encounter for screening mammogram for breast cancer Heterogeneously dense tissue of both breasts on mammography Pseudoangiomatous stromal hyperplasia of breast 1 Occurrences starting 07/20/2023 until 08/18/2024 [facility] Work Phone: Comment on above: 1 Occurrences starti ng 07/20/2023 until 08/18/2024 DBT Breast - bilater al screening MARTY SCREENING W DELFIN Radiology Routine Encounter for screening mammogram for breast cancer Heterogeneously dense tissue of both breasts on mammography Pseudoangiomatous stromal hyperplasia of breast 05/02/2024 12:44 PM EST [facility] Work Phone: End: 09-07-2025 DBT Breast - bilateral screening MARTY SCREENING W DELFIN Radiology Routine Encounter for gynecological examination (general) (routine) without abnormal findings Encounter for screening mammogram for breast cancer 1 Occurrences starting 08/08/2024 until 09/07/2025 [facility] Work Phone: Comment on above: 1 Occurrences starti ng 08/08/2024 until 09/07/2025 End: 06-15-2023 MARTY SCREENING W DELFIN MARTY SCREENING W DELFIN Radiology Routine Encounter for screening mammogram for breast cancer Dense breast tissue 1 Occurrences starting 05/16/2022 until 06/15/2023 [facility] Work Phone: Comment on above: 1 Occurrences starti ng 05/16/2022 until 06/15/2023 Patient Education [facility] Work Phone: Patient referral [facility] Work Phone: SURGICAL PATHOLOGY [facility] Work Phone: Comment on above: Release Upon Katheryn mercer for 1 Occurrences starting 07/17/2022, 1 completed End: 03-24-2025 XR Cervical spine AP and Lateral and oblique XR CERV OTHER 4V AP/LAT/OBL Radiology STAT Cervical pain Acute pain of right shoulder 1 Occurrences starting 02/23/2024 until 03/24/2025 [facility] Comment on above: 1 Occurrences starti ng 02/23/2024 until 03/24/2025 End: 03-24-2025 XR Shoulder - right 3 Views XR SHOULDER GENERAL 3V OR MORE AP/TRUE AP/OTHER RIGHT Radiology STAT Cervical pain Acute pain of right shoulder 1 Occurrences starting 02/23/2024 until 03/24/2025 [facility] Work Phone: Comment on above: 1 Occurrences starti ng 02/23/2024 until 03/24/2025 [facility] Immunizations Immunization Date Immunization Notes Care Provider Fa [facility] 09-16-2024 tetanus toxoid, reduced diphtheria toxoid, and acellular pertussis vaccine, adsorbed Raysa Wong NO BAKE MOLDER-C Work Phone: [facility] 05-11-2021 SARS-CoV-2 mRNA (tozinameran) vaccine RAYSA WONG UI DESIGNER-ORANGE PEEL OPERATOR [facility] 08-22-2020 SARS-CoV-2 (COVID-19 ) Ad26 vaccine, recombinant RAYSA WONG UI DESIGNER-ORANGE PEEL OPERATOR [facility] 08-05-2020 Covid (Moderna) [facility] 07-08-2020 Covid (Moderna) [facility] Comment on above: Result Comment: 2022: TPV23 04-30-2019 influenza virus vaccine, unspecified formulation RAYSA WONG UI DESIGNER-ORANGE PEEL OPERATOR [facility] 05-14-2018 tetanus toxoid, reduced diphtheria toxoid, and acellular pertussis vaccine, adsorbed Lennie South PA-C Work Phone: [facility] 02-07-2018 influenza virus vaccine, unspecified formulation RAYSA WONG UI DESIGNER-ORANGE PEEL OPERATOR [facility] 06-05-2016 influenza virus vaccine, unspecified formulation RAYSA WONG UI DESIGNER-ORANGE PEEL OPERATOR [facility] 07-30-2014 tetanus toxoid, reduced diphtheria toxoid, and acellular pertussis vaccine, adsorbed RAYSA WONG UI DESIGNER-ORANGE PEEL OPERATOR [facility] Payers Date Payer Category Payer Self-pay [id number] 2018 Private Health Insurance [id number] 2018 Unknown [id number] 2018 Unknown [id number] 1974 Unknown [id number] 2.16.8 [id number] 1974 Unknown [id number] 2.16.8 [id number] 1974 Unknown [id number] 2.16.8 [id number] 1974 Unknown [id number] 2.16.8 [id number]. 1974 Unknown [id number] 2.16.8 [id number] 1974 Unknown [id number] 2.16.8 40.1.862427.3.579.2. 1974 Unknown [id number] 2.16. [id number] 1974 Unknown [id number] 2.16.8 [id number] Unknown [id number] Unknown [id number] 2.16.8 [id number] Unknown [id number] 2.16.8 [id number] Unknown [id number] 2.16.8 [id number] Unknown [id number] 2.16.8 [id number] Unknown [id number] 2.16.8 [id number] Unknown [id number] 2.16.8 [id number] Unknown [id number] 2.16.8 [id number] Unknown [id number] 2.16.8 [id number] Unknown [id number] 2.16.8 [id number] Unknown [id number] 2.16.8 [id number] Social History Date Type Detail Facility Start: 09-21-2017 End: 08-21-2023 Tobacco smoking status HIIS Unknown if ever smoked [facility] Start: 1975 Sex Assigned At Female [facility] Start: 02-20-2022 End: 01-28-2025 Tobacco smoking status HIIS Never smoked tobacco [facility] Work Phone: Start: 02-20-2022 Tobacco use and exposure Smokeless tobacco non-user [facility] Work Phone: Start: 02-20-2022 End: 12-22-2024 Alcohol intake Current non-drinker of alcohol (finding) [facility] Start: 05-05-2020 History SDOH Social Connections Phone 5 [facility] Start: 05-05-2020 History SDOH Social Connections Get Together 2 [facility] Start: 05-05-2020 History SDOH Social Connections Membership 1 [facility] Start: 05-05-2020 History SDOH Social Connections Meetings 3 [facility] Start: 05-05-2020 History SDOH Physical Activity MPS 6 [facility] Start: 02-10-2022 End: 02-20-2022 Exposure to SARS-CoV-2 (event) Not sure [facility] Work Phone: Sex Assigned At [facility] Start: 05-05-2020 End: 07-20-2023 History of Social function [facility] Work Phone: Start: 05-05-2020 End: 07-20-2023 Social connection and isolation panel [facility] Work Phone: Do you belong to any clubs or organizations such as catholic groups, unions, fraternal or athletic groups, or school groups? Yes [facility] Work Phone: Are you now , , , , never or living with a partner? [facility] Work Phone: Do you feel stress - tense, restless, nervous, or anxious, or unable to sleep at night because your mind is troubled all the time - these days [OSQ] Only a little [facility] Work Phone: Start: 04-14-2012 National Score (1-100), lower number is lower risk 63 [facility] Start: 02-20-2022 Sexual orientation Heterosexual (finding) [facility] Start: 02-02-2016 End: 09-16-2024 Sex Female (finding) [facility] Medical Equipment Procedure Code Equipment Code [...] muscle cramping with R 90-90 hamstring: WNL [facility] 05-09-2014 Are you deaf, or do you have serious difficulty hearing No 05/09/2014 8:00 AM Genet Bean LPN No [facility] 05-09-2014 Are you blind, or do you have serious difficulty seeing, even when wearing glasses No 05/09/2014 8:00 AM Genet Bean LPN No [facility] 05-09-2014 Do you have serious difficulty walking or climbing stairs No 05/09/2014 8:00 AM Genet Bean LPN No [facility] 05-09-2014 Do you have difficul ty dressing or bathing No 05/09/2014 8:00 AM Genet Bean LPN No [facility] 05-09-2014 Because of a physica l, mental, or emotional condition, do you have difficulty doing errands alone such as visiting a physician's office or shopping No 05/09/2014 8:00 AM Genet Bean LPN No [facility] Mental Status Date Assessment Result Facility 08-21-2023 Cognitive function Voice/Name [facility] Work Phone: 05-09-2014 Because of a physica l, mental, or emotional condition, do you have serious difficulty concentrating, remembering, or making decisions No 05/09/2014 8:00 AM Genet Bean LPN No [facility] Clinical Notes 02-20-2022 to 01-30-2025 Anselmo Puentes APRN.ORANGE PEEL OPERATOR - 12/22/2024 3:10 PM EDT Note Date & Type Note Facility 01-30-2025 Note . MICRO - Microbiology PROCEDURE: Urine Culture [*1] SOURCE: Urine, Clean Catch BODY SITE: COLLECTED DATE/TIME: 01/28/2025 11:41 EDT RECEIVED DATE/TIME: 01/28/2025 20:08 EDT START DATE/TIME: 01/28/2025 20:09 EDT FREE TEXT SOURCE: FINAL REPORTS Final Report [] Verified Date/Time/Personnel: 01/30/2025 07:59 EDT 10,000 - 50,000 cfu/ml Multiple bacterial morphotypes present. Probable Contamination. Suggest recollection if clinically indicated. PRELIMINARY REPORTS Preliminary Report [] Verified Date/Time/Personnel: 01/29/2025 09:31 EDT No growth to date Preliminary Report [] Verified Date/Time/Personnel: 01/28/2025 20:59 EDT Specimen received in lab. Performing Locations *1: This test was performed at: [facility], [address] [place] [address], [id number] , [facility] 12-22-2024 Note HNO ID: [id number] Author: ANSELMO PUENTES APRN.ORANGE PEEL OPERATOR Service: ? Author Type: Nurse Practitioner Type: Progress Notes Filed: 12/22/2024 15:30 Note Text: [facility] Subjective Gladys Dodd is [...] of care. This note was generated using Cinnafilm software. It may contain errors in wording, punctuation, or spelling. Anselmo Puentes APRN.ORANGE PEEL OPERATOR History and Record Review Clinical information obtained from an independent historian. History obtained from or confirmed by: parent. External record(s) reviewed: prior outpatient record. Disposition The patient was discharged. OTC Medications were advised: Procedures [facility] 12-22-2024 History of Present illness Narrative Images from the original note were not included. [facility] Subjective Gladys Dodd is [...] of care. This note was generated using Cinnafilm software. It may contain errors in wording, punctuation, or spelling. Anselmo Puentes APRN.ORANGE PEEL OPERATOR History and Record Review Clinical information obtained from an independent historian. History obtained from or confirmed by: parent. External record(s) reviewed: prior outpatient record. Disposition The patient was discharged. OTC Medications were advised: Procedures documented in this encounter [facility] 09-16-2024 Discharge summary [facility] 09-16-2024 Radiology Diagnostic study note [facility] Imaging Services [address] [place], [place] [id number] Tibia & Fibula 2 Views MR#: [id number] Acct: [id number] Name: GLADYS PETER Rep #: [id number] : 1975 F 48 From: Rose Calle MD PCP: BREANN HernandezC Status: RE G ER Study:Tibia & Fibula 2 Views Date of Exam: 09/16/24 Exam# [id number] Ordering Dr: Bhupendra Gonzalez MD EXAM: RIGHT TIBIA AND FIBULA, TWO VIEWS CLINICAL HISTORY: DOG BITE. TRAUMA. COMPARISON: NO RELEVANT PRIOR. TECHNIQUE: AP AND LATERAL. FINDINGS: Bones: No fractures or other osseous abnormalities. Joints: No subluxations or dislocations. Soft tissues: Unremarkable. RAD/Tibia & Fibula 2 Views IMPRESSION: No acute osseous findings. Reading Location: [facility] CC: GENESIS Wong; Dr. Bhupendra Gonzalez MD ~ Highway Worker: Signed [facility] 09-16-2024 Radiology Diagnostic study note [facility] Imaging Services [address] [place], [place] [id number] Femur Min 2 Views MR#: [id number] Acct: [id number] Name: GLADYS PETER Rep #: [id number] : 1975 F 48 From: Rose Calle MD PCP: BREANN HernandezC Status: RE G ER Study:Femur Min 2 Views Date of Exam: Exam# [id number] Ordering Dr: Bhupendra Gonzalez MD EXAM: RIGHT FEMUR, TWO VIEWS CLINICAL HISTORY: Dog bite. Trauma. COMPARISON: No relevant prior. TECHNIQUE: AP and lateral projections of the femur. FINDINGS: Bones: No fractures or other osseous abnormalities. Joints: No subluxations or dislocations. Soft tissues: Unremarkable. RAD/Femur Min 2 Views IMPRESSION: NO ACUTE OSSEOUS ABNORMALITIES. Reading Location: [facility] CC: NO BAKE MOLDER-C Raysa Wong; Dr. Bhupendra Gonzalez MD ~ Highway Worker: Signed [facility] 09-16-2024 Discharge summary Note Date/Time September 16, 2024 6:16pm [facility] Medical Records Department [address] [place] [address] Emergency Department Summary 09/16/24 MR#: [id number] Acct: [id number] Name: GLADYS PETER Rep #:[id number] : 1975 48 From: Bhupendra Gonzalez MD PCP: BREANN HernandezC Status:RE G ER Location: ED HPI History of Present Illness Chief Complaint: Bite Narrative Narrative: 48-year-old female who denies significant past medical history except for gallbladder issues, presents with her neighbor with injury to her right thigh and left lower extremity after trying to break up a fight between her 2 dogs. She states that she has an 85 pound Irish Salcedo, and a 35 pound Uzbek Salcedo. This is the second time that [...] than 5 years. She denies other injuries. [facility] Medical History Gall stones Wears glasses Arthritis [...] orally. For analgesia she was administered 1 [place] tablet here. I will start her on [...] she was given a prescription for 12 [place] tablets as she states she is still [...] IMPRESSION: NO ACUTE OSSEOUS ABNORMALITIES. Reading Location: [facility] Tibia/Fibula X-Ray 09/16/24 17:12 IMPRESSION: No acute osseous findings. Reading Location: [facility] Discharge Plan Triage Chief Complaint: Bite ED Provider: Bhupendra Gonzalez Dx/Rx/DC Orders Clinical Impression: Dog bite of right thigh, Dog bite of left lower leg, Need for mqqcbhmyzl-rmtsfaa-bonvcxajd (Tdap) vaccine Instructions: ED Dog Bite Prescriptions: New amoxicillin-pot clavulanate 875-125 mg tablet 1 tab PO BID 5 Days Qty: 10 0RF hydrocodone-acetaminophen 5-325 mg tablet 1 tab PO Q6H PRN (Reason: pain) 3 Days Qty: 12 0RF No Action esomeprazole magnesium [Nexium] 20 mg capsule,delayed release(DR/EC) 20 mg PO DAILY Primary Care Provider: Raysa Wong NP Referrals: Raysa Wong NP, NO BAKE MOLDER-C [Primary Care Provider] - 3-5 Days Activity Restrictions/Additional Instructions: Antibiotics as directed. Follow-up with your primary care provider in the next 3 to 5 days for wound check. Return with fever, increased redness to wounds, drainage of pus from wounds, new or worsening symptoms. Print Language: Honduran Disposition Disposition: Home, Self Care What to do if you have Problems For any increased pain, shortness of breath, bleeding, nausea or vomiting, chestpain, or any unexpected problems, contact your Primary Care Provider. Call [facility] ([phone]) or report to the closest Emergency Room. Call 911 if necessary. 09/16/241815 <Electronically signed by Bhupendra Gonzalez MD> Cosigner Signature (if applicable): CC: GENESIS Wong ~ Signed [facility] Work Phone: 1(472) 435-197805-06-2025 Hospital Discharge instructions Additional Instructions Antibiotics as directed. Follow-up with your primary care provider in the next 3 to 5 days for wound check. Return with fever, increased redness to wounds, drainage of pus from wounds, new or worsening symptoms.[facility] Work Phone: 1(638) 449-495304-02-2025 Evaluation note* Diagnosis Onset Date Resolution Status Admit Date Cholelithiasis acute August 13, 2024 3:30pm GERD (gastroesophageal reflu x disease) acute August 13, 2024 3:30pm [facility] Work Phone: 1(135) 919-569103-28-2025 Instructions* Patient Instructions* Sydni Munoz APRN.ORANGE PEEL OPERATOR - 08/08/2024 10:03 AM EDT I am [...] if it is covered and what your qxw-wv-bnkyzo expense will be. Please reach out through [employer] or by phone if you would like an order placed or if you would like to schedule an appointment to discuss furtherwith an available provider. Whole breast ultrasound does not replace annual mammograms; this test is in addition to regular mammograms which are the most important way to screen for breast cancer. Sydni Munoz APRN.CNP documented in this encounterProtest[facility]03-28-2025 NoteHNO ID: [id number] Author: SYDNI MUNOZ APRN.CNP Service: ? Author Type: Nurse Practitioner Type: Progress Notes Filed: 08/08/2024 10:06 Note Text: Director Data offered: Patient declines. Gladys is a 48 [...] discussed with the Patient or Patient's Authorized Pattern Changer. As applicable, any other physician, advance practice provider, medical student, or other health professional student that will be observing or involved in the sensitive examination for educational or training purposes was discussed with the Patient or Authorized Pattern Changer. The Patient or Authorized Pattern Changer has agreed to proceed with the sensitive examination. (Sensitive examination includes inspection and/or palpation of the breasts, pelvis, prostate and anorectal regions). EXAM: BP 98/74 Ht 5' 6.5" (1.69m) Wt 208 lb (94.3kg) LMP 07/10/2024 [...] external genitalia normal, normal Bartholin's glands, urethra, Verlot's glands, no vulvar lesions, no cervical lesions, [...] year or sooner as needed Sydni Munoz APRN.[facility] History of Present illness Narrative* Sydni Munoz APRN.SHAMAR - 08/08/2024 9:05 AM EDT Director Data offered: Patient declines. Gladys is a 48 [...] discussed with the Patient or Patient's Authorized Pattern Changer. As applicable, any other physician, advance practice provider, medical student, or other health professional student that will be observing or involved in the sensitive examination for educational or training purposes was discussed with the Patient or Authorized Pattern Changer. The Patient or Authorized Pattern Changer has agreed to proceed with the sensitive examination. (Sensitive examination includes inspection and/or palpation of the breasts, pelvis, prostate and anorectal regions). EXAM: BP 98/74 Ht 5' 6.5" (1.69m) Wt 208 lb (94.3kg) LMP 07/10/2024 [...] external genitalia normal, normal Bartholin's glands, urethra, Verlot's glands, no vulvar lesions, no cervical lesions, [...] year or sooner as needed Sydni Munoz APRN.SHAMAR documented in this encounterProtestant Hospital01-21-2025 Evaluation note* Diagnosis Onset Date Resolution Status Admit Date Cholelithiasis acute June 032024 7:56am GERD (gastroesophageal reflu x disease) acute June 03 7:56am Nausea and vomiting noneactive 2024 7:56am Cholelithiasis acute Cari 2nd, 2025 3:30pm GERD (gastroesophageal reflu x disease) acute August 13, 2024 3:30pm [facility] Work Phone: [phone]) 920-132412-20-2024 History of Present illness Narrative* Ana Romano [...] PATIENT PRESENTS WITH AN IMPLANTABLE OR ATTACHED PROCESS CONTROL SUPERVISOR: No RADIOLOGY DEPARTMENT: Mammography PERIPHERAL IV DATA: Not applicable SIGNED BY: Melchor Ivy May 02, 2024 1:12 PM documented in this encounterProtestant Hospital12-20-2024 NoteHNO ID: [id number] Author: ANA ROMANO Mammo Tech Service: ? Author Type: Robotic Machine Tender Production Type: Progress Notes Filed: 05/02/2024 13:13 Note [...] PATIENT PRESENTS WITH AN IMPLANTABLE OR ATTACHED PROCESS CONTROL SUPERVISOR: No RADIOLOGY DEPARTMENT: Mammography PERIPHERAL IV DATA: Not applicable SIGNED BY: Melchor Ivy May 02, 2024 1:12 [facility]10-14-2024 Miscellaneous Notes* Telephone Encounter - Tianna Yi LPN - 02/25/2024 5:38 PM EDT Patient notified and verbalized understanding of instructions given.Tianna Yi LPN * Telephone Encounter - Herlinda Alba APRN.CNP - 02/25/2024 4:58 PM EDT Xray of cervical spine normal. Xray of shoulder normal Continue treatment plan and medicines at time of evaluatoin. Follow up with PCP and or ortho for continued symptoms. Please advise patient. documented in this encounterProtestant Hospital10-14-2024 Telephone encounter Note * Telephone Encounter - Tianna Yi LPN - 02/25/2024 5:38 PM EDT Patient notified and verbalized understanding of instructions given.Tianna Yi LPN [facility]10-14-2024 Telephone encounter Note* Telephone Encounter - Herlinda Alba APRN.CNP - 02/25/2024 4:58 PM EDT Xray of cervical spine normal. Xray of shoulder normal Continue treatment plan and medicines at time of evaluatoin. Follow up with PCP and or ortho for continued symptoms. Please advise patient. [facility] Work Phone: 1(989) 930-495110-14-2024 History of Present illness Narrative* Melina Thorne, RT(R) - 02/25/2024 4:20 PM EDT Radiology Service [...] PATIENT PRESENTS WITH AN IMPLANTABLE OR ATTACHED PROCESS CONTROL SUPERVISOR: No RADIOLOGY DEPARTMENT: General X-ray: Exam(s) Completed: Spine X-Ray(s): Cervical AP / LAT / OBL Upper Extremity X-Ray(s): Shoulder, AP / TRUE AP / AXILLARY right PERIPHERAL IV DATA: Not applicable SIGNED BY: RT Shimon(Cosmo) February 25, 2024 4:19 PM documented in this encounterProtestant Hospital10-14-2024 NoteHNO ID: [id number] Author: MELINA THORNE RT(R) Service: Radiology Author [...] PATIENT PRESENTS WITH AN IMPLANTABLE OR ATTACHED PROCESS CONTROL SUPERVISOR: No RADIOLOGY DEPARTMENT: General X-ray: Exam(s) Completed: Spine X-Ray(s): Cervical AP / LAT / OBL Upper Extremity X-Ray(s): Shoulder, AP / TRUE AP / AXILLARY right PERIPHERAL IV DATA: Not applicable SIGNED BY: RT Shimon(Cosmo) February 25, 2024 4:19 [facility]10-12-2024 NoteHNO ID: [id number] Author: KASSANDRA CABELLO PA Service: ? Author Type: Physician Lead Sharepoint Developer Type: Progress Notes Filed: 02/23/2024 15:29 Note Text: This note was created using AxioMxriter. Subjective Gladys Dodd is a 48 year [...] Date BX OF BREAST; INCISIONAL Left 2022 [facility] DAND[facility], DIAG AND/OR THERAPEUTIC 10/26/2023 Hysteroscopy, [...] - XR SHOULDER GEN (more content not included)...[facility] 02-23-2024 History of Present illness Narrative* Kassandra Cabello PA - 02/23/2024 3:26 PM EDT This note was created using Gutenbergz. Subjective Gladys Dodd is a 48 year [...] ER evaluation. LORA Melara documented in this encounterProtestant Hospital05-29-2024 History of Present illness Narrative* Meghan Da Silva MD - 10/10/2023 9:44 AM EDT documented in this encounterProtestant Hospital05-29-2024 History and physical note * Meghan [...] history, medications and allergies Meghan Redd MD [facility]05-29-2024 History and physical note* Meghan Da [...] allergies Meghan Redd MD documented in this encounterProtestant Hospital04-09-2024 History of Present illness Narrative* Basil Gardiner APRN.SHAMAR - 08/21/2023 6:52 PM EDT [facility] Here today with worsening left chest pressure/shoulder pain. Also having dull ache in left leg/nagging. Patient concerned for heart related problem. I will refer to ER. Patient in no apparent distress at time of triage. documented in this encounterProtestant Hospital04-09-2024 Discharge summary Author Donald Holguin [facility] August 21, 2023 8:28pm Note Date/Time August 21, 2023 8:28 pm [facility] Medical Records Department [address] [place] [address] Emergency Department Summary 08/21/23 MR#: [id number] Acct: [id number] Name: GLADYS PETER Rep #:[id number] : 1975 47 From: Donald Holguin DO PCP: GENESIS Hernandez Status:RE G ER Location: [...] % (Auto) 65.0 Lymph % (Auto) 27.4 [place] % (Auto) 6.0 Eos % (Auto) 0.8 [...] Raysa Wong NP Referrals: Raysa Wong NP, NO BAKE MOLDER-C [Primary Care Provider] - Disposition Disposition: Home, Self Care What to do if you have Problems For any increased pain, shortness of breath, bleeding, nausea or vomiting, chestpain, or any unexpected problems, contact your Primary Care Provider. Call [facility] ([phone]) or report to the closest Emergency Room. Call 911 if necessary. 08/21/232027 <Electronically signed by Donald Holguin DO> Cosigner Signature (if applicable): CC: GENESIS Wong ~ Signed [facility] Work Phone: 1([phone]) 457-451903-13-2024 History of Present illness Narrative* Antony Cunha [...] PATIENT PRESENTS WITH AN IMPLANTABLE OR ATTACHED PROCESS CONTROL SUPERVISOR: No RADIOLOGY DEPARTMENT: Mammography PERIPHERAL IV DATA: Not applicable SIGNED BY: Melchor Peralta July 25, 2023 1:52 PM documented in this encounterProtestant Hospital03-08-2024 History of Present illness Narrative* Sydni Munoz APRN.ORANGE PEEL OPERATOR - 07/20/2023 9:00 AM EST Director Data offered: Patient declines. 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 Sydni Munoz APRN.SHAMAR documented in this encounterProtestant Hospital01-12-2024 Evaluation + Plan note Future Scheduled Tests Radiology* US Abdomen Limited 05/25/[address] [facility] 09-02-2023 Instructions* Patient Instructions* Veronica Vivas APRN.CNP [...] illness Veronica Vivas APRN.CNP documented in this encounterProtestant Hospital09-02-2023 History of Present illness Narrative* Veronica [...] Discussed expected course of illness Veronica Vivas APRN.ORANGE PEEL OPERATOR documented in this encounterProtestant Hospital03-06-2023 Miscellaneous Notes* Patient Education - RT Aditya(R) - 07/17/2022 12:12 PM EST AMBULATORY PATIENT [...] instructions REFERRAL (RECOMMENDATION): None documented in this encounterProtestant Hospital01-31-2023 History of Present illness Narrative* Lisa Weiss, (R) - 06/13/2022 3:00 PM EST Radiology Service [...] 13, 2022 2:59 PM documented in this encounterProtestant Hospital01-04-2023 Miscellaneous Notes* Letter - Mammography Coordinator - 05/17/2022 11:45 AM EST May 17, 2022 PID: [id number] Gladys WoodsHilary Dodd [address] [place] [address] Dear Ms. Mercedes Dodd, Your recent breast [...] who ordered/prescribed your screening mammogram: Please call [phone] or [phone] to schedule an appointment for your additional [...] and reports are kept on [facility] at [facility] as part of your permanent medical record, and are available for your continuing care. Thank you for allowing us to help in meeting your health care needs. Sincerely, Dr. Duncan Interpreting Radiologist [facility] (Additional imaging) documented in this encounterProtestant Hospital01-03-2023 History of Present illness Narrative* Lisa [...] 16, 2022 1:55 PM documented in this encounterProtestant Hospital01-03-2023 History of Present illness Narrative* Sydni Munoz APRN.ORANGE PEEL OPERATOR - 05/16/2022 12:52 PM EST Director Data offered: Patient declines. 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 Veronica Vivas CNP documented in this encounterProtestant Hospital10-10-2022 Miscellaneous Notes* Telephone Encounter - Marlee [...] Lennie South PA-C 02/20/2022 documented in this encounterProtestant Hospital10-10-2022 History of Present illness Narrative* Melina Thorne RT(R) - 02/20/2022 8:00 AM EDT Radiology [...] IV DATA: Not applicable SIGNED BY: RT Shiomn(R) February 20, 2022 8:02 AM documented in this encounterProtestant HospitalEvaluation + Plan note No data available for this section [facility] Evaluation + Plan note Future Appointments Appointment Date:01/08/2024 01:30:00 PM Scheduled Provider:SANDIE CHAVIS DO Location:[facility] Appointment Type:PC Office Procedure OMT [facility] Evaluation note* Diagnosis Encounter for gynecological examination (general) (routine) without abnormal findings- Primary Encounter for screening mammogram for breast cancer Dense breast tissue documented in this encounter [facility] note* Diagnosis Abnormal finding on radiological examination of breast- Primary Other (abnormal) findings on radiological examination of breast [facility] Abnormal [facility]ogram Abnormal mammogram, unspecified [facility]* Diagnosis Abnormal finding on radiological examination of breast Other (abnormal) findings on radiological examination of breast documented in this [facility]* Diagnosis Burning sensation of skin- Primary documented [facility]* Diagnosis Encounter for gynecological examination (general) (routine) without abnormal findings Encounter for screening mammogram for breast cancer documented [facility] this [facility]* Diagnosis Abnormal mammogram Abnormal mammogram, unspecified documented [facility] this [facility]* Diagnosis Abnormal mammogram Abnormal mammogram, unspecified documented in this encounter [facility] noteNo assessment information availableWRiverside Methodist [facility] Work Phone: [facility]* Diagnosis Encounter for gynecological examination with abnormal finding- Primary Routine gynecological examination Endocervical polyp Mucous polyp of cervix Encounter for screening mammogram for breast cancer Heterogeneously dense tissue of both breasts on mammography 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 documented in this [facility]* Diagnosis Abnormal mammogram Abnormal mammogram, unspecified documented in this [facility]* Diagnosis Endocervical polyp Mucous polyp of cervix documented in this encounter [facility]* Diagnosis Chest pressure- Primary Other chest pain documented in this encounter [facility]* Diagnosis Endocervical polyp- Primary Mucous polyp of cervix Pre-op exam Preoperative examination, unspecified documented in this encounter [facility]* Diagnosis Acute right-sided low back pain without sciatica documented in this encounter [facility]* Diagnosis Cervical pain- Primary Cervicalgia Acute pain of right shoulder documented [facility] this [facility]* Diagnosis Cervical pain Cervicalgia Acute pain of right shoulder documented in this [facility]* Diagnosis Encounter for screening mammogram for breast cancer Heterogeneously dense tissue of both breasts on mammography 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 Progress note No data available for this section [facility] Reason for referral (narrative)* Diagnostic Procedure Only (Routine) - Pending Review Specialty Diagnoses / Procedures Referred By Contac t Referred To Contact [facility] Diagnoses Encounter for screening mammogram for breast cancer Dense breast tissue Procedures MARTY SCREENING W DELFIN SCREENING DIGITAL BREAST TOMOSYNTHESIS BI SCREENING MAMMOGRAPHY BI 2-VIEW BREAST INC Sydni Arzate APRN.ORANGE PEEL OPERATOR [address] [place] [address] [facility] [address] [place] [id number] Referral ID Status Reason Start Date Expiration Date Visits Requested Visits Authorized [id number] Pending Review Auto-Generat ed Referral 05/16/2022 06/15/2023 1 1 [facility] [facility] ([facility] Diagnostic Procedure Only (Routine) - Authorized Specialty Diagnoses / Procedures Referred By Jenniferac alexis Referred To Contact BR IMAG[facility] Diagnoses Abnormal finding on radiological examination of breast Procedures MARTY STEREO BX BREAST LT BX BREAST W/DEVICE 1ST [facility] Ewa Gale MD [address] [place] [address] [facility] [address] [place] [address] Referral ID Status Reason Start Date Expiration Date Visits Requested Visits Authorized [id number] Authorized Auto-Generat ed Referral 06/28/2022 07/28/2023 1 1 [facility] for referral (narrative)* Diagnostic Procedure Only (Routine) - Closed Specialty Diagnoses / Procedures Referred By Contac t Referred To Contact [facility] Diagnoses Abnormal finding on radiological examination of breast Procedures MARTY STEREO BX BREAST LT BX BREAST W/DEVICE 1ST [facility] Ewa Gale MD [address] [place] [address] [facility] Imaging [address] [place] [address] Referral ID Status Reason Start Date Expiration Date V isits Requested Visits Authorized [id number] Closed Auto-Generate d Referral 06/28/2022 07/28/2023 1 1 [facility] for referral (narrative)* Diagnostic Procedure Only (Routine) - Closed Specialty Diagnoses / Procedures Referred By Cassius t Referred To Contact [facility] IMAG[facility] Diagnoses Encounter for gynecological examination (general) (routine) without abnormal findings Encounter for screening mammogram for breast cancer Procedures MARTY SCREENING SCREENING MAMMOGRAPHY BI 2-VIEW BREAST INC CAD Sydni Munoz APRN.ORANGE PEEL OPERATOR [address] [place] [address] [facility] [address] [place] [address] Referral ID Status Reason Start Date Expiration Date V isits Requested Visits Authorized [id number] Closed Auto-Generate d Referral 05/10/2021 06/09/2022 1 1 [facility] for referral (narrative)* Diagnostic Procedure Only (Routine) - Closed Specialty Diagnoses / Procedures Referred By Cassius espinoza Referred To Contact [facility] Diagnoses Abnormal mammogram Procedures US BREAST LTD LT US BREAST UNI REAL TIME WITH IMAGE LIMITED Sydni Munoz APRN.ORANGE PEEL OPERATOR [address] [place] [address] [facility] [address] [place] [address] Referral ID Status Reason Start Date Expiration Date V isits Requested Visits Authorized [id number] Closed Auto-Generate d Referral 05/17/2022 06/16/2023 1 1 [facility] for referral (narrative)* Diagnostic Procedure Only (Routine) - Authorized Specialty Diagnoses / Procedures Referred By Contac t Referred To Contact [facility] Diagnoses Endocervical polyp Procedures PELVIC US WHI US PELVIC NONOBSTETRIC REAL-TIME IMAGE COMPLETE Sydni Munoz APRN.ORANGE PEEL OPERATOR [address] [place] [address] [facility] [address] [place] [address] Referral ID Status Reason Start Date Expiration Date Visits Requested Visits Authorized [id number] Authorized Auto-Generat ed Referral 07/20/2023 07/19/2024 1 [...] BI 2-VIEW BREAST INC CAD Sydni Munoz APRN.ORANGE PEEL OPERATOR [address] [place] [address] [facility] [address] [place] [address] Referral ID Status Reason Start Date Expiration Date Visits Requested Visits Authorized [id number] Pending Review Auto-Generat ed Referral 07/20/2023 08/18/2024 1 1 [facility] for referral (narrative)* Diagnostic Procedure Only (Urgent) - Closed Specialty Diagnoses / Procedures Referred By Cassius espinoza Referred To Contact XR IMAGING Diagnoses Acute bilateral low back pain without sciatica Procedures XR LUMBAR GENERAL 3V AP/LAT/L5-S1 RADEX SPINE LUMBOSACRAL 2/3 VIEWS Lennie South PA-C [address] [place] [address] [place] [address] Referral ID Status Reason Start Date Expiration Date V isits Requested Visits Authorized [id number] Closed Auto-Generate d Referral 02/20/2022 03/22/2023 1 1 [facility] for referral (narrative)* Diagnostic Procedure Only (Urgent) - New Request Specialty Diagnoses / Procedures Referred By Contac t Referred To Contact XR IMAGING Diagnoses Cervical pain Acute pain of right shoulder Procedures XR CERV OTHER 4V AP/LAT/OBL RADEX SPINE CERVICAL 4 OR 5 VIEWS Kassandra Cabello PA [address] [place] [address] [place] [address] Referral ID Status Reason Start Date Expiration Date Visits Requested Visits Authorized [id number] New Request Auto-Generat ed Referral 4 03/24/2025 1 1 * Diagnostic Procedure Only (Urgent) - New Request Specialty Diagnoses / Procedures Referred By Contac t Referred To Contact XR IMAGING Diagnoses Cervical pain Acute pain of right shoulder Procedures XR SHOULDER GENERAL 3V OR MORE AP/TRUE AP/OTHER RIGHT RADEX SHOULDER COMPLETE MINIMUM 2 VIEWS Kassandra Cabello PA [address] [place] [address] [place] [address] Referral ID Status Reason Start Date Expiration Date Visits Requested Visits Authorized [id number] New Request Auto-Generat ed Referral 03/24/2025 1 1 [facility] for referral (narrative)* Diagnostic Procedure Only (Urgent) - Closed Specialty Diagnoses / Procedures Referred By Contac t Referred To Contact XR IMAGING Diagnoses Cervical pain Acute pain of right shoulder Procedures XR CERV OTHER 4V AP/LAT/OBL RADEX SPINE CERVICAL 4 OR 5 VIEWS Kassandra Cabello PA [address] [place] [address] [place] [address] Referral ID Status Reason Start Date Expiration Date V isits Requested Visits Authorized [id number] Closed Auto-Generate d Referral 02/23/2024 03/24/2025 1 1 * Diagnostic Procedure Only (Urgent) - Closed Specialty Diagnoses / Procedures Referred By Contac t Referred To Contact XR IMAGING Diagnoses Cervical pain Acute pain of right shoulder Procedures XR SHOULDER GENERAL 3V OR MORE AP/TRUE AP/OTHER RIGHT RADEX SHOULDER COMPLETE MINIMUM 2 VIEWS Kassandra Cabello PA [address] [place] [address] Xr Imaging [place] [address] Referral ID Status Reason Start Date Expiration Date V isits Requested Visits Authorized [id number] Closed Auto-Generate d Referral 02/23/2024 03/24/2025 1 1 [facility] for referral (narrative)No reason for referral information availableWRiverside [facility] N[facility]* Diagnostic Procedure Only (Routine) - Closed Specialty Diagnoses / Procedures Referred By Contac t Referred To Contact [facility] Diagnoses Abnormal mammogram Procedures US BIOPSY BREAST LT BX BREAST W/DEVICE 1ST [facility] ULTRASOUND GUID Burt Lenz MD [address] [place] [address] Br Imaging [address] [place], [place] [id number] Referral ID Status Reason Start Date Expiration Date V isits Requested Visits Authorized [id number] Closed Auto-Generate d Referral 06/14/2022 07/14/2023 1 1 [facility] for visit Narrative* Diagnostic Procedure Only (Routine) - Closed Specialty Diagnoses / Procedures Referred By Contac t Referred To Contact [facility] Diagnoses Abnormal finding on radiological examination of breast Procedures MARTY STEREO BX BREAST LT BX BREAST W/DEVICE 1ST [facility] GUID Ewa Olivo MD [address] [place] [address] Br Imaging [address] [place], [place] [id number] Referral ID Status Reason Start Date Expiration Date V isits Requested Visits Authorized [id number] Closed Auto-Generate d Referral 06/28/2022 07/28/2023 1 1 [facility] for visit Narrative* Diagnostic Procedure Only (Routine) - Closed Specialty Diagnoses / Procedures Referred By Cassius t Referred To Contact [facility] Diagnoses Encounter for gynecological examination (general) (routine) without abnormal findings Encounter for screening mammogram for breast cancer Procedures MARTY SCREENING SCREENING MAMMOGRAPHY BI 2-VIEW BREAST INC CAD Sydni Munoz APRN.ORANGE PEEL OPERATOR [address] [place] [address] [facility] [address] [place] [address] Referral ID Status Reason Start Date Expiration Date V isits Requested Visits Authorized [id number] Closed Auto-Generate d Referral 05/10/2021 06/09/2022 1 1 [facility] for visit Narrative* Diagnostic Procedure Only (Routine) - Closed Specialty Diagnoses / Procedures Referred By Cassius t Referred To Contact [facility] Diagnoses Abnormal mammogram Procedures MARTY DIAGNOSTIC LT DIAGNOSTIC MAMMOGRAPHY COMPUTER-AIDED DETCJ UNI Sydni Munoz APRN.ORANGE PEEL OPERATOR [address] [place] [address] [facility] Imaging [address] [place] [address] Referral ID Status Reason Start Date Expiration Date V isits Requested Visits Authorized [id number] Closed Auto-Generate d Referral 05/17/2022 06/16/2023 1 1 [facility] for visit Narrative* Diagnostic Procedure Only (Routine) - Closed Specialty Diagnoses / Procedures Referred By Cassius espinoza Referred To Contact [facility] Diagnoses Abnormal mammogram Procedures US BREAST LTD LT US BREAST UNI REAL TIME WITH IMAGE LIMITED Sydni Munoz APRN.ORANGE PEEL OPERATOR [address] [place] [address] [facility] [address] [place] [address] Referral ID Status Reason Start Date Expiration Date V isits Requested Visits Authorized [id number] Closed Auto-Generate d Referral 05/17/2022 06/16/2023 1 1 [facility] for visit Narrative* Diagnostic Procedure Only (Routine) - Closed Specialty Diagnoses / Procedures Referred By Contac t Referred To Contact [facility] Diagnoses Abnormal mammogram Procedures MARTY DIAGNOSTIC BILATERAL DIAGNOSTIC MAMMOGRAPHY COMPUTER-AIDED DETCJ BI Syndi Munoz APRN.ORANGE PEEL OPERATOR [address] [place] [address] [facility] [address] [place] [address] Referral ID Status Reason Start Date Expiration Date V isits Requested Visits Authorized [id number] Closed Auto-Generate d Referral 07/25/2023 02/23/2024 1 1 [facility] for visit Narrative* Diagnostic Procedure Only (Urgent) - Closed Specialty Diagnoses / Procedures Referred By Cassius espinoza Referred To Contact XR IMAGING Diagnoses Acute bilateral low back pain without sciatica Procedures XR LUMBAR GENERAL 3V AP/LAT/L5-S1 RADEX SPINE LUMBOSACRAL 2/3 VIEWS Lennie South PA-C [address] [place] [address] [place] [address] Referral ID Status Reason Start Date Expiration Date V isits Requested Visits Authorized [id number] Closed Auto-Generate d Referral 02/20/2022 03/22/2023 1 1 [facility] for visit Narrative* Diagnostic Procedure Only (Urgent) - Closed Specialty Diagnoses / Procedures Referred By Cassius t Referred To Contact XR IMAGING Diagnoses Cervical pain Acute pain of right shoulder Procedures XR CERV OTHER 4V AP/LAT/OBL RADEX SPINE CERVICAL 4 OR 5 VIEWS Kassandra Cabello PA [address] [place] [address] [place] [address] Referral ID Status Reason Start Date Expiration Date V isits Requested Visits Authorized [id number] Closed Auto-Generate d Referral 02/23/2024 03/24/2025 1 1 [facility] for visit Narrative* Diagnostic Procedure Only (Routine) - Closed Specialty Diagnoses / Procedures Referred By Cassius t Referred To Contact [facility] Diagnoses Encounter for screening mammogram for breast cancer Heterogeneously dense tissue of both breasts on mammography Pseudoangiomatous stromal hyperplasia of breast Procedures MARTY SCREENING W DELFIN SCREENING DIGITAL BREAST TOMOSYNTHESIS BI SCREENING MAMMOGRAPHY BI 2-VIEW BREAST INC CAD Sydni Munoz, UI DESIGNER.ORANGE PEEL OPERATOR [address] [place] [address] [facility] [address] [place] [address] Referral ID Status Reason Start Date Expiration Date V isits Requested Visits Authorized [id number] Closed Auto-Generate d Referral 07/20/2023 08/18/2024 1 1 [facility] Chief Complaint and Reason for Visit [...] September 21, 2017 1 0:36am Power of X Ray Technician No September 21, 2017 10:36am Advance Directive Response Recorded Date/ Time Living Will No May 28 1:29am Power of X Ray Technician No May 28, 2023 1:29am Advance Directive Response Recorded Date/ Time Name of Medical Power of X Ray Technician Tc buenrostro August 21, 2023 7:10pm Living Will Yes August 21, 2023 7:10pm Power of X Ray Technician Yes August 20 7:10pm Advance Directive Response Recorded Date/ Time Do you have a Healthcare Power of X Ray Technician? No September 16, 2024 4:30pm Assessments No [...] or prosecute any alcohol or drug abuse patient.[facility] the event this information is protected by the Federal Confidentiality of Alcohol and Drug Abuse Patient Records regulations: The Federal rules restrict any use of the information to criminally investigate or prosecute any alcohol or drug abuse patient.[facility] HospitalIn the event this information is protected by the Federal Confidentiality of Alcohol and Drug Abuse Patient Records regulations: The Federal rules restrict any use of the information to criminally investigate or prosecute any alcohol or drug abuse patient.[facility] HospitalIn the event this information is protected by the Federal Confidentiality of Alcohol and Drug Abuse Patient Records regulations: The Federal rules restrict any use of the information to criminally investigate or prosecute any alcohol or drug abuse patient.[facility] HospitalIn the event this information is protected by the Federal Confidentiality of Alcohol and Drug Abuse Patient Records regulations: The Federal rules restrict any use of the information to criminally investigate or prosecute any alcohol or drug abuse patient.[facility] HospitalIn the event this information is protected by the Federal Confidentiality of Alcohol and Drug Abuse Patient Records regulations: The Federal rules restrict any use of the information to criminally investigate or prosecute any alcohol or drug abuse patient.[facility] HospitalIn the event this information is protected by the Federal Confidentiality of Alcohol and Drug Abuse Patient Records regulations: The Federal rules restrict any use of the information to criminally investigate or prosecute any alcohol or drug abuse patient.[facility] HospitalIn the event this information is protected by the Federal Confidentiality of Alcohol and Drug Abuse Patient Records regulations: The Federal rules restrict any use of the information to criminally investigate or prosecute any alcohol or drug abuse patient.[facility] HospitalIn the event this information is protected by the Federal Confidentiality of Alcohol and Drug Abuse Patient Records regulations: The Federal rules restrict any use of the information to criminally investigate or prosecute any alcohol or drug abuse patient.[facility] HospitalIn the event this information is protected by the Federal Confidentiality of Alcohol and Drug Abuse Patient Records regulations: The Federal rules restrict any use of the information to criminally investigate or prosecute any alcohol or drug abuse patient.[facility] HospitalIn the event this information is protected by the Federal Confidentiality of Alcohol and Drug Abuse Patient Records regulations: The Federal rules restrict any use of the information to criminally investigate or prosecute any alcohol or drug abuse patient.[facility] HospitalIn the event this information is protected by the Federal Confidentiality of Alcohol and Drug Abuse Patient Records regulations: The Federal rules restrict any use of the information to criminally investigate or prosecute any alcohol or drug abuse patient.[facility] HospitalIn the event this information is protected by the Federal Confidentiality of Alcohol and Drug Abuse Patient Records regulations: The Federal rules restrict any use of the information to criminally investigate or prosecute any alcohol or drug abuse patient.[facility] HospitalIn the event this information is protected by the Federal Confidentiality of Alcohol and Drug Abuse Patient Records regulations: The Federal rules restrict any use of the information to criminally investigate or prosecute any alcohol or drug abuse patient.[facility] HospitalIn the event this information is protected by the Federal Confidentiality of Alcohol and Drug Abuse Patient Records regulations: The Federal rules restrict any use of the information to criminally investigate or prosecute any alcohol or drug abuse patient.[facility] HospitalIn the event this information is protected by the Federal Confidentiality of Alcohol and Drug Abuse Patient Records regulations: The Federal rules restrict any use of the information to criminally investigate or prosecute any alcohol or drug abuse patient.[facility] HospitalIn the event this information is protected by the Federal Confidentiality of Alcohol and Drug Abuse Patient Records regulations: The Federal rules restrict any use of the information to criminally investigate or prosecute any alcohol or drug abuse patient.[facility] HospitalIn the event this information is protected by the Federal Confidentiality of Alcohol and Drug Abuse Patient Records regulations: The Federal rules restrict any use of the information to criminally investigate or prosecute any alcohol or drug abuse patient.[facility] HospitalIn the event this information is protected by the Federal Confidentiality of Alcohol and Drug Abuse Patient Records regulations: The Federal rules restrict any use of the information to criminally investigate or prosecute any alcohol or drug abuse patient.[facility] HospitalIn the event this information is protected by the Federal Confidentiality of Alcohol and Drug Abuse Patient Records regulations: The Federal rules restrict any use of the information to criminally investigate or prosecute any alcohol or drug abuse patient.[facility] HospitalIn the event this information is protected by the Federal Confidentiality of Alcohol and Drug Abuse Patient Records regulations: The Federal rules restrict any use of the information to criminally investigate or prosecute any alcohol or drug abuse patient.[facility] HospitalIn the event this information is protected by the Federal Confidentiality of Alcohol and Drug Abuse Patient Records regulations: The Federal rules restrict any use of the information to criminally investigate or prosecute any alcohol or drug abuse patient.[facility] HospitalIn the event this information is protected by the Federal Confidentiality of Alcohol and Drug Abuse Patient Records regulations: The Federal rules restrict any use of the information to criminally investigate or prosecute any alcohol or drug abuse patient.[facility] HospitalIn the event this information is protected by the Federal Confidentiality of Alcohol and Drug Abuse Patient Records regulations: The Federal rules restrict any use of the information to criminally investigate or prosecute any alcohol or drug abuse patient.[facility] HospitalIn the event this information is protected by the Federal Confidentiality of Alcohol and Drug Abuse Patient Records regulations: The Federal rules restrict any use of the information to criminally investigate or prosecute any alcohol or drug abuse patient.[facility] Reason for Visit (unrecogniz ed section and content) Reason Comments Results Reason Comments Results, Lab Reason Comments Well Woman Reason Comments Derm Problem Bug bite R thigh and rash on back with bite x 1.5 wks Reason Comments Well Woman Reason Comments Other polyp Specialty Diagnoses / Procedures Referred By Cassius espinoza Referred To Contact [facility] Diagnoses Endocervical polyp Procedures PELVIC US WHI US PELVIC NONOBSTETRIC REAL-TIME IMAGE COMPLETE Sydni Munoz APRN.ORANGE PEEL OPERATOR [address] [place] [address] [facility] [address] [place] [address] Referral ID Status Reason Start Date Expiration Date V isits Requested Visits Authorized [id number] Closed Auto-Generate d Referral 07/20/2023 07/19/2024 1 1 Reason Comments Pain (Shoulder Pain) chest to shoulder p ain left side and left thigh pain x 3 days Reason Comments Pre-Op Exam Reason Comments right shoulder and neck pain X several m onths Reason Comments Trauma Insect bite/sting on right forearm x 1 day Care Teams (unrecognized sec tion and content) Medicaid Service Coordinator Relationship Specialty Start Date End Date Tameka Garcia APRN.ORANGE PEEL OPERATOR [address] [place] [address] PCP - General Family Medicine 02/20/22 Medicaid Service Coordinator Relationship Specialty Start Date End Date Tameka Garcia APRN.ORANGE PEEL OPERATOR [address] [facility] [place] [address] PCP - General Family Medicine 02/20/22 Medicaid Service Coordinator Relationship Specialty Start Date End Date Tameka Garcia APRN.ORANGE PEEL OPERATOR [address] [facility] [place] [address] PCP - General Family Medicine 02/20/22 Medicaid Service Coordinator Relationship Specialty Start Date End Date Tameka Garcia APRN.ORANGE PEEL OPERATOR [address] [facility] [place] [address] PCP - General Family Medicine 02/20/22 Medicaid Service Coordinator Relationship Specialty Start Date End Date Tameka Garcia APRN.ORANGE PEEL OPERATOR [address] [facility] [place] [address] PCP - General Family Medicine 02/20/22 Medicaid Service Coordinator Relationship Specialty Start Date End Date Tameka Garcia, UI DESIGNER.ORANGE PEEL OPERATOR [address] [place] [address] PCP - General Family Medicine 02/20/22 Medicaid Service Coordinator Relationship Specialty Start Date End Date Tameka Garcia, UI DESIGNER.ORANGE PEEL OPERATOR [address] [place] [address] PCP - General Family Medicine 02/20/22 Medicaid Service Coordinator Relationship Specialty Start Date End Date Tameka Garcia, UI DESIGNER.ORANGE PEEL OPERATOR [address] [place] [address] PCP - General Family Medicine 02/20/22 Team Status: Active Member Role Status Dates Dr. Sydni Mathis MD Family Provider Active Raysa Wong NO BAKE MOLDER, NO BAKE MOLDER-C Primary Care Provider Activ e Team Status: Inactive Member Role Status Dates Dr. Tc Polo DO Emergency Provider Active Raysa Wong NO BAKE MOLDER, NO BAKE MOLDER-C Primary Care Provider Activ e Medicaid Service Coordinator Relationship Specialty Start Date End Date Raysa Wong CNP [address] [place] [address] [place] [address] PCP - General Family Medicine 07/20/23 Medicaid Service Coordinator Relationship Specialty Start Date End Date Raysa Wong CNP [address] [place] [address] [place] [address] PCP - General Family Medicine 07/20/23 Medicaid Service Coordinator Relationship Specialty Start Date End Date Raysa Wong CNP [address] [place] [address] PCP - General Family Medicine 07/20/23 Team Status: Inactive Member Role Status Dates Dr. Tc Polo , DO Attending Provider, Emergency P chichi Active Raysa Wong NO BAKE MOLDER, NO BAKE MOLDER-C Primary Care Provider Activ e Team Status: Inactive Member Role Status Dates Raysa Wong NO BAKE MOLDER, NO BAKE MOLDER-C Primary Care Provider Activ e Dr. Donald Holguin , DO Emergency Provider Active Medicaid Service Coordinator Relationship Specialty Start Date End Date Raysa Wong CNP [address] [place] [address] PCP - General Family Medicine 07/20/23 Medicaid Service Coordinator Relationship Specialty Start Date End Date Raysa Wong CNP [address] [place] [address] PCP - General Family Medicine 07/20/23 Medicaid Service Coordinator Relationship Specialty Start Date End Date Tameka Garcia APRN.CNP [address] [place] [address] PCP - General Family Medicine 02/20/22 07/19/23 Medicaid Service Coordinator Relationship Specialty Start Date End Date Raysa Wong CNP [address] [place] [address] PCP - General Family Medicine 07/20/23 Medicaid Service Coordinator Relationship Specialty Start Date End Date Raysa Wong CNP [address] [place] [address] PCP - General Family Medicine 07/20/23 Medicaid Service Coordinator Relationship Specialty Start Date End Date Raysa Wong CNP [address] [place] [address] PCP - General Family Medicine 07/20/23 Medicaid Service Coordinator Relationship Specialty Start Date End Date Raysa Wong CNP [address] [place] [address] PCP - General Family Medicine 07/20/23 Team Status: Active Member Role Status Dates Raysa Wong NP, NO BAKE MOLDER-C Primary Care Provider Activ e Team Status: Inactive Member Role Status Dates Raysa Wong NP, NO BAKE MOLDER-C Primary Care Provider Activ e Start: June 03, 2024 End: June 03, 2024 Raysa Wong NP, NO BAKE MOLDER-C Referring Provider Active Start: June 03, 2024 End: June 03, 2024 Dr. Mikey Solares DO Attending Provider Active Start: June 03, 2024 End: June 03, 2024 Team Status: Inactive Member Role Status Dates Raysa Wong NP, NO BAKE MOLDER-C Primary Care Provider Activ e Start: August 13, 2024 End: August 13, 2024 Raysa Wong NP, NO BAKE MOLDER-C Referring Provider Active Start: August 13, 2024 End: August 13, 2024 LORA Baltazar Attending Provider Active Start: August 13, 2024 End: August 13, 2024 Team Status: Inactive Member Role Status Dates Raysa Wong NP, NO BAKE MOLDER-C Primary Care Provider Activ e Start: September 16, 2024 End: September 16, 2024 Bhupendra Gonzalez MD Emergency Provider Active Star t: September 16, 2024 End: September 16, 2024 Team Status: Active Member Role/Relationship Status Dates Raysa Wong NP, NO BAKE MOLDER-C Primary Care Provider Activ e Team Status: Inactive Member Role/Relationship Status Dates Raysa Wong NO BAKE MOLDER, NO BAKE MOLDER-C Primary Care Provider Activ e Start: August 13, 2024 End: August 13, 2024 Raysa Wong NO BAKE MOLDER, NO BAKE MOLDER-C Referring Provider Active Start: August 13, 2024 End: August 13, 2024 LORA Baltazar Attending Provider Active Start: August 13, 2024 End: August 13, 2024 Team Status: Inactive Member Role/Relationship Status Dates Raysa Wong NP, NO BAKE MOLDER-C Primary Care Provider Activ e Start: September 16, 2024 End: September 16, 2024 Bhupendra Gonzalez MD Attending Provider Active Star t: September 16, 2024 End: September 16, 2024 Bhupendra Gonzalez MD Emergency Provider Active Star t: September 16, 2024 End: September 16, 2024 Team Status: Inactive Member Role/Relationship Status Dates Raysa Wong NO BAKE MOLDER, NO BAKE MOLDER-C Primary Care Provider Activ e Start: December 01, 2024 End: December 01, 2024 Raysa Wong NO BAKE MOLDER, NO BAKE MOLDER-C Referring Provider Active Start: December 01, 2024 End: December 01, 2024 Dr. Mikey Solares , DO Attending Provider Active Start: December 01, 2024 End: December 01, 2024 Medicaid Service Coordinator Relationship Specialty Start Date End Date Raysa Wong CNP [address] [place] [id number] PCP - General Family Medicine 07/20/23 Care Team (unrecognized sect ion and content) Care Team Personnel Name: TAMEKA GARCIA Position: P4 Advanced Practice Nurse Member Role: Primary Care Physician Address: Address: [address] [place] [phone]- Care Team Related Persons Name: TC DODD INFORMATION SOURCE (unrecogn ized section and content) DATE CREATED AUTHOR 06/29/2022 [facility] DATE CREATED AUTHOR AUTHOR'S ORGANIZ ATION 01/07/2024 [facility] ([place]) DATE CREATED AUTHOR AUTHOR'S ORGANIZ ATION 12/23/2024 [facility] DATE CREATED AUTHOR AUTHOR'S ORGANIZ ATION 02/05/2025 [facility] DATE CREATED AUTHOR AUTHOR'S ORGANIZ ATION 02/05/2025 [facility] Goals (unrecognized section and content) Goals may [...] BE BASED ON THE PRIMARY CLINICAL RECORDS. [facility] [employer] provides no warranty or guarantee of the accuracy or completeness of information in this document.
== END | disposition home or self-care (01) ==
LOC: US 07:39
PROVIDERS: PCP Registered Nurse; Referring Provider Internal Medicine Gastroenterology; Visit Provider Internal Medicine Gastroenterology
DX: K76.0 Fatty (change of) liver, not elsewhere classified (principal)
CPT/HCPCS: 76981

== ENCOUNTER → 2025-03-18 | Outpatient (CLI) | payer OTHER, SELFPAY ==
[2025-03-18 11:52] LABS: Hematocrit 42.9 % (37-47); Hemoglobin 13.0 g/dL (12.0-15.0); Immature Granulocytes Count 0.020 X10^3/uL (0.0-0.0); Mean Corp Hgb Conc 30.3 g/dL (32-36); Mean Corpuscular Volume 79.9 fL (81-99); Mean Platelet Vol. 10.1 fl (6.2-12.0); NRBC Flagged by Analyzer 0 % (0-5); POSITIVE MORPHOLOGY YES; Platelet Count 252 K/mm3 (150-450); Red Blood Count 5.37 M/mm3 (4.2-5.4); White Blood Count 6.5 K/mm3 (4.4-11.0)
[2025-03-18 12:21] LABS: Differential Indicated SCAN CRITERIA MET
[2025-03-18 12:23] LABS: Differential Comment SCANNED; Microcytosis 1+
[2025-03-18 12:24] LABS: Anisocytosis 3+
[2025-03-18 12:29] LABS: AST(SGOT) 21 U/L (<=31); Alanine Aminotransfer ALT/SGPT 22 U/L (<=34); Albumin, Serum 4.0 g/dL (3.5-5.0); Alkaline Phosphatase 81 U/L (35-104); Anion Gap 13 (5-15); BUN 17 mg/dL (4-19); BUN/Creat Ratio 23.6 RATIO (10-20); Calcium,Total 9.0 mg/dL (7.6-11.0); Carbon Dioxide 25.0 mmol/L (21.0-32.0); Chloride 102 mmol/L (98-108); Globulin 3.1 g/dL (2.2-4.2); Glucose 96 mg/dL (70-99); Potassium 4.1 mmol/L (3.3-5.1)
== END | disposition home or self-care (01) ==
LOC: LAB 10:19
PROVIDERS: PCP Registered Nurse; Referring Provider Student in an Organized Health Care Education/Training Program; Visit Provider Student in an Organized Health Care Education/Training Program
DX: K80.20 Calculus of gallbladder without cholecystitis without obstruction (principal)
CPT/HCPCS: 36415; 80053; 85025

== ENCOUNTER 2025-03-23 05:59 | Day surgery (SDC) | payer OTHER, SELFPAY ==
--- OUTSIDE RECORDS SUMMARY | 2025-03-23 06:02 | XMS RPT_ITS | CCD ---
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 syndrome Pelvic pain Anemia Migraine Surgical History History of hysteroscopy Family History Mother High cholesterol Rheumatic arteritis Diabetes Lung disease due to connective tissue disorder Grandmother Diabetes Uterine cancer Social History Smoking Status: Never smoker alcohol intake: never HPI HPI Chief Complaint: abd pain Details: GLADYS LONG DELMY, is a 49 F who presents to the office today [...] duodenum. Biopsied. HIDA 02.07.24 normal 86% GET 10.30.24 normal 34.15 minutes OV 11.24 pt reports that her nausea and gas/bloating have improved since starting Nexium. Pt reports that she will still occasionally get nausea in the middle of the night and some gas pressure in her chest. Pt requesting to review test results to determine next steps in plan of care. MRCP 05.06.24 Cholelithiasis. OV 125 pt reports constant sharp/stabbing pain on her [...] duodenum. Biopsied. HIDA 02.07.24 normal 86% GET 10.30.24 normal 34.15 minutes OV 11.24 pt reports that her nausea and gas/bloating [...] symptoms of concern at this time. OV 08.13.24 Pt doing well. She has no GI complaints at this time. OV 12.01.24 pt reports that she is feeling well overall and (more content not included)... Normal [facility] .Auto Diffon 03-10-2025 Basophil, Absolute 0.1 10 3/mcL Normal 0.0-0.3 [facility] Comment on above: Performed By: #### F ERR, MORPH, FE, ANEU, CBC, ADIFF #### [address] [address] Basophils/100 WBC (Bld) 1.2 % Normal 0.0-2.5 [facility] Comment on above: Performed By: #### F ERR, MORPH, FE, ANEU, CBC, ADIFF #### [address] [address] Eosinophil, Absolute 0.1 10 3/mcL Normal 0.0-0.7 [facility] Comment on above: Performed By: #### F ERR, MORPH, FE, ANEU, CBC, ADIFF #### [address] [address] Eosinophils/100 WBC (Bld) 2.2 % Normal 0.0-6.0 [facility] Comment on above: Performed By: #### F ERR, MORPH, FE, ANEU, CBC, ADIFF #### [address] [address] Lymphocyte, Absolute 1.6 10 3/mcL Normal 0.9-4.3 [facility] Comment on above: Performed By: #### F ERR, MORPH, FE, ANEU, CBC, ADIFF #### [address] [address] Lymphocytes/100 WBC (Bld) 34.8 % Normal 20.0-40.0 [facility] Comment on above: Performed By: #### F ERR, MORPH, FE, ANEU, CBC, ADIFF #### [address] [address] Monocyte, Absolute 0.4 10 3/mcL Normal 0.1-1.4 [facility] Comment on above: Performed By: #### F ERR, MORPH, FE, ANEU, CBC, ADIFF #### [address] [address] Monocytes/100 WBC (Bld) 7.6 % Normal 2.0-13.0 [facility] Comment on above: Performed By: #### F ERR, MORPH, FE, ANEU, CBC, ADIFF #### [address] [address] Neutrophils/100 WBC (Bld) 54.2 % Normal 50.0-75.0 [facility] Comment on above: Performed By: #### F ERR, MORPH, FE, ANEU, CBC, ADIFF #### [address] [address] .Morphon 03-10-2025 Anisocytosis Ql (Bld) 1+ Normal [facility] Comment on above: Performed By: #### M G, LIPID, BMP, GFR #### [address] [address] Microcytosis 2+ Normal [facility] Comment on above: Performed By: #### M G, LIPID, BMP, GFR #### [address] [address] Ovalocytes 1+ Normal [facility] Comment on above: Performed By: #### M G, LIPID, BMP, GFR #### [address] [address] Platelet Estimate Normal Normal [facility] Comment on above: Performed By: #### M G, LIPID, BMP, GFR #### [address] [address] Poik 1+ Normal [facility] Comment on above: Performed By: #### M G, LIPID, BMP, GFR #### [place] [address] .NEUABSon 03-10-2025 Neutrophil, Absolute 2.5 10 3/mcL Normal 2.3-8.1 [facility] Comment on above: Performed By: #### F ERR, MORPH, FE, ANEU, CBC, ADIFF #### [place] [id number] CBCon 03-10-2025 Erythrocyte distribution width (RBC) [Ratio] 31.6 % High 11.5-15.5 [facility] Comment on above: Performed By: #### F ERR, MORPH, FE, ANEU, CBC, ADIFF #### [place] [address] Hematocrit (Bld) [Volume fraction] 39.7 % Normal 34.0-46.0 [facility] Comment on above: Performed By: #### F ERR, MORPH, FE, ANEU, CBC, ADIFF #### [place] [address] Hgb 12.4 G/dL Normal 12.0-16.0 [facility] Comment on above: Performed By: #### F ERR, MORPH, FE, ANEU, CBC, ADIFF #### [place] [address] MCH (RBC) [Entitic mass] 23.3 pg Low 27.0-33.0 [facility] Comment on above: Performed By: #### F ERR, MORPH, FE, ANEU, CBC, ADIFF #### [place] [address] MCHC 31.1 G/dL Low 32.0-36.0 [facility] Comment on above: Performed By: #### F ERR, MORPH, FE, ANEU, CBC, ADIFF #### [place] [address] MCV (RBC) [Entitic vol] 75.0 fL Low 80.0-99.0 [facility] Comment on above: Performed By: #### F ERR, MORPH, FE, ANEU, CBC, ADIFF #### [address] [address] Platelet 286 10 3/mcL Normal 150-450 [facility] Comment on above: Performed By: #### F ERR, MORPH, FE, ANEU, CBC, ADIFF #### [address] [address] Platelet mean volume (Bld) [Entitic vol] 8.4 fL Normal 6.6-10.5 [facility] Comment on above: Performed By: #### F ERR, MORPH, FE, ANEU, CBC, ADIFF #### [place] [address] RBC 5.29 10 6/mcL Normal 4.10-5.30 [facility] Comment on above: Performed By: #### F ERR, MORPH, FE, ANEU, CBC, ADIFF #### [place] [address] WBC 4.7 10 3/mcL Normal 4.5-10.8 [facility] Comment on above: Performed By: #### F ERR, MORPH, FE, ANEU, CBC, ADIFF #### [place] [address] FEon 03-10-2025 Iron [Mass/Vol] 32 ug/dL Low 50-170 [facility] Comment on above: Performed By: #### F ERR, MORPH, FE, ANEU, CBC, ADIFF #### [place] [address] Deepak 03-10-2025 Ferritin [Mass/Vol] 36.0 ng/mL Normal 8.0-252.0 [facility] Comment on above: Performed By: #### F ERR, MORPH, FE, ANEU, CBC, ADIFF #### [place] [address] LABORATORYOrdered By: Ifrah Saavedra on 03-10-2025 Anisocytosis Ql (Bld) 1+ (03/10/25 10:12 AM) Normal [facility] S Microcytes Ql (Bld) 2+ (03/10/25 10:12 AM) Normal [facility] S Ovalocytes LM Ql (Bld) 1+ (03/10/25 10:12 AM) Normal [facility] S Platelets LM Ql (Bld) Normal (03/10/25 10:12 AM) Normal [facility] S Poikilocytosis LM Ql (Bld) 1+ (03/10/25 10:12 AM) Normal [facility] S LABORATORYOrdered By: SYSTEM SYSTEM on 03-10-2025 Basophils (Bld) [#/Vol] 0.1 103/mcL Normal 0.0 - 0.3 10^3/mcL AO Workflow SS Basophils/100 WBC (Bld) 1.2 % Normal 0.0 - 2.5 % AO Workflow SS Eosinophil, Absolute 0.1 103/mcL Normal 0.0 - 0 .7 10^3/mcL AO Workflow SS Eosinophils/100 WBC (Bld) 2.2 % Normal 0.0 - 6.0 % AO Workflow SS Erythrocyte distribution width (RBC) [Ratio] 31.6 % High 11.5 - 15.5 % AO Workflow SS Ferritin [Mass/Vol] 36.0 ng/mL Normal 8.0 - 252.0 ng/mL AO ADM SS Hematocrit (Bld) [Volume fraction] 39.7 % Normal 34.0 - 46.0 % AO Workflow SS Hemoglobin (Bld) [Mass/Vol] 12.4 G/dL Normal 12.0 - 16.0 G/dL AO Workflow SS Iron [Mass/Vol] 32 ug/dL Low 50 - 170 mcg/dL AO ADM SS Lymphocytes (Bld) [#/Vol] 1.6 103/mcL Normal 0.9 - 4.3 10^3/mcL AO Workflow SS Lymphocytes/100 WBC (Bld) 34.8 % Normal 20.0 - 40.0 % AO Workflow SS MCH (RBC) [Entitic mass] 23.3 pg Low 27.0 - 33.0 pg AO Workflow SS MCHC 31.1 G/dL Low 32.0 - 36.0 G/dL AO Workflow SS MCV (RBC) [Entitic vol] 75.0 fL Low 80.0 - 99.0 fL AO Workflow SS Monocytes (Bld) [#/Vol] 0.4 103/mcL Normal 0.1 - 1.4 10^3/mcL AO Workflow SS Monocytes/100 WBC (Bld) 7.6 % Normal 2.0 - 13.0 % AO Workflow SS Neutrophils (Bld) [#/Vol] 2.5 103/mcL Normal 2.3 - 8.1 10^3/mcL AO Workflow SS Neutrophils/100 WBC (Bld) 54.2 % Normal 50.0 - 75.0 % AO Workflow SS Platelet mean volume (Bld) [Entitic vol] 8.4 fL Normal 6.6 - 10.5 fL AO Workflow SS Platelets (Bld) [#/Vol] 286 103/mcL Normal 150 - 450 10^3/mcL AO Workflow SS RBC (Bld) [#/Vol] 5.29 106/mcL Normal 4.10 - 5.30 10^6/mcL AO Workflow SS WBC (Bld) [#/Vol] 4.7 103/mcL Normal 4.5 - 10.8 10^3/mcL AO Workflow SS Elastography Parenchyma/Orga non 02-13-2025 Elastography Parenchyma/Organ [facility] Imaging Services [address] [place] [address] Elastography Parenchyma/Organ MR#: [id number] Acct: [id number] Name: GLADYS PETER Rep #: [id number] : 1975 F 49 From: William cedillo MD PCP: GENESIS Hernandez Status: REG CLI Study: Elastography Parenchyma/Organ Date of Exam: Exam# [id number] Ordering Dr: Mikey Solares DO PROCEDURE: ELASTOGRAPHY PARENCHYMA/ORGAN 02/13/2025 REASON FOR EXAM: FATTY LIVER TECHNIQUE: Procedure Code: USELPAROG Modality: US Procedure: ELASTOGRAPHY PARENCHYMA/ORGAN COMPARISON: Prior abdominal sonogram dated January 29, 2025. FINDINGS: KPA: 4.2. Velocity: 1.16 m/sec US/Elastography Parenchyma/Organ IMPRESSION: No significant hepatic fibrosis present. Reading Location: [id number] CC: WAREHOUSE LEADChristopherC Raysa Wong; Mikey Solares DO Preconstruction Manager: Signed Normal [facility] Abdomen Limitedon 01-29-2025 Abdomen Limited [facility] Imaging Services [address] [place] [address] Abdomen Limited MR#: [id number] Acct: [id number] Name: GLADYS PETER Rep #: [id number] : 1975 F 49 From: Tommie Owusu MD PCP: GENESIS Hernandez Status: REG CLI Study: Abdomen Limited Date of Exam: 01/29/25 Exam# [id number] Ordering Dr: Mikey Solares DO PROCEDURE: ABDOMEN [...] unremarkable right upper quadrant ultrasound Reading Location: [facility] CC: BREANNC Raysa Wong; Mikey Solares DO Preconstruction Manager: Signed Normal [facility] Absolute lymphocyte countOrd ered By: Mikey Solares on 01-29-2025 Lymphocytes Auto (Unsp spec) [#/Vol] 1.84 10*3/uL 0.83-4.51 [facility] Absolute neutrophil countOrd ered By: Mikey Solares on 01-29-2025 Neutrophils (Bld) [#/Vol] 3.0 10*3/uL 2.0-7.7 [facility] Anion gap in Serum or Plasma Ordered By: Mikey Solares on 01-29-2025 Anion gap [Moles/Vol] 10 mmol/L 5-15 [facility] Automated lymphocyte count a s percentage of total leukocytesOrdered By: Mikey Friend on 01-29-2025 Lymphocytes/100 WBC Auto (Unsp spec) 33.8 % 19-41 [facility] BUN/creatinine ratioOrdered By: Mikey Friend on 01-29-2025 Urea nitrogen/Creatinine [Mass ratio] 20.8 mg/mg High 10-20 [facility] Basophil percentageOrdered B y: Mikey Friend on 01-29-2025 Basophils/100 WBC (Bld) 0.7 % 0-1 [facility] Bilirubin, totalOrdered By: Mikey Friend on 01-29-2025 Bilirubin [Mass/Vol] 0.30 mg/dL 0.00-1.30 [facility] CBC W/Diff, Automatedon 01-12 Absolute Lymph 1.84 X10 3/uL Normal 0.83-4.51 [facility] Comment on above: Performed By: #### L 100.0100, L500.4050 #### [facility] [address] [place], [address] Absolute Neut 3.0 X10 3/uL Normal 2.0-7.7 [facility] Comment on above: Performed By: #### L 100.0100, L500.4050 #### [facility] [address] [place], [address] Basophils/100 WBC (Bld) 0.7 % Normal 0-1 [facility] Comment on above: Performed By: #### L 100.0100, L500.4050 #### [facility] [address] [place], [address] Eosinophils/100 WBC (Bld) 2.0 % Normal 0-5 [facility] Comment on above: Performed By: #### L 100.0100, L500.4050 #### [facility] [address] [place], [address] Erythrocyte distribution width (RBC) [Ratio] 20.0 % High 11.6-14.6 [facility] Comment on above: Performed By: #### L 100.0100, L500.4050 #### [facility] [address] [place], [address] Hematocrit (Bld) [Volume fraction] 30.1 % Low 37-47 [facility] Comment on above: Performed By: #### L 100.0100, L500.4050 #### [facility] [address] [place], [address] Hemoglobin (Bld) [Mass/Vol] 8.4 g/dL Low 12.0-15.0 [facility] Comment on above: Performed By: #### L 100.0100, L500.4050 #### [facility] [address] [place], [address] IG% 0.200 Normal 0.0-0.9 [facility] Comment on above: Result Comment: IG% - Immature Granulocytes (promyelocytes, myelocytes and metamyelocytes) > 1% indicates that a LEFT SHIFT is Present. Performed By: #### L 100.0100, L500.4050 #### [facility] [address] [place], [address] Lymphocytes/100 WBC (Bld) 33.8 % Normal 19-41 [facility] Comment on above: Performed By: #### L 100.0100, L500.4050 #### [facility] [address] [place], [address] MCH (RBC) [Entitic mass] 19.1 pg Low 27.0-32.0 [facility] Comment on above: Performed By: #### L 100.0100, L500.4050 #### [facility] [address] [place], [address] MCHC (RBC) [Mass/Vol] 27.9 g/dL Low 32-36 [facility] Comment on above: Performed By: #### L 100.0100, L500.4050 #### [facility] [address] [place], [address] MCV (RBC) [Entitic vol] 68.4 fL Low 81-99 [facility] Comment on above: Performed By: #### L 100.0100, L500.4050 #### [facility] [address] [place], [address] Monocytes/100 WBC (Bld) 7.7 % Normal 0-10 [facility] Comment on above: Performed By: #### L 100.0100, L500.4050 #### [facility] [address] [place], [address] Neutrophils/100 WBC (Bld) 55.6 % Normal 47-70 [facility] Comment on above: Performed By: #### L 100.0100, L500.4050 #### [facility] [address] [place], [address] Nucleated RBC (Bld) [#/Vol] 0 10*3/uL Normal 0-5 [facility] Comment on above: Performed By: #### L 100.0100, L500.4050 #### [facility] [address] [place], [address] Platelet mean volume (Bld) [Entitic vol] 10.2 fL Normal 6.2-12.0 [facility] Comment on above: Performed By: #### L 100.0100, L500.4050 #### [facility] [address] [place], [address] Platelets (Bld) [#/Vol] 367 10*3/uL Normal 150-450 [facility] Comment on above: Performed By: #### L 100.0100, L500.4050 #### [facility] [address] [place], [address] RBC (Bld) [#/Vol] 4.40 10*6/uL Normal 4.2-5.4 [facility] Comment on above: Performed By: #### L 100.0100, L500.4050 #### [facility] [address] [place], [address] RDW SD 48.7 fl High 35.1-43.9 [facility] Comment on above: Performed By: #### L 100.0100, L500.4050 #### [facility] [address] [place], [address] WBC (Bld) [#/Vol] 5.4 10*3/uL Normal 4.4-11.0 [facility] Comment on above: Performed By: #### L 100.0100, L500.4050 #### [facility] [address] [place], [address] Carbon dioxide, total [Moles /volume] in Central venous bloodOrdered By: Mikey Solares on 01-29-2025 CO2 [Moles/Vol] 24.5 mmol/L 21.0-32.0 [facility] Chloride assayOrdered By: Ra roxie Solares on 01-29-2025 Chloride [Moles/Vol] 106 mmol/L 98-108 [facility] Comprehensive Metabolic Prof ilon 01-29-2025 Albumin [Mass/Vol] 3.8 g/dL Normal 3.5-5.0 [facility] Comment on above: Performed By: #### L 100.0100, L500.4050 #### [facility] [address] [place], [address] Albumin/Globulin [Mass ratio] 1.2 {ratio} Normal 0.9-2.4 [facility] Comment on above: Performed By: #### L 100.0100, L500.4050 #### [facility] [address] [place], [address] ALK PHOS 79 U/L Normal 35-104 [facility] Comment on above: Performed By: #### L 100.0100, L500.4050 #### [facility] [address] [place], [address] ALT [Catalytic activity/Vol] 13 U/L Normal <=34 [facility] Comment on above: Performed By: #### L 100.0100, L500.4050 #### [facility] [address] [place], [address] AST [Catalytic activity/Vol] 17 U/L Normal <=31 [facility] Comment on above: Performed By: #### L 100.0100, L500.4050 #### [facility] [address] [place], [address] Bilirubin [Mass/Vol] 0.30 mg/dL Normal 0.00-1.30 [facility] Comment on above: Performed By: #### L 100.0100, L500.4050 #### [facility] [address] [place], [address] BUN/CRE 20.8 RATIO High 10-20 [facility] Comment on above: Performed By: #### L 100.0100, L500.4050 #### [facility] [address] [place], [address] Calcium [Mass/Vol] 8.7 mg/dL Normal 7.6-11.0 [facility] Comment on above: Performed By: #### L 100.0100, L500.4050 #### [facility] [address] [place], [address] Chloride [Moles/Vol] 106 mmol/L Normal 98-108 [facility] Comment on above: Performed By: #### L 100.0100, L500.4050 #### [facility] [address] [place], [address] CO2 [Moles/Vol] 24.5 mmol/L Normal 21.0-32.0 [facility] Comment on above: Performed By: #### L 100.0100, L500.4050 #### [facility] [address] [place], [address] Creatinine [Mass/Vol] 0.74 mg/dL Normal 0.70-1.20 [facility] Comment on above: Performed By: #### L 100.0100, L500.4050 #### [facility] [address] [place], [address] GAP 10 Normal 5-15 [facility] Comment on above: Performed By: #### L 100.0100, L500.4050 #### [facility] [address] [place], [address] GFR/1.73 sq M.predicted among non-blacks MDRD (S/P/Bld) [Vol rate/Area] 98 mL/min/{1.73_m2} Normal >60 [facility] Comment on above: Result Comment: mL/m in/1.73m2 CKD-EPI Creatinine Equation (2020) Performed By: #### L 100.0100, L500.4050 #### [facility] [address] [place], [address] Globulin (S) [Mass/Vol] 3.1 g/dL Normal 2.2-4.2 [facility] Comment on above: Performed By: #### L 100.0100, L500.4050 #### [facility] [address] [place], [address] Glucose [Mass/Vol] 102 mg/dL High 70-99 [facility] Comment on above: Performed By: #### L 100.0100, L500.4050 #### [facility] [address] [place], [address] Potassium [Moles/Vol] 4.1 mmol/L Normal 3.3-5.1 [facility] Comment on above: Performed By: #### L 100.0100, L500.4050 #### [facility] [address] [place], [address] Sodium [Moles/Vol] 140 mmol/L Normal 133-145 [facility] Comment on above: Performed By: #### L 100.0100, L500.4050 #### [facility] [address] [place], [address] T PROT 7.0 g/dL Normal 5.9-8.4 [facility] Comment on above: Performed By: #### L 100.0100, L500.4050 #### [facility] [address] [place], [address] Urea nitrogen [Mass/Vol] 15 mg/dL Normal 4-19 [facility] Comment on above: Performed By: #### L 100.0100, L500.4050 #### [facility] [address] [place], [address] Eosinophil percentageOrdered By: Mikey Solares on 01-29-2025 Eosinophils/100 WBC (Bld) 2.0 % 0-5 [facility] Erythrocyte distribution wid th ratioOrdered By: Mikey Solares on 01-29-2025 Erythrocyte distribution width (RBC) [Ratio] 20.0 % High 11.6-14.6 [facility] Erythrocyte distribution wid th standard deviationOrdered By: Mikeychayito Solares on 01-29-2025 Erythrocyte distribution width (RBC) [Ratio] 48.7 fl High 35.1-43.9 [facility] Glomerular filtration rate ( GFR) estimation/1.73 sq m using serum, plasma, or whole bOrdered By: Mikey Solares on 01-29-2025 GFR/1.73 sq M.predicted among non-blacks MDRD (S/P/Bld) [Vol rate/Area] 98 mL/min/{1.73_m2} >60 [facility] Comment on above: mL/min/1.73m2 CKD-EP I Creatinine Equation (2020) Hematocrit Auto (Bld) [Volum e fraction]Ordered By: Mikey Solares on 01-29-2025 Hematocrit (Bld) [Volume fraction] 30.1 % Low 37-47 [facility] Hemoglobin measurementOrdere d By: Mikey Solares on 01-29-2025 Hemoglobin (Bld) [Mass/Vol] 8.4 g/dL Low 12.0-15.0 [facility] Immature granulocytes/100 WB C Auto (Bld)Ordered By: Mikey Solares on 01-29-2025 Immature granulocytes/100 WBC (Bld) 0.200 % 0.0-0.9 [facility] Comment on above: IG% - Immature Granu locytes (promyelocytes, myelocytes and metamyelocytes) > 1% indicates that a LEFT SHIFT is Present. Laboratory - Chemistry and C hemistry - challengeOrdered By: Mikey Solares on 01-29-2025 AST [Catalytic activity/Vol] 17 U/L <32 [facility] MCV (mean corpuscular volume ) determinationOrdered By: Mikey Solares on 01-29-2025 MCV (RBC) [Entitic vol] 68.4 fL Low 81-99 [facility] Mean corpuscular hemoglobin (MCH) determinationOrdered By: Mikey Solares on 01-29-2025 MCH (RBC) [Entitic mass] 19.1 pg Low 27.0-32.0 [facility] Mean corpuscular hemoglobin concentration (MCHC) determinationOrdered By: Mikey Solares on 01-29-2025 MCHC (RBC) [Mass/Vol] 27.9 g/dL Low 32-36 [facility] Mean platelet volume determi nationOrdered By: Mikey Solares on 01-29-2025 Platelet mean volume (Bld) [Entitic vol] 10.2 fL 6.2-12.0 [facility] Monocyte percentageOrdered B y: Mikey Solares on 01-29-2025 Monocytes/100 WBC (Bld) 7.7 % 0-10 [facility] Neutrophil percentageOrdered By: Mikey Solares on 01-29-2025 Neutrophils/100 WBC (Bld) 55.6 % 47-70 [facility] Nucleated red blood cell per centageOrdered By: Mikey Solares on 01-29-2025 Nucleated RBC/100 WBC (Bld) [Ratio] 0 % 0-5 [facility] Platelet countOrdered By: Ra roxie Solares on 01-29-2025 Platelets (Bld) [#/Vol] 367 10*3/uL 150-450 [facility] Potassium measurement (mass/ volume)Ordered By: Mikey Solares on 01-29-2025 Potassium (Unsp spec) [Mass/Vol] 4.1 mmol/L 3.3-5.1 [facility] RBC Auto (Bld) [#/Vol]Ordere d By: Mikey Solares on 01-29-2025 RBC (Bld) [#/Vol] 4.40 10*6/uL 4.2-5.4 [facility] Serum creatinine measurement (mass/volume)Ordered By: Mikey Solares on 01-29-2025 Creatinine [Mass/Vol] 0.74 mg/dL 0.70-1.20 [facility] Serum globulin measurementOr dered By: Mikey Solares on 01-29-2025 Globulin (S) [Mass/Vol] 3.1 g/dL 2.2-4.2 [facility] Serum glucose measurement (m ass/volume)Ordered By: Mikey Solares on 01-29-2025 Glucose [Mass/Vol] 102 mg/dL High 70-99 [facility] Serum or plasma alanine enciso otransferase (ALT) measurementOrdered By: Mikey Solares on 01-29-2025 ALT [Catalytic activity/Vol] 13 U/L <35 [facility] Serum or plasma albumin dayron urement (mass/volume)Ordered By: Mikey Solares on 01-29-2025 Albumin [Mass/Vol] 3.8 g/dL 3.5-5.0 [facility] Serum or plasma albumin/glob ulin mass ratioOrdered By: Mikey Solares on 01-29-2025 Albumin/Globulin [Mass ratio] 1.2 {ratio} 0.9-2.4 [facility] Serum or plasma alkaline yumi sphatase measurementOrdered By: Mikey Solares on 01-29-2025 ALP [Catalytic activity/Vol] 79 U/L 35-104 [facility] Serum or plasma calcium dayron urement (mass/volume)Ordered By: Mikey Solares on 01-29-2025 Calcium [Mass/Vol] 8.7 mg/dL 7.6-11.0 [facility] Serum or plasma urea nitroge n measurement (mass/volume)Ordered By: Mikey Solares on 01-29-2025 Urea nitrogen [Mass/Vol] 15 mg/dL 4-19 [facility] Sodium levelOrdered By: Isauro Martinez on 01-29-2025 Sodium [Moles/Vol] 140 mmol/L 133-145 [facility] Total proteinOrdered By: Kash Solares on 01-29-2025 Protein [Mass/Vol] 7.0 g/dL 5.9-8.4 [facility] White blood cell (WBC) count Ordered By: Mikey Solares on 01-29-2025 WBC (Bld) [#/Vol] 5.4 10*3/uL 4.4-11.0 [facility] No Panel Informationon 01-28 Culture Urine 10,000 - 50,000 cfu/ ml Multiple bacterial morphotypes present. Probable Contamination. Suggest recollection if clinically indicated. [facility] Work Phone: CNOVon 12-22-2024 CNOV Office Visit (WOUCA) -- GLADYS PETER ([id number]) 1975 F Date Time Provider Department 12/22/24 3:00 PM ANSELMO PUENTES During your visit today, we recorded the following information about you: Temperature Pulse Respiration Blood pressure 99.7 degrees 80/minute 18/minute 112/72 Weight 93.9 kg Anselmo Puentes, STREET CAR INSPECTOR.TERRITORY OUTSIDE SALES MANAGER 12/22/2024 3:30 PM Signed [facility] [...] of care. This note was generated using [employer] software. It may contain errors in wording, punctuation, or spelling. Anselmo Puentes APRN.[facility] History and Record Review Clinical information obtained from an independent historian. History obtained from or confirmed by: parent. External record(s) reviewed: prior outpatient record. Disposition The patient was discharged. OTC Medications were advised: Procedures Allergies As of Date: 12/22/2024 (No Active Allergies) Date Reviewed: 12/22/2024 Reviewed by: Anselmo Puentes APRN.TERRITORY OUTSIDE SALES MANAGER - Fully Assessed Reason for Visit: Trauma [112] Cmt: Insect bite/sting on right forearm x 1 day Primary Visit Diagnosis:Allergic reaction to insect (more content not included)... Normal [facility] Gastroenterology Visit Repor ton 12-01-2024 Gastroenterology Visit Report [facility] Gastroenterology [address] [place] [address] OFFICE VISIT Date of Service: 12/01/24 MR#: [id number] Acct: [id number] Name: GLADYS PETER Rep #: [id number] : 1975 Provider: Mikey Solares DO Age/Sex: 48/F [place] [facility] Status: Signed Intake Vital Signs 01/22/24 06:35 09/16/24 16:23 Height 5 ft 10 in 5 ft 6 in Intake Visit Reasons: 3 M FU Chief Complaint: abd pain Allergies No Known Allergies Allergy (Verified 09/16/24 16:22) Medications ???Medication ???Instructions ???Recorded ???Confirmed ???Type esomeprazole magnesium 20 mg 20 mg PO DAILY 01/03/24 12/01/24 H istory capsule,delayed release (Nexium) PFS Medical History (Updated 12/01/24 @ 11:02 by [...] No acute findings. Fatty infiltration liver. EGD 9.10.24 Z-line irregular, 38 cm from the incisors. [...] No acute findings. Fatty infiltration liver. EGD 24 Z-line irregular, 38 cm from the incisors. [...] no GI complaints at this time. OV 7 pt reports that she is feeling well [...] No fa (more content not included)... Normal [facility] Emergency Department Summary on 09-16-2024 Emergency Department Summary [facility] Medical Records Department [address] [place] [address] Emergency Department Summary 09/16/24 MR#: [id number] Acct: [id number] Name: GLADYS PETER Rep #: [id number] : 1975 48 From: Bhupendra Gonzalez MD PCP: GENESIS Hernandez Status:REG ER Location: ED HPI History of Present Illness Chief Complaint: Bite Narrative Narrative: 48-year-old female who denies significant past medical history except for gallbladder issues, presents with her neighbor with injury to her right thigh and left lower extremity after trying to break up a fight between her 2 dogs. She states that she has an 85 pound Surinamese Salcedo, and a 35 pound German Salcedo. This is the second time that [...] than 5 years. She denies other injuries. [facility] Medical History Gall stones Wears glasses [...] orally. For analgesia she was administered 1 Bend tablet here. I will start her on [...] for Augmen (more content not included)... Normal [facility] Femur Min 2 Viewson 09-17-19 Femur Min 2 Views [facility] Imaging Services [address] [place] [address] Femur Min 2 Views MR#: [id number] Acct: [id number] Name: GLADYS PETER Rep #: [id number] : 1975 F 48 From: Tc Calle MD PCP: Raysa Wong WAREHOUSE LEAD-C Status: REG ER Study: Femur Min 2 Views Date of Exam: 09/16/24 Exam# [id number] Ordering Dr: Bhupendra Gonzalez MD EXAM: RIGHT FEMUR, TWO VIEWS CLINICAL HISTORY: Dog bite. Trauma. COMPARISON: No relevant prior. TECHNIQUE: AP and lateral projections of the femur. FINDINGS: Bones: No fractures or other osseous abnormalities. Joints: No subluxations or dislocations. Soft tissues: Unremarkable. RAD/Femur Min 2 Views IMPRESSION: NO ACUTE OSSEOUS ABNORMALITIES. Reading Location: [facility] CC: GENESIS Wong; Dr. Bhupendra Gonzalez MD Preconstruction Manager: Signed [facility] Tibia Fibula 2 Viewson 09-16 Tibia Fibula 2 Views [facility] Imaging Services [address] [place], [place] [address] Tibia Fibula 2 Views MR#: [id number] Acct: [id number] Name: GLADYS PETER Rep #: [id number] : 1975 F 48 From: Tc Calle MD PCP: GENESIS Hernandez Status: [facility] ER Study: Tibia Fibula 2 Views Date of Exam: 09/16/24 Exam# [id number] Ordering Dr: Bhupendra Gonzalez MD EXAM: RIGHT TIBIA AND FIBULA, TWO VIEWS CLINICAL HISTORY: DOG BITE. TRAUMA. COMPARISON: NO RELEVANT PRIOR. TECHNIQUE: AP AND LATERAL. FINDINGS: Bones: No fractures or other osseous abnormalities. Joints: No subluxations or dislocations. Soft tissues: Unremarkable. RAD/Tibia Fibula 2 Views IMPRESSION: No acute osseous findings. Reading Location: [facility] CC: GENESIS Wong; Dr. Bhupendra Gonzalez MD Preconstruction Manager: Signed [facility] .GFRon 09-13-2024 Estimated Glomerular Filtration Rate 99 ml/min/1.73sqm Normal [facility] Comment on above: Result Comment: Stages of [...] calculate the eGFR results. Performed By: #### M G, LIPID, BMP, GFR #### [address] [address] BMPon 09-13-2024 BUN/Creatinine Ratio 23 ratio Normal 7-27 [facility] Comment on above: Performed By: #### M G, LIPID, BMP, GFR #### [address] [address] Calcium [Mass/Vol] 8.7 mg/dL Normal 8.4-10.2 [facility] Comment on above: Performed By: #### M G, LIPID, BMP, GFR #### [address] [address] Chloride [Moles/Vol] 107 mmol/L Normal 98-107 [facility] Comment on above: Performed By: #### M G, LIPID, BMP, GFR #### [address] [address] CO2 [Moles/Vol] 31 mmol/L High 22-29 [facility] Comment on above: Performed By: #### M G, LIPID, BMP, GFR #### [address] [address] Creatinine [Mass/Vol] 0.74 mg/dL Normal 0.51-0.95 [facility] Comment on above: Performed By: #### M G, LIPID, BMP, GFR #### [address] [address] Electrolyte Balance 4.0 mEq/L Normal 4.0-15.0 [facility] Comment on above: Performed By: #### M G, LIPID, BMP, GFR #### [address] [address] Glucose [Mass/Vol] 91 mg/dL Normal 70-105 [facility] Comment on above: Performed By: #### M G, LIPID, BMP, GFR #### [address] [address] Potassium [Moles/Vol] 4.1 mmol/L Normal 3.5-5.1 [facility] Comment on above: Performed By: #### M G, LIPID, BMP, GFR #### [facility] [address] [place], [place] [address] Sodium [Moles/Vol] 142 mmol/L Normal 136-145 [facility] Comment on above: Performed By: #### M G, LIPID, BMP, GFR #### [address] [place], [place] [address] Urea nitrogen [Mass/Vol] 17 mg/dL Normal 7-18 [facility] Comment on above: Performed By: #### M G, LIPID, BMP, GFR #### [address] [place], [place] [address] LABORATORYOrdered By: SYSTEM SYSTEM on 09-13-2024 Calcium [...] Cholesterol [Mass/Vol] 244 mg/dL High 0 - 2 00 mg/dL AO ADM SS Comment on above: [...] 09-13-2024 Cholesterol [Mass/Vol] 244 mg/dL High 0-200 [facility] Comment on above: Result Comment: Chol esterol Reference Interval: Less than 200 Desirable 200-239 Borderline high risk 240 and above High risk Performed By: #### M G, LIPID, BMP, GFR #### [address] [address] Cholesterol in HDL [Mass/Vol] 75 mg/dL High 40-60 [facility] Comment on above: Performed By: #### M G, LIPID, BMP, GFR #### [address] [address] Cholesterol in LDL [Mass/Vol] 159 mg/dL High 0-130 [facility] Comment on above: Performed By: #### M G, LIPID, BMP, GFR #### [address] [place] [address] Triglyceride [Mass/Vol] 48 mg/dL Normal 0-150 [facility] Comment on above: Result Comment: Trig lyceride Reference Interval: Less than 150 Normal 150-199 Borderline high risk 200-499 High risk 500 or higher Very high risk Performed By: #### M G, LIPID, BMP, GFR #### [address] [place], [place] [address] MGon 09-13-2024 Magnesium [Mass/Vol] 1.8 mg/dL Normal 1.8-2.4 [facility] Comment on above: Performed By: #### M G, LIPID, BMP, GFR #### [address] [place], [place] [address] Gastroenterology Visit Repor ton 08-13-2024 Gastroenterology Visit Report [facility] Gastroenterology [address] [place] [address] OFFICE VISIT Date of Service: 08/13/24 MR#: [id number] Acct: [id number] Name: GLADYS PETER Rep #: [id number] : 1975 Provider: LORA Baltazar Age/Sex: 48/F [place] [facility] Status: Signed Intake Vital Signs 01/22/24 06:35 Height 5 ft 10 in Intake Visit Reasons: 3 M FU Chief Complaint: abd pain Allergies No Known Allergies Allergy (Verified 01/22/24 06:32) Nurse's Note: OV 08.13.24 Pt here for f/u and reports she is feeling well but still is having a lot of gas, and stomach discomfort in the evenings. Pt continues Nexium daily. [facility] Medical History Wears glasses Arthritis Back [...] next steps in plan of care. MRCP 12.24 Cholelithiasis. OV 1.21.25 pt reports constant sharp/stabbing pain on her right side for the past two days. pt denies other GI symptoms of concern at this time. OV 4.2.25 BGI established 01.02.24 pt reports that she will have episodes [...] up involvin (more content not included)... Normal [facility] CNOVon 08-08-2024 CNOV Office Visit (OBGYWM ) -- GLADYS PETER ([id number]) 1975 F Date Time Provider Department 08/08/24 9:30 AM SYDNI MUNOZ During your visit today, we recorded the following information about you: Blood pressure Weight Height Last Period 94.3 kg 1.689 m 07/10/24 Sydni Munoz APRN.TERRITORY OUTSIDE SALES MANAGER 08/08/2024 10:06 AM Signed Advertising Operations Coordinator offered: Patient declines. Gladys is a 48 [...] discussed with the Patient or Patient's Authorized Cultural Anthropology Professor. As applicable, any other physician, advance practice provider, medical student, or other health professional student that will be observing or involved in the sensitive examination for educational or training purposes was discussed with the Patient or Authorized Cultural Anthropology Professor. The Patient or Authorized Cultural Anthropology Professor has agreed to proceed with the sensitive [...] external genitalia normal, normal Bartholin's glands, urethra, Zachary's glands, no vulvar lesions, no cervical lesions, [...] if it is covered and what your thr-wy-pocjlc expense will be. Please reach out through [employer] or by phone if you would li (more content not included)... Normal [facility] Gastroenterology Visit Repor ton 06-03-2024 Gastroenterology Visit Report [facility] Gastroenterology [address] [place] [address] OFFICE VISIT Date of Service: 06/03/24 MR#: [id number] Acct: [id number] Name: GLADYS PETER Rep #: [id number] : 1975 Provider: Mikey Solares DO Age/Sex: 48/F [place] [facility] Status: Signed Intake Vital Signs 01/22/24 06:35 [...] office today for follow up. *BGI established 8 pt reports that she will have episodes [...] plan of care. MRCP 05.06.24 Cholelithiasis. OV 1.21.25 pt reports constant sharp/stabbing [...] to inspect (more content not included)... Normal [facility] MRCP Abdomen without Contras ton 05-06-2024 MRCP Abdomen without Contrast [facility] Imaging Services [address] [place] [id number] MRCP Abdomen without Contrast MR#: [id number] Acct: [id number] Name: GLADYS PETER Rep #: [id number] : 1975 F 48 From: Milo Rizzo MD PCP: Raysa Wong NP-Jigar Status: REG CLI Study: MRCP Abdomen without Contrast Date of Exam: Exam# [id number] Ordering Dr: Mikey Solares DO [id number] STUDY: MR CHOLANGIOPANCREATOGRAPHY (MRCP) REASON FOR EXAM: [...] , CC: GENESIS Wong; Mikey Solares DO Preconstruction Manager: Signed Normal [facility] MARTY SCREENING W TOMOon 05-02 MARTY SCREENING W DELFIN * * *Final Report* * * DATE OF EXAM: May 02 2024 12:44PM [facility] 0582 - MARTY SCREENING W DELFIN / PROCEDURE REASON: multiple diagnoses * * * * Physician Interpretation * * * * RESULT: [place] [address] #[id number] - MARTY SCREENING W DELFIN HISTORY: Patient [...] Dudley Castro M.D. Electronically signed on: 05/05/2024 Preconstruction Manager: LUDY Transcribe Date/Time: May 02 2024 12:34P Dictated by: DUDLEY CASTRO MD This examination was interpreted and the report reviewed and electronically signed by: DUDLEY CASTRO MD on May 05 2024 10:22AM EST [id number] Normal [facility] Gastroenterology Visit Repor ton 03-27-2024 Gastroenterology Visit Report [facility] Gastroenterology [address] [place] [address] OFFICE VISIT Date of Service: 03/27/24 MR#: [id number] Acct: [id number] Name: MERCEDES DODDGLADYS REYNA Rep #: [id number] : 1975 Provider: Mikey Solraes DO Age/Sex: 48/F [place] [facility] Status: Signed Intake Vital Signs 01/22/24 06:35 [...] office today for follow up. *BGI established 8 pt reports that she will have episodes [...] reflux sym (more content not included)... Normal [facility] 02-25-2024 [facility] Telephone (UCWSTR) -- GLADYS PETER ([id number]) 1975 F Date Time Provider Department 02/25/24 HERLINDA ALBA [facility] During your visit today, we recorded the following information about you: Herlinda Alba APRN.TERRITORY OUTSIDE SALES MANAGER 02/25/2024 4:59 PM Signed Xray of cervical [...] Status:Closed by TIANNA YI on 02/25/24 Normal [facility] No Panel Informationon 02-24 Radiology Study observation (narrative) [facility] XR CERVICAL 4V AP/LAT/OBLon 02-25-2024 XR [...] are normal. IMPRESSION: Negative cervical spine X-ray. Preconstruction Manager: [facility] Transcribe Date/Time: Feb 25 2024 4:34P Dictated by : CHAYA BEJARANO MD This examination was interpreted and the report reviewed and electronically signed by: CHAYA BEJARANO MD on Feb 25 2024 4:36PM EST [id number] Normal [facility] XR Cervical spine AP and Lat eral and obliqueon 02-25-2024 IMPRESSION: Negative cervical spine X-ray. Preconstruction Manager: [facility] Transcribe Date/Time: Feb 25 2024 4:34P [...] normal. DIVISION OF RADIOLOGY Provider, Aissatou Pineda mercer [place] - 02/25/2024 * * *Final Report* * [...] normal. IMPRESSION IMPRESSION: Negative cervical spine X-ray. Preconstruction Manager: [facility] Transcribe Date/Time: Feb 25 2024 4:34P Dictated by : CHAYA BEJARANO MD This examination was interpreted and the report reviewed and electronically signed by: CHAYA BEJARANO MD on Feb 25 2024 4:36PM [facility] XR SHLDR >/=3V AP/DARSHAN AP/OTH R [...] osseous abnormality or significant underlying degenerative changes. Preconstruction Manager: [facility] Transcribe Date/Time: Feb 25 2024 4:34P Dictated by : KAILYN HUMPHRIES MD This examination was interpreted and the report reviewed and electronically signed by: KAILYN HUMPHRIES MD on Feb 25 2024 4:35PM EST [id number] Normal [facility] XR Shoulder - right 3 Viewso n 02-25-2024 IMPRESSION: No acute osseous abnormality or significant underlying degenerative changes. Preconstruction Manager: [facility] Transcribe Date/Time: Feb 25 2024 4:34P [...] riding humeral head. DIVISION OF RADIOLOGY Provider, [facility] - 02/25/2024 * * *Final [...] osseous abnormality or significant underlying degenerative changes. Preconstruction Manager: [facility] Transcribe Date/Time: Feb 25 2024 4:34P Dictated by : KAILYN HUMPHRIES MD This examination was interpreted and the report reviewed and electronically signed by: KAILYN HUMPHRIES MD on Feb 25 2024 4:35PM EST [facility] XR Shoulder - right 3 ViewsO rdered By: Ccjasmina Provider on 02-25-2024 [facility] CNOVon 02-23-2024 CNOV Office Visit (WSTR ) -- GLADYS PETER ([id number]) 1975 F Date Time Provider Department 02/23/24 3:15 PM KASSANDRA CABELLO [facility] During your visit today, we recorded the [...] Date BX OF BREAST; INCISIONAL Left 2022 [facility] DANDC, DIAG AND/OR THERAPEUTIC 10/26/2023 Hysteroscopy, DANDC, [...] as s (more content not included)... Normal [facility] XR SPINE CERVICAL AP/LATon 0 09-20-2023 XR [...] 09/20/2023 12:14:02 AM Ordering Provider: RAYSA WONG [facility] ([place]) Absolute lymphocyte countOrd ered By: ED PROVIDER on 08-21-2023 Lymphocytes Auto (Unsp spec) [#/Vol] 2.39 10*3/uL 0.83-4.51 [facility] Automated lymphocyte count a s percentage of total leukocytesOrdered By: ED PROVIDER on 08-21-2023 Lymphocytes/100 WBC Auto (Unsp spec) 27.4 % 19-41 [facility] Basophil percentageOrdered B y: ED PROVIDER on 08-21-2023 Basophils/100 WBC (Bld) 0.6 % 0-1 [facility] Chloride [Moles/Vol] 103 mmol/L 98-107 [facility] Eosinophils/100 WBC (Bld) 0.8 % 0-5 [facility] Glucose [Mass/Vol] 97 mg/dL 74-106 [facility] Hemoglobin (Bld) [Mass/Vol] 12.4 g/dL 12.0-15.0 [facility] Monocytes/100 WBC (Bld) 6.0 % 0-10 [facility] Neutrophils (Bld) [#/Vol] 5.7 10*3/uL 2.0-7.7 [facility] Neutrophils/100 WBC (Bld) 65.0 % 47-70 [facility] Potassium [Moles/Vol] 3.5 mmol/L 3.5-5.1 [facility] Sodium [Moles/Vol] 137 mmol/L 136-145 [facility] WBC (Bld) [#/Vol] 8.7 10*3/uL 4.4-11.0 [facility] Determination of erythrocyte mean corpuscular volume (MCV)Ordered By: ED PROVIDER on 08-21-2023 MCV (RBC) [Entitic vol] 84.0 fL 81-99 [facility] Erythrocyte distribution wid th ratioOrdered By: ED PROVIDER on 08-21-2023 Erythrocyte distribution width (RBC) [Ratio] 13.5 % 11.6-14.6 [facility] Erythrocyte distribution wid th standard deviationOrdered By: ED PROVIDER on 08-21-2023 Erythrocyte distribution width (RBC) [Entitic vol] 41.3 fL 35.1-43.9 [facility] Hematocrit Auto (Bld) [Volum e fraction]Ordered By: ED PROVIDER on 08-21-2023 Hematocrit (Bld) [Volume fraction] 38.8 % 37-47 [facility] Immature granulocytes/100 WB C Auto (Bld)Ordered By: ED PROVIDER on 08-21-2023 Immature granulocytes/100 WBC (Bld) 0.200 % 0.0-0.9 [facility] Comment on above: IG% - Immature Granu locytes (promyelocytes, myelocytes and metamyelocytes) > 1% indicates that a LEFT SHIFT is Present. Laboratory - Chemistry and C hemistry - challengeOrdered By: ED PROVIDER on 08-21-2023 CO2 [Moles/Vol] 28.0 mmol/L 21.0-32.0 [facility] Urea nitrogen/Creatinine [Mass ratio] 15.7 mg/mg 10-20 [facility] Laboratory - Hematology and Cell countsOrdered By: ED PROVIDER on 08-21-2023 MCH (RBC) [Entitic mass] 26.8 pg 27.0-32.0 [facility] MCHC (RBC) [Mass/Vol] 32.0 g/dL 32-36 [facility] Nucleated RBC/100 WBC (Bld) [Ratio] 0 % 0-5 [facility] Platelet mean volume (Bld) [Entitic vol] 10.0 fL 6.2-12.0 [facility] Platelets (Bld) [#/Vol] 314 10*3/uL 150-450 [facility] No Panel InformationOrdered By: ED PROVIDER on 08-21-2023 Estimated Creatinine Clearance Calc 94.41 ml/min [facility] Estimated GFR (MDRD) Amer 87 mL/min >60 [facility] Comment on above: GFR Calc Estimated GFR (MDRD) Non-Af Amer 72 mL/min >60 [facility] Comment on above: Non- GFR Calc RBC Auto (Bld) [#/Vol]Ordere d By: ED PROVIDER on 08-21-2023 RBC (Bld) [#/Vol] 4.62 10*6/uL 4.2-5.4 [facility] Serum or plasma calcium dayron urement (mass/volume)Ordered By: ED PROVIDER on 08-21-2023 Calcium [Mass/Vol] 9.4 mg/dL 8.5-10.1 [facility] Serum or plasma cardiac trop onin I panel by high sensitivity methodOrdered By: ED PROVIDER on 08-21-2023 Tropinin I.cardiac panel High sensitivity method 5 pg/mL 3.0-54.0 [facility] Comment on above: Please Note: New Delfina t Units and Gender Specific Reference Ranges. For more information see Policy Stat Procedure [place] High Sensitivity Troponin (TNIH) and attachments. Serum or plasma creatinine m easurement (mass/volume)Ordered By: ED PROVIDER on 08-21-2023 Creatinine [Mass/Vol] 0.89 mg/dL 0.55-1.02 [facility] Comment on above: The validity of the calculated GFR & GFRAA in patients over 70 years has not been determined. Clinical correlation is essential. Serum or plasma urea nitroge n measurement (mass/volume)Ordered By: ED PROVIDER on 08-21-2023 Urea nitrogen [Mass/Vol] 14 mg/dL 7-18 [facility] Thin prep Papanicolaou smear with manual screeningOrdered By: ED PROVIDER on 08-21-2023 Thin prep Papanicolaou smear with manual screening 6 5-15 [facility] US Pelvison 08-01-2023 [facility] DBT Breast - bilateral diagn ostic for implanton 07-25-2023 [facility] US ABDOMEN LIMITEDon 024 US ABDOMEN [...] 06/12/2023 8:59:03 AM Ordering Provider: RAYSA Billings [facility] ([place]) .Auto Diffon 05-28-2023 Basophil, Absolute 0.0 10 3/mcL Normal 0.0-0.2 [facility] ([place]) Comment on above: Performed By: #### A MY, LIPID, GFR, ADIFF, ANEU, CBC, LIP, CMP #### [address] [address] Basophils/100 WBC (Bld) 0.8 % Normal 0.0-2.5 [facility] ([place]) Comment on above: Performed By: #### A MY, LIPID, GFR, ADIFF, ANEU, CBC, LIP, CMP #### [address] [address] Eosinophil, Absolute 0.1 10 3/mcL Normal 0.0-0.4 [facility] ([place]) Comment on above: Performed By: #### A MY, LIPID, GFR, ADIFF, ANEU, CBC, LIP, CMP #### [address] [address] Eosinophils/100 WBC (Bld) 1.5 % Normal 0.0-7.0 [facility] ([place]) Comment on above: Performed By: #### A MY, LIPID, GFR, ADIFF, ANEU, CBC, LIP, CMP #### [address] [address] Lymphocyte, Absolute 2.2 10 3/mcL Normal 0.8-3.9 [facility] ([place]) Comment on above: Performed By: #### A MY, LIPID, GFR, ADIFF, ANEU, CBC, LIP, CMP #### [address] [address] Lymphocytes/100 WBC (Bld) 39.2 % Normal 10.0-50.0 [facility] ([place]) Comment on above: Performed By: #### A MY, LIPID, GFR, ADIFF, ANEU, CBC, LIP, CMP #### [address] [address] Monocyte, Absolute 0.5 10 3/mcL Normal 0.2-1.0 [facility] ([place]) Comment on above: Performed By: #### A MY, LIPID, GFR, ADIFF, ANEU, CBC, LIP, CMP #### [address] [address] Monocytes/100 WBC (Bld) 8.0 % Normal 1.7-13.0 [facility] ([place]) Comment on above: Performed By: #### A MY, LIPID, GFR, ADIFF, ANEU, CBC, LIP, CMP #### [address] [address] Neutrophils/100 WBC (Bld) 50.5 % Normal 37.0-80.0 [facility] ([place]) Comment on above: Performed By: #### A MY, LIPID, GFR, ADIFF, ANEU, CBC, LIP, CMP #### [address] [address] .GFRon 05-28-2023 GFR Non- 66 ml/min/1.73sqm Normal [facility] ([place]) Comment on above: Result Comment: GFR Population [...] GFR, ADIFF, ANEU, CBC, LIP, CMP #### [address] [address] GFR 80 ml/min/1.73sqm Normal [facility] ([place]) Comment on above: Result Comment: GFR Population [...] GFR, ADIFF, ANEU, CBC, LIP, CMP #### [address] [address] .NEUABSon 05-28-2023 Neutrophil, Absolute 2.9 10 3/mcL Normal 2.9-6.2 [facility] ([place]) Comment on above: Performed By: #### A MY, LIPID, GFR, ADIFF, ANEU, CBC, LIP, CMP #### [address] [address] AMYon 05-28-2023 Amylase [Catalytic activity/Vol] 34 U/L Normal 25-115 [facility] ([place]) Comment on above: Performed By: #### A MY, LIPID, GFR, ADIFF, ANEU, CBC, LIP, CMP #### [place] [address] CBCon 05-28-2023 Erythrocyte distribution width (RBC) [Ratio] 14.0 % Normal 11.5-14.5 [facility] ([place]) Comment on above: Performed By: #### A MY, LIPID, GFR, ADIFF, ANEU, CBC, LIP, CMP #### [place] [address] Hematocrit (Bld) [Volume fraction] 37.8 % Normal 37.0-47.0 [facility] ([place]) Comment on above: Performed By: #### A MY, LIPID, GFR, ADIFF, ANEU, CBC, LIP, CMP #### [place] [address] Hgb 12.8 G/dL Normal 12.0-16.0 [facility] ([place]) Comment on above: Performed By: #### A MY, LIPID, GFR, ADIFF, ANEU, CBC, LIP, CMP #### [place] [address] MCH (RBC) [Entitic mass] 28.7 pg Normal 27.0-31.2 [facility] ([place]) Comment on above: Performed By: #### A MY, LIPID, GFR, ADIFF, ANEU, CBC, LIP, CMP #### [place] [address] MCHC 33.9 G/dL Normal 33.0-37.0 [facility] ([place]) Comment on above: Performed By: #### A MY, LIPID, GFR, ADIFF, ANEU, CBC, LIP, CMP #### [place] [address] MCV (RBC) [Entitic vol] 84.6 fL Normal 80.0-94.0 [facility] ([place]) Comment on above: Performed By: #### A MY, LIPID, GFR, ADIFF, ANEU, CBC, LIP, CMP #### [address] [address] Platelet 315 10 3/mcL Normal 130-400 [facility] ([place]) Comment on above: Performed By: #### A MY, LIPID, GFR, ADIFF, ANEU, CBC, LIP, CMP #### [address] [address] Platelet mean volume (Bld) [Entitic vol] 8.6 fL Normal 7.4-10.4 [facility] ([place]) Comment on above: Performed By: #### A MY, LIPID, GFR, ADIFF, ANEU, CBC, LIP, CMP #### [address] [address] RBC 4.47 10 6/mcL Normal 4.20-5.40 [facility] ([place]) Comment on above: Performed By: #### A MY, LIPID, GFR, ADIFF, ANEU, CBC, LIP, CMP #### [address] [address] WBC 5.7 10 3/mcL Normal 4.6-10.8 [facility] ([place]) Comment on above: Performed By: #### A MY, LIPID, GFR, ADIFF, ANEU, CBC, LIP, CMP #### [address] [address] CMPon 05-28-2023 Albumin Level 3.4 G/dL Low 3.5-5.0 [facility] ([place]) Comment on above: Performed By: #### A MY, LIPID, GFR, ADIFF, ANEU, CBC, LIP, CMP #### [address] [address] Albumin/Globulin [Mass ratio] 1.0 {ratio} Low 1.1-2.5 [facility] ([place]) Comment on above: Performed By: #### A MY, LIPID, GFR, ADIFF, ANEU, CBC, LIP, CMP #### [address] [address] ALP [Catalytic activity/Vol] 86 U/L Normal 40-135 [facility] ([place]) Comment on above: Performed By: #### A MY, LIPID, GFR, ADIFF, ANEU, CBC, LIP, CMP #### [address] [address] ALT [Catalytic activity/Vol] 25 U/L Normal 14-59 [facility] ([place]) Comment on above: Performed By: #### A MY, LIPID, GFR, ADIFF, ANEU, CBC, LIP, CMP #### [address] [address] AST [Catalytic activity/Vol] 11 U/L Normal 10-40 [facility] ([place]) Comment on above: Performed By: #### A MY, LIPID, GFR, ADIFF, ANEU, CBC, LIP, CMP #### [address] [address] Bili Total 0.5 mg/dL Normal 0.2-1.0 [facility] ([place]) Comment on above: Result Comment: Use of this assay is not recommended for patients undergoing treatment with eltrombopag due to the potential for falsely elevated results. Performed By: #### A MY, LIPID, GFR, ADIFF, ANEU, CBC, LIP, CMP #### [address] [address] BUN/Creatinine Ratio 15 ratio Normal 7-27 [facility] ([place]) Comment on above: Performed By: #### A MY, LIPID, GFR, ADIFF, ANEU, CBC, LIP, CMP #### [address] [address] Calcium [Mass/Vol] 8.7 mg/dL Normal 8.4-10.2 [facility] ([place]) Comment on above: Performed By: #### A MY, LIPID, GFR, ADIFF, ANEU, CBC, LIP, CMP #### [address] [address] Chloride [Moles/Vol] 106 mmol/L Normal 98-107 [facility] ([place]) Comment on above: Performed By: #### A MY, LIPID, GFR, ADIFF, ANEU, CBC, LIP, CMP #### [address] [address] CO2 [Moles/Vol] 28 mmol/L Normal 22-29 [facility] ([place]) Comment on above: Performed By: #### A MY, LIPID, GFR, ADIFF, ANEU, CBC, LIP, CMP #### [address] [address] Creatinine [Mass/Vol] 0.91 mg/dL Normal 0.55-1.02 [facility] ([place]) Comment on above: Performed By: #### A MY, LIPID, GFR, ADIFF, ANEU, CBC, LIP, CMP #### [address] [address] Electrolyte Balance 9.0 mEq/L Normal 4.0-15.0 [facility] ([place]) Comment on above: Performed By: #### A MY, LIPID, GFR, ADIFF, ANEU, CBC, LIP, CMP #### [address] [address] Globulin 3.5 G/dL Normal [facility] ([place]) Comment on above: Performed By: #### A MY, LIPID, GFR, ADIFF, ANEU, CBC, LIP, CMP #### [address] [address] Glucose [Mass/Vol] 107 mg/dL High 70-105 [facility] ([place]) Comment on above: Performed By: #### A MY, LIPID, GFR, ADIFF, ANEU, CBC, LIP, CMP #### [address] [address] Potassium [Moles/Vol] 3.9 mmol/L Normal 3.5-5.1 [facility] ([place]) Comment on above: Performed By: #### A MY, LIPID, GFR, ADIFF, ANEU, CBC, LIP, CMP #### [address] [address] Sodium [Moles/Vol] 143 mmol/L Normal 136-145 [facility] ([place]) Comment on above: Performed By: #### A MY, LIPID, GFR, ADIFF, ANEU, CBC, LIP, CMP #### [address] [address] Total Protein 6.9 G/dL Normal 6.4-8.2 [facility] ([place]) Comment on above: Performed By: #### A MY, LIPID, GFR, ADIFF, ANEU, CBC, LIP, CMP #### [place] [address] [place], [place] [address] Urea nitrogen [Mass/Vol] 14 mg/dL Normal 7-18 [facility] ([place]) Comment on above: Performed By: #### A MY, LIPID, GFR, ADIFF, ANEU, CBC, LIP, CMP #### [address] [address] LABORATORYOrdered By: SYSTEM SYSTEM on 05-28-2023 Albumin [...] (Bld) [#/Vol] 4.47 106/mcL Normal 4.20 - 5.40 10^6/mcL AO Workflow SS Sodium [Moles/Vol] 143 [...] Cholesterol [Mass/Vol] 243 mg/dL High 0 - 2 00 mg/dL AO ADM SS Comment on above: [...] 05-28-2023 Lipase Level 45 U/L Normal 16-77 [facility] ([place]) Comment on above: Performed By: #### A MY, LIPID, GFR, ADIFF, ANEU, CBC, LIP, CMP #### [address] [place], [place] [address] LIPIDon 05-28-2023 Cholesterol [Mass/Vol] 243 mg/dL High 0-200 [facility] ([place]) Comment on above: Result Comment: Chol esterol Reference Interval: Less than 200 Desirable 200-239 Borderline high risk 240 and above High risk Performed By: #### A MY, LIPID, GFR, ADIFF, ANEU, CBC, LIP, CMP ####[address] [place], [place] [address] Cholesterol in HDL [Mass/Vol] 63 mg/dL High 40-60 [facility] ([place]) Comment on above: Performed By: #### A MY, LIPID, GFR, ADIFF, ANEU, CBC, LIP, CMP ####[address] [place], [place] [address] Cholesterol in LDL [Mass/Vol] 170 mg/dL High 0-130 [facility] ([place]) Comment on above: Performed By: #### A MY, LIPID, GFR, ADIFF, ANEU, CBC, LIP, CMP ####[address] [place], [place] [address] Triglyceride [Mass/Vol] 52 mg/dL Normal 0-150 [facility] ([place]) Comment on above: Result Comment: Trig lyceride Reference Interval: Less than 150 Normal 150-199 Borderline high risk 200-499 High risk 500 or higher Very high risk Performed By: #### A MY, LIPID, GFR, ADIFF, ANEU, CBC, LIP, CMP ####[address] [place], [place] [address] XR SPINE LUMBAR AP/LATon XR SPINE LUMBAR AP/LAT ORIGINAL EXAMINATION: 3 XRAY VIEWS OF THE LUMBAR SPINE01/23/2023 2:41 pm COMPARISON: CT abdomen pelvis April 2017 HISTORY: ORDERING SYSTEM PROVIDED HISTORY: Reason for Exam: right thigh pain FINDINGS: There are 5 mfx-cgr-vhwahsn lumbar type vertebral bodies. Alignment and curvature [...] 01/26/2023 11:28:21 AM Ordering Provider: RAYSA WONG [facility] ([place]) [facility] ST[facility]O BX BREAST LTon [facility] US BREAST LTD LTon 06-28 [facility] US BREAST LTD LT * * *Final Report* * * DATE OF EXAM: Jun 28 2022 9:31AM SHIELA 0593 - [facility] US BREAST LTD LT / PROCEDURE REASON: R92.8-Abnormal mammogram * * * * Physician Interpretation * * * * #[id number] - [facility] US BREAST LTD LT LIMITED ULTRASOUND OF LEFT BREAST: 06/28/2022 HISTORY: R92.8-Abnormal Mammogram. RESULT: Comparison is made to exams dated: 06/13/2022 ultrasound and 06/13/2022 mammogram - [facility]. Real-time ultrasound of the left breast upper [...] biopsy capabilities. Ewa Olivo M.D., mc/leidy:06/28/2022 09:47:39 Chucker(s): Sarah Robison, [facility] Ultrasound BI-RADS: 4 Suspicious finding - Biopsy [...] Health, Family Medicine, and Medical/Surgical Oncology, the [facility] has carefully reviewed the data and [...] their providers when to stop screening mammograms. Preconstruction Manager: Leidy Transcribe Date/Time: Jun 28 2022 9:31A Dictated by : EWA OLIVO MD This examination was interpreted and the report reviewed and electronically signed by: EWA OLIVO MD on Jun 28 2022 9:47AM EST [id number] Normal [facility] US BREAST LTD LTon 3 [facility] MARTY DIAG W DELFIN LTon 023 [facility] BREAST LTD LTon 3 [facility] LABORATORYOrdered By: SYSTEM SYSTEM on 06-10-2022 [...] 10^3/mcL AO Workflow SS MARTY SCREENINGon 05-16-2022 [facility] XR Lumbar spine 3 Viewson IMPRESSION: Lumbar s pine degenerative changes as described above. Preconstruction Manager: PSCB Transcribe Date/Time: Feb 20 2022 8:24A Dictated by : CHAYA BEJARANO MD This examination was interpreted and the report reviewed and electronically signed by: CHAYA BEJARANO MD on Feb 20 2022 8:27AM [facility] DIVISION OF RADIOLOGY * * [...] spine are presented. FINDINGS: There are five zsa-mdm-[id number] lumbar vertebrae. No fracture or subluxations are noted. There is mild left-sided curvature. The disc spaces are grossly preserved. There is mild osteophyte formation, with facet arthrosis in the lower lumbar spine. DIVISION OF RADIOLOGY Provider, Amaury Sung [facility] - 02/20/2022 * * *Final Report* [...] spine are presented. FINDINGS: There are five ugu-mol-yldzyeb lumbar vertebrae. No fracture or subluxations are noted. There is mild left-sided curvature. The disc spaces are grossly preserved. There is mild osteophyte formation, with facet arthrosis in the lower lumbar spine. IMPRESSION IMPRESSION: Lumbar spine degenerative changes as described above. Preconstruction Manager: PSCB Transcribe Date/Time: Feb 20 2022 8:24A Dictated by : CHAYA BEJARANO MD This examination was interpreted and the report reviewed and electronically signed by: CHAYA BEJARANO MD on Feb 20 2022 8:27AM EST [facility] Radiology Study observation (narrative) [facility] XR Lumbar spine 3 ViewsOrder ed By: Ccf Provider on 02-20-2022 [facility] Vital Signs Date Time Vital Sign Value Performing Clinician Lashell umniz 12-22-2024 15:0 Body mass index (BMI) [Ratio] 32.91 kg/m2 Anselmo Puentes APRN.TERRITORY OUTSIDE SALES MANAGER Work Phone: [facility] 12-22-2024 15:09-0400 Body temperature 99.7 [degF] Anselmo Puentes STRE[address] CAR INSPECTOR.TERRITORY OUTSIDE SALES MANAGER Work Phone: [facility] 12-22-2024 15:09-0400 Body weight 93.[address] CAR INSPECTOR.TERRITORY OUTSIDE SALES MANAGER Work Phone: [facility] 12-22-2024 15:09-0400 Diastolic blood pressure 72 mm[Hg] Anselmo Puentes ST[address] CAR INSPECTOR.TERRITORY OUTSIDE SALES MANAGER Work Phone: [facility] 12-22-2024 15:09-0400 Heart rate 80 /min Anselmo Pu[address] CAR INSPECTOR.TERRITORY OUTSIDE SALES MANAGER Work Phone: [facility] 12-22-2024 15:09-0400 Respiratory rate 18 /min Anselmo [address] CAR INSPECTOR.TERRITORY OUTSIDE SALES MANAGER Work Phone: [facility] 12-22-2024 15:09-0400 SaO2% (BldA) [Mass fraction] 98 % Anselmo Puentes STRE[address] CAR INSPECTOR.TERRITORY OUTSIDE SALES MANAGER Work Phone: [facility] 12-22-2024 15:09-0400 Systolic blood pressure 112 mm[Hg] Anselmo Puentes [address] CAR INSPECTOR.TERRITORY OUTSIDE SALES MANAGER Work Phone: [facility] 09-16-2024 18:30-0400 Body temperature 97 [degF] Raysa Wong WAREHOUSE LEAD-C Work Phone: [facility] 09-16-2024 18:30-0400 Diastolic blood pressure 74 mm[Hg] Raysa Wong WAREHOUSE LEAD-C Work Phone: [facility] 09-16-2024 18:30-0400 Heart rate 124 /min Raysa Wong WAREHOUSE LEAD-C Work Phone: [facility] 09-16-2024 18:30-0400 Respiratory rate 20 /min Raysa Wong WAREHOUSE LEAD-C Work Phone: [facility] 09-16-2024 18:30-0400 SaO2% (BldA) [Mass fraction] 100 % Raysa Wong WAREHOUSE LEAD-C Work Phone: [facility] 09-16-2024 18:30-0400 Systolic blood pressure 120 mm[Hg] Raysa Wong WAREHOUSE LEAD-C Work Phone: [facility] 09-16-2024 16:23-0400 Body height 167.64 cm Raysa Wong WAREHOUSE LEAD-C Work Phone: [facility] 09-16-2024 16:23-0400 Body mass index (BMI) [Ratio] 34 kg/m2 Raysa Wong WAREHOUSE LEAD-C Work Phone: [facility] 09-16-2024 16:23-0400 Body weight 95.48 kg Raysa Wong WAREHOUSE LEAD-C Work Phone: [facility] 08-08-2024 09:13-0400 Body height 168.9 cm Sydni Munoz APRN.TERRITORY OUTSIDE SALES MANAGER Work Phone: [facility] 08-08-2024 09:13-0400 Body mass index (BMI) [Ratio] 33.07 kg/m2 Sydni Munoz APRN.TERRITORY OUTSIDE SALES MANAGER Work Phone: [facility] 08-08-2024 09:13-0400 Body weight 94.35 kg Sydni Munoz APRN.TERRITORY OUTSIDE SALES MANAGER Work Phone: [facility] 08-08-2024 09:13-0400 Diastolic blood pressure 74 mm[Hg] Sydni Munoz APRN.TERRITORY OUTSIDE SALES MANAGER Work Phone: [facility] 08-08-2024 09:13-0400 Systolic blood pressure 98 mm[Hg] Sydni Munoz APRN.TERRITORY OUTSIDE SALES MANAGER Work Phone: [facility] 02-23-2024 15:16-0400 Body mass index (BMI) [Ratio] 35.58 kg/m2 Kassandra PAULINO Work Phone: [facility] 02-23-2024 15:16-0400 Body temperature 98.2 [degF] Kassandra PAULINO Work Phone: [facility] 02-23-2024 15:16-0400 Body weight 100 kg Krislyn Aberegg PA Work Phone: [facility] 02-23-2024 15:16-0400 Diastolic blood pressure 78 mm[Hg] Krislyn Aberegg PA Work Phone: [facility] 02-23-2024 15:16-0400 Heart rate 95 /min Krislyn Aberegg PA Work Phone: [facility] 02-23-2024 15:16-0400 Respiratory rate 18 /min Krislyn Aberegg PA Work Phone: [facility] 02-23-2024 15:16-0400 SaO2% (BldA) [Mass fraction] 100 % Krislyn Aberegg PA Work Phone: [facility] 02-23-2024 15:16-0400 Systolic blood pressure 132 mm[Hg] Krislyn Aberegg PA Work Phone: [facility] 10-10-2023 09:23-0400 Body mass index (BMI) [Ratio] 37.12 kg/m2 Meghan Redd MD Work Phone: [facility] 10-10-2023 09:23-0400 Body weight 104.33 kg Meghan Redd MD Work Phone: [facility] 10-10-2023 09:23-0400 Diastolic blood pressure 74 mm[Hg] Meghan Redd MD Work Phone: [facility] 10-10-2023 09:23-0400 Systolic blood pressure 118 mm[Hg] Meghan Redd MD Work Phone: [facility] 08-21-2023 20:47-0400 Body temperature 98.4 [degF] [facility] 08-21-2023 20:47-0400 Diastolic blood pressure 86 mm[Hg] [facility] 08-21-2023 20:47-0400 Heart rate 72 /min [facility] 08-21-2023 20:47-0400 Respiratory rate 16 /min [facility] 08-21-2023 20:47-0400 SaO2% (BldA) [Mass fraction] 99 % [facility] 08-21-2023 20:47-0400 Systolic blood pressure 125 mm[Hg] [facility] 08-21-2023 19:07-0400 Body height 167.64 cm [facility] 08-21-2023 19:07-0400 Body mass index (BMI) [Ratio] 37.1 kg/m2 [facility] 08-21-2023 19:07-0400 Body weight 104.46 kg [facility] 07-20-2023 09:03-0500 Body height 167.6 cm Sydni Munoz APRN.TERRITORY OUTSIDE SALES MANAGER Work Phone: [facility] 07-20-2023 09:03-0500 Body weight 103.87 kg Sydni Munoz APRN.TERRITORY OUTSIDE SALES MANAGER Work Phone: [facility] 07-20-2023 09:03-0500 Diastolic blood pressure 80 mm[Hg] Sydni Munoz APRN.TERRITORY OUTSIDE SALES MANAGER Work Phone: [facility] 07-20-2023 09:03-0500 Systolic blood pressure 112 mm[Hg] Sydni Munoz APRN.TERRITORY OUTSIDE SALES MANAGER Work Phone: [facility] 05-28-2023 01:30-0500 Body height 167.64 cm [facility] 05-28-2023 01:30-0500 Body mass index (BMI) [Ratio] 37.1 kg/m2 [facility] 05-28-2023 01:30-0500 Body temperature 97.4 [degF] [facility] 05-28-2023 01:30-0500 Body weight 104.32 kg [facility] 05-28-2023 01:30-0500 Diastolic blood pressure 92 mm[Hg] [facility] 05-28-2023 01:30-0500 Heart rate 79 /min [facility] 05-28-2023 01:30-0500 Respiratory rate 18 /min [facility] 05-28-2023 01:30-0500 SaO2% (BldA) [Mass fraction] 94 % [facility] 05-28-2023 01:30-0500 Systolic blood pressure 129 mm[Hg] [facility] 01-13-2023 08:22-0400 Body temperature 97.9 [degF] Veronica [address] CAR INSPECTOR.TERRITORY OUTSIDE SALES MANAGER Work Phone: [facility] 01-13-2023 08:22-0400 Body weight 107.05 kg Veronica [address] CAR INSPECTOR.TERRITORY OUTSIDE SALES MANAGER Work Phone: [facility] 01-13-2023 08:22-0400 Diastolic blood pressure 82 mm[Hg] Veronica [address] CAR INSPECTOR.TERRITORY OUTSIDE SALES MANAGER Work Phone: [facility] 01-13-2023 08:22-0400 Heart rate 72 /min Veronica [address] CAR INSPECTOR.TERRITORY OUTSIDE SALES MANAGER Work Phone: [facility] 01-13-2023 08:22-0400 Respiratory rate 18 /min Veronica [address] CAR INSPECTOR.TERRITORY OUTSIDE SALES MANAGER Work Phone: [facility] 01-13-2023 08:22-0400 SaO2% (BldA) [Mass fraction] 98 % Veronica [address] CAR INSPECTOR.TERRITORY OUTSIDE SALES MANAGER Work Phone: [facility] 01-13-2023 08:22-0400 Systolic blood pressure 118 mm[Hg] Veronica [address] CAR INSPECTOR.TERRITORY OUTSIDE SALES MANAGER Work Phone: [facility] 05-16-2022 12:58-0500 Body height 167.[address] CAR INSPECTOR.TERRITORY OUTSIDE SALES MANAGER Work Phone: [facility] 05-16-2022 12:58-0500 Body weight 107.[address] CAR INSPECTOR.TERRITORY OUTSIDE SALES MANAGER Work Phone: [facility] 05-16-2022 12:58-0500 Diastolic blood pressure 72 mm[Hg] Sydni Munoz STREET CAR INSPECTOR.TERRITORY OUTSIDE SALES MANAGER Work Phone: [facility] 05-16-2022 12:58-0500 Systolic blood pressure 128 mm[Hg] Sydni Munoz STRE[address] CAR INSPECTOR.TERRITORY OUTSIDE SALES MANAGER Work Phone: [facility] Encounters Encounter Date Encounter Type Care Provider Facility Start: 03-25-2025 ambulatory Bernadette Herron Facili ty:[facility] Start: 03-23-2025 ambulatory Raysa Wong NP Fa cility:[facility] Start: 03-20-2025 Encounter for other preprocedural examination Mikey Solares [facility] Start: 03-18-2025 End: 03-18-2025 ambulatory Bernadette Herron Facility:[facility] Start: 03-10-2025 End: 03-14-[address] CAR INSPECTOR-TERRITORY OUTSIDE SALES MANAGER Facility:[facility] Start: 03-10-2025 End: 03-14-2025 Outreach Lab [address] CAR INSPECTOR-TERRITORY OUTSIDE SALES MANAGER [facility] Start: 02-13-2025 End: 02-13-2025 ambulatory Raysa Wong NP Facility:[facility] Start: 01-29-2025 End: 01-29-2025 ambulatory Raysa Wong WAREHOUSE LEAD-C Work Phone: -Ultrasound [facility] Start: 01-29-2025 End: 01-29-2025 Patient encounter procedure Mikey Solares DO -Ultrasound [facility] Work Phone: Start: 01-28-2025 End: 02-01-[address] CAR INSPECTOR-TERRITORY OUTSIDE SALES MANAGER Facility:[facility] Start: 01-28-2025 End: 02-01-2025 Outreach Lab [address] CAR INSPECTOR-TERRITORY OUTSIDE SALES MANAGER [facility] Start: 12-22-2024 End: 12-22-2024 Office outpatient visit [address] CAR INSPECTOR.TERRITORY OUTSIDE SALES MANAGER Work Phone: [facility] Comment on above: Allergic reaction to insect sting, accidental or unintentional, initial encounter (Primary Dx) Start: 12-22-2024 End: 12-22-2024 ambulatory RAYSA WONG Facility:[facility] Start: 12-01-2024 End: 12-01-2024 Patient encounter procedure Mikey Solares DO -[facility] Work Phone: Start: 12-01-2024 End: 12-01-2024 ambulatory Raysa Wong WAREHOUSE LEAD-C Work Phone: -[facility] Start: 09-16-2024 End: 09-16-2024 Emergency department patient visit Raysa Wong WAREHOUSE LEAD-C Work Phone: -Emergency Department Work Phone: Start: 09-13-2024 End: 09-13-2024 ambulatory RAYSA WONG APRN-TERRITORY OUTSIDE SALES MANAGER Facility:[facility] Start: 09-13-2024 End: 09-13-2024 Patient encounter procedure RAYSA WONG APRN-TERRITORY OUTSIDE SALES MANAGER [facility] Start: 08-13-2024 End: 08-13-2024 Patient encounter procedure Bernadette Herron [place] -[facility] Work Phone: Start: 08-13-2024 End: 08-13-2024 ambulatory Raysa Wong NP [place] [place]: 08-08-2024 End: 08-08-2024 ambulatory SYDNI MUNOZ Facility:[facility] Start: 08-08-2024 End: 08-08-2024 Patient encounter procedure Sydni Munoz APRN.TERRITORY OUTSIDE SALES MANAGER Work Phone: OB/Gynecology Comment on above: Encounter for gyneco logical examination (general) (routine) without abnormal findings (Primary Dx); Encounter for screening mammogram for breast cancer Start: 08-08-2024 End: 08-08-2024 Patient encounter status Sydni Munoz APRN.TERRITORY OUTSIDE SALES MANAGER Work Phone: [facility] Start: 06-03-2024 End: 06-03-2024 Patient encounter procedure Mikey Solares DO -[facility] Work Phone: Start: 06-03-2024 End: 06-03-2024 ambulatory Raysa Wong WAREHOUSE LEAD [place] Start: 05-06-2024 End: 05-06-2024 ambulatory Raysa Wong NP Facility:[facility] Start: 05-02-2024 End: 05-02-2024 ambulatory SYDNI TAMMY Facility:[facility] Start: 05-02-2024 End: 05-02-2024 Subsequent hospital visit by physician Screen Mammo [facility] Comment on above: Encounter for screen ing mammogram for breast cancer [Z12.31] Start: 03-27-2024 End: 03-27-2024 ambulatory Raysa Wong NP [place] Start: 02-25-2024 End: 02-25-2024 ambulatory KASSANDRA CABELLO Facility:[facility] Start: 02-25-2024 End: 02-25-2024 Subsequent hospital visit by physician Xr [facility] Work Phone: Radiology Comment on above: Cervical pain [M54.2 ] Start: 02-25-2024 End: 02-25-2024 Telephone encounter Herlinda Alba APRN.TERRITORY OUTSIDE SALES MANAGER Work Phone: [facility] Comment on above: Results Start: 02-23-2024 End: 02-23-2024 ambulatory RAYSA WONG Facility:[facility] Start: 02-23-2024 End: 02-23-2024 Patient encounter procedure Kassandra Cabello PA Work Phone: [facility] Comment on above: Cervical pain (Prima ry Dx); Acute pain of right shoulder Start: 01-04-2024 End: 01-04-[address] CAR INSPECTOR-TERRITORY OUTSIDE SALES MANAGER Facility:B Start: 01-04-2024 End: 01-04-2024 Patient encounter procedure RAYSA WONG STRE[address] CAR INSPECTOR-TERRITORY OUTSIDE SALES MANAGER [facility] Start: 10-10-2023 End: 10-10-2023 Patient encounter procedure Meghan Redd MD Work Phone: OB/Gynecology Comment on above: Endocervical polyp ( Primary Dx); Pre-op exam Start: 10-10-2023 End: 10-10-2023 Preprocedural examination done Meghan Redd MD Work Phone: [facility] Start: 09-24-2023 Admission to [facility] Meghan Redd MD Work Phone: OB/Gynecology Comment on above: surgery confirmation Start: 09-24-2023 E-mail encounter fro m caregiver Meghan Redd MD Work Phone: OB/Gynecology Start: 09-19-2023 End: 09-19-2023 ambulatory RAYSA WONG APRN-TERRITORY OUTSIDE SALES MANAGER Facility:B Start: 09-03-2023 End: 2023 ambulatory RAYSA WONG APRN-TERRITORY OUTSIDE SALES MANAGER Facility:[facility] Start: 09-03-2023 End: 2023 Physical therapy management RAYSA WONG APRN-TERRITORY OUTSIDE SALES MANAGER [facility] Start: 08-21-2023 End: 08-21-2023 Emergency department patient visit [facility] Work Phone: Start: 08-21-2023 End: 08-21-2023 Patient encounter procedure Basil Gardiner APRN.TERRITORY OUTSIDE SALES MANAGER Work Phone: [facility] Comment on above: Chest pressure (Prim jorge Dx) Start: 08-01-2023 End: 08-01-2023 ambulatory Ob Ultrasound Work Phone: OB/Gynecology Comment on above: Other (polyp) Start: 08-01-2023 End: 08-01-2023 Patient encounter procedure [employer] [facility] Work Phone: [facility] Start: 07-25-2023 End: 07-25-2023 Subsequent hospital visit by physician Diagnostic Mammo [facility] Mamm[facility] Start: 07-20-2023 End: 07-20-2023 Patient encounter procedure Sydni Munoz STREET CAR INSPECTOR.TERRITORY OUTSIDE SALES MANAGER Work Phone: OB/Gynecology Comment on above: Encounter for gyneco logical examination with abnormal finding (Primary Dx); Endocervical polyp; Encounter for screening mammogram for breast cancer; Heterogeneously dense tissue of both breasts on mammography; Pseudoangiomatous stromal hyperplasia of breast Start: 07-20-2023 End: 07-20-2023 Patient encounter status Sydni Munoz APRN.TERRITORY OUTSIDE SALES MANAGER Work Phone: [facility] Work Phone: Start: 06-07-2023 End: 06-07-2023 ambulatory RAYSA WONG APRN-TERRITORY OUTSIDE SALES MANAGER Facility:B Start: 05-28-2023 End: 05-28-2023 ambulatory RAYSA WONG APRN-TERRITORY OUTSIDE SALES MANAGER Facility:B Start: 05-28-2023 End: 05-28-2023 Patient encounter procedure RAYSA WONG APRN-TERRITORY OUTSIDE SALES MANAGER [facility] Start: 05-28-2023 End: 05-28-2023 Emergency department patient visit [facility] Work Phone: Start: 01-23-2023 End: 01-23-2023 ambulatory RAYSA WONG APRN-TERRITORY OUTSIDE SALES MANAGER Facility:B Start: 01-23-2023 End: 01-23-2023 Patient encounter procedure RAYSA WONG STREET CAR INSPECTOR-TERRITORY OUTSIDE SALES MANAGER [facility] Start: 01-13-2023 End: 01-13-2023 Patient encounter procedure Veronica Vivas APRN.TERRITORY OUTSIDE SALES MANAGER Work Phone: [facility] Comment on above: Burning sensation of [...] hospital visit by physician Diagnostic Mammo [facility] Mammogram Comment on above: Abnormal mammogram [ R92.8] Start: 06-10-2022 End: 06-10-2022 Patient encounter procedure RAYSA WONG APRN-TERRITORY OUTSIDE SALES MANAGER [facility] Start: 05-17-2022 Documentation procedure Mammography Coordinator [facility] Start: 05-17-2022 Letter encounter Mammography Coordinator [facility] Department Start: 05-16-2022 End: 05-16-2022 Patient encounter procedure Sydni Munoz APRN.TERRITORY OUTSIDE SALES MANAGER Work Phone: OB/Gynecology Comment on above: Encounter for gyneco logical examination (general) (routine) without abnormal findings (Primary Dx); Encounter for screening mammogram for breast cancer; Dense breast tissue Start: 05-16-2022 End: 05-16-2022 Patient encounter status Sydni Munoz APRN.TERRITORY OUTSIDE SALES MANAGER Work Phone: OB/Gynecology Start: 05-16-2022 End: 05-16-2022 Subsequent hospital visit by physician Screen Mammo [facility] Mamm[facility] Comment on above: Encounter for gyneco logical examination (general) (routine) without abnormal findings [Z01.419] Start: 02-21-2022 Telephone encounter Veronica Harrell APRN.TERRITORY OUTSIDE SALES MANAGER Work Phone: [facility] Comment on above: Results, Lab Start: 02-20-2022 Telephone encounter Lennie South PA-C Work Phone: [facility] Comment on above: Results Start: 02-20-2022 End: 02-20-2022 Subsequent hospital visit by physician Xr [facility] Work Phone: Radiology Comment on above: Acute right-sided lo w back pain without sciatica [M54.50] Start: 07-10-2020 End: 07-10-2020 Discharged Recurring [facility] Procedures Date Procedure Procedure Detail Performing Clinician Start: 01-29-2025 Ultrasonography of abdomen Raysa CRAINC Work Phone: Start: 09-16-2024 Plain X-ray of femur Kin kempan CRAINC Work Phone: Start: 09-16-2024 Plain X-ray of tibia and fibula Raysa Wong WAREHOUSE LEAD-C Work Phone: Start: 02-25-2024 Radex spine cervical 4 or 5 views Kassandra PAULINO Work Phone: Start: 08-21-2023 Plain chest X-ray Start: 08-01-2023 Us pelvic nonobstetr ic real-time image complete Sydni Munoz APRN.TERRITORY OUTSIDE SALES MANAGER Work Phone: Start: 07-25-2023 Digital breast tomos ynthesis bilateral Sydni Munoz APRN.TERRITORY OUTSIDE SALES MANAGER Work Phone: Start: 05-28-2023 Plain chest X-ray Start: 05-28-2023 Plain X-ray of shoulder Start: 07-17-2022 Bx breast w/device 1 st lesion stereotactic guid Ewa Olivo MD Work Phone: Start: 06-28-2022 Us breast uni real t bryon with image limited Burt Lenz MD Work Phone: Start: 06-13-2022 Us breast uni real t bryon with image limited Sydni Munoz APRN.TERRITORY OUTSIDE SALES MANAGER Work Phone: Start: 06-13-2022 MARTY DIAG W DELFIN LEFT Am maynor Munoz APRN.TERRITORY OUTSIDE SALES MANAGER Work Phone: Start: 05-16-2022 End: 05-16-2022 Mammography Sydni Munoz APRN.TERRITORY OUTSIDE SALES MANAGER Work Phone: Start: 02-20-2022 Radex spine lumbosac ral 2/3 views Lennie South PA-C Work Phone: Start: 05-10-2021 Mammography Lennie South PA-C Work Phone: Start: 02-09-2011 Lipid 1996 panel - S breanna or Plasma Us 1 Work Phone: Plan of Treatment Date Care Activity Detail Author Start: 09-16-2034 Urine microalbumin profile DTaP,Tdap,Td Vaccine (4 - Td or Tdap) [facility] Start: 05-14-2028 Urine microalbumin profile [facility] Start: 05-10-2026 HPV TESTING HPV TESTING [facility] Start: 05-10-2026 PAP TESTING PAP TESTING [facility] Start: 05-10-2026 Screening for malign ant neoplasm of cervix [facility] Start: 08-12-2025 End: 08-12-2025 Patient encounter procedure Mammogram Comment on above: MARTY SCREENING W DELFIN annual Start: 05-02-2025 Screening for malign ant neoplasm of breast Mammogram Screening [facility] Start: 03-04-2025 Screening for malign ant neoplasm of colon [facility] Start: 01-12-2025 Influenza vaccination Influenza Vacc ine (#1) [facility] Start: 2024 Pneumococcal Vaccine : 50+ (1 of 1 - PCV) Pneumococcal Vaccine: 50+ (1 of 1 - PCV) [facility] Start: 2024 Shingrix Vaccine (1 of 2) Shingrix Vaccine (1 of 2) [facility] Start: 09-16-2024 [facility] Start: 08-08-2024 End: 08-08-2024 Patient encounter procedure 08/08/2024 9:30 AM EDT Office Visit OB/Gynecology [address] [place] [address] ySdni Munoz APRN.TERRITORY OUTSIDE SALES MANAGER [address] [place], [place] [id number] annual OB/Gynecology Comment on above: annual Start: 07-24-2024 Screening for malign ant neoplasm of breast Mammogram Screening [facility] Start: 07-22-2024 End: 07-22-2024 Patient encounter procedure 07/22/2024 9:00 AM EDT Office Visit OB/Gynecology [address] [place] [address] Sydni Munoz APRN.TERRITORY OUTSIDE SALES MANAGER [address] [place] [address] annual exam OB/Gynecology Comment on above: annual exam Start: 01-13-2024 Covid-19 Vaccine () Covid-19 Vaccine () [facility] Start: 01-13-2024 Influenza vaccination [facility] Start: 10-10-2023 End: 10-10-2023 Patient encounter procedure 10/10/2023 9:20 AM EDT Office Visit OB/Gynecology [address] [place] [address] Meghan Da Silva MD [address] [place] [address] surgery 10/25 OB/Gynecology Comment on above: surgery 10/25 Start: 08-21-2023 [facility] Start: 08-21-2023 Blood chemistry [facility] Start: 08-21-2023 [facility] Start: 07-20-2023 End: 07-19-2024 US Pelvis PELVIC US [facility] Anc Imaging Routine Endocervical polyp Expected: 07/20/2023, Expires: 07/19/2024 [facility] Work Phone: Comment on above: Expected: 07/20/2023 , Expires: 07/19/2024 Start: 05-28-2023 [facility] Start: 05-16-2023 Mammography [facility] Start: 05-16-2023 Screening for malign ant neoplasm of breast Mammogram Screening [facility] Start: 05-14-2023 Behavioral Health Screening Behavioral Health Screening [facility] Start: 05-14-2023 Depression Assessment Depression Ass essment [facility] Start: 01-12-2023 Covid-19 Vaccine () Covid-19 Vaccine () [facility] Start: 01-12-2023 Influenza vaccination [facility] Start: 05-14-2022 DEPRESSION ASSESSMENT DEPRESSION ASS ESSMENT [facility] Start: 05-10-2022 Mammography MAMMOGRAM [facility] Start: 01-12-2022 Influenza vaccination INFLUENZA (#1) [facility] Start: 07-06-2021 COVID-19 VACCINE (5 - Booster for Moderna series) COVID-19 VACCINE (5 - Booster for Moderna series) [facility] Start: 07-06-2021 COVID-19 VACCINE (5 - Moderna series) COVID-19 VACCINE (5 - Moderna series) [facility] Start: 05-14-2021 DEPRESSION ASSESSMENT DEPRESSION ASS ESSMENT [facility] Start: 09-30-2020 COVID-19 VACCINE (3 - Booster for Moderna series) COVID-19 VACCINE (3 - Booster for Moderna series) [facility] Start: 12-05-2019 COLOGUARD (FIT-DNA) COLOGUARD (FIT-D NA) [facility] Start: 12-05-2019 Colonoscopy COLONOSCOPY [facility] Start: 12-05-2019 COLORECTAL CANCER SCREENING COLORECTAL CANCER SCREENING [facility] Start: 12-05-[address] COLONOGRAPHY [facility] Start: 12-05-2019 DIABETES SCREEN DIABETES SCREEN [facility] Start: 12-05-2019 Diabetes Screening Diabetes Screenin g [facility] Start: 12-05-2019 FECAL OCCULT BLOOD FECAL OCCULT BLOO D [facility] Start: 12-05-2019 Lipid 1996 panel - Serum or Plasma Lipid Screening [facility] Start: 12-05-2019 Lipid panel Lipid Screening [facility] Start: 12-05-2019 LIPID SCREEN LIPID SCREEN [facility] Start: 12-05-2019 Screening for malign ant neoplasm of colon [facility] Start: 12-05-2019 SIGMOIDOSCOPY SIGMOIDOSCOPY [facility] Start: 1993 Hepatitis B Vaccine (1 of 3 - 19+ 3-dose series) Hepatitis B Vaccine (1 of 3 - 19+ 3-dose series) [facility] Start: 1992 Anxiety Screening Anxiety Screening [facility] Start: 1992 Depression Screening Depression Scre ening [facility] Start: 1992 HEPATITIS C SCREENING HEPATITIS C [facility] Start: 1992 Hepatitis C screening Hepatitis C [facility] Start: 1992 HIV SCREENING HIV SCREENING [facility] Start: 1992 HIV screening HIV Screening [facility] Start: 1974 HEPATITIS B (1 of 3 - 3-dose series) HEPATITIS B (1 of 3 - 3-dose series) [facility] Start: 1974 Hepatitis B Vaccine (1 of 3 - 3-dose series) Hepatitis B Vaccine (1 of 3 - 3-dose series) [facility] End: 07-28-2023 Bx breast w/device 1st lesion stereotactic guid MARTY STEREO BX BREAST LT Radiology Routine Abnormal finding on radiological examination of breast 1 Occurrences starting 06/28/2022 until 07/28/2023 [facility] Work Phone: Comment on above: 1 Occurrences starti ng 06/28/2022 until 07/28/2023 End: 08-18-2024 DBT Breast - bilateral screening MARTY SCREENING W DELFIN Radiology Routine Encounter for screening mammogram for breast cancer Heterogeneously dense tissue of both breasts on mammography Pseudoangiomatous stromal hyperplasia of breast 1 Occurrences starting 07/20/2023 until 08/18/2024 [facility] Work Phone: Comment on above: 1 Occurrences starti ng 07/20/2023 until 08/18/2024 DBT Breast - bilater al screening MARTY SCREENING W DELFIN Radiology Routine Encounter for screening mammogram for breast cancer Heterogeneously dense tissue of both breasts on mammography Pseudoangiomatous stromal hyperplasia of breast 05/02/2024 12:44 PM EST [facility] Work Phone: End: 09-07-2025 DBT Breast - bilateral screening MARTY SCREENING W DELFIN Radiology Routine Encounter for gynecological examination (general) (routine) without abnormal findings Encounter for screening mammogram for breast cancer 1 Occurrences starting 08/08/2024 until 09/07/2025 [facility] Work Phone: Comment on above: 1 Occurrences starti ng 08/08/2024 until 09/07/2025 End: 06-15-2023 MARTY SCREENING W DELFIN MARTY SCREENING W DELFIN Radiology Routine Encounter for screening mammogram for breast cancer Dense breast tissue 1 Occurrences starting 05/16/2022 until 06/15/2023 [facility] Work Phone: Comment on above: 1 Occurrences starti ng 05/16/2022 until 06/15/2023 Patient Education [facility] Work Phone: Patient referral [facility] Work Phone: SURGICAL PATHOLOGY [facility] Work Phone: Comment on above: Release Upon Orderin g for 1 Occurrences starting 07/17/2022, 1 completed End: 03-24-2025 XR Cervical spine AP and Lateral and oblique XR CERV OTHER 4V AP/LAT/OBL Radiology STAT Cervical pain Acute pain of right shoulder 1 Occurrences starting 02/23/2024 until 03/24/2025 [facility] Comment on above: 1 Occurrences starti ng 02/23/2024 until 03/24/2025 End: 03-24-2025 XR Shoulder - right 3 Views XR SHOULDER GENERAL 3V OR MORE AP/TRUE AP/OTHER RIGHT Radiology STAT Cervical pain Acute pain of right shoulder 1 Occurrences starting 02/23/2024 until 03/24/2025 [facility] Work Phone: Comment on above: 1 Occurrences starti ng 02/23/2024 until 03/24/2025 [facility] Immunizations Immunization Date Immunization Notes Care Provider [facility] 09-16-2024 tetanus toxoid, reduced diphtheria toxoid, and acellular pertussis vaccine, adsorbed Raysa Wong WAREHOUSE LEAD-C Work Phone: [facility] 05-11-2021 SARS-CoV-2 mRNA (tozinameran) vaccine RAYSA WONG STREET CAR INSPECTOR-TERRITORY OUTSIDE SALES MANAGER [facility] 08-22-2020 SARS-CoV-2 (COVID-19 ) Ad26 vaccine, recombinant RAYSA WONG STREET CAR INSPECTOR-TERRITORY OUTSIDE SALES MANAGER [facility] 08-05-2020 Covid (Moderna) [facility] 07-08-2020 [facility] Comment on above: Result Comment: 2022: TPV23 04-30-2019 influenza virus vaccine, unspecified formulation RAYSA WONG STRE[address] CAR INSPECTOR-TERRITORY OUTSIDE SALES MANAGER [facility] 05-14-2018 tetanus toxoid, reduced diphtheria toxoid, and acellular pertussis vaccine, adsorbed Lennie South PA-C Work Phone: [facility] 02-07-2018 influenza virus vaccine, unspecified formulation RAYSA WONG [address] CAR INSPECTOR-TERRITORY OUTSIDE SALES MANAGER [facility] 06-05-2016 influenza virus vaccine, unspecified formulation RAYSA WONG [address] CAR INSPECTOR-TERRITORY OUTSIDE SALES MANAGER [facility] 07-30-2014 tetanus toxoid, reduced diphtheria toxoid, and acellular pertussis vaccine, adsorbed RAYSA WONG STRE[address] CAR INSPECTOR-TERRITORY OUTSIDE SALES MANAGER [facility] Payers Date Payer Category Payer Self-pay [id number] 2018 Private Health Insurance [id number] 2018 Unknown [id number] 2018 Unknown [id number] 1974 Unknown [id number] 2.16.8 [id number] 1974 Unknown [id number] 2.16.8 40.1.027524.3.579.2.627 1974 Unknown [id number] 2.16.8 40.1.344194.3.579.2.627 1974 Unknown [id number] .16.8 40.1.431022.3.579.2.627 1974 Unknown [id number] 40.1.758245.3.579.2.7 1974 Unknown [id number] .16.8 40.1.845248.3.579.2. 1974 Unknown [id number] 2.. 840.1.246640.3.579.2. 1974 Unknown [id number] 2.. 840.1.001173.3.579.2. 1974 Unknown [id number] 40.1.986908.3.579.2.627 Unknown [id number] Unknown [id number] 2.16.8 40.1.169840.3.579.2.462 Unknown [id number] 2.16.8 40.1.198486.3.579.2.462 Unknown [id number] 2.16.8 40.1.523552.3.579.2.462 Unknown [id number] .[id number] 40.1.710888.3.579.2.462 Unknown [id number] 2.16.8 40.1.435136.3.579.2.462 Unknown [id number] .16.8 40.1.184282.3.579.2.462 Unknown [id number] .16.8 40.1.225853.3.579.2.462 Unknown [id number] 2.16.8 40.1.429491.3.579.2.462 Unknown [id number] 2.16.8 40.1.515133.3.579.2.462 Unknown [id number] 2.16.8 40.1.201395.3.579.2.462 Unknown [id number] 2.16.8 40.1.775806.3.579.2.462 Unknown [id number] 2.16.8 40.1.034262.3.579.2.462 Social History Date Type Detail Facility Start: 09-21-2017 End: 08-21-2023 Tobacco smoking status IDIS Unknown if ever smoked [facility] Start: 1975 Sex Assigned At Female [facility] Start: 02-20-2022 End: 03-10-2025 Tobacco smoking status NHIS Never smoked tobacco [facility] Work Phone: Start: 02-20-2022 Tobacco use and exposure Smokeless tobacco non-user [facility] Work Phone: Start: 02-20-2022 End: 12-22-2024 Alcohol intake Current non-drinker of alcohol (finding) [facility] Start: 05-05-2020 History SDOH Social Connections Phone 5 [facility] Start: 05-05-2020 History SDOH Social Connections Get Together 2 [facility] Start: 05-05-2020 History SDOH Social Connections Membership 1 [facility] Start: 05-05-2020 History SDOH Social Connections Meetings 3 [facility] Start: 05-05-2020 History SDOH Physical Activity MPS 6 [facility] Start: 02-10-2022 End: 02-20-2022 Exposure to SARS-CoV-2 (event) Not sure [facility] Work Phone: Sex Assigned At [facility] Start: 05-05-2020 End: 07-20-2023 History of Social function [facility] Work Phone: Start: 05-05-2020 End: 07-20-2023 Social connection and isolation panel [facility] Work Phone: Do you belong to any clubs or organizations such as orthodox groups, unions, fraternal or athletic groups, or school groups? Yes [facility] Work Phone: Are you now , , , , never or living with a partner? [facility] Work Phone: Do you feel stress - tense, restless, nervous, or anxious, or unable to sleep at night because your mind is troubled all the time - these days [OSQ] Only a little [facility] Work Phone: Start: 04-14-2012 National Score (1-100), lower number is lower risk 63 [facility] Start: 02-20-2022 Sexual orientation Heterosexual (finding) [facility] Start: 02-02-2016 End: 09-16-2024 Sex Female (finding) [facility] Medical Equipment Procedure Code Equipment [...] muscle cramping with R 90-90 hamstring: [facility] 05-09-2014 Are you deaf, or do you have serious difficulty hearing No 05/09/2014 8:00 AM Genet Bean LPN No [facility] 05-09-2014 Are you blind, or do you have serious difficulty seeing, even when wearing glasses No 05/09/2014 8:00 AM Genet Bean LPN No [facility] 05-09-2014 Do you have serious difficulty walking or climbing stairs No 05/09/2014 8:00 AM Genet Bean LPN No [facility] 05-09-2014 Do you have difficul ty dressing or bathing No 05/09/2014 8:00 AM Genet Bean LPN No [facility] 05-09-2014 Because of a physica l, mental, or emotional condition, do you have difficulty doing errands alone such as visiting a physician's office or shopping No 05/09/2014 8:00 AM Genet Bean TECHNICAL COMMUNICATION TEACHER No [facility] Mental Status Date Assessment Result Facility 08-21-2023 Cognitive function Voice/Name [facility] Work Phone: 05-09-2014 Because of a physica l, mental, or emotional condition, do you have serious difficulty concentrating, remembering, or making decisions No 05/09/2014 8:00 AM Genet Bean TECHNICAL COMMUNICATION TEACHER No [facility] Clinical Notes 02-20-2022 to 01-30-2025 Anselmo Puentes, STREET CAR INSPECTOR.TERRITORY OUTSIDE SALES MANAGER - 12/22/2024 3:10 PM EDT Note Date [...] Locations *1: This test was performed at: [facility], [address] [place] [address], [id number] , [facility] 01-29-2025 Radiology Diagnostic study note [facility] Imaging Services [address] [place] [id number] Abdomen Limited MR#: [id number] Acct: [id number] Name: GLADYS PETER Rep #: [id number] : 1975 F 49 From: Tiburcio Owusu MD PCP: GENESIS Hernandez Status: RE G CLI Study:Abdomen Limited Date of Exam: 01/12 01/05 Exam# [id number] Ordering Dr: Cosmo Solares DO PROCEDURE: ABDOMEN LIMITED 01/29/2025 REASON [...] unremarkable right upper quadrant ultrasound Reading Location: [id number] CC: WAREHOUSE LEAD-C Raysa Wong; Mikey Solares DO ~ Preconstruction Manager: Signed [facility] 12-22-2024 Note HNO ID: [id number] Author: ANSELMO PUENTES APRN.TERRITORY OUTSIDE SALES MANAGER Service: ? Author Type: Nurse Practitioner Type: Progress Notes Filed: 12/22/2024 15:30 Note Text: URGENT CARE [facility] Gladys Dodd is a 49 year old [...] of care. This note was generated using [employer] software. It may contain errors in wording, punctuation, or spelling. Anselmo Puentes APRN.TERRITORY OUTSIDE SALES MANAGER History and Record Review Clinical information obtained from an independent historian. History obtained from or confirmed by: parent. External record(s) reviewed: prior outpatient record. Disposition The patient was discharged. OTC Medications were advised: Procedures [facility] 12-22-2024 History of Present illness Narrative Images [...] of care. This note was generated using [employer] software. It may contain errors in wording, punctuation, or spelling. Anselmo Puentes APRN.SHAMAR History and Record Review Clinical information obtained from an independent historian. History obtained from or confirmed by: parent. External record(s) reviewed: prior outpatient record. Disposition The patient was discharged. OTC Medications were advised: Procedures documented in this encounter [facility] 12-01-2024 Evaluation note Diagnosis Onset Date Resolution Cholelithiasis acute December 01, 2024 9:59am GERD (gastroesophageal reflux disease) acute December 01, 2024 9:59am Leg cramps acute December 01 9:59am Weight loss acute December 01 9:59am Nausea and vomiting noneactive December 01, 2024 9:59am [facility] Work Phone: 1(870) [phone] Discharge summary [facility] Medical Records Department [address] [place] [address] Emergency Department Summary 09/16/24 MR#: [id number] Acct: [id number] Name: GLADYS PETER Rep #:[id number] : 1975 48 From: Bhupendra Gonzalez MD PCP: Raysa Wong WAREHOUSE LEAD-C Status:RE G ER Location: ED HPI History of Present Illness Chief Complaint: Bite Narrative Narrative: 48-year-old female who denies significant past medical history except for gallbladder issues, presents with her neighbor with injury to her right thigh and left lower extremity after trying to break up a fight between her 2 dogs. She states that she has an 85 pound Surinamese Salcedo, and a 35 pound German Salcedo. This is the second time that [...] than 5 years. She denies other injuries. [facility] Medical History Gall stones Wears glasses [...] nonfocal and nonlateralizing. Patient is almost tearful onexamination. Const Vital Signs: 09/16/24 16:23 09/16/24 16:27 [...] orally. For analgesia she was administered 1 Bend tablet here. I will start her on [...] right femur, there is no evidence of fractureor foreign body. I reviewed the radiology report which confirms my independent interpretation. On my independent interpretation of theleft tibia and fibula, there is no fracture or foreign body as well. I reviewedthe radiology report which confirms my independent interpretation. At this point in time, her wound will be cleansed and dressed by the RN. I wrote her prescription for Augmentin to taketwice a day for the next 5 days as prophylaxis, and additionally she was given a prescription for 12 Bend tablets as she states she is still [...] NO ACUTE OSSEOUS ABNORMALITIES. Reading Location: [facility] Tibia/Fibula X-Ray 09/16/24 17:12 IMPRESSION: No acute osseous findings. Reading [facility] Discharge Plan Triage Chief Complaint: Bite ED Provider: Bhupendra Gonzalez Dx/Rx/DC Orders Clinical Impression: Dog bite of right thigh, Dog bite of left lower leg, Need for oaqbnkoozz-pihlyzp-vedvarepl (Tdap) vaccine Instructions: ED Dog Bite Prescriptions: New amoxicillin-pot clavulanate 875-125 mg tablet 1 tab PO BID 5 Days Qty: 10 0RF hydrocodone-acetaminophen 5-325 mg tablet 1 tab PO Q6H PRN (Reason: pain) 3 Days Qty: 12 0RF No Action esomeprazole magnesium [Nexium] 20 mg capsule,delayed release(DR/EC) 20 mg PO DAILY Primary Care Provider: Raysa Wong NP Referrals: Raysa Wong NP, WAREHOUSE LEAD-C [Primary Care Provider] - 3-5 Days Activity Restrictions/Additional Instructions: Antibiotics as directed. Follow-up with your primary care provider in the next 3 to 5 days for wound check. Return with fever, increased redness to wounds, drainage of pus from wounds, new or worsening symptoms. Print Language: Venezuelan Disposition Disposition: Home, Self Care What to do if you have Problems For any increased pain, shortness of breath, bleeding, nausea or vomiting, chestpain, or any unexpected problems, contact your Primary Care Provider. Call [facility] ([phone]) or report tothe closest Emergency Room. Call 911 if necessary. 09/16/24 1816 Cosigner Signature (if applicable): CC: WAREHOUSE LEAD-C Raysa Wong ~ Signed [facility]05-06-2025 Radiology Diagnostic study note [facility] Imaging Services [address] [place], [place] [address] Tibia & Fibula 2 Views MR#: [id number] Acct: [id number] Name: GLADYS PETER Rep #: [id number] : 1975 F 48 From: Rose Calle MD PCP: Raysa Wong, ULISES-C Status: RE G ER Study:Tibia & Fibula 2 Views Date of Exam: 09/16/24 Exam# [id number] Ordering Dr: Bhupendra Gonzalez MD EXAM: RIGHT TIBIA AND FIBULA, TWO VIEWS CLINICAL HISTORY: DOG BITE. TRAUMA. COMPARISON: NO RELEVANT PRIOR. TECHNIQUE: AP AND LATERAL. FINDINGS: Bones: No fractures or other osseous abnormalities. Joints: No subluxations or dislocations. Soft tissues: Unremarkable. RAD/Tibia & Fibula 2 Views IMPRESSION: No acute osseous findings. Reading Location: [facility] CC: WAREHOUSE LEAD-C Raysa Wong; Dr. Bhupendra Gonzalez MD ~ Preconstruction Manager: Signed [facility]05-06-2025 Radiology Diagnostic study note [facility] Imaging Services [address] [place] [address] Femur Min 2 Views MR#: [id number] Acct: [id number] Name: GLADYS PETER Rep #: [id number] : 1975 F 48 From: Rose Calle MD PCP: GENESIS Hernandez Status: RE G ER Study:Femur Min 2 Views Date of Exam: Exam# [id number] Ordering Dr: Bhupendra Gonzalez MD EXAM: RIGHT FEMUR, TWO VIEWS CLINICAL HISTORY: Dog bite. Trauma. COMPARISON: No relevant prior. TECHNIQUE: AP and lateral projections of the femur. FINDINGS: Bones: No fractures or other osseous abnormalities. Joints: No subluxations or dislocations. Soft tissues: Unremarkable. RAD/Femur Min 2 Views IMPRESSION: NO ACUTE OSSEOUS ABNORMALITIES. Reading Location: [facility] CC: GENESIS Wong; Dr. Bhupendra Gonzalez MD ~ Preconstruction Manager: Signed [facility]05-06-2025 Discharge summary Author Bhupendra Gonzalez [facility] Note Date/Time September 16, 2024 6:16pm [facility] Medical Records Department [address] [place] [address] Emergency Department Summary 09/16/24 MR#: [id number] Acct: [id number] Name: GLADYS PETER Rep #:[id number] : 1975 48 From: Bhupendra Gonzalez MD PCP: Raysa Wong WAREHOUSE LEAD-C Status:RE G ER Location: ED HPI History of Present Illness Chief Complaint: Bite Narrative Narrative: 48-year-old female who denies significant past medical history except for gallbladder issues, presents with her neighbor with injury to her right thigh and left lower extremity after trying to break up a fight between her 2 dogs. She states that she has an 85 pound Surinamese Salcedo, and a 35 pound German Salcedo. This is the second time that [...] than 5 years. She denies other injuries. [facility] Medical History Gall stones Wears glasses [...] orally. For analgesia she was administered 1 Bend tablet here. I will start her on [...] she was given a prescription for 12 Bend tablets as she states she is still [...] NO ACUTE OSSEOUS ABNORMALITIES. Reading Location: [facility] Tibia/Fibula X-Ray 09/16/24 17:12 IMPRESSION: No acute osseous findings. Reading Location: [facility] Discharge Plan Triage Chief Complaint: Bite ED Provider: Bhupendra Gonzalez Dx/Rx/DC Orders Clinical Impression: Dog bite of right thigh, Dog bite of left lower leg, Need for vqdnixuuxz-mojznhi-tdnnghira (Tdap) vaccine Instructions: ED Dog Bite Prescriptions: New amoxicillin-pot clavulanate 875-125 mg tablet 1 tab PO BID 5 Days Qty: 10 0RF hydrocodone-acetaminophen 5-325 mg tablet 1 tab PO Q6H PRN (Reason: pain) 3 Days Qty: 12 0RF No Action esomeprazole magnesium [Nexium] 20 mg capsule,delayed release(DR/EC) 20 mg PO DAILY Primary Care Provider: Raysa Wong NP Referrals: Raysa Wong NP, WAREHOUSE LEAD-C [Primary Care Provider] - 3-5 Days Activity Restrictions/Additional Instructions: Antibiotics as directed. Follow-up with your primary care provider in the next 3 to 5 days for wound check. Return with fever, increased redness to wounds, drainage of pus from wounds, new or worsening symptoms. Print Language: Venezuelan Disposition Disposition: Home, Self Care What to do if you have Problems For any increased pain, shortness of breath, bleeding, nausea or vomiting, chestpain, or any unexpected problems, contact your Primary Care Provider. Call [facility] ([phone]) or report to the closest Emergency Room. Call 911 if necessary. 09/16/241815 <Electronically signed by Bhupendra Gonzalez MD> Cosigner Signature (if applicable): CC: GENESIS Wong ~ Signed [facility] Work Phone: 1(791) 182-639305-06-2025 Hospital Discharge instructions Additional Instructions Antibiotics as directed. Follow-up with your primary care provider in the next 3 to 5 days for wound check. Return with fever, increased redness to wounds, drainage of pus from wounds, new or worsening symptoms.[facility] Work Phone: 1(674) 764-268704-02-2025 Evaluation note* Diagnosis Onset Date Resolution Status Admit Date Cholelithiasis acute August 13, 2024 3:30pm GERD (gastroesophageal reflu x disease) acute August 13, 2024 3:30pm [facility] Work Phone: 1(339) 212-814303-28-2025 Instructions* Patient Instructions* Sydni Munoz APRN.CNP - [...] if it is covered and what your ehl-ji-reqgwn expense will be. Please reach out through [employer] or by phone if you would like an order placed or if you would like to schedule an appointment to discuss furtherwith an available provider. Whole breast ultrasound does not replace annual mammograms; this test is in addition to regular mammograms which are the most important way to screen for breast cancer. Sydni Munoz APRN.CNP documented in this encounterOhiohealth O[facility]03-28-2025 NoteHNO ID: [id number] Author: MUNOZ, SYDNI, STREET CAR INSPECTOR.TERRITORY OUTSIDE SALES MANAGER Service: ? Author Type: Nurse Practitioner Type: Progress Notes Filed: 08/08/2024 10:06 Note Text: Advertising Operations Coordinator offered: Patient declinesHilary Chávez is a 48 year old who presents [...] discussed with the Patient or Patient's Authorized Cultural Anthropology Professor. As applicable, any other physician, advance practice provider, medical student, or other health professional student that will be observing or involved in the sensitive examination for educational or training purposes was discussed with the Patient or Authorized Cultural Anthropology Professor. The Patient or Authorized Cultural Anthropology Professor has agreed to proceed with the sensitive [...] external genitalia normal, normal Bartholin's glands, urethra, Zachary's glands, no vulvar lesions, no cervical lesions, [...] year or sooner as needed Sydni Munoz APRN.[facility]03-28-2025 History of Present illness Narrative* Sydni Munoz APRN.TERRITORY OUTSIDE SALES MANAGER - 08/08/2024 9:05 AM EDT Advertising Operations Coordinator offered: Patient declines. Gladys is a 48 [...] discussed with the Patient or Patient's Authorized Cultural Anthropology Professor. As applicable, any other physician, advance practice provider, medical student, or other health professional student that will be observing or involved in the sensitive examination for educational or training purposes was discussed with the Patient or Authorized Cultural Anthropology Professor. The Patient or Authorized Cultural Anthropology Professor has agreed to proceed with the sensitive [...] external genitalia normal, normal Bartholin's glands, urethra, Zachary's glands, no vulvar lesions, no cervical lesions, [...] year or sooner as needed Sydni Munoz APRN.TERRITORY OUTSIDE SALES MANAGER documented in this encounterOhiohealth O[facility]01-21-2025 Evaluation note* Diagnosis Onset Date Resolution Status Admit Date Cholelithiasis acute June 032024 7:56am GERD (gastroesophageal reflu x disease) acute June 03 7:56am Nausea and vomiting noneactive 2024 7:56am Cholelithiasis acute August 13, 2024 3:30pm GERD (gastroesophageal reflu x disease) acute August 13, 2024 3:30pm [facility] Work Phone: 1(491) 398-433712-20-2024 History of Present illness Narrative* Ana Romano [...] PATIENT PRESENTS WITH AN IMPLANTABLE OR ATTACHED MACHINERY MECHANIC: No RADIOLOGY DEPARTMENT: Mammography PERIPHERAL IV DATA: Not applicable SIGNED BY: Melchor Ivy May 02, 2024 1:12 PM documented in this encounterOhiohealth O'Blen[facility]12-20-2024 NoteHNO ID: [id number] Author: ANA ROMANO Mammo Tech Service: ? Author Type: Mixing Tumbler Operator Type: Progress Notes Filed: 05/02/2024 13:13 [...] PATIENT PRESENTS WITH AN IMPLANTABLE OR ATTACHED MACHINERY MECHANIC: No RADIOLOGY DEPARTMENT: Mammography PERIPHERAL IV DATA: Not applicable SIGNED BY: Melchor Ivy May 02, 2024 1:12 [facility]10-14-2024 Miscellaneous Notes* Telephone Encounter - Tianna Yi [...] symptoms. Please advise patient. documented in this encounterOhiohealth O'[facility]10-14-2024 Telephone encounter Note * Telephone Encounter - Tianna Yi LPN - 02/25/2024 5:38 PM EDT Patient notified and verbalized understanding of instructions given.Tianna Yi LPN [facility]10-14-2024 Telephone encounter Note* Telephone Encounter - Herlinda Alba APRN.SHAMAR - 02/25/2024 4:58 PM EDT Xray of cervical spine normal. Xray of shoulder normal Continue treatment plan and medicines at time of evaluatoin. Follow up with PCP and or ortho for continued symptoms. Please advise patient. [facility] Work Phone: 1(884) 907-377510-14-2024 History of Present illness Narrative* Melina Thorne, RT(R) - 02/25/2024 4:20 PM EDT Radiology Service Progress Note PATIENT NAME: Gldays Dodd DATE OF SERVICE: February 25, 2024 [...] PATIENT PRESENTS WITH AN IMPLANTABLE OR ATTACHED MACHINERY MECHANIC: No RADIOLOGY DEPARTMENT: General X-ray: Exam(s) Completed: Spine X-Ray(s): Cervical AP / LAT / OBL Upper Extremity X-Ray(s): Shoulder, AP / TRUE AP / AXILLARY right PERIPHERAL IV DATA: Not applicable SIGNED BY: RT Shimon(Cosmo) February 25, 2024 4:19 PM documented in this encounterOhiohealth O'Bleness [facility]10-14-2024 NoteHNO ID: [id number] Author: MELINA THORNE RT(R) Service: Radiology Author [...] PATIENT PRESENTS WITH AN IMPLANTABLE OR ATTACHED MACHINERY MECHANIC: No RADIOLOGY DEPARTMENT: General X-ray: Exam(s) Completed: Spine X-Ray(s): Cervical AP / LAT / OBL Upper Extremity X-Ray(s): Shoulder, AP / TRUE AP / AXILLARY right PERIPHERAL IV DATA: Not applicable SIGNED BY: RT Shimon(Cosmo) February 25, 2024 4:19 [facility]10-12-2024 NoteHNO ID: [id number] Author: KASSANDRA CABELLO PA Service: ? Author Type: Physician Director Industrial Relations Type: Progress Notes Filed: 02/23/2024 15:29 Note Text: This note was created using [employer] Pharm[employer]. Subjective Gladys Dodd is a 48 year [...] Date BX OF BREAST; INCISIONAL Left 2022 [facility] DANDC, DIAG AND/OR THERAPEUTIC 10/26/2023 Hysteroscopy, DANMT, Polypectomy PAST SURGICAL HISTORY OF cyst removed [...] - XR SHOULDER GEN (more content not included)...[facility] 02-23-2024 History of Present illness Narrative* Kassandra Cabello PA - 02/23/2024 3:26 PM EDT This note was created using NoteWriter. Subjective [...] Date BX OF BREAST; INCISIONAL Left 2022 [facility] D&C, DIAG AND/OR THERAPEUTIC 10/26/2023 Hysteroscopy, D&C, [...] ER evaluation. LORA Melara documented in this encounterOhiohealth O'[facility]05-29-2024 History of Present illness Narrative* Meghan Da Silva MD - 10/10/2023 9:44 AM EDT documented in this encounterOhiohealth O'[facility]len[facility]05-29-2024 History and physical note * Meghan [...] history, medications and allergies Meghan Redd MD [facility]05-29-2024 History and physical note* Meghan Da [...] allergies Meghan Redd MD documented in this encounterOhiohealth O'[facility]len[facility]04-09-2024 History of Present illness Narrative* Basil Gardiner APRN.[facility] - 08/21/2023 6:52 PM EDT Patient triaged at [facility]. Here today with worsening left chest pressure/shoulder pain. Also having dull ache in left leg/nagging. Patient concerned for heart related problem. I will refer to ER. Patient in no apparent distress at time of triage. documented in this encounterOhiohealth O'Bleness Hospital04-09-2024 Discharge summary Author Donald Holguin [facility] August 21, 2023 8:28pm Note Date/Time August 21, 2023 8:28 pm [facility] Medical Records Department [address] [facility] [place] [address] Emergency Department Summary 08/21/23 MR#: [id number] Acct: [id number] Name: GLADYS PETER Rep #:[id number] : 1975 47 From: Donald Holguin DO PCP: BREANN HernandezC Status:RE G ER Location: [...] She said that she currently feels better. [facility] Medical History Anemia Chronic GERD HTN (hypertension) [...] % (Auto) 65.0 Lymph % (Auto) 27.4 [place] % (Auto) 6.0 Eos % (Auto) 0.8 [...] Signed: Anselmo Paez MD at 19:58 EDT Reading Location ID and State: [facility] / [place] Tel , Service support , Discharge Plan Triage Chief Complaint: Chest [...] Raysa Wong NP Referrals: Raysa Wong NP, WAREHOUSE LEAD-C [Primary Care Provider] - Disposition Disposition: Home, Self Care What to do if you have Problems For any increased pain, shortness of breath, bleeding, nausea or vomiting, chestpain, or any unexpected problems, contact your Primary Care Provider. Call [facility] ([phone]) or report to the closest Emergency Room. Call 911 if necessary. 08/21/232027 <Electronically signed by Donald Holguin DO> Cosigner Signature (if applicable): CC: WAREHOUSE LEAD-Jigar Wong ~ Signed [facility] Work Phone: 1(154) 505-604503-13-2024 History of Present illness Narrative* Antony Cunha [...] PATIENT PRESENTS WITH AN IMPLANTABLE OR ATTACHED MACHINERY MECHANIC: No RADIOLOGY DEPARTMENT: Mammography PERIPHERAL IV DATA: Not applicable SIGNED BY: Melchor Peralta July 25, 2023 1:52 PM documented in this encounterOhiohealth O'[facility]len[facility]03-08-2024 History of Present illness Narrative* Sydni Munoz APRN.TERRITORY OUTSIDE SALES MANAGER - 07/20/2023 9:00 AM EST Advertising Operations Coordinator offered: Patient declines. Gladys is a 47 [...] L2 SAB0 IAB0 Ectopic0 Multiple0 Live Births2 Hyperion Administrator History LMP: 07/13/2023, Having periods Age at Menarche: Age at First : Age at Menopause: Hyperion Administrator History Comments: Sexual Activity: Yes; Male; has [...] external genitalia normal, normal Bartholin's glands, urethra, Zachary's glands, no vulvar lesions, good vaginal support, [...] needed. Sydni Munoz APRN.SHAMAR documented in this encounterOhiohealth O'Bleness Hospital01-12-2024 Evaluation + Plan note Future Scheduled Tests Radiology* US Abdomen Limited 05/25/23 [facility] 09-02-2023 Instructions* Patient Instructions* Veronica Vivas [...] illness Veronica Vivas APRN.CNP documented in this encounterOhiohealth O'Bleness Hospital09-02-2023 History of Present illness Narrative* Veronica [...] Discussed expected course of illness Veronica Vivas APRN.TERRITORY OUTSIDE SALES MANAGER documented in this encounterOhiohealth O'Bleness Hospital03-06-2023 Miscellaneous Notes* Patient Education - RT [...] instructions REFERRAL (RECOMMENDATION): None documented in this encounterOhiohealth O'Bleness Hospital01-31-2023 History of Present illness Narrative* Lisa Weiss RT(Cosmo) - 06/13/2022 3:00 PM EST Radiology Service [...] 13, 2022 2:59 PM documented in this encounterOhiohealth O'Bleness Hospital01-04-2023 Miscellaneous Notes* Letter - Mammography Coordinator - 05/17/2022 11:45 AM EST May 17, 2022 PID: [id number] Gladys Dodd [address] [place] [address] Dear Ms. Mercedes Dodd, Your recent breast [...] who ordered/prescribed your screening mammogram: Please call [phone] or [phone] to schedule an appointment for your additional [...] and reports are kept [facility] at [facility] as part of your permanent medical record, and are available for your continuing care. Thank you for allowing us to help in meeting your health care needs. Sincerely, Dr. Duncan Interpreting Radiologist [facility] (Additional imaging) documented in this encounterOhiohealth O'Bleness Hospital01-03-2023 History of Present illness Narrative* Lisa Weiss, RT(R) - 05/16/2022 1:50 PM EST Radiology [...] 16, 2022 1:55 PM documented in this encounterOhiohealth O'Bleness Hospital01-03-2023 History of Present illness Narrative* Sydni Munoz, STREET CAR INSPECTOR.[facility] - 05/16/2022 12:52 PM EST Advertising Operations Coordinator offered: Patient declinesHilary Chávez is a 46 [...] L2 SAB0 IAB0 Ectopic0 Multiple0 Live Births2 Hyperion Administrator History LMP: 04/21/2021 (Exact Date), Having periods Age at Menarche: Age at First : Age at Menopause: Hyperion Administrator History Comments: Sexual Activity: Yes; Male; has [...] external genitalia normal, normal Bartholin's glands, urethra, Zachary's glands, no vulvar lesions, no cervical lesions, [...] needed Sydni Munoz APRN.SHAMAR documented in this encounterOhiohealth O'Bleness Hospital10-11-2022 Miscellaneous Notes* Telephone Encounter - Marlee Kwong - 02/21/2022 10:04 AM EDT Patient given results and verbalized understanding of instructions given. Marlee Kwong * Telephone Encounter - Marlee Kwong - 02/21/2022 10:04 AM EDT ----- Message from Veronica Vivas APRN.TERRITORY OUTSIDE SALES MANAGER sent at 02/21/2022 9:55 AM EDT ----- Urine culture did not show clear evidence of infection, however it appears sample may have been contaminated with skin bacteria during collection. If not improving, recommend follow up with PCP. Veronica Vivas CNP documented in this encounterOhiohealth O'Bleness Hospital10-10-2022 Miscellaneous Notes* Telephone Encounter - Marlee [...] Lennie South PA-C 02/20/2022 documented in this encounterOhiohealth O'Bleness Hospital10-10-2022 History of Present illness Narrative* Melina [...] 20, 2022 8:02 AM documented in this encounterOhiohealth O'Bleness HospitalEvaluation + Plan note No data available for this section [facility] Evaluation + Plan note Future Appointments Appointment Date:01/08/2024 01:30:00 PM Scheduled Provider:SANDIE CHAVIS DO Location:[facility] Appointment Type:PC Office Procedure OMT [facility] Evaluation note* Diagnosis Encounter for gynecological examination (general) (routine) without abnormal findings- Primary Encounter for screening mammogram for breast cancer Dense breast tissue [facility] Abnormal finding on radiological examination of breast- Primary Other (abnormal) findings on radiological examination of breast [facility] Diagnosis Abnormal mammogram Abnormal mammogram, unspecified [facility] Diagnosis Abnormal finding on radiological examination of breast Other (abnormal) findings on radiological examination of breast [facility] Diagnosis Burning sensation of skin- Primary [facility] Diagnosis Encounter for gynecological examination (general) (routine) without abnormal findings Encounter for screening mammogram for breast cancer [facility] Diagnosis Abnormal mammogram Abnormal mammogram, unspecified [facility] Diagnosis Abnormal mammogram Abnormal mammogram, unspecified documented in this encounter [facility] noteNo assessment information availableWOhioHealth [facility] Work Phone: Evaluation note* Diagnosis Encounter for gynecological examination with abnormal finding- Primary Routine gynecological examination Endocervical polyp Mucous polyp of cervix Encounter for screening mammogram for breast cancer Heterogeneously dense tissue of both breasts on mammography 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 documented in this encounter [facility] note* Diagnosis Abnormal mammogram Abnormal mammogram, unspecified [facility] [facility] note* Diagnosis Endocervical polyp Mucous polyp of cervix documented in this encounter [facility] note* Diagnosis Chest pressure- Primary Other chest pain documented in this encounter [facility] note* Diagnosis Endocervical polyp- Primary Mucous polyp of cervix Pre-op exam Preoperative examination, unspecified documented in this encounter [facility] note* Diagnosis Acute right-sided low back pain without sciatica documented in this encounter [facility] note* Diagnosis Cervical pain- Primary Cervicalgia Acute pain of right shoulder documented in this encounter [facility] note* Diagnosis Cervical pain Cervicalgia Acute pain of right shoulder documented in this encounter [facility] note* Diagnosis Encounter for screening mammogram for breast cancer Heterogeneously dense tissue of both breasts on mammography 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 documented in this encounter [facility] note* Diagnosis Encounter for gynecological examination (general) (routine) without abnormal findings- Primary Encounter for screening mammogram for breast cancer documented in this encounter [facility] note* Diagnosis Allergic reaction to insect sting, accidental or unintentional, initial encounter- Primary documented in this encounter [facility] Discharge instructions No data available for this section [facility] Progress note No data available for this section [facility] Reason for referral (narrative)* Diagnostic Procedure Only (Routine) - Pending Review Specialty Diagnoses / Procedures Referred By Cassius espinoza Referred To Contact [facility] Diagnoses Encounter for screening mammogram for breast cancer Dense breast tissue Procedures MARTY SCREENING W DELFIN SCREENING DIGITAL BREAST TOMOSYNTHESIS BI SCREENING MAMMOGRAPHY BI 2-VIEW BREAST INC Sydni Arzate, STREET CAR INSPECTOR.TERRITORY OUTSIDE SALES [place] [address] [facility] [address] [place] [address] Referral ID Status Reason Start Date Expiration Date Visits Requested Visits Authorized [id number] Pending Review Auto-Generat ed Referral 05/16/2022 06/15/2023 1 1 [facility] for referral (narrative)* Diagnostic Procedure Only (Routine) - Authorized Specialty Diagnoses / Procedures Referred By Contac t Referred To Contact [facility] Diagnoses Abnormal finding on radiological examination of breast Procedures MARTY STEREO BX BREAST LT BX BREAST W/DEVICE 1ST [facility] STEREOTACT[employer] Ewa Gale MD [address] [place] [address] [facility] [address] [place] [address] Referral ID Status Reason Start Date Expiration Date Visits Requested Visits Authorized [id number] Authorized Auto-Generat ed Referral 06/28/2022 07/28/2023 1 1 [facility] for referral (narrative)* Diagnostic Procedure Only (Routine) - Closed Specialty Diagnoses / Procedures Referred By Contac t Referred To Contact [facility] Diagnoses Abnormal finding on radiological examination of breast Procedures MARTY STEREO BX BREAST LT BX BREAST W/DEVICE 1ST [facility] [employer]ERE[employer] Ewa Gale MD [address] [id number] [facility] [address] [place] [phone] Referral ID Status Reason Start Date Expiration Date V isits Requested Visits Authorized [id number] Closed Auto-Generate d Referral 06/28/2022 07/28/2023 1 1 [facility] for referral (narrative)* Diagnostic Procedure Only (Routine) - Closed Specialty Diagnoses / Procedures Referred By Contac t Referred To Contact [facility] Diagnoses Encounter for gynecological examination (general) (routine) without abnormal findings Encounter for screening mammogram for breast cancer Procedures MARTY SCREENING SCREENING MAMMOGRAPHY BI 2-VIEW BREAST INC CAD Sydni Munoz APRN.TERRITORY OUTSIDE SALES MANAGER [address] [place] [address] [facility] [address] [place] [address] Referral ID Status Reason Start Date Expiration Date V isits Requested Visits Authorized [id number] Closed Auto-Generate d Referral 05/10/2021 06/09/2022 1 1 [facility] for referral (narrative)* Diagnostic Procedure Only (Routine) - Closed Specialty Diagnoses / Procedures Referred By Cassius espinoza Referred To Contact [facility] Diagnoses Abnormal mammogram Procedures US BREAST LTD LT US BREAST UNI REAL TIME WITH IMAGE LIMITED Sydni Munoz APRN.TERRITORY OUTSIDE SALES MANAGER [address] [place] [address] [facility] [address] [place] [phone] Referral ID Status Reason Start Date Expiration Date V isits Requested Visits Authorized [id number] Closed Auto-Generate d Referral 05/17/2022 06/16/2023 1 1 [facility] for referral (narrative)* Diagnostic Procedure Only (Routine) - Authorized Specialty Diagnoses / Procedures Referred By Cassius espinoza Referred To Contact [facility] Diagnoses Endocervical polyp Procedures PELVIC US WHI US PELVIC NONOBSTETRIC REAL-TIME IMAGE COMPLETE Sydni Munoz APRN.TERRITORY OUTSIDE SALES MANAGER [address] [place] [address] [facility] [address] [place] [address] Referral ID Status Reason Start Date Expiration Date Visits Requested Visits Authorized [id number] Authorized Auto-Generat ed Referral 07/20/2023 07/19/2024 1 [...] BREAST INC Sydni Arzate APRN.CNP [address] [place] [address] [facility] [address] [place] [address] Referral ID Status Reason Start Date Expiration Date Visits Requested Visits Authorized [id number] Pending Review Auto-Generat ed Referral 07/20/2023 08/18/2024 1 1 [facility] for referral (narrative)* Diagnostic Procedure Only (Urgent) - Closed Specialty Diagnoses / Procedures Referred By Contac t Referred To Contact XR IMAGING Diagnoses Acute bilateral low back pain without sciatica Procedures XR LUMBAR GENERAL 3V AP/LAT/L5-S1 RADEX SPINE LUMBOSACRAL 2/3 VIEWS Lennie South PA-C [address] [place] [address] [place] [address] Referral ID Status Reason Start Date Expiration Date V isits Requested Visits Authorized [id number] Closed Auto-Generate d Referral 02/20/2022 03/22/2023 1 1 [facility] for referral (narrative)* Diagnostic Procedure Only (Urgent) - New Request Specialty Diagnoses / Procedures Referred By Contac t Referred To Contact X[facility] IMAGING Diagnoses Cervical pain Acute pain of right shoulder Procedures XR CERV OTHER 4V AP/LAT/OBL RADEX SPINE CERVICAL 4 OR 5 VIEWS Kassandra Cabello PA [address] [place] [address] [place] [address] Referral ID Status Reason Start Date Expiration Date Visits Requested Visits Authorized [id number] New Request Auto-Generat ed Referral 4 03/24/2025 1 1 * Diagnostic Procedure Only (Urgent) - New Request Specialty Diagnoses / Procedures Referred By Contac t Referred To Contact XR IMAGING Diagnoses Cervical pain Acute pain of right shoulder Procedures XR SHOULDER GENERAL 3V OR MORE AP/TRUE AP/OTHER RIGHT RADEX SHOULDER COMPLETE MINIMUM 2 VIEWS Kassandra Cabello PA [address] [place] [address] [place] [address] Referral ID Status Reason Start Date Expiration Date Visits Requested Visits Authorized [id number] New Request Auto-Generat ed Referral 4 03/24/2025 1 1 [facility] for referral (narrative)* Diagnostic Procedure Only (Urgent) - Closed Specialty Diagnoses / Procedures Referred By Contac t Referred To Contact XR IMAGING Diagnoses Cervical pain Acute pain of right shoulder Procedures XR CERV OTHER 4V AP/LAT/OBL RADEX SPINE CERVICAL 4 OR 5 VIEWS Kassandra Cabello PA [address] [place] [address] [place] [address] Referral ID Status Reason Start Date Expiration Date V isits Requested Visits Authorized [id number] Closed Auto-Generate d Referral 02/23/2024 03/24/2025 1 1 * Diagnostic Procedure Only (Urgent) - Closed Specialty Diagnoses / Procedures Referred By Contac t Referred To Contact XR IMAGING Diagnoses Cervical pain Acute pain of right shoulder Procedures XR SHOULDER GENERAL 3V OR MORE AP/TRUE AP/OTHER RIGHT RADEX SHOULDER COMPLETE MINIMUM 2 VIEWS Kassandra Cabello PA [address] [place] [address] [place] [address] Referral ID Status Reason Start Date Expiration Date V isits Requested Visits Authorized [id number] Closed Auto-Generate d Referral 02/23/2024 03/24/2025 1 1 [facility] for referral (narrative)No reason for referral information availableW[facility] Phone: Reason for visit Narrative* Diagnostic Procedure Only (Routine) - Closed Specialty Diagnoses / Procedures Referred By Contac t Referred To Contact [facility] Diagnoses Abnormal mammogram Procedures US BIOPSY BREAST LT BX BREAST W/DEVICE 1ST LESION ULTRASOUND GUID Burt Lenz MD [address] [place] [address] [facility] [address] [place] [phone] Referral ID Status Reason Start Date Expiration Date V isits Requested Visits Authorized [id number] Closed Auto-Generate d Referral 06/14/2022 07/14/2023 1 1 [facility] for visit Narrative* Diagnostic Procedure Only (Routine) - Closed Specialty Diagnoses / Procedures Referred By Contac t Referred To Contact [facility] Diagnoses Abnormal finding on radiological examination of breast Procedures MARTY STEREO BX BREAST LT BX BREAST W/DEVICE 1ST [employer] STEREOTACTIC GUID Ewa Olivo MD [address] [place] [address] [facility] [address] [place] [phone] Referral ID Status Reason Start Date Expiration Date V isits Requested Visits Authorized [id number] Closed Auto-Generate d Referral 06/28/2022 07/28/2023 1 1 [facility] for visit Narrative* Diagnostic Procedure Only (Routine) - Closed Specialty Diagnoses / Procedures Referred By Contac t Referred To Contact [facility] Diagnoses Encounter for gynecological examination (general) (routine) without abnormal findings Encounter for screening mammogram for breast cancer Procedures MARTY SCREENING SCREENING MAMMOGRAPHY BI 2-VIEW BREAST INC Sydni Arzate, STREET CAR INSPECTOR.TERRITORY OUTSIDE SALES MANAGER [address] [place] [address] [facility] [address] [place] [phone] Referral ID Status Reason Start Date Expiration Date V isits Requested Visits Authorized [id number] Closed Auto-Generate d Referral 05/10/2021 06/09/2022 1 1 [facility] for visit Narrative* Diagnostic Procedure Only (Routine) - Closed Specialty Diagnoses / Procedures Referred By Contac t Referred To Contact [facility] Diagnoses Abnormal mammogram Procedures MARTY DIAGNOSTIC LT DIAGNOSTIC MAMMOGRAPHY COMPUTER-AIDED DETCJ UNI Sydni Munoz APRN.TERRITORY OUTSIDE SALES MANAGER [address] [place] [address] [facility] [address] [place] [address] Referral ID Status Reason Start Date Expiration Date V isits Requested Visits Authorized [id number] Closed Auto-Generate d Referral 05/17/2022 06/16/2023 1 1 [facility] for visit Narrative* Diagnostic Procedure Only (Routine) - Closed Specialty Diagnoses / Procedures Referred By Jenniferac t Referred To Contact [facility] Diagnoses Abnormal mammogram Procedures US BREAST LTD LT US BREAST UNI REAL TIME WITH IMAGE LIMITED Sydni Munoz APRN.TERRITORY OUTSIDE SALES MANAGER [address] [place] [address] [facility] [address] [place] [address] Referral ID Status Reason Start Date Expiration Date V isits Requested Visits Authorized [id number] Closed Auto-Generate d Referral 05/17/2022 06/16/2023 1 1 [facility] for visit Narrative* Diagnostic Procedure Only (Routine) - Closed Specialty Diagnoses / Procedures Referred By Cassius t Referred To Contact [facility] Diagnoses Abnormal mammogram Procedures MARTY DIAGNOSTIC BILATERAL DIAGNOSTIC MAMMOGRAPHY COMPUTER-AIDED DETCJ BI Sydni Munoz APRN.TERRITORY OUTSIDE SALES MANAGER [address] [place] [address] [facility] [address] [place] [address] Referral ID Status Reason Start Date Expiration Date V isits Requested Visits Authorized [id number] Closed Auto-Generate d Referral 07/25/2023 02/23/2024 1 1 [facility] for visit Narrative* Diagnostic Procedure Only (Urgent) - Closed Specialty Diagnoses / Procedures Referred By Contac t Referred To Contact XR IMAGING Diagnoses Acute bilateral low back pain without sciatica Procedures XR LUMBAR GENERAL 3V AP/LAT/L5-S1 RADEX SPINE LUMBOSACRAL 2/3 VIEWS Lennie South PA-C [address] [place] [address] [place] [address] Referral ID Status Reason Start Date Expiration Date V isits Requested Visits Authorized [id number] Closed Auto-Generate d Referral 02/20/2022 03/22/2023 1 1 [facility] for visit Narrative* Diagnostic Procedure Only (Urgent) - Closed Specialty Diagnoses / Procedures Referred By Cassius espinoza Referred To Contact XR IMAGING Diagnoses Cervical pain Acute pain of right shoulder Procedures XR CERV OTHER 4V AP/LAT/OBL RADEX SPINE CERVICAL 4 OR 5 VIEWS Kassandra Cabello PA [address] [place] [address] [place] [address] Referral ID Status Reason Start Date Expiration Date V isits Requested Visits Authorized [id number] Closed Auto-Generate d Referral 02/23/2024 03/24/2025 1 1 [facility] for visit Narrative* Diagnostic Procedure Only (Routine) - Closed Specialty Diagnoses / Procedures Referred By Cassius espinoza Referred To Contact [facility] Diagnoses Encounter for screening mammogram for breast cancer Heterogeneously dense tissue of both breasts on mammography Pseudoangiomatous stromal hyperplasia of breast Procedures MARTY SCREENING W DELFIN SCREENING DIGITAL BREAST TOMOSYNTHESIS BI SCREENING MAMMOGRAPHY BI 2-VIEW BREAST INC Sydni Arzate, ANTONIETTA.TERRITORY OUTSIDE SALES MANAGER [address] [place] [address] [facility] [address] [place] [address] Referral ID Status Reason Start Date Expiration Date V isits Requested Visits Authorized [id number] Closed Auto-Generate d Referral 07/20/2023 08/18/2024 1 1 [facility] Chief Complaint and Reason for Visit [...] Chief Complaint Admit Date 3 M FU December 01, 2024 9:59 am ABDOMINAL PAIN January 29, 2025 7:38am Reason for Visit Admit Date Cholelithiasis December 01, 2024 9:59 am GERD (gastroesophageal reflux disease) J aleja 2024 9:59am Leg cramps December 01, 2024 9:59 am Weight loss December 01, 2024 9:59 am Nausea and vomiting December 01, 2024 9:59 am Advance Directives No Advanced Directives Records Found Advance Directive Response Recorded Date/ Time Living Will No September 21, 2017 1 0:36am Power of Lockstitch Cup Setter No September 21, 2017 10:36am Advance Directive Response Recorded Date/ Time Living Will No May 28 1:29am Power of Lockstitch Cup Setter No May 28, 2023 1:29am Advance Directive Response Recorded Date/ Time Name of Medical Power of Lockstitch Cup Setter Tc buenrostro August 21, 2023 7:10pm Living Will Yes August 21, 2023 7:10pm Power of Lockstitch Cup Setter Yes August 20 7:10pm Advance Directive Response Recorded Date/ Time Do you have a Healthcare Power of Lockstitch Cup Setter? No September 16, 2024 4:30pm Assessments No [...] or prosecute any alcohol or drug abuse patient.[facility] the event this information is protected by the Federal Confidentiality of Alcohol and Drug Abuse Patient Records regulations: The Federal rules restrict any use of the information to criminally investigate or prosecute any alcohol or drug abuse patient.[facility] the event this information is protected by the Federal Confidentiality of Alcohol and Drug Abuse Patient Records regulations: The Federal rules restrict any use of the information to criminally investigate or prosecute any alcohol or drug abuse patient.[facility] the event this information is protected by the Federal Confidentiality of Alcohol and Drug Abuse Patient Records regulations: The Federal rules restrict any use of the information to criminally investigate or prosecute any alcohol or drug abuse patient.[facility] the event this information is protected by the Federal Confidentiality of Alcohol and Drug Abuse Patient Records regulations: The Federal rules restrict any use of the information to criminally investigate or prosecute any alcohol or drug abuse patient.[facility] the event this information is protected by the Federal Confidentiality of Alcohol and Drug Abuse Patient Records regulations: The Federal rules restrict any use of the information to criminally investigate or prosecute any alcohol or drug abuse patient.[facility] the event this information is protected by the Federal Confidentiality of Alcohol and Drug Abuse Patient Records regulations: The Federal rules restrict any use of the information to criminally investigate or prosecute any alcohol or drug abuse patient.[facility] the event this information is protected by the Federal Confidentiality of Alcohol and Drug Abuse Patient Records regulations: The Federal rules restrict any use of the information to criminally investigate or prosecute any alcohol or drug abuse patient.[facility] the event this information is protected by the Federal Confidentiality of Alcohol and Drug Abuse Patient Records regulations: The Federal rules restrict any use of the information to criminally investigate or prosecute any alcohol or drug abuse patient.[facility] the event this information is protected by the Federal Confidentiality of Alcohol and Drug Abuse Patient Records regulations: The Federal rules restrict any use of the information to criminally investigate or prosecute any alcohol or drug abuse patient.[facility] the event this information is protected by the Federal Confidentiality of Alcohol and Drug Abuse Patient Records regulations: The Federal rules restrict any use of the information to criminally investigate or prosecute any alcohol or drug abuse patient.[facility] the event this information is protected by the Federal Confidentiality of Alcohol and Drug Abuse Patient Records regulations: The Federal rules restrict any use of the information to criminally investigate or prosecute any alcohol or drug abuse patient.[facility] the event this information is protected by the Federal Confidentiality of Alcohol and Drug Abuse Patient Records regulations: The Federal rules restrict any use of the information to criminally investigate or prosecute any alcohol or drug abuse patient.[facility] the event this information is protected by the Federal Confidentiality of Alcohol and Drug Abuse Patient Records regulations: The Federal rules restrict any use of the information to criminally investigate or prosecute any alcohol or drug abuse patient.[facility] the event this information is protected by the Federal Confidentiality of Alcohol and Drug Abuse Patient Records regulations: The Federal rules restrict any use of the information to criminally investigate or prosecute any alcohol or drug abuse patient.[facility] the event this information is protected by the Federal Confidentiality of Alcohol and Drug Abuse Patient Records regulations: The Federal rules restrict any use of the information to criminally investigate or prosecute any alcohol or drug abuse patient.[facility] the event this information is protected by the Federal Confidentiality of Alcohol and Drug Abuse Patient Records regulations: The Federal rules restrict any use of the information to criminally investigate or prosecute any alcohol or drug abuse patient.[facility] the event this information is protected by the Federal Confidentiality of Alcohol and Drug Abuse Patient Records regulations: The Federal rules restrict any use of the information to criminally investigate or prosecute any alcohol or drug abuse patient.[facility] the event this information is protected by the Federal Confidentiality of Alcohol and Drug Abuse Patient Records regulations: The Federal rules restrict any use of the information to criminally investigate or prosecute any alcohol or drug abuse patient.[facility] the event this information is protected by the Federal Confidentiality of Alcohol and Drug Abuse Patient Records regulations: The Federal rules restrict any use of the information to criminally investigate or prosecute any alcohol or drug abuse patient.[facility] the event this information is protected by the Federal Confidentiality of Alcohol and Drug Abuse Patient Records regulations: The Federal rules restrict any use of the information to criminally investigate or prosecute any alcohol or drug abuse patient.[facility] the event this information is protected by the Federal Confidentiality of Alcohol and Drug Abuse Patient Records regulations: The Federal rules restrict any use of the information to criminally investigate or prosecute any alcohol or drug abuse patient.[facility] the event this information is protected by the Federal Confidentiality of Alcohol and Drug Abuse Patient Records regulations: The Federal rules restrict any use of the information to criminally investigate or prosecute any alcohol or drug abuse patient.[facility] the event this information is protected by the Federal Confidentiality of Alcohol and Drug Abuse Patient Records regulations: The Federal rules restrict any use of the information to criminally investigate or prosecute any alcohol or drug abuse patient.[facility] the event this information is protected by the Federal Confidentiality of Alcohol and Drug Abuse Patient Records regulations: The Federal rules restrict any use of the information to criminally investigate or prosecute any alcohol or drug abuse patient.[facility] Reason for Visit (unrecogniz ed section and content) Reason Comments Results Reason Comments Results, Lab Reason Comments Well Woman Reason Comments Derm Problem Bug bite R thigh and rash on back with bite x 1.5 wks Reason Comments Well Woman Reason Comments Other polyp Specialty Diagnoses / Procedures Referred By Cassius t Referred To Contact [facility] Diagnoses Endocervical polyp Procedures PELVIC US WHI US PELVIC NONOBSTETRIC REAL-TIME IMAGE COMPLETE Munoz, Sydni, STREET CAR INSPECTOR.TERRITORY OUTSIDE SALES MANAGER [address] [place] [address] [facility] [address] [place] [address] Referral ID Status Reason Start Date Expiration Date V isits Requested Visits Authorized [id number] Closed Auto-Generate d Referral 07/20/2023 07/19/2024 1 1 Reason Comments Pain (Shoulder Pain) chest to shoulder p ain left side and left thigh pain x 3 days Reason Comments Pre-Op Exam Reason Comments right shoulder and neck pain X several m onths Reason Comments Trauma Insect bite/sting on right forearm x 1 day Care Teams (unrecognized sec tion and content) Pharmacovigilance Specialist Relationship Specialty Start Date End Date Tameka Garcia, STREET CAR INSPECTOR.TERRITORY OUTSIDE SALES MANAGER [address] [place] [address] PCP - General Family Medicine 02/20/22 Pharmacovigilance Specialist Relationship Specialty Start Date End Date Tameka Garcia, STREET CAR INSPECTOR.TERRITORY OUTSIDE SALES MANAGER [address] [place] [address] PCP - General Family Medicine 02/20/22 Pharmacovigilance Specialist Relationship Specialty Start Date End Date Tameka Garcia, STREET CAR INSPECTOR.TERRITORY OUTSIDE SALES MANAGER [address] [place] [address] PCP - General Family Medicine 02/20/22 Pharmacovigilance Specialist Relationship Specialty Start Date End Date Tameka Garcia, STREET CAR INSPECTOR.TERRITORY OUTSIDE SALES MANAGER [address] [place] [address] PCP - General Family Medicine 02/20/22 Pharmacovigilance Specialist Relationship Specialty Start Date End Date Tameka Garcia, STREET CAR INSPECTOR.TERRITORY OUTSIDE SALES MANAGER [address] [place] [address] PCP - General Family Medicine 02/20/22 Pharmacovigilance Specialist Relationship Specialty Start Date End Date Tameka Garcia, STREET CAR INSPECTOR.TERRITORY OUTSIDE SALES MANAGER [address] [place] [address] PCP - General Family Medicine 02/20/22 Pharmacovigilance Specialist Relationship Specialty Start Date End Date Tameka Garcia, STREET CAR INSPECTOR.TERRITORY OUTSIDE SALES MANAGER [address] [place] [address] PCP - General Family Medicine 02/20/22 Pharmacovigilance Specialist Relationship Specialty Start Date End Date Tameka Garcia, STREET CAR INSPECTOR.TERRITORY OUTSIDE SALES MANAGER [address] [place] [address] PCP - General Family Medicine 02/20/22 Team Status: Active Member Role Status Dates Dr. Sydni Mathis MD Family Provider Active Raysa Wong WAREHOUSE LEAD, WAREHOUSE LEAD-C Primary Care Provider Activ e Team Status: Inactive Member Role Status Dates Dr. Tc Polo DO Emergency Provider Active Raysa Wong WAREHOUSE LEAD, WAREHOUSE LEAD-C Primary Care Provider Activ e Pharmacovigilance Specialist Relationship Specialty Start Date End Date Raysa Wong CNP [address] [place] [id number] PCP - General Family Medicine 07/20/23 Pharmacovigilance Specialist Relationship Specialty Start Date End Date Raysa Wong CNP [address] [place] [id number] PCP - General Family Medicine 07/20/23 Pharmacovigilance Specialist Relationship Specialty Start Date End Date Raysa Wong CNP [address] [place] [id number] PCP - General Family Medicine 07/20/23 Team Status: Inactive Member Role Status Dates Dr. Tc Polo , DO Attending Provider, Emergency Kylie cadet Active Raysa Wong WAREHOUSE LEAD, WAREHOUSE LEAD-C Primary Care Provider Activ e Team Status: Inactive Member Role Status Dates Raysa Wong WAREHOUSE LEAD, WAREHOUSE LEAD-C Primary Care Provider Activ e Dr. Donald Holguin , DO Emergency Provider Active Pharmacovigilance Specialist Relationship Specialty Start Date End Date Raysa Wong CNP [address] [place] [id number] PCP - General Family Medicine 07/20/23 Pharmacovigilance Specialist Relationship Specialty Start Date End Date Raysa Wong CNP [address] [place] [id number] PCP - General Family Medicine 07/20/23 Pharmacovigilance Specialist Relationship Specialty Start Date End Date Tameka Gacria APRN.TERRITORY OUTSIDE SALES MANAGER [address] [place] [address] [place] [address] PCP - General Family Medicine 02/20/22 07/19/23 Pharmacovigilance Specialist Relationship Specialty Start Date End Date Raysa Wong CNP [address] [place] [id number] PCP - General Family Medicine 07/20/23 Pharmacovigilance Specialist Relationship Specialty Start Date End Date Raysa Wong CNP [address] [place] [id number] PCP - General Family Medicine 07/20/23 Pharmacovigilance Specialist Relationship Specialty Start Date End Date Raysa Wong CNP [address] [place] [address] PCP - General Family Medicine 07/20/23 Pharmacovigilance Specialist Relationship Specialty Start Date End Date Raysa Wong SHAMAR [address] [place] [address] PCP - General [facility] Medicine 07/20/23 Team Status: Active Member Role Status Dates Raysa Wong NP, WAREHOUSE LEAD-C Primary Care Provider Activ e Team Status: Inactive Member Role Status Dates Raysa Wong NP, WAREHOUSE LEAD-C Primary Care Provider Activ e Start: June 03, 2024 End: June 03, 2024 Raysa Wong NP, WAREHOUSE LEAD-C Referring Provider Active Start: June 03, 2024 End: June 03, 2024 Dr. Mikey Solares DO Attending Provider Active Start: June 03, 2024 End: June 03, 2024 Team Status: Inactive Member Role Status Dates Raysa Wong NP, WAREHOUSE LEAD-C Primary Care Provider Activ e Start: August 13, 2024 End: August 13, 2024 Raysa Wong NP, WAREHOUSE LEAD-C Referring Provider Active Start: August 13, 2024 End: August 13, 2024 LORA Baltazar Attending Provider Active Start: August 13, 2024 End: August 13, 2024 Team Status: Inactive Member Role Status Dates Raysa Wong NP, WAREHOUSE LEAD-C Primary Care Provider Activ e Start: September 16, 2024 End: September 16, 2024 Bhupendra Gonzalez MD Emergency Provider Active Star t: September 16, 2024 End: September 16, 2024 Team Status: Active Member Role/Relationship Status Dates Raysa Wong NP, WAREHOUSE LEAD-C Primary Care Provider Activ e Team Status: Inactive Member Role/Relationship Status Dates Raysa Wong NP, WAREHOUSE LEAD-C Primary Care Provider Activ e Start: August 13, 2024 End: August 13, 2024 Raysa Wong NP, WAREHOUSE LEAD-C Referring Provider Active Start: August 13, 2024 End: August 13, 2024 LORA Baltazar Attending Provider Active Start: August 13, 2024 End: August 13, 2024 Team Status: Inactive Member Role/Relationship Status Dates Raysa Wong WAREHOUSE LEAD, WAREHOUSE LEAD-C Primary Care Provider Activ e Start: September 16, 2024 End: September 16, 2024 Bhupendra Gonzalez MD Attending Provider Active Star t: September 16, 2024 End: September 16, 2024 Bhupendra Gonzalez MD Emergency Provider Active Star t: September 16, 2024 End: September 16, 2024 Team Status: Inactive Member Role/Relationship Status Dates Raysa Wong WAREHOUSE LEAD, WAREHOUSE LEAD-C Primary Care Provider Activ e Start: December 01, 2024 End: December 01, 2024 Raysa Wong WAREHOUSE LEAD, WAREHOUSE LEAD-C Referring Provider Active Start: December 01, 2024 End: December 01, 2024 Dr. Mikey Solares DO Attending Provider Active Start: December 01, 2024 End: December 01, 2024 Pharmacovigilance Specialist Relationship Specialty Start Date End Date Raysa Wong CNP [address] [place] [id number] PCP - General Family Medicine 07/20/23 Team Status: Active Member Role/Relationship Status Dates Raysa Wong NP, WAREHOUSE LEAD-C Primary care physician Acti ve Team Status: Inactive Member Role/Relationship Status Dates Raysa Wong WAREHOUSE LEAD, WAREHOUSE LEAD-C Primary care physician Acti ve Start: December 01, 2024 End: December 01, 2024 Raysa Wong NP, WAREHOUSE LEAD-C Referring Provider Active Start: December 01, 2024 End: December 01, 2024 Dr. Mikey Solares DO Attending physician Active Start: December 01, 2024 End: December 01, 2024 Team Status: Inactive Member Role/Relationship Status Dates Raysa Wong NP, WAREHOUSE LEAD-C Primary care physician Acti ve Start: January 29, 2025 End: January 29, 2025 Dr. Mikey Solares DO Attending physician Active Start: January 29, 2025 End: January 29, 2025 Dr. Mikey Solares DO Referring Provider Active Start: January 29, 2025 End: January 29, 2025 Care Team (unrecognized sect ion and content) Care Team Personnel Name: GARCIA TAMEKARAZ MANE-SHAMAR Position: P4 Advanced Practice Nurse Member Role: Primary Care Physician Address: Address: [address] [place] [address]- Care Team Related Persons Name: TC DODD INFORMATION SOURCE (unrecogn ized section and content) DATE CREATED AUTHOR 06/29/2022 [facility] DATE CREATED AUTHOR AUTHOR'S ORGANIZ ATION 01/07/2024 [facility] ([place]) DATE CREATED AUTHOR AUTHOR'S ORGANIZ ATION 12/23/2024 [facility] DATE CREATED AUTHOR AUTHOR'S ORGANIZ ATION 03/15/2025 [facility] DATE CREATED AUTHOR AUTHOR'S ORGANIZ ATION 03/22/2025 [facility] Goals (unrecognized section and content) Goals [...] BE BASED ON THE PRIMARY CLINICAL RECORDS. [facility] [email or web address] [facility]. provides no warranty or guarantee of the accuracy or completeness of information in this document.
[2025-03-23 06:30] VITALS: BP 108/75; PULSE 65; RESP 18; TEMP 36.4; O2SAT 100; BMI 31.8
[2025-03-23 06:32] LABS: Internal QC Validated? YES +Cl - CLEAR BKGD; Pregnancy, Urine Negative Negative; Record Kit Lot#,Urine Preg 0000980607
[2025-03-23] MEDS: Lactated Ringers 1,000 ML 15 ML IV (06:38)
--- NOTE | 2025-03-23 06:45 | PCM.HP.STD ---
HPI - General General Date of Admission: 03/23/25 Date of Service: 03/23/25 Chief Complaint: abdominal pain HPI Narrative GLADYS BROCK, is a 49 F who presents [ Chief Complaint: abd pain *BGI established 01.03.24 pt reports that she will have episodes of nausea that last for about a month. Pt reports that in November she had a week of bad "gas pressure" and had to sleep propped up, her PCP switched her from pantoprazole to Nexium which she reports has been helpful; denies HB or reflux symptoms. Pt reports that she has never had an EGD. abd US 9.9.24 No acute findings. Fatty infiltration liver. EGD 01.22.24 Z-line irregular, 38 cm from the incisors. Biopsied. Erythematous mucosa in the antrum. Biopsied. No gross lesions in the first portion of the duodenum. Biopsied. HIDA ..24 normal 86% GET 10.30.24 normal 34.15 minutes OV 11.24 pt reports that her nausea and gas/bloating have improved since starting Nexium. Pt reports that she will still occasionally get nausea in the middle of the night and some gas pressure in her chest. Pt requesting to review test results to determine next steps in plan of care. MRCP 24 Cholelithiasis. OV 1..25 pt reports constant sharp/stabbing pain on her right side for the past two days. pt denies other GI symptoms of concern at this time. OV 4.2.25 BGI established 24 pt reports that she will have episodes of nausea that last for about a month. Pt reports that in November she had a week of bad "gas pressure" and had to sleep propped up, her PCP switched her from pantoprazole to Nexium which she reports has been helpful; denies HB or reflux symptoms. Pt reports that she has never had an EGD. abd US 9.9.24 No acute findings. Fatty infiltration liver. EGD 01.22.24 Z-line irregular, 38 cm from the incisors. Biopsied. Erythematous mucosa in the antrum. Biopsied. No gross lesions in the first portion of the duodenum. Biopsied. HIDA ..24 normal 86% GET 10.30.24 normal 34.15 minutes OV 11.14.24 pt reports that her nausea and gas/bloating have improved since starting Nexium. Pt reports that she will still occasionally get nausea in the middle of the night and some gas pressure in her chest. Pt requesting to review test results to determine next steps in plan of care. MRCP 05.06.24 Cholelithiasis. OV 06.03.24 pt reports constant sharp/stabbing pain on her right side for the past two days. pt denies other GI symptoms of concern at this time. OV 4.07.08 Pt doing well. She has no GI complaints at this time. OV 12.01.24 pt reports that she is feeling well overall and denies GI symptoms of concern at this time. Pt notes increased muscle cramps; typically at night. PCP checked labs and levels came back normal; added in calcium lactate, is currently taking a low dose to avoid upsetting her stomach. OV 03/18/2025 -upper abd pain x5 days -pain is sharp and intermittent (10x per day lasting seconds to a minute) in the RUQ and LUQ -not worse with oral intake -no n/v, no fevers, -no changes in her BM [facility] Medical History Gall stones Wears glasses Arthritis Back pain Gastric reflux Non-smoker Leg cramps TMJ syndrome Pelvic pain Anemia Migraine Home Medications Medication Instructions Recorded Last Taken Type esomeprazole magnesium 20 mg 20 mg PO DAILY 01/03/24 03/22/25 History capsule,delayed release (Nexium) ascorbic acid (vitamin C) 500 mg 500 mg PO BID 03/18/25 03/19/25 History tablet cholecalciferol (vitamin D3) 50 50 mcg PO QDAY 03/18/25 03/22/25 History mcg (2,000 unit) capsule chromium picolinate 1,000 mcg 1,000 mcg PO QHS 03/18/25 03/21/25 History tablet ferrous sulfate 325 mg (65 mg 325 mg PO BID 03/18/25 Unknown History iron) tablet (FeroSul) grape seed extract 60 mg capsule 500 mg PO DAILY 03/18/25 03/19/25 History inulin 1.7 gram chewable tablet 1.7 g PO DAILY 03/18/25 03/21/25 History (Prebiotic Fiber Digestive) lactobacillus combination no.4 3 3,000 mmu cells PO QDAY 03/18/25 03/21/25 History billion cell capsule (Probiotic) sucralfate 1 gram tablet (Carafate) 1 g PO QAC PRN STOOL 03/18/25 Unknown History vitamin E (dl, acetate) 180 mg 180 mg PO QDAY 03/18/25 03/22/25 History (400 unit) capsule Allergy/AdvReac Type Severity Reaction Status Date / Time No Known Allergies Allergy Verified 03/23/25 06:29 Family History Mother High cholesterol Rheumatic arteritis Diabetes Lung disease due to connective tissue disorder Grandmother Diabetes Uterine cancer Surgical History History of esophagogastroduodenoscopy (EGD) History of hysteroscopy Social History Smoking Status: Never smoker alcohol intake: never ROS Constitutional Constitutional: Denies fatigue, fever(s), poor appetite, weight gain or weight loss Gastrointestinal Gastrointestinal: Denies belching, bloating, change in bowel habits, change in stool character, chewing difficulty, coffee ground emesis, constipation, cramping, diarrhea, dyspepsia, dysphagia, early satiety, excessive flatus, fecal incontinence, heartburn, hematemesis, hematochezia, hemorrhoids, loose stools, melena, nausea, odynophagia, rectal bleeding, tenesmus, vomiting or weight changes Vital Signs Vital Signs Vital Signs: 03/23/25 06:30 03/23/25 06:30 Temperature 97.6 F L Temperature Source Temporal Pulse Rate 65 Respiratory Rate 18 Respiratory Pattern Normal Blood Pressure 108/75 Blood Pressure Mean 86 Blood Pressure Source Monitor Blood Pressure Position Semi-Fowlers Blood Pressure Location Right Arm Pulse Ox 100 Oxygen Delivery Method Room Air Weight Weight: 197 lb 8.547 oz Body Mass Index (BMI) 31.8 Physical Exam Const alert, oriented x3, no apparent distress and healthy appearing General Appearance: cooperative GI normal to inspection, nondistended, normoactive bowel sounds, soft to palpation, non-tender and non-distended Percussion: normal to percussion Rectal Exam: deferred Results Lab / Micro Data Labs: Laboratory Results - last 24 hr 03/23/25 06:23: Urine Test Negative Assessment & Plan Assessment/Plan (1) Weight loss: (2) Cholelithiasis: (3) GERD (gastroesophageal reflux disease): PLAN: Assessment and Plan Assessment and Plan (1) Cholelithiasis: Status: Acute Plan: Gladys is a 49-year-old female patient with past medical history of cholelithiasis, migraines and iron deficiency anemia here today for evaluation. Over the past 5 days patient has been having intermittent sharp right and left upper quadrant abdominal pain which will last seconds to minutes. It is not associated with oral intake or need to have a bowel movement. She is worried this may be related to gallstones. With that being in the upper right and left quadrant and not related to oral intake I do not feel this is biliary in nature. Etiology is unclear at this time. Recommended proceeding with colonoscopy. Will order CBC and CMP today. Will consider abdominal ultrasound after colonoscopy. Patient also with a headache for the past 4 weeks. Patient wonders if this may be related to her anemia. Recommend proceeding with colonoscopy and following up with PCP for headache. - Proceed with colonoscopy - CBC and CMP - Abdominal ultrasound - Follow-up with PCP for headaches - Follow-up after colonoscopy Note: Portions of this note may have been selectively carried forward from previous documentation to ensure continuity and accuracy of the clinical record. All imported information has been reviewed and updated as necessary to reflect the current patient status, findings, and clinical decision-making for this encounter. [employer] speech recognition online advertising manager software was used to create portions of this document. Sound alike and misspelled words, as well as other online advertising manager errors may be contained in the documentation. (2) GERD (gastroesophageal reflux disease): Status: Acute Orders: Orders CBC W/Diff, Automated Today K80.20 - Calculus of gallbladder without cholecystitis without obstruction Comprehensive Metabolic Profil Today K80.20 - Calculus of gallbladder without cholecystitis without obstruction Abdomen Limited Today K21.9 - Gastro-esophageal reflux disease without esophagitis, K80.20 - Calculus of gallbladder without cholecystitis without obstruction ]
--- NOTE | 2025-03-23 06:55 | PRE.ANES_ITS ---
ASA Classification* ASA Classification ASA Classification: 2 (GERD) Assessment & Plan Anesthesia* Anesthesia Assessment Anesthesia Assessment: Discussed sedation and/or anesthesia options, risks, benefits, and alternatives with patient/parents/legal guardian/POA. Questions invited. The patient/parents/legal guardian/POA seems to understand and agrees to proceed with anesthesia plan. Reviewed the physical assessment, medical history, allergy history and patient home medications list prior to surgery/procedure/anesthetic and documented any changes. Performed airway and anesthesia risk assessments. Anesthesia Type Anesthesia Type: MAC History Source History Obtained from:: Patient and Chart Anesthesia Focused Assessment* Temperature: 97.6 F Pulse Rate: 65 Blood Pressure: 108/75 Respiratory Rate: 18 Pulse Ox: 100 Oxygen Delivery Method: Room Air Airway Assessment Mouth opens: >3 cm Mallampati Score: II Teeth Condition: Intact Neck Range of motion (ROM): Full ROM Labs Anesthesia Preop lab: CBC WBC, (4.4-11.0) 6.5 K/mm3 03/18/25, RBC, (4.2-5.4) 5.37 M/mm3 03/18/25, Hgb, (12.0-15.0) 13.0 g/dL 03/18/25, Hct, (37-47) 42.9 % 03/18/25, Plt Count, (150-450) 252 K/mm3 03/18/25, CHEMISTRY Potassium, (3.3-5.1) 4.1 mmol/L 03/18/25, Sodium, (133-145) 139 mmol/L 03/18/25, BUN, (4-19) 17 mg/dL 03/18/25, : Creatinine, (0.70-1.20) 0.73 mg/dL 03/18/25, Glucose, (70-99) 96 mg/dL 03/18/25, POC Glucose, (74-106) 116 mg/dL H 01/03/24, 16:44 COAG Urine Test Negative Negative Today, 06:23 Pre-Assessment Diagnosis/Proposed Procedure Planned Operative Procedure(s): EGD Anesthesia History Anesthesia History - manager food safety: Anesthesia History - manager food safety Hx Hospitalization No 03/18/25 14:38 Any Problems With Anesthesia No 03/18/25 14:38 Cholinesterase deficiency No 03/18/25 14:38 You/Your Family Experience No 03/18/25 14:38 fever (hyperthermia) with Relationship Recent Exposure to Contagious No 03/23/25 06:30 Disease Does patient have nerve No 03/18/25 14:38 stimulator Patient instructed to have device shut off --Does patient have Pacemaker No 03/23/25 06:30 or ICD? When Was Last Pacemaker Check QUESTION #4 FULL TEXT: You/Your Family Experience fever (hyperthermia) with Anesthesia Last Oral Intake Last Oral intake: Last Oral Intake NPO since 03:00 03/23/25 06:30 Meds taken in AM with sips of No 03/23/25 06:30 water? Meds patient instructed to take am of surgery PONV PONV - manager food safety: PONV - manager food safety Female Yes 03/18/25 14:38 HX of Motion Sickness No 03/18/25 14:38 HX of N/V After Surgery No 03/18/25 14:38 Non-Smoker Yes 03/18/25 14:38 Duration of Surgery greater No 03/18/25 14:38 than 60 minutes Number of Risk Factors 2 03/18/25 14:38 PONV Score Moderate Risk 03/18/25 14:38 Height & Weight Height & Weight: Anesthesia: Height & Weight Height 5 ft 6 in 03/23/25 06:30 Weight: 89.6 kg 03/23/25 06:30 Body Mass Index (BMI) 31.8 03/23/25 06:30 Respiratory Assessment Respiratory Assessment - manager food safety: Respiratory Tract Infection Hx - manager food safety Hx Respiratory Tract Infection No 03/18/25 14:38 STOP Sleep Apnea STOP Sleep Apnea - manager food safety: STOP Sleep Apnea - manager food safety Hx Hypertension No 03/18/25 14:38 Hx Sleep Apnea No 03/18/25 14:38 CPAP BIPAP Do you snore loudly (louder No 03/18/25 14:38 than talking or can be heard Do you often feel tired/ No 03/18/25 14:38 fatigued/ sleepy during daytime? Has anyone observed you stop No 03/18/25 14:38 breathing during sleep? STOP Results Negative 03/18/25 14:38 QUESTION #5 FULL TEXT : Do you snore loudly (louder than talking or can be heard through closed doors)? Tobacco Use History Tobacco Use History - manager food safety: Tobacco Use History - manager food safety Tobacco Use Smoking Status Never smoker 03/18/25 14:38 Hx Tobacco Use No 03/18/25 14:38 Years Smoking Packs Smoked per Day Smoking Cessation Date was within the last 15 years Hx Smoking Cessation Date Hx Smoking Cessation Counseling Hematologic Medial History Hematologic Hx - manager food safety: Hematologic Medical Hx - interdisciplinary professor Hx of Blood Transfusion No 03/18/25 14:38 Hx of Transfusion in last 3 No 03/18/25 14:38 Months Date of Last Transfusion (if within last 3 months) Ever experience any problems No 03/18/25 14:38 with transfusion(s)? Specify any problems Hx of Preganancy in last 3 No 03/18/25 14:38 Months Nurse Filling Out Transfusion VCHRISTIN 03/18/25 14:38 & Questions: Date: 03/18/25 03/18/25 14:38 Time: 14:39 03/18/25 14:38 Patient unable to answer at this time (ie. confused, unrespo /Reproduction History /Reproductive History - manager food safety: /Reproductive Hx- manager food safety Hx Now No 03/18/25 14:38 Gestational Age (in weeks): EDC: Hx Hx Para Hx Section SAB No 03/18/25 14:38 Does the father of the baby or his family experience fever w Father of the baby Malignant Hypertension history comment Active Medications Active Medications: Current Medications Generic Name Dose Route Start Last Admin Trade Name Caio PRN Reason Stop Dose Admin Lactated Ringer's 1,000 mls @ 15 mls/hr 03/23/25 06:15 03/23/25 06:38 IV 15 mls/hr .Q48H YUNIER Administration PFSH Medical History Gall stones Wears glasses Arthritis Back pain Gastric reflux Non-smoker Leg cramps TMJ syndrome Pelvic pain Anemia Migraine Home Medications Medication Instructions Recorded Last Taken Type esomeprazole magnesium 20 mg 20 mg PO DAILY 01/03/24 1 05/22/24 History capsule,delayed release (Nexium) ascorbic acid (vitamin C) 500 mg 500 mg PO BID 5 03/19/25 History tablet cholecalciferol (vitamin D3) 50 50 mcg PO QDAY 5 03/22/25 History mcg (2,000 unit) capsule chromium picolinate 1,000 mcg 1,000 mcg PO QHS 5 03/21/25 History tablet ferrous sulfate 325 mg (65 mg 325 mg PO BID 03/18/25 U nknown History iron) tablet (FeroSul) grape seed extract 60 mg capsule 500 mg PO DAILY 03/1803/19/25 History inulin 1.7 gram chewable tablet 1.7 g PO DAILY 5 03/21/25 History (Prebiotic Fiber Digestive) lactobacillus combination no.4 3 3,000 mmu cells PO QD AY 03/18/25 03/21/25 History billion cell capsule (Probiotic) sucralfate 1 gram tablet (Carafate) 1 g PO QAC PRN STO OL 03/18/25 Unknown History vitamin E (dl, acetate) 180 mg 180 mg PO QDAY 03/18/25 03/22/25 History (400 unit) capsule Allergy/AdvReac Type Severity Reaction Status Date / Time No Known Allergies Allergy Verified 03/23/25 06:29 Family History Mother High cholesterol Rheumatic arteritis Diabetes Lung disease due to connective tissue disorder Grandmother Diabetes Uterine cancer Surgical History History of esophagogastroduodenoscopy (EGD) History of hysteroscopy Social History Smoking Status: Never smoker alcohol intake: never Review of Systems (Anesthesia) ROS Narrative System reviewed and no additional complaints, except as documented. Physical Exam Const alert, oriented x3 and average body habitus Resp normal respiratory effort, normal air movement and clear to auscultation bilaterally Cardio regular rate, regular rhythm, no murmurs and diaphoretic
[2025-03-23 06:57] VITALS: BP 108/75; PULSE 65; RESP 18; TEMP 36.4; O2SAT 100
--- NOTE | 2025-03-23 07:00 | COLBX_PTH ---
PATIENT: GLADYS PETER LOC: EN U#:[id number] AGE/SX: 49/F ROOM: RE03/23/[address]: Dr. Mikey Solares DO : 1975 BED: DIS: 03/23/2025 SPEC #: [id number] RECD: 03/23/25 11:40 STATUS: GALDINO REQ #: [id number] RENU: 03/23/25 07:[address]: Mikey Solares DEPT: SURGICAL PATHOLOGY RECD BY: Sancho Julian ENTERED: 03/23/25 13:03 SP TYPE: COLON BX OTHR DR: Raysa Jesus, POLISHER EYEGLASS FRAMES-C Tissues: A - Rectum, NOS Procedures: Surgery Specimen Level IV HEADER OPERATION: Colonoscopy PRE-OP DIAGNOSIS: Weight loss, cholelithiasis, GERD TISSUE SUBMITTED: A- Rectal biopsy MICROSCOPIC DIAGNOSIS A. Rectum, biopsy: - Hyperplastic polyp. MICROSCOPIC DESCRIPTION Slides are reviewed. GROSS DESCRIPTION A. Received in fixative is one container labeled with the patient's name and designated "Rectal biopsy." The specimen consists of two irregular fragments of bernstein tissue that measure 0.3 and 0.7 cm. The specimen is totally submitted in one cassette. [place] 03/23/2025 CPT:02993
--- NOTE | 2025-03-23 07:39 | OP.COLON_ITS ---
Patient Name: Saira Dodd Procedure Date: 03/23/2025 7:06 AM Date of : 1975 Age: 49 Procedure: Colonoscopy Indications: Screening for colorectal malignant neoplasm Providers: DO Adan Thomas MD: Skylar Hernandez Medicines: Monitored Anesthesia Care Patient Profile: This is a 49 year old female. Refer to note in patient chart for documentation of history and physical. Last Colonoscopy: date unknown. Unable to locate last colonoscopy report. Complications: No immediate complications. Procedure: Pre-Anesthesia Assessment: - Prior to the procedure, a History and Physical was performed, and patient medications and allergies were reviewed. The patient is competent. The risks and benefits of the procedure and the sedation options and risks were discussed with the patient. All questions were answered and informed consent was obtained. Patient identification and proposed procedure were verified by the physician in the pre-procedure area. Mental Status Examination: alert and oriented. Airway Examination: normal oropharyngeal airway and neck mobility. Respiratory Examination: clear to auscultation. CV Examination: normal. Prophylactic Antibiotics: The patient does not require prophylactic antibiotics. Prior Anticoagulants: The patient has taken no anticoagulant or antiplatelet agents except for NSAID medication. ASA Grade Assessment: II - A patient with mild systemic disease. After reviewing the risks and benefits, the patient was deemed in satisfactory condition to undergo the procedure. The anesthesia plan was to use monitored anesthesia care (MAC). Immediately prior to administration of medications, the patient was re-assessed for adequacy to receive sedatives. The heart rate, respiratory rate, oxygen saturations, blood pressure, adequacy of pulmonary ventilation, and response to care were monitored throughout the procedure. The physical status of the patient was re-assessed after the procedure. After I obtained informed consent, the scope was passed under direct vision. Throughout the procedure, the patient's blood pressure, pulse, and oxygen saturations were monitored continuously. The Colonoscope was introduced through the anus and advanced to the terminal ileum. The colonoscopy was performed without difficulty. The patient tolerated the procedure well. The quality of the bowel preparation was adequate. The ileocecal valve, appendiceal orifice, and rectum were photographed. Scope In: 7:19:20 AM Scope Withdrawal Time 0 hours 9 minutes 31 seconds Scope Out: 7:32:33 AM Total Procedure Duration Time 0 hours 13 minutes 13 seconds Findings: The perianal and digital rectal examinations were normal. The colon (entire examined portion) appeared normal. Localized mild inflammation characterized by erythema was found in the rectum. Biopsies were taken with a cold forceps for histology. Verification of patient identification for the specimen was done. Estimated blood loss was minimal. A few small-mouthed diverticula were found in the recto-sigmoid colon. The exam was otherwise without abnormality on direct and retroflexion views. Impression: - The entire examined colon is normal. - Localized mild inflammation was found in the rectum secondary to colitis. Biopsied. - Diverticulosis in the recto-sigmoid colon. - The examination was otherwise normal on direct and retroflexion views. Recommendation: - Discharge patient to home. - Resume previous diet. - Continue present medications. - Await pathology results. - Repeat colonoscopy in 10 years for screening purposes. Procedure Code(s): --- Professional --- 72864, Colonoscopy, flexible; with biopsy, single or multiple CPT copyright 2021 [employer]. All rights reserved. The codes documented in this report are preliminary and upon stock supervisor review may be revised to meet current compliance requirements. Mikey Solares DO 03/23/2025 7:39:17 AM This report has been signed electronically. Number of Addenda: 0 Note Initiated On: 03/23/2025 7:06 AM
[2025-03-23 07:40] VITALS: BP 108/75; BP 110/65; PULSE 67; RESP 18; TEMP 36.2; O2SAT 99
--- NOTE | 2025-03-23 07:40 | OP.PROVAT_ITS ---
03/23/2025 Skylar Hernandez Re : Colonoscopy procedure for Saira Dodd Dear [place] This procedure was performed on Sunday, March 23, 2025. My impressions and recommendations are as follows: Impressions : - The entire examined colon is normal. - Localized mild inflammation was found in the rectum secondary to colitis. Biopsied. - Diverticulosis in the recto-sigmoid colon. - The examination was otherwise normal on direct and retroflexion views. Recommendations : - Discharge patient to home. - Resume previous diet. - Continue present medications. - Await pathology results. - Repeat colonoscopy in 10 years for screening purposes. My findings are described in the full procedure note, which is enclosed. If I can be of further assistance, please feel free to contact me at . Sincerely, Mikey Solares, 03/23/2025 7:39:17 AM This report has been signed electronically.
--- NOTE | 2025-03-23 07:44 | PCM.POST.ANE ---
Anesthesia: Postop Eval I Current Vital Signs Temperature: 97.1 F Pulse Rate: 65 Blood Pressure: 110/65 Respiratory Rate: 16 Pulse Ox: 100 Oxygen Delivery Method: Room Air Assessment Airway patent: Yes Spontaneous unlabored respirations: Yes Mental status: Awake and Calm nausea: No Vomiting: No Anesthesia Complication: No Fluid Hydration Crystalloid volume administer (ml): 600 Total IV fluid infused: 600 Progress Note Anesthesia document: Postop Eval 1 completed: Yes
[2025-03-23 07:45] VITALS: BP 108/75; BP 109/65; BP 110/65; PULSE 58; PULSE 65; RESP 16; RESP 18; TEMP 36.2; O2SAT 100; O2SAT 98
[2025-03-23 07:50] VITALS: BP 108/75; BP 117/67; PULSE 54; RESP 18; TEMP 36.1; O2SAT 100
[2025-03-23 08:06] VITALS: BP 108/75
--- NOTE | 2025-03-23 08:11 | PCM.POSTANE2 ---
Anesthesia Postop Eval I Sum Postop Eval Completion status Anesthesia document: Postop Eval 1 completed: Yes Anesthesia Postop Eval I Summary Anesthesia Postop Eval I Summary: Anesthesia Postop Eval I: Assessment Summary Airway patent Yes 03/23/25 07:45 [email or web address] Spontaneous unlabored Yes 03/23/25 07:45 [email or web address] respirations Mental status Awake,Calm 03/23/25 07:45 [email or web address] nausea No 03/23/25 07:45 [email or web address] Vomiting No 03/23/25 07:45 [email or web address] Anesthesia Postop Eval I: Fluid Summary Crystalloid volume administer 600 03/23/25 07:45 [email or web address] (ml) Colloids volume administered ( ml) Blood Product volume administered (ml) Total IV fluid infused 600 03/23/25 07:45 [email or web address] Anesthesia Postop Eval I: Summary Notes Anesthesia Complication No 03/23/25 07:45 [email or web address] Anesthesia Complication Comment: Post-operative progress note Anesthesia: Postop Eval II Evaluation Mental status: Awake Pain Level: 0 nausea: No Vomiting: No Complications Anesthesia Complication: No
== END 2025-03-23 08:21 | disposition home or self-care (01) ==
LOC: EN 06:00 → AC 06:00
PROVIDERS: Student in an Organized Health Care Education/Training Program; PCP Registered Nurse; Referring Provider Registered Nurse; Visit Provider Internal Medicine Gastroenterology
DX: K62.1 Rectal polyp (principal); K80.20 Calculus of gallbladder without cholecystitis without obstruction; K21.9 Gastro-esophageal reflux disease without esophagitis; Z79.899 Other long term (current) drug therapy; D50.9 Iron deficiency anemia, unspecified; K57.30 Diverticulosis of large intestine without perforation or abscess without bleeding; K52.9 Noninfective gastroenteritis and colitis, unspecified
CPT/HCPCS: 45380; 81025; 88305; J2405

== ENCOUNTER → 2025-03-25 | Outpatient (CLI) | payer OTHER, SELFPAY ==
--- NOTE | 2025-03-25 07:24 | US_ITS ---
PROCEDURE: ABDOMEN LIMITED 03/25/2025 REASON FOR EXAM: ABD PAIN TECHNIQUE: Procedure Code: USABDL Modality: US Procedure: ABDOMEN LIMITED COMPARISON: none FINDINGS: GALLBLADDER: No gallstones. no gallbladder wall thickening or pericholecystic fluid. Negative Mcwilliams sign. COMMON BILE DUCT: Measures 3.9 Mm. No intrahepatic biliary dilatation. LIVER: Normal size. Normal echotexture. No definite hepatic mass. RIGHT KIDNEY: Normal in size and echogenicity. No mass. No urinary stones. No hydronephrosis. Pancreas: Unremarkable. US/Abdomen Limited IMPRESSION: No acute cholecystitis. Reading Location: [facility]
--- OUTSIDE RECORDS SUMMARY | 2025-03-25 07:28 | XMS RPT_ITS | CCD ---
Author Organization [facility] Care Team Providers Care Manager Of Health Name Role Phone Jose MANE.INSOLE BEVELER, Tameka Primary Care Provider [phone] JOSE MANE-INSOLE BEVELER, TAMEKA Primary Care Physician Jose MANE.INSOLE BEVELERTameka Primary Care Provider PROVIDER, UNKNOWN Referring Unavailable TAMEKA GARCIA Primary Care Unavailable JUDITH SCENIC ARTIST-INSOLE BEVELER, RAYSA A Primary Care Physi chele Judith IBANEZ, Raysa A Primary Care Provider Barbie Wong CNPzabeth A Primary Care Provider JUDITH SCENIC ARTIST-INSOLE BEVELER, RAYSA A Attending Un available JUDITH SCENIC ARTIST-INSOLE BEVELER, RAYSA A Primary Care Un available JUDITH SCENIC ARTIST-INSOLE BEVELER, RAYSA A Attending Un available JUDITH SCENIC ARTIST-INSOLE BEVELER, RAYSA A Primary Care Un available JUDITH SCENIC ARTIST-INSOLE BEVELER, RAYSA A Attending Un available JUDITH SCENIC ARTIST-INSOLE BEVELER, RAYSA A Primary Care Un available JUDITH SCENIC ARTIST-INSOLE BEVELER, RAYSA A Attending Un available JUDITH SCENIC ARTIST-INSOLE BEVELER, RAYSA A Primary Care Un available JUDITH SCENIC ARTIST-INSOLE BEVELER, RAYSA A Attending Un available JUDITH SCENIC ARTIST-INSOLE BEVELER, RAYSA A Primary Care Un available JUDITH SCENIC ARTIST-INSOLE BEVELER, RAYSA A Attending Un available JUDITH SCENIC ARTIST-INSOLE BEVELER, RAYSA A Primary Care Un available Garcia SCENIC ARTIST.INSOLE BEVELER, Tameka Primary Care Provider Judtih SAND SLINGER-C, Raysa Primary Care Provider Judith SAND SLINGER-C, Raysa Referring Provider [phone] Dr. Mikey Solares DO Attending Provider Bernadette Ramírez Attending Provider [phone] Bhupendra Gonzalez MD Emergency Provider Judith SAND SLINGER-C, [place] Primary Care Provider [phone] Judith SAND SLINGER-C, Raysa Referring Provider [phone] Bhupendra Gonzalez MD Attending Provider Dr. Mikey Solares DO Attending Provider Judith INSOLE BEVELER, [facility] Primary Care Prov ider JUDITH, [...] [facility] Primary Care Unava ilable Judith SAND SLINGER-C, [place] Primary Care Physician Judith SAND SLINGER-C, Raysa Referring Provider [phone] Dr. Mikey Solares DO Attending Physician Dr. Mikey Solares DO Referring Provider JUDITH SCENIC ARTIST-INSOLE BEVELER, RAYSA A Primary Care Un available RODERICK SCENIC ARTIST-INSOLE BEVELER, HERLINDA Chacon Attending Unava ilable MAST SCENIC ARTIST-INSOLE BEVELER, [place] Attending Unavailabl e JUDITH SCENIC ARTIST-INSOLE BEVELER, RAYSA A Primary Care Un available JUDITH SCENIC ARTIST-INSOLE BEVELER, RAYSA Musa Attending Un available JUDITH SCENIC ARTIST-INSOLE BEVELER, RAYSA A Primary Care Un available Judith SAND SLINGER, Raysa Primary Care Unavailabl e iMkey Solares Referring Unavailable Mikey Solares Attending Unavailable Judith SAND SLINGER, [place] Primary Care Unavailabl e FriendMikey Referring Unavailable FriendMikey Attending Unavailable Bhupendra Gonzalez Attending Unavailable Judith SAND SLINGER, [facility] Unavailabl e Judith SAND SLINGER, Raysa Referring Unavailabl e Judith SAND SLINGER, [facility] Unavailabl e Friend, Mikey Attending Unavailable Judith SAND SLINGER, [facility] Unavailabl e AtanasovBernadette Attending Unavailable AtanasovBernadette Referring Unavailable Judith SAND SLINGER, [facility] Unavailabl e Judith SAND SLINGER, Raysa Referring Unavailabl e Friend, Mikey Attending Unavailable Judith SAND SLINGER, [facility] Unavailabl e Judith SAND SLINGER, Raysa Referring Unavailabl e Friend, Mikey Attending Unavailable Judith SAND SLINGER, [facility] Unavailabl e Judith SAND SLINGER, Raysa Referring Unavailabl e AtanasovBernadette Attending Unavailable Judith SAND SLINGER, Raysa Referring Unavailabl e Judith SAND SLINGER, [facility] Unavailabl e Friend, Mikey Consulting Unavailable Friend, Mikey Attending Unavailable Judith SAND SLINGER, Raysa Referring Unavailabl e Judith SAND SLINGER, [facility] Unavailabl e Friend, Mikey Attending Unavailable Judith SAND SLINGER, Raysa Referring Unavailabl e Judith SAND SLINGER, [facility] Unavailabl e AtanasovBernadette Attending Unavailable Judith SAND SLINGER, [facility] Unavailabl e AtanasovBernadette Attending Unavailable AtanasovBernadette Referring Unavailable Judith SAND SLINGER, [facility] Unavailabl e Friend, Mikey Attending Unavailable Friend, Mikey Referring Unavailable Unavailable Unavailable Unavailable Allergies Allergy Classification Reported Allergen(s) Allergy Type Date of Onset Reaction(s) Facility (20 sources) Homeopathic Products; Translations: [HOMEOPATHIC PRODUCTS] Propensity to adverse reactions 6 [facility] (16 sources) no drug allergies [Other] Propensity to adverse reactions 8 [facility] Work Phone: (8 sources) Allergic rhinitis due to pollen Allergy to substance Itching of eye (finding), Asthma (disorder), Sneezing (finding), Watery eye (finding) [facility] [place] (1 source) OTHER; Translations: [OTHER] Propensity to adverse reactions (disorder) 8 [facility] Other Pavilion Repository NEGATED: Highlighted row has been ruled out! (1 source) Drug allergy [facility] NEGATED: Highlighted row has been ruled out! (1 source) Drug allergy [facility] Medications Current Medications Medication Drug [...] qDay, # 90 cap(s), 3 Refill(s), Pharmacy: [facility], 167.6, cm, 03/06/24 15:29:00 EDT, Height, [...] TID, # 42 cap(s), 0 Refill(s), Pharmacy: [facility]/pharmacy #[id number], Burn of right thigh, 167.6, [...] 0 Refill(s), 03/17/25 8:21:00 AM EST, Pharmacy: [facility], 170, cm, 03/10/25 7:49:00 EDT, [...] 0 Refill(s), 02/04/25 9:52:00 AM EDT, Pharmacy: [facility], 166, cm, 01/28/25 9:36:00 [...] tab(s)/24hrs, # 9 tab(s), 1 Refill(s), Pharmacy: [facility], 170, cm, 09/23/24 7:53:00 [...] sites, # 4 EA, 0 Refill(s), Pharmacy: [facility], Obesity BMI 33.0-33.9,adult, 167.6, cm, [...] 0 Start: 09-10-2024 take 1 capsule by [facility] once daily Vitamin D3 50 mcg (2000 [...] {tbl} PO TWICE A DAY 10 5 0 September 16, 2024 12:00am December 01, 2024 [...] 1:00am September 16, 2024 4:32pm lactobacillus acidophilus [id number] unt oral capsule (5 sources) Start: 01-17-2024 [...] of gallbladder without cholecystitis without obstruction] Onset: 03-23-2025 06-03-2024 Episodic Cardiac dysrhythmias (3 sources) Palpitations 03-28-2024 Episodic Deficiency and other anemia (1 source) Anemia 03-10-2025 Episodic Deficiency and other anemia (2 sources) Anemia, unspecified; Translations: [Anemia, unspecified] Onset: 03-10-2025 Episodic Diseases of mouth; excluding dental (2 sources) 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 Disorders of teeth and jaw (8 sources) Temporomandibular cfses-sxms-fpckkvilfnc syndrome 08-09-2021 Episodic Esophageal disorders (16 sources) Gastroesophageal reflux disease; Translations: [Gastro-esophageal reflux disease without esophagitis] Onset: 03-23-2025 11-21-2022 Chronic Genitourinary symptoms and ill-defined conditions [...] decreased; Translations: [Abnormal weight loss] 12-01-2024 Episodic Other nutritional; endocrine; and metabolic disorders (2 sources) Abnormal weight loss; Translations: [Abnormal weight loss] Onset: 03-23-2025 Episodic Poisoning by nonmedicinal substances (2 sources) [...] Test Name Value Interpretation Reference Range Facility Colonoscopy Reporton 025 Colonoscopy Report [facility] Medical Records Department [address] [place] [address] Colonoscopy Report MR#: [id number] Acct: [id number] Name: GLADYS PETER Rep #: [id number] 2 : 1975 49 From: Mikey Solares DO PCP: GENESIS Hernandez Status:REG [facility] Patient Name: Gladys Dodd Procedure Date: 03/23/2025 7:06 AM Date of : 1975 Age: 49 Procedure: Colonoscopy Indications: Screening for colorectal malignant neoplasm Providers: Mikey Solares DO Referring MD: Genesis Hernandez Medicines: Monitored Anesthesia Care Patient Profile: This is a 49 year old female. Refer to note in patient chart for documentation of history and physical. Last Colonoscopy: date unknown. Unable to locate last colonoscopy report. Complications: No immediate complications. Procedure: Pre-Anesthesia Assessment: - Prior to the procedure, a History and Physical was performed, and patient medications and allergies were reviewed. The patient is competent. The risks and benefits of the procedure and the sedation options and risks were discussed with the patient. All questions were answered and informed consent was obtained. Patient identification and proposed procedure were verified by the physician in the pre-procedure area. Mental Status Examination: alert and oriented. Airway Examination: normal oropharyngeal airway and neck mobility. Respiratory Examination: clear to auscultation. CV Examination: normal. Prophylactic Antibiotics: The patient does not require prophylactic antibiotics. Prior Anticoagulants: The patient has taken no anticoagulant or antiplatelet agents except for NSAID medication. ASA Grade Assessment: II - A patient with mild systemic disease. After reviewing the risks and benefits, the patient was deemed in satisfactory condition to undergo the procedure. The anesthesia plan was to use monitored anesthesia care (MAC). Immediately prior to administration of medications, the patient was re-assessed for adequacy to receive sedatives. The heart rate, respiratory rate, oxygen saturations, blood pressure, adequacy of pulmonary ventilation, and response to care were monitored throughout the procedure. The physical status of the patient was re-assessed after the procedure. After I obtained informed consent, the scope was passed under direct vision. Throughout the procedure, the patient's blood pressure, pulse, and oxygen saturations were monitored continuously. The Colonoscope was introduced through the anus and advanced to the terminal ileum. The colonoscopy was performed without difficulty. The patient tolerated the procedure well. The quality of the bowel preparation was adequate. The ileocecal valve, appendiceal orifice, and rectum were photographed. Scope In: 7:19:20 AM Scope Withdrawal Time 0 hours 9 minutes 31 seconds Scope Out: 7:32:33 AM Total Procedure Duration Time 0 hours 13 minutes 13 seconds Findings: The perianal and digital rectal examinations were normal. The colon (entire examined portion) appeared normal. Localized mild inflammation characterized by erythema was found in the rectum. Biopsies were taken with a cold forceps for histology. Verification of patient identification for the specimen was done. Estimated blood loss was minimal. A few small-mouthed diverticula were found in the recto-sigmoid colon. The exam was otherwise without abnormality on direct and retroflexion views. Impression: - The entire examined colon is normal. - Localized mild inflammation was found in the rectum secondary to colitis. Biopsied. - Diverticulosis in the recto-sigmoid colon. - The examination was otherwise normal on direct and retroflexion views. Recommendation: - Discharge patient to home. - Resume previous diet. - Continue present medications. - Await pathology results. - Repeat colonoscopy in 10 years for screening purposes. Procedure Code(s): --- Professional --- 84312, Colonoscopy, flexible; with biopsy, single or multiple CPT copyright 2021 [employer]. All rights reserved. The codes documented in this report are preliminary and upon billboard installer review may be revised to meet current compliance requirements. Mikey Solares DO 03/23/2025 7:39:17 AM This report has been signed electronically. Number of Addenda: 0 Note Initiated On: 03/23/2025 7:06 AM 03/23/25 0739 Date Mikey Solares DO Cosigner Signature: Date (if indicated) CC: GENESIS Wong; Mikey Solares DO Date Dictated: 03/23/25705 Date Transcribed: Can Vacuum Tester: BROOKS Signed [facility]/OP[facility] Medical Records Department [address] [place] [address] Provation Physician Letter MR#: [id number] Acct: [id number] Name: GLADYS PETER Rep #: [id number] : 1975 49 From: Mikey Solares DO PCP: GENESIS Hernandez Status:REG [facility] 03/23/2025 Genesis Hernandez Re : Colonoscopy procedure for Gladys Dodd Jose David Wong This procedure was performed on Sunday, March 23, 2025. My impressions and recommendations are as follows: Impressions : - The entire examined colon is normal. - Localized mild inflammation was found in the rectum secondary to colitis. Biopsied. - Diverticulosis in the recto-sigmoid colon. - The examination was otherwise normal on direct and retroflexion views. Recommendations : - Discharge patient to home. - Resume previous diet. - Continue present medications. - Await pathology results. - Repeat colonoscopy in 10 years for screening purposes. My findings are described in the full procedure note, which is enclosed. If I can be of further assistance, please feel free to contact me at . Sincerely, Mikey Solares DO 03/23/2025 7:39:17 AM This report has been signed electronically. 03/23/25738 Date Mikey Starks Signature: Date (if indicated) CC: SAND SLINGER-C Raysa Wong; Mikey Solares DO Date Dictated: 03/23/25705 Date Transcribed: Can Vacuum Tester: BROOKS Signed [facility] MR/POSTOP.[facility] 03-23-2025 MR/POSTOP.[facility] Medical Records Department [address] [place] [address] Anesthesia Postop Eval I 03/23/25743 MR#: [id number] Acct: [id number] Name: GLADYS PETER Rep #: [id number] 2 : 1975 49 From: Arsen Garrison PCP: GENESIS Hernandez Status:REG SDC Y Race: C Location: [place] [address] Anesthesia: Postop Eval I Current Vital Signs Temperature: 97.1 F Pulse Rate: 65 Blood Pressure: 110/65 Respiratory Rate: 16 Pulse Ox: 100 Oxygen Delivery Method: Room Air Assessment Airway patent: Yes Spontaneous unlabored respirations: Yes Mental status: Awake and Calm nausea: No Vomiting: No Anesthesia Complication: No Fluid Hydration Crystalloid volume administer (ml): 600 Total IV fluid infused: 600 Progress Note Anesthesia document: Postop Eval 1 completed: Yes 03/23/25744 Date Arsen Sol Signature: Date CC: Signed Normal [facility] MR/GEJHTPRN6zh 03-23-2025 MR/POSTOPAN2 [facility] Medical Records Department [address] [place] [address] Anesthesia Postop Eval II 03/23/25810 MR#: [id number] Acct: [id number] Name: GLADYS PETER Rep #: [id number] : 1975 49 From: Loki Lacy MD PCP: Raysa Wong NP-C Status:REG SDC Y Race: C Location: [facility]03-14 Anesthesia Postop Eval I Sum Postop Eval Completion status Anesthesia document: Postop Eval 1 completed: Yes Anesthesia Postop Eval I Summary Anesthesia Postop Eval I Summary: Anesthesia Postop Eval I: Assessment Summary Airway patent Yes 03/23/25 07:45 [email or web address] Spontaneous unlabored Yes 03/23/25 07:45 [email or web address] respirations Mental status Awake,Calm 03/23/25 07:45 [email or web address] nausea No 03/23/25 07:45 [email or web address] Vomiting No 03/23/25 07:45 [email or web address] Anesthesia Postop Eval I: Fluid Summary Crystalloid volume administer 600 03/23/25 07:45 [email or web address] (ml) Colloids volume administered ( ml) Blood Product volume administered (ml) Total IV fluid infused 600 03/23/25 07:45 [email or web address] Anesthesia Postop Eval I: Summary Notes Anesthesia Complication No 03/23/25 07:45 [email or web address] Anesthesia Complication Comment: Post-operative progress note Anesthesia: Postop Eval II Evaluation Mental status: Awake Pain Level: 0 nausea: No Vomiting: No Complications Anesthesia Complication: No 03/23/25810 Date Loki Lacy MD Cosigner Signature: Date CC: Signed Normal [facility] ,Urineon 03-23-2025 Beta HCG ( test) Ql (U) Negative Normal [facility] Comment on above: Result Comment: Very dilute urine specimens, as indicated by a low specific gravity, may not contain marketing development representative levels of hCG. If is still suspected, a first morning urine specimen should be collected 48 hours later and tested. Performed By: #### L 400.7600 #### [facility] [address] [place], [address] CBC W/Diff, Automatedon [employer] Normal [facility] Comment on above: Performed By: #### L 100.0100, L500.4050 ####[facility] [address] [place], [address] Anisocytosis Ql (Bld) 3+ Normal [facility] Comment on above: Performed By: #### L 100.0100, L500.4050 ####[facility] [address] [place], [address] MICROCYTIC 1+ Normal [facility] Comment on above: Performed By: #### L 100.0100, L500.4050 ####[facility] [address] [place], [address] SMEAR COMMENT SCANNED Normal [facility] Comment on above: Result Comment: DIMO RPHIC RBC POPULATION Performed By: #### L 100.0100, L500.4050 ####[facility] [address] [place], [address] Comprehensive Metabolic Prof ilon 03-18-2025 Albumin [Mass/Vol] 4.0 g/dL Normal 3.5-5.0 [facility] Comment on above: Performed By: #### L 100.0100, L500.4050 ####[facility] [address] [place], [address] Albumin/Globulin [Mass ratio] 1.3 {ratio} Normal 0.9-2.4 [facility] Comment on above: Performed By: #### L 100.0100, L500.4050 ####[facility] [address] [place], [address] ALK PHOS 81 U/L Normal 35-104 [facility] Comment on above: Performed By: #### L 100.0100, L500.4050 ####[facility] [address] [place], [address] ALT [Catalytic activity/Vol] 22 U/L Normal <=34 [facility] Comment on above: Performed By: #### L 100.0100, L500.4050 ####[facility] [address] [place], [address] AST [Catalytic activity/Vol] 21 U/L Normal <=31 [facility] Comment on above: Performed By: #### L 100.0100, L500.4050 ####[facility] [address] [place], [address] Bilirubin [Mass/Vol] 0.33 mg/dL Normal 0.00-1.30 [facility] Comment on above: Performed By: #### L 100.0100, L500.4050 ####[facility] [address] [place], [address] BUN/CRE 23.6 RATIO High 10-20 [facility] Comment on above: Performed By: #### L 100.0100, L500.4050 ####[facility] [address] [place], [address] Calcium [Mass/Vol] 9.0 mg/dL Normal 7.6-11.0 [facility] Comment on above: Performed By: #### L 100.0100, L500.4050 ####[facility] [address] [place], [address] Chloride [Moles/Vol] 102 mmol/L Normal 98-108 [facility] Comment on above: Performed By: #### L 100.0100, L500.4050 ####[facility] [address] [place], [address] CO2 [Moles/Vol] 25.0 mmol/L Normal 21.0-32.0 [facility] Comment on above: Performed By: #### L 100.0100, L500.4050 ####[facility] [address] [place], [address] Creatinine [Mass/Vol] 0.73 mg/dL Normal 0.70-1.20 [facility] Comment on above: Performed By: #### L 100.0100, L500.4050 ####[facility] [address] [place], [address] GAP 13 Normal 5-15 [facility] Comment on above: Performed By: #### L 100.0100, L500.4050 ####[facility] [address] [place], [address] GFR/1.73 sq M.predicted among non-blacks MDRD (S/P/Bld) [Vol rate/Area] 100 mL/min/{1.73_m2} Normal >60 [facility] Comment on above: Result Comment: mL/m in/1.73m2 CKD-EPI Creatinine Equation (2020) Performed By: #### L 100.0100, L500.4050 ####[facility] [address] [place], [address] Globulin (S) [Mass/Vol] 3.1 g/dL Normal 2.2-4.2 [facility] Comment on above: Performed By: #### L 100.0100, L500.4050 ####[facility] [address] [place], [address] Glucose [Mass/Vol] 96 mg/dL Normal 70-99 [facility] Comment on above: Performed By: #### L 100.0100, L500.4050 ####[facility] [address] [place], [address] Potassium [Moles/Vol] 4.1 mmol/L Normal 3.3-5.1 [facility] Comment on above: Performed By: #### L 100.0100, L500.4050 ####[facility] [address] [place], [address] Sodium [Moles/Vol] 139 mmol/L Normal 133-145 [facility] Comment on above: Performed By: #### L 100.0100, L500.4050 ####[facility] [address] [place], [address] T PROT 7.1 g/dL Normal 5.9-8.4 [facility] Comment on above: Performed By: #### L 100.0100, L500.4050 ####[facility] [address] [place], [address] Urea nitrogen [Mass/Vol] 17 mg/dL Normal 4-19 [facility] Comment on above: Performed By: #### L 100.0100, L500.4050 ####[facility] [address] [place], [address] Gastroenterology Visit Repor ton 03-18-2025 Gastroenterology Visit Report [facility] Gastroenterology [address] 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 abd US .02.04 No acute findings. Fatty infiltration liver. EGD [...] plan of care. MRCP 24 Cholelithiasis. OV 1..25 pt reports constant sharp/stabbing [...] plan of care. MRCP 12..24 Cholelithiasis. OV 1. pt reports constant sharp/stabbing pain on her right side for the past two days. pt denies other GI symptoms of concern at this time. OV 4.2.25 Pt doing well. She has no GI complaints at this time. OV 7. pt reports that she is feeling well overall and (more content not included)... Normal [facility] .Auto Diffon 03-10-2025 Basophil, Absolute 0.1 10 3/mcL Normal 0.0-0.3 [facility] Comment on above: Performed By: #### F ERR, MORPH, FE, ANEU, CBC, ADIFF #### [address] [address] Basophils/100 WBC (Bld) 1.2 % Normal 0.0-2.5 [facility] Comment on above: Performed By: #### F ERR, MORPH, FE, ANEU, CBC, ADIFF #### [address] [address] Eosinophil, Absolute 0.1 10 3/mcL Normal 0.0-0.[address] [facility] Comment on above: Performed By: #### F ERR, MORPH, FE, ANEU, CBC, ADIFF #### [address] [address] Eosinophils/100 WBC (Bld) 2.2 % Normal 0.0-6.0 [facility] Comment on above: Performed By: #### F ERR, MORPH, FE, ANEU, CBC, ADIFF #### [address] [address] Lymphocyte, Absolute 1.6 10 3/mcL Normal 0.9-4.[address] [facility] Comment on above: Performed By: #### F ERR, MORPH, FE, ANEU, CBC, ADIFF #### [address] [address] Lymphocytes/100 WBC (Bld) 34.8 % Normal 20.0-40.0 [facility] Comment on above: Performed By: #### F ERR, MORPH, FE, ANEU, CBC, ADIFF #### [address] [address] Monocyte, Absolute 0.4 10 3/mcL Normal 0.1-1.4 [facility] Comment on above: Performed By: #### F ERR, MORPH, FE, ANEU, CBC, ADIFF #### [address] [address] Monocytes/100 WBC (Bld) 7.6 % Normal 2.0-13.0 [facility] Comment on above: Performed By: #### F ERR, MORPH, FE, ANEU, CBC, ADIFF #### [address] [address] Neutrophils/100 WBC (Bld) 54.2 % Normal 50.0-75.0 [facility] Comment on above: Performed By: #### F ERR, MORPH, FE, ANEU, CBC, ADIFF #### [address] [address] .Morphon 03-10-2025 Anisocytosis Ql (Bld) 1+ Normal [facility] Comment on above: Performed By: #### M G, LIPID, BMP, GFR #### [address] [address] Microcytosis 2+ Normal [facility] Comment on above: Performed By: #### M G, LIPID, BMP, GFR #### [address] [address] Ovalocytes 1+ Normal [facility] Comment on above: Performed By: #### M G, LIPID, BMP, GFR #### [address] [address] Platelet Estimate Normal Normal [facility] Comment on above: Performed By: #### M G, LIPID, BMP, GFR #### [address] [address] Poik 1+ Normal [facility] Comment on above: Performed By: #### M G, LIPID, BMP, GFR #### [address] [address] .NEUABSon 03-10-2025 Neutrophil, Absolute 2.5 10 3/mcL Normal 2.3-8.[address] [facility] Comment on above: Performed By: #### F ERR, MORPH, FE, ANEU, CBC, ADIFF #### [place] [address] CBCon 03-10-2025 Erythrocyte distribution width (RBC) [Ratio] 31.6 % High 11.5-15.5 [facility] Comment on above: Performed By: #### F ERR, MORPH, FE, ANEU, CBC, ADIFF #### [place] [address] Hematocrit (Bld) [Volume fraction] 39.7 % Normal 34.0-46.0 [facility] Comment on above: Performed By: #### F ERR, MORPH, FE, ANEU, CBC, ADIFF #### [place] [address] Hgb 12.4 G/dL Normal 12.0-16.0 [facility] Comment on above: Performed By: #### F ERR, MORPH, FE, ANEU, CBC, ADIFF #### [place] [address] MCH (RBC) [Entitic mass] 23.3 pg Low 27.0-33.0 [facility] Comment on above: Performed By: #### F ERR, MORPH, FE, ANEU, CBC, ADIFF #### [place] [address] MCHC 31.1 G/dL Low 32.0-36.0 [facility] Comment on above: Performed By: #### F ERR, MORPH, FE, ANEU, CBC, ADIFF #### [address] [address] MCV (RBC) [Entitic vol] 75.0 fL Low 80.0-99.0 [facility] Comment on above: Performed By: #### F ERR, MORPH, FE, ANEU, CBC, ADIFF #### [address] [address] Platelet 286 10 3/mcL Normal 150-450 [facility] Comment on above: Performed By: #### F ERR, MORPH, FE, ANEU, CBC, ADIFF #### [address] [address] Platelet mean volume (Bld) [Entitic vol] 8.4 fL Normal 6.6-10.5 [facility] Comment on above: Performed By: #### F ERR, MORPH, FE, ANEU, CBC, ADIFF #### [place] [address] RBC 5.29 10 6/mcL Normal 4.10-5.30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 (more content not included)... Normal [facility] Gastroenterology Visit Repor ton 06-03-2024 Gastroenterology Visit Report [facility] Gastroenterology [address] [place] [address] OFFICE VISIT Date of Service: 06/03/24 MR#: [id number] Acct: [id number] Name: GLADYS PETER Rep #: [id number] : 1975 Provider: Mikey Solares DO Age/Sex: 48/F [place] [facility] Status: Signed Intake Vital Signs [...] office today for follow up. *BGI established 8. pt reports that she will have episodes [...] (more content not included)... Normal [facility] MRCP Abdomen without Contras ton 05-06-2024 MRCP Abdomen without Contrast [facility] Imaging Services [address] [place] [address] MRCP Abdomen without Contrast MR#: [id number] Acct: [id number] Name: GLADYS PETER Rep #: [id number] : 1975 F 48 From: Milo Rizzo MD PCP: Raysa Wong, SAND SLINGER-C Status: REG CLI Study: MRCP Abdomen without Contrast Date of Exam: Exam# [id number] Ordering Dr: Mikey Solares DO [id number] STUDY: MR CHOLANGIOPANCREATOGRAPHY (MRCP) REASON FOR EXAM: [...] , CC: GENESIS Wong; Mikey Solares DO Can Vacuum Tester: Signed Normal [facility] MARTY SCREENING W TOMOon 05-02 MARTY SCREENING W DELFIN * * *Final Report* * * DATE OF EXAM: May 02 2024 12:44PM [facility] 0582 - MARTY SCREENING W DELFIN / PROCEDURE REASON: multiple diagnoses * * * * Physician Interpretation * * * * RESULT: [address] [address] [place] [address] #[id number] - MARTY SCREENING W DELFIN HISTORY: Patient [...] Dudley Castro M.D. Electronically signed on: 05/05/2024 Can Vacuum Tester: LUDY Transcribe Date/Time: May 02 2024 12:34P Dictated by: DUDLEY CASTRO MD This examination was interpreted and the report reviewed and electronically signed by: DUDLEY CASTRO MD on May 05 2024 10:22AM EST [id number] Normal [facility] Gastroenterology Visit Repor ton 03-27-2024 Gastroenterology Visit Report [facility] Gastroenterology [address] [place] [address] OFFICE VISIT Date of Service: 03/27/24 MR#: [id number] Acct: [id number] Name: GLADYS PETER Rep #: [id number] : 1975 Provider: Mikey Solares DO Age/Sex: 48/F [place] [facility] Status: Signed Intake Vital Signs 01/22/24 06:35 [...] duodenum. Biopsied. HIDA 02.07.24 normal 86% GET 1030.24 normal 34.15 minutes OV 1124 pt reports that her nausea and gas/bloating [...] Appearance: average body habitus and well nourished [facility] Head: normal to inspection Ears: hearing grossly [...] reflux sym (more content not included)... Normal [facility] 02-25-2024 [facility] Telephone (UCWSTR) -- GLADYS PETER ([id number]) 1975 F Date Time Provider Department 02/25/24 HERLINDA ALBA UCWSTR During your visit today, we recorded the following information about you: Herlinda Alba APRN.INSOLE BEVELER 02/25/2024 4:59 PM Signed Xray of cervical [...] Status:Closed by TIANNA YI on 02/25/24 Normal [facility] No Panel Informationon 02-24 Radiology Study observation (narrative) [facility] XR CERVICAL 4V AP/LAT/OBLon 02-25-2024 XR [...] are normal. IMPRESSION: Negative cervical spine X-ray. Can Vacuum Tester: [facility] Transcribe Date/Time: Feb 25 2024 4:34P Dictated by : CHAYA BEJARANO MD This examination was interpreted and the report reviewed and electronically signed by: CHAYA BEJARANO MD on Feb 25 2024 4:36PM EST [id number] Normal [facility] XR Cervical spine AP and Lat eral and obliqueon 02-25-2024 IMPRESSION: Negative cervical spine X-ray. Can Vacuum Tester: [facility] Transcribe Date/Time: Feb 25 2024 4:34P [...] tissues are normal. DIVISION OF RADIOLOGY Provider, [facility] - 02/25/2024 * * *Final Report* [...] normal. IMPRESSION IMPRESSION: Negative cervical spine X-ray. Can Vacuum Tester: [facility] Transcribe Date/Time: Feb 25 2024 4:34P Dictated by : CHAYA BEJARANO MD This examination was interpreted and the report reviewed and electronically signed by: CHAYA BEJARANO MD on Feb 25 2024 4:36PM [facility] XR SHLDR >/=3V AP/DARSHAN AP/OTH R RTon [...] osseous abnormality or significant underlying degenerative changes. Can Vacuum Tester: [facility] Transcribe Date/Time: Feb 25 2024 4:34P Dictated by : KAILYN HUMPHRIES MD This examination was interpreted and the report reviewed and electronically signed by: KAILYN HUMPHRIES MD on Feb 25 2024 4:35PM EST [id number] Normal [facility] XR Shoulder - right 3 Viewso n 02-25-2024 IMPRESSION: No acute osseous abnormality or significant underlying degenerative changes. Can Vacuum Tester: [facility] Transcribe Date/Time: Feb 25 2024 4:34P [...] riding humeral head. DIVISION OF RADIOLOGY Provider, [facility] - 02/25/2024 * * *Final Report* [...] osseous abnormality or significant underlying degenerative changes. Can Vacuum Tester: P[facility] Transcribe Date/Time: Feb 25 2024 4:34P Dictated by : KAILYN HUMPHRIES MD This examination was interpreted and the report reviewed and electronically signed by: KAILYN HUMPHRIES MD on Feb 25 2024 4:35PM EST [facility] XR Shoulder - right 3 ViewsO rdered By: Amaury Provider on 02-25-2024 [facility] CNOVon 02-23-2024 CNOV Office Visit (UCWSTR ) -- GLADYS PETER ([id number]) 1975 F Date Time Provider Department 02/23/24 3:15 PM KASSANDRA CABELLO WSTR During your visit today, we recorded the following information about you: Temperature Pulse Respiration Blood pressure 98.2 degrees 95/minute 18/minute 132/78 Weight 100 kg Kassandra Cabello PA 02/23/2024 3:29 PM Signed This note was created using Snapetteriter. Subjective Gladys Dodd is a 48 year [...] Date BX OF BREAST; INCISIONAL Left 2022 [facility] DANDC, DIAG AND/OR THERAPEUTIC 10/26/2023 Hysteroscopy, DANMI, Polypectomy PAST SURGICAL HISTORY OF cyst removed [...] as s (more content not included)... Normal [facility] XR SPINE CERVICAL AP/LATon 0 5- XR SPINE CERVICAL AP/LAT ORIGINAL EXAMINATION: 3 [...] 09/20/2023 12:14:02 AM Ordering Provider: RAYSA W[facility] ([place]) Absolute lymphocyte countOrd ered By: ED PROVIDER on 08-21-2023 Lymphocytes Auto (Unsp spec) [#/Vol] 2.39 10*3/uL 0.83-4.51 [facility] Automated lymphocyte count a s percentage of total leukocytesOrdered By: ED PROVIDER on 08-21-2023 Lymphocytes/100 WBC Auto (Unsp spec) 27.4 % 19-41 [facility] Basophil percentageOrdered B y: ED PROVIDER on 08-21-2023 Basophils/100 WBC (Bld) 0.6 % 0-1 [facility] Chloride [Moles/Vol] 103 mmol/L 98-[address] [facility] Eosinophils/100 WBC (Bld) 0.8 % 0-5 [facility] Glucose [Mass/Vol] 97 mg/dL 74-106 [facility] Hemoglobin (Bld) [Mass/Vol] 12.4 g/dL 12.0-15.0 [facility] Monocytes/100 WBC (Bld) 6.0 % 0-10 [facility] Neutrophils (Bld) [#/Vol] 5.7 10*3/uL 2.0-7.7 [facility] Neutrophils/100 WBC (Bld) 65.0 % 47-70 [facility] Potassium [Moles/Vol] 3.5 mmol/L 3.5-5.1 [facility] Sodium [Moles/Vol] 137 mmol/L 136-145 [facility] WBC (Bld) [#/Vol] 8.7 10*3/uL 4.4-11.0 [facility] Determination of erythrocyte mean corpuscular volume (MCV)Ordered By: ED PROVIDER on 08-21-2023 MCV (RBC) [Entitic vol] 84.0 fL 81-99 [facility] Erythrocyte distribution wid th ratioOrdered By: ED PROVIDER on 08-21-2023 Erythrocyte distribution width (RBC) [Ratio] 13.5 % 11.6-14.6 [facility] Erythrocyte distribution wid th standard deviationOrdered By: ED PROVIDER on 08-21-2023 Erythrocyte distribution width (RBC) [Entitic vol] 41.3 fL 35.1-43.9 [facility] Hematocrit Auto (Bld) [Volum e fraction]Ordered By: ED PROVIDER on 08-21-2023 Hematocrit (Bld) [Volume fraction] 38.8 % 37-47 [facility] Immature granulocytes/100 WB C Auto (Bld)Ordered By: ED PROVIDER on 08-21-2023 Immature granulocytes/100 WBC (Bld) 0.200 % 0.0-0.9 [facility] Comment on above: IG% - Immature Granu locytes (promyelocytes, myelocytes and metamyelocytes) > 1% indicates that a LEFT SHIFT is Present. Laboratory - Chemistry and C hemistry - challengeOrdered By: ED PROVIDER on 08-21-2023 CO2 [Moles/Vol] 28.0 mmol/L 21.0-32.0 [facility] Urea nitrogen/Creatinine [Mass ratio] 15.7 mg/mg 10-20 [facility] Laboratory - Hematology and Cell countsOrdered By: ED PROVIDER on 08-21-2023 MCH (RBC) [Entitic mass] 26.8 pg 27.0-32.0 [facility] MCHC (RBC) [Mass/Vol] 32.0 g/dL 32-36 [facility] Nucleated RBC/100 WBC (Bld) [Ratio] 0 % 0-5 [facility] Platelet mean volume (Bld) [Entitic vol] 10.0 fL 6.2-12.0 [facility] Platelets (Bld) [#/Vol] 314 10*3/uL 150-450 [facility] No Panel InformationOrdered By: ED PROVIDER on 08-21-2023 Estimated Creatinine Clearance Calc 94.41 ml/min [facility] Estimated GFR (MDRD) Amer 87 mL/min >60 [facility] Comment on above: GFR Calc Estimated GFR (MDRD) Non-Af Amer 72 mL/min >60 [facility] Comment on above: Non- GFR Calc RBC Auto (Bld) [#/Vol]Ordere d By: ED PROVIDER on 08-21-2023 RBC (Bld) [#/Vol] 4.62 10*6/uL 4.2-5.4 [facility] Serum or plasma calcium dayron urement (mass/volume)Ordered By: ED PROVIDER on 08-21-2023 Calcium [Mass/Vol] 9.4 mg/dL 8.5-10.1 [facility] Serum or plasma cardiac trop onin I panel by high sensitivity methodOrdered By: ED PROVIDER on 08-21-2023 Tropinin I.cardiac panel High sensitivity method 5 pg/mL 3.0-54.0 [facility] Comment on above: Please Note: New Delfina t Units and Gender Specific Reference Ranges. For more information see Policy Stat Procedure [place] High Sensitivity Troponin (TNIH) and attachments. Serum or plasma creatinine m easurement (mass/volume)Ordered By: ED PROVIDER on 08-21-2023 Creatinine [Mass/Vol] 0.89 mg/dL 0.55-1.02 [facility] Comment on above: The validity of the calculated GFR & GFRAA in patients over 70 years has not been determined. Clinical correlation is essential. Serum or plasma urea nitroge n measurement (mass/volume)Ordered By: ED PROVIDER on 08-21-2023 Urea nitrogen [Mass/Vol] 14 mg/dL 7-18 [facility] Thin prep Papanicolaou smear with manual screeningOrdered By: ED PROVIDER on 08-21-2023 Thin prep Papanicolaou smear with manual screening 6 5-15 [facility] US Pelvison 08-01-2023 [facility] DBT Breast - bilateral diagn ostic for implanton 07-25-2023 [facility] US ABDOMEN LIMITEDon 06-12- 024 US ABDOMEN LIMITED ORIGINAL EXAMINATION: RIGHT [...] 06/12/2023 8:59:03 AM Ordering Provider: RAYSA Billings [facility] ([place]) .Auto Diffon 05-28-2023 Basophil, Absolute 0.0 10 3/mcL Normal 0.0-0.2 [facility] ([place]) Comment on above: Performed By: #### A MY, LIPID, GFR, ADIFF, ANEU, CBC, LIP, CMP #### [address] [address] Basophils/100 WBC (Bld) 0.8 % Normal 0.0-2.5 [facility] ([place]) Comment on above: Performed By: #### A MY, LIPID, GFR, ADIFF, ANEU, CBC, LIP, CMP #### [address] [place], [place] [address] Eosinophil, Absolute 0.1 10 3/mcL Normal 0.0-0.4 [facility] ([place]) Comment on above: Performed By: #### A MY, LIPID, GFR, ADIFF, ANEU, CBC, LIP, CMP #### [address] [address] Eosinophils/100 WBC (Bld) 1.5 % Normal 0.0-7.0 [facility] ([place]) Comment on above: Performed By: #### A MY, LIPID, GFR, ADIFF, ANEU, CBC, LIP, CMP #### [address] [address] Lymphocyte, Absolute 2.2 10 3/mcL Normal 0.8-3.9 [facility] ([place]) Comment on above: Performed By: #### A MY, LIPID, GFR, ADIFF, ANEU, CBC, LIP, CMP #### [address] [address] Lymphocytes/100 WBC (Bld) 39.2 % Normal 10.0-50.0 [facility] ([place]) Comment on above: Performed By: #### A MY, LIPID, GFR, ADIFF, ANEU, CBC, LIP, CMP #### [address] [address] Monocyte, Absolute 0.5 10 3/mcL Normal 0.2-1.0 [facility] ([place]) Comment on above: Performed By: #### A MY, LIPID, GFR, ADIFF, ANEU, CBC, LIP, CMP #### [address] [address] Monocytes/100 WBC (Bld) 8.0 % Normal 1.7-13.0 [facility] ([place]) Comment on above: Performed By: #### A MY, LIPID, GFR, ADIFF, ANEU, CBC, LIP, CMP #### [address] [address] Neutrophils/100 WBC (Bld) 50.5 % Normal 37.0-80.0 [facility] ([place]) Comment on above: Performed By: #### A MY, LIPID, GFR, ADIFF, ANEU, CBC, LIP, CMP #### [address] [address] .GFRon 05-28-2023 GFR Non- 66 ml/min/1.73sqm Normal [facility] ([place]) Comment on above: Result Comment: GFR Population [...] GFR, ADIFF, ANEU, CBC, LIP, CMP #### [address] [address] GFR 80 ml/min/1.73sqm Normal [facility] ([place]) Comment on above: Result Comment: GFR Population [...] GFR, ADIFF, ANEU, CBC, LIP, CMP #### [address] [address] .NEUABSon 05-28-2023 Neutrophil, Absolute 2.9 10 3/mcL Normal 2.9-6.2 [facility] ([place]) Comment on above: Performed By: #### A MY, LIPID, GFR, ADIFF, ANEU, CBC, LIP, CMP #### [place] [address] AMYon 05-28-2023 Amylase [Catalytic activity/Vol] 34 U/L Normal 25-115 [facility] ([place]) Comment on above: Performed By: #### A MY, LIPID, GFR, ADIFF, ANEU, CBC, LIP, CMP #### [place] [address] CBCon 05-28-2023 Erythrocyte distribution width (RBC) [Ratio] 14.0 % Normal 11.5-14.5 [facility] ([place] Comment on above: Performed By: #### A MY, LIPID, GFR, ADIFF, ANEU, CBC, LIP, CMP #### [place] [address] Hematocrit (Bld) [Volume fraction] 37.8 % Normal 37.0-47.0 [facility] ([place] Comment on above: Performed By: #### A MY, LIPID, GFR, ADIFF, ANEU, CBC, LIP, CMP #### [address] [place] [address] Hgb 12.8 G/dL Normal 12.0-16.0 [facility] ([place]) Comment on above: Performed By: #### A MY, LIPID, GFR, ADIFF, ANEU, CBC, LIP, CMP #### [place] [address] MCH (RBC) [Entitic mass] 28.7 pg Normal 27.0-31.2 [facility] ([place] Comment on above: Performed By: #### A MY, LIPID, GFR, ADIFF, ANEU, CBC, LIP, CMP #### [address] [place] [address] MCHC 33.9 G/dL Normal 33.0-37.0 [facility] ([place]) Comment on above: Performed By: #### A MY, LIPID, GFR, ADIFF, ANEU, CBC, LIP, CMP #### [address] [address] MCV (RBC) [Entitic vol] 84.6 fL Normal 80.0-94.0 [facility] ([place]) Comment on above: Performed By: #### A MY, LIPID, GFR, ADIFF, ANEU, CBC, LIP, CMP #### [address] [address] Platelet 315 10 3/mcL Normal 130-400 [facility] ([place]) Comment on above: Performed By: #### A MY, LIPID, GFR, ADIFF, ANEU, CBC, LIP, CMP #### [place] [id number] Platelet mean volume (Bld) [Entitic vol] 8.6 fL Normal 7.4-10.4 [facility] [facility] [place] Comment on above: Performed By: #### A MY, LIPID, GFR, ADIFF, ANEU, CBC, LIP, CMP #### [address] [address] RBC 4.47 10 6/mcL Normal 4.20-5.40 [facility] ([place]) Comment on above: Performed By: #### A MY, LIPID, GFR, ADIFF, ANEU, CBC, LIP, CMP #### [address] [address] WBC 5.7 10 3/mcL Normal 4.6-10.8 [facility] ([place]) Comment on above: Performed By: #### A MY, LIPID, GFR, ADIFF, ANEU, CBC, LIP, CMP #### [address] [address] CMPon 05-28-2023 Albumin Level 3.4 G/dL Low 3.5-5.0 [facility] ([place]) Comment on above: Performed By: #### A MY, LIPID, GFR, ADIFF, ANEU, CBC, LIP, CMP #### [address] [address] Albumin/Globulin [Mass ratio] 1.0 {ratio} Low 1.1-2.5 [facility] ([place]) Comment on above: Performed By: #### A MY, LIPID, GFR, ADIFF, ANEU, CBC, LIP, CMP #### [address] [address] ALP [Catalytic activity/Vol] 86 U/L Normal 40-135 [facility] ([place] Comment on above: Performed By: #### A MY, LIPID, GFR, ADIFF, ANEU, CBC, LIP, CMP #### [address] [address] ALT [Catalytic activity/Vol] 25 U/L Normal 14-59 [facility] ([place]) Comment on above: Performed By: #### A MY, LIPID, GFR, ADIFF, ANEU, CBC, LIP, CMP #### [address] [address] AST [Catalytic activity/Vol] 11 U/L Normal 10-40 [facility] ([place] Comment on above: Performed By: #### A MY, LIPID, GFR, ADIFF, ANEU, CBC, LIP, CMP #### [address] [address] Bili Total 0.5 mg/dL Normal 0.2-1.0 [facility] ([place]) Comment on above: Result Comment: Use of this assay is not recommended for patients undergoing treatment with eltrombopag due to the potential for falsely elevated results. Performed By: #### A MY, LIPID, GFR, ADIFF, ANEU, CBC, LIP, CMP #### [address] [address] BUN/Creatinine Ratio 15 ratio Normal 7-27 [facility] ([place]) Comment on above: Performed By: #### A MY, LIPID, GFR, ADIFF, ANEU, CBC, LIP, CMP #### [address] [address] Calcium [Mass/Vol] 8.7 mg/dL Normal 8.4-10.2 [facility] ([place]) Comment on above: Performed By: #### A MY, LIPID, GFR, ADIFF, ANEU, CBC, LIP, CMP #### [address] [address] Chloride [Moles/Vol] 106 mmol/L Normal 98-107 [facility] ([place] Comment on above: Performed By: #### A MY, LIPID, GFR, ADIFF, ANEU, CBC, LIP, CMP #### [address] [address] CO2 [Moles/Vol] 28 mmol/L Normal 22-29 [facility] ([place] Comment on above: Performed By: #### A MY, LIPID, GFR, ADIFF, ANEU, CBC, LIP, CMP #### [address] [address] Creatinine [Mass/Vol] 0.91 mg/dL Normal 0.55-1.02 [facility] [place] Comment on above: Performed By: #### A MY, LIPID, GFR, ADIFF, ANEU, CBC, LIP, CMP #### [address] [address] Electrolyte Balance 9.0 mEq/L Normal 4.0-15.0 [facility] ([place]) Comment on above: Performed By: #### A MY, LIPID, GFR, ADIFF, ANEU, CBC, LIP, CMP #### [address] [address] Globulin 3.5 G/dL Normal [facility] ([place]) Comment on above: Performed By: #### A MY, LIPID, GFR, ADIFF, ANEU, CBC, LIP, CMP #### [address] [address] Glucose [Mass/Vol] 107 mg/dL High 70-105 [facility] ([place]) Comment on above: Performed By: #### A MY, LIPID, GFR, ADIFF, ANEU, CBC, LIP, CMP #### [address] [address] Potassium [Moles/Vol] 3.9 mmol/L Normal 3.5-5.1 [facility] [place] Comment on above: Performed By: #### A MY, LIPID, GFR, ADIFF, ANEU, CBC, LIP, CMP #### [address] [address] Sodium [Moles/Vol] 143 mmol/L Normal 136-145 [facility] ([place]) Comment on above: Performed By: #### A MY, LIPID, GFR, ADIFF, ANEU, CBC, LIP, CMP #### [address] [address] Total Protein 6.9 G/dL Normal 6.4-8.2 [facility] ([place]) Comment on above: Performed By: #### A MY, LIPID, GFR, ADIFF, ANEU, CBC, LIP, CMP #### [address] [address] Urea nitrogen [Mass/Vol] 14 mg/dL Normal 7-18 [facility] ([place]) Comment on above: Performed By: #### A MY, LIPID, GFR, ADIFF, ANEU, CBC, LIP, CMP #### [address] [address] LABORATORYOrdered By: SYSTEM SYSTEM on 05-28-2023 Albumin [...] 05-28-2023 Lipase Level 45 U/L Normal 16-77 [facility] ([place]) Comment on above: Performed By: #### A MY, LIPID, GFR, ADIFF, ANEU, CBC, LIP, CMP #### [address] [address] LIPIDon 05-28-2023 Cholesterol [Mass/Vol] 243 mg/dL High 0-200 [facility] ([place]) Comment on above: Result Comment: Chol esterol Reference Interval: Less than 200 Desirable 200-239 Borderline high risk 240 and above High risk Performed By: #### A MY, LIPID, GFR, ADIFF, ANEU, CBC, LIP, CMP ####[address] [place], [place] [address] Cholesterol in HDL [Mass/Vol] 63 mg/dL High 40-60 [facility] ([place] Comment on above: Performed By: #### A MY, LIPID, GFR, ADIFF, ANEU, CBC, LIP, CMP ####[address] [place], [place] [address] Cholesterol in LDL [Mass/Vol] 170 mg/dL High 0-130 [facility] ([place]) Comment on above: Performed By: #### A MY, LIPID, GFR, ADIFF, ANEU, CBC, LIP, CMP ####[address] [place], [place] [address] Triglyceride [Mass/Vol] 52 mg/dL Normal 0-150 [facility] ([place]) Comment on above: Result Comment: Trig lyceride Reference Interval: Less than 150 Normal 150-199 Borderline high risk 200-499 High risk 500 or higher Very high risk Performed By: #### A MY, LIPID, GFR, ADIFF, ANEU, CBC, LIP, CMP ####[address] [place], [place] [address] XR SPINE LUMBAR AP/LATon XR SPINE LUMBAR AP/LAT ORIGINAL EXAMINATION: 3 XRAY VIEWS OF THE LUMBAR SPINE01/23/2023 2:41 pm COMPARISON: CT abdomen pelvis April 2017 HISTORY: ORDERING SYSTEM PROVIDED HISTORY: Reason for Exam: right thigh pain FINDINGS: There are 5 flb-dok-nhpcxne lumbar type vertebral bodies. Alignment and curvature [...] 01/26/2023 11:28:21 AM Ordering Provider: R[facility] [place] [facility] STEREO BX BREAST LTon [facility] US BREAST LTD LTon 06-28 [facility] US BREAST LTD LT * * *Final Report* * * DATE OF EXAM: Jun 28 2022 9:31AM SHIELA [id number] - [facility] US BREAST LTD LT / PROCEDURE REASON: R92.8-Abnormal mammogram * * * * Physician Interpretation * * * * #[id number] - [facility] US BREAST LTD LT LIMITED ULTRASOUND OF LEFT BREAST: 06/28/2022 HISTORY: R92.8-Abnormal Mammogram. RESULT: Comparison is made to exams dated: 06/13/2022 ultrasound and 06/13/2022 mammogram - [facility]. Real-time ultrasound of the left breast [...] biopsy capabilities. Ewa Olivo M.D., mc/leidy:06/28/2022 09:47:39 Room Service Clerk(s): Sarah Robison, [facility] Ultrasound BI-RADS: 4 Suspicious finding - [...] Health, Family Medicine, and Medical/Surgical Oncology, the [facility] has carefully reviewed the data and [...] their providers when to stop screening mammograms. Can Vacuum Tester: Lediy Transcribe Date/Time: Jun 28 2022 9:31A Dictated by : EWA OLIVO MD This examination was interpreted and the report reviewed and electronically signed by: EWA OLIVO MD on Jun 28 2022 9:47AM EST [id number] Normal [facility] US BREAST LTD LTon 3 [facility] DIAG W DELFIN LTon 023 [facility] BREAST LTD LTon 3 [facility] LABORATORYOrdered By: SYSTEM SYSTEM on 06-10-2022 [...] 10^3/mcL AO Workflow SS MARTY SCREENINGon 05-16-2022 [facility] XR Lumbar spine 3 Viewson IMPRESSION: Lumbar s pine degenerative changes as described above. Can Vacuum Tester: PSCB Transcribe Date/Time: Feb 20 2022 8:24A Dictated by : CHAYA BEJARANO MD This examination was interpreted and the report reviewed and electronically signed by: CHAYA BEJARANO MD on Feb 20 2022 8:27AM [facility] DIVISION OF RADIOLOGY * * *Final [...] spine are presented. FINDINGS: There are five gnm-oje-lafvuhk lumbar vertebrae. No fracture or subluxations are noted. There is mild left-sided curvature. The disc spaces are grossly preserved. There is mild osteophyte formation, with facet arthrosis in the lower lumbar spine. DIVISION OF RADIOLOGY Provider, Ama[facility] - 02/20/2022 * * *Final Report* [...] spine are presented. FINDINGS: There are five wul-ryz-bxqrcdk lumbar vertebrae. No fracture or subluxations are noted. There is mild left-sided curvature. The disc spaces are grossly preserved. There is mild osteophyte formation, with facet arthrosis in the lower lumbar spine. IMPRESSION IMPRESSION: Lumbar spine degenerative changes as described above. Can Vacuum Tester: PSCB Transcribe Date/Time: Feb 20 2022 8:24A Dictated by : CHAYA BEJARANO MD This examination was interpreted and the report reviewed and electronically signed by: CHAYA BEJARANO MD on Feb 20 2022 8:27AM EST [facility] Radiology Study observation (narrative) [facility] XR Lumbar spine 3 ViewsOrder ed By: Ccf Provider on 02-20-2022 [facility] Vital Signs Date Time Vital Sign Value Performing Clinician Lashell muniz 12-22-2024 15:09-0400 Body mass index (BMI) [Ratio] 32.91 kg/m2 [facility] SCENIC ARTIST.INSOLE BEVELER Work Phone: [facility] 12-22-2024 15:09-0400 Body temperature 99.7 [degF] [facility] SCENIC ARTIST.INSOLE BEVELER Work Phone: [facility] 12-22-2024 15:09-0400 Body weight 93.9 kg [facility] SCENIC ARTIST.INSOLE BEVELER Work Phone: [facility] 12-22-2024 15:09-0400 Diastolic blood pressure 72 mm[Hg] [facility] SCENIC ARTIST.INSOLE BEVELER Work Phone: [facility] 12-22-2024 15:09-0400 Heart rate 80 /min [facility] SCENIC ARTIST.INSOLE BEVELER Work Phone: [facility] 12-22-2024 15:09-0400 Respiratory rate 18 /min [facility] SCENIC ARTIST.INSOLE BEVELER Work Phone: [facility] 12-22-2024 15:09-0400 SaO2% (BldA) [Mass fraction] 98 % [facility] SCENIC ARTIST.INSOLE BEVELER Work Phone: [facility] 12-22-2024 15:09-0400 Systolic blood pressure 112 mm[Hg] [facility] SCENIC ARTIST.INSOLE BEVELER Work Phone: [facility] 09-16-2024 18:30-0400 Body temperature 97 [degF] Raysa Wong SAND SLINGER-C Work Phone: [facility] 09-16-2024 18:30-0400 Diastolic blood pressure 74 mm[Hg] Raysa Wong SAND SLINGER-C Work Phone: [facility] 09-16-2024 18:30-0400 Heart rate 124 /min Raysa Wong SAND SLINGER-C Work Phone: [facility] 09-16-2024 18:30-0400 Respiratory rate 20 /min Raysa Wong SAND SLINGER-C Work Phone: [facility] 09-16-2024 18:30-0400 SaO2% (BldA) [Mass fraction] 100 % Raysa Wong SAND SLINGER-C Work Phone: [facility] 09-16-2024 18:30-0400 Systolic blood pressure 120 mm[Hg] Raysa Wong SAND SLINGER-C Work Phone: [facility] 09-16-2024 16:23-0400 Body height 167.64 cm Raysa Wong SAND SLINGER-C Work Phone: [facility] 09-16-2024 16:23-0400 Body mass index (BMI) [Ratio] 34 kg/m2 Raysa Wong SAND SLINGER-C Work Phone: [facility] 09-16-2024 16:23-0400 Body weight 95.48 kg Raysa Wong SAND SLINGER-C Work Phone: [facility] 08-08-2024 09:13-0400 Body height 168.9 cm Sydni Munoz APRN.INSOLE BEVELER Work Phone: [facility] 08-08-2024 09:13-0400 Body mass index (BMI) [Ratio] 33.07 kg/m2 Sydni Munoz APRN.INSOLE BEVELER Work Phone: [facility] 08-08-2024 09:13-0400 Body weight 94.35 kg Sydni Munoz APRN.INSOLE BEVELER Work Phone: [facility] 08-08-2024 09:13-0400 Diastolic blood pressure 74 mm[Hg] Sydni Munoz APRN.INSOLE BEVELER Work Phone: [facility] 08-08-2024 09:13-0400 Systolic blood pressure 98 mm[Hg] Sydni Munoz APRN.INSOLE BEVELER Work Phone: [facility] 02-23-2024 15:16-0400 Body mass index (BMI) [Ratio] 35.58 kg/m2 Kassandra PAULINO Work Phone: [facility] 02-23-2024 15:16-0400 Body temperature 98.2 [degF] Krislyn Aberegg PA Work Phone: [facility] 02-23-2024 15:16-0400 Body weight 100 kg Krislyn Aberegg PA Work Phone: [facility] 02-23-2024 15:16-0400 Diastolic blood pressure 78 mm[Hg] Krislyn Aberegg PA Work Phone: [facility] 02-23-2024 15:16-0400 Heart rate 95 /min Krislyn Aberegg PA Work Phone: [facility] 02-23-2024 15:16-0400 Respiratory rate 18 /min Krislyn Aberegg PA Work Phone: [facility] 02-23-2024 15:16-0400 SaO2% (BldA) [Mass fraction] 100 % Krislyn Aberegg PA Work Phone: [facility] 02-23-2024 15:16-0400 Systolic blood pressure 132 mm[Hg] Krislyn Aberegg PA Work Phone: [facility] 10-10-2023 09:23-0400 Body mass index (BMI) [Ratio] 37.12 kg/m2 Meghan Redd MD Work Phone: [facility] 10-10-2023 09:23-0400 Body weight 104.33 kg Meghan Redd MD Work Phone: [facility] 10-10-2023 09:23-0400 Diastolic blood pressure 74 mm[Hg] Meghan Redd MD Work Phone: [facility] 10-10-2023 09:23-0400 Systolic blood pressure 118 mm[Hg] Meghan Redd MD Work Phone: [facility] 08-21-2023 20:47-0400 Body temperature 98.4 [degF] [facility] 08-21-2023 20:47-0400 Diastolic blood pressure 86 mm[Hg] [facility] 08-21-2023 20:47-0400 Heart rate 72 /min [facility] 08-21-2023 20:47-0400 Respiratory rate 16 /min [facility] 08-21-2023 20:47-0400 SaO2% (BldA) [Mass fraction] 99 % [facility] 08-21-2023 20:47-0400 Systolic blood pressure 125 mm[Hg] [facility] 08-21-2023 19:07-0400 Body height 167.64 cm [facility] 08-21-2023 19:07-0400 Body mass index (BMI) [Ratio] 37.1 kg/m2 [facility] 08-21-2023 19:07-0400 Body weight 104.46 kg [facility] 07-20-2023 09:03-0500 Body height 167.6 cm Sydni Munoz APRN.INSOLE BEVELER Work Phone: [facility] 07-20-2023 09:03-0500 Body weight 103.87 kg Sydni Munoz APRN.INSOLE BEVELER Work Phone: [facility] 07-20-2023 09:03-0500 Diastolic blood pressure 80 mm[Hg] Sydni Munoz APRN.INSOLE BEVELER Work Phone: [facility] 07-20-2023 09:03-0500 Systolic blood pressure 112 mm[Hg] Sydni Munoz APRN.INSOLE BEVELER Work Phone: [facility] 05-28-2023 01:30-0500 Body height 167.64 cm [facility] 05-28-2023 01:30-0500 Body mass index (BMI) [Ratio] 37.1 kg/m2 [facility] 05-28-2023 01:30-0500 Body temperature 97.4 [degF] [facility] 05-28-2023 01:30-0500 Body weight 104.32 kg [facility] 05-28-2023 01:30-0500 Diastolic blood pressure 92 mm[Hg] [facility] 05-28-2023 01:30-0500 Heart rate 79 /min [facility] 05-28-2023 01:30-0500 Respiratory rate 18 /min [facility] 05-28-2023 01:30-0500 SaO2% (BldA) [Mass fraction] 94 % [facility] 05-28-2023 01:30-0500 Systolic blood pressure 129 mm[Hg] [facility] 01-13-2023 08:22-0400 Body temperature 97.9 [degF] Veronica Praisler-Wood SCENIC ARTIST.INSOLE BEVELER Work Phone: [facility] 01-13-2023 08:22-0400 Body weight 107.05 kg Veronica Praisler-Wood SCENIC ARTIST.INSOLE BEVELER Work Phone: [facility] 01-13-2023 08:22-0400 Diastolic blood pressure 82 mm[Hg] Veronica Praisler-Wood SCENIC ARTIST.INSOLE BEVELER Work Phone: [facility] 01-13-2023 08:22-0400 Heart rate 72 /min Veronica Praisler-Wood SCENIC ARTIST.INSOLE BEVELER Work Phone: [facility] 01-13-2023 08:22-0400 Respiratory rate 18 /min Veronica Praisler-Wood SCENIC ARTIST.INSOLE BEVELER Work Phone: [facility] 01-13-2023 08:22-0400 SaO2% (BldA) [Mass fraction] 98 % Veronica Praisler-Wood SCENIC ARTIST.INSOLE BEVELER Work Phone: [facility] 01-13-2023 08:22-0400 Systolic blood pressure 118 mm[Hg] Veronica Praisler-Wood SCENIC ARTIST.INSOLE BEVELER Work Phone: [facility] 05-16-2022 12:58-0500 Body height 167.6 cm Sydni Munoz SCENIC ARTIST.INSOLE BEVELER Work Phone: [facility] 05-16-2022 12:58-0500 Body weight 107.5 kg Sydni Munoz SCENIC ARTIST.INSOLE BEVELER Work Phone: [facility] 05-16-2022 12:58-0500 Diastolic blood pressure 72 mm[Hg] Sydni Munoz APRN.INSOLE BEVELER Work Phone: [facility] 05-16-2022 12:58-0500 Systolic blood pressure 128 mm[Hg] Sydni Munoz APRN.INSOLE BEVELER Work Phone: [facility] Encounters Encounter Date Encounter Type Care Provider Facility Start: 03-25-2025 ambulatory Raysa Wong NP Fa cility:[facility] Start: 03-23-2025 Encounter for other preprocedural examination Mikey Solares [facility] Start: 03-23-2025 End: 03-23-2025 ambulatory Raysa Wong SAND SLINGER Facility:[facility] Start: 03-18-2025 End: 03-18-2025 ambulatory Raysa Wong SAND SLINGER Facility:[facility] Start: 03-10-2025 End: 03-14-2025 ambulatory RAYSA WONG SCENIC ARTIST-INSOLE BEVELER Facility:[facility] Start: 03-10-2025 End: 03-14-2025 Outreach Lab HERLINDA VAUGHN SCENIC ARTIST-INSOLE BEVELER [facility] Start: 02-13-2025 End: 02-13-2025 ambulatory Raysa Wong SAND SLINGER Facility:[facility] Start: 01-29-2025 End: 01-29-2025 ambulatory Raysa Wong SAND SLINGER-C Work Phone: -Ultrasound [facility] Start: 01-29-2025 End: 01-29-2025 Patient encounter procedure Mikey Solares DO -Ultrasound [facility] Work Phone: Start: 01-28-2025 End: 02-01-2025 ambulatory SANTIAGO MAST SCENIC ARTIST-INSOLE BEVELER Facility:[facility] Start: 01-28-2025 End: 02-01-2025 Outreach Lab SANTIAGO MAST SCENIC ARTIST-INSOLE BEVELER [facility] Start: 12-22-2024 End: 12-22-2024 Office outpatient visit 15 minutes Anselmo Puentes SCENIC ARTIST.INSOLE BEVELER Work Phone: [facility] Comment on above: Allergic reaction to insect sting, accidental or unintentional, initial encounter (Primary Dx) Start: 12-22-2024 End: 12-22-2024 ambulatory RAYSA WONG Facility:[facility] Start: 12-01-2024 End: 12-01-2024 Patient encounter procedure Mikey Solares -[facility] Work Phone: Start: 12-01-2024 End: 12-01-2024 ambulatory Raysa Wong SAND SLINGER-C Work Phone: -[facility] Start: 09-16-2024 End: 09-16-2024 Emergency department patient visit Raysa Wong NP-C Work Phone: -Emergency Department Work Phone: Start: 09-13-2024 End: 09-13-2024 ambulatory RAYSA WONG APRN-INSOLE BEVELER Facility:[facility] Start: 09-13-2024 End: 09-13-2024 Patient encounter procedure RAYSA WONG APRN-INSOLE BEVELER [facility] Start: 08-13-2024 End: 08-13-2024 Patient encounter procedure Bernadette PAULINO -[facility] Work Phone: Start: 08-13-2024 End: 08-13-2024 ambulatory Raysa Wong NP Facility[facility] Start: 08-08-2024 End: 08-08-2024 ambulatory SYDNI MUNOZ Facility:[facility] Start: 08-08-2024 End: 08-08-2024 Patient encounter procedure Sydni Munoz APRN.INSOLE BEVELER Work Phone: OB/Gynecology Comment on above: Encounter for gyneco logical examination (general) (routine) without abnormal findings (Primary Dx); Encounter for screening mammogram for breast cancer Start: 08-08-2024 End: 08-08-2024 Patient encounter status Sydni Munoz APRN.INSOLE BEVELER Work Phone: [facility] Start: 06-03-2024 End: 06-03-2024 Patient encounter procedure Mikey Solares [facility] Work Phone: Start: 06-03-2024 End: 06-03-2024 ambulatory Raysa Wong NP Facility:[facility] Start: 05-06-2024 End: 05-06-2024 ambulatory Raysa Wong SAND SLINGER Facility:[facility] Start: 05-02-2024 End: 05-02-2024 ambulatory SYDNI MUNOZ Facility:[facility] Start: 05-02-2024 End: 05-02-2024 Subsequent hospital visit by physician Screen Mammo [facility] Comment on above: Encounter for screen ing mammogram for breast cancer [Z12.31] Start: 03-27-2024 End: 03-27-2024 ambulatory Raysa Wong NP Facility:[facility] Start: 02-25-2024 End: 02-25-2024 ambulatory KASSANDRA CABELLO Facility:[facility] Start: 02-25-2024 End: 02-25-2024 Subsequent hospital visit by physician X[facility] Work Phone: Radiology Comment on above: Cervical pain [M54.2 ] Start: 02-25-2024 End: 02-25-2024 Telephone encounter Herlinda Alba APRN.INSOLE BEVELER Work Phone: [facility] Comment on above: Results Start: 02-23-2024 End: 02-23-2024 ambulatory RAYSA WONG Facility:[facility] Start: 02-23-2024 End: 02-23-2024 Patient encounter procedure Kassadnra PAULINO Work Phone: [facility] Comment on above: Cervical pain (Prima ry Dx); Acute pain of right shoulder Start: 01-04-2024 End: 01-04-2024 ambulatory RAYSA WONG APRN-INSOLE BEVELER Facility:[facility] Start: 01-04-2024 End: 01-04-2024 Patient encounter procedure RAYSA WONG SCENIC ARTIST-INSOLE BEVELER [facility] Start: 10-10-2023 End: 10-10-2023 Patient encounter procedure Meghan Redd MD Work Phone: OB/Gynecology Comment on above: Endocervical polyp ( Primary Dx); Pre-op exam Start: 10-10-2023 End: 10-10-2023 Preprocedural examination done Meghan Redd MD Work Phone: [facility] Start: 09-24-2023 Admission to [facility] surgery [place] Meghan Redd MD Work Phone: OB/Gynecology Comment on above: surgery confirmation Start: 09-24-2023 E-mail encounter fro m caregiver Meghan Redd MD Work Phone: OB/Gynecology Start: 09-19-2023 End: 09-19-2023 ambulatory RAYSA WONG SCENIC ARTIST-INSOLE BEVELER Facility:[facility] Start: 09-03-2023 End: 2023 ambulatory RAYSA WONG SCENIC ARTIST-INSOLE BEVELER Facility:[facility] Start: 09-03-2023 End: 2023 Physical therapy management RAYSA WONG SCENIC ARTIST-INSOLE BEVELER [facility] Start: 08-21-2023 End: 08-21-2023 Emergency department patient visit [facility]-Emergency Department Work Phone: Start: 08-21-2023 End: 08-21-2023 Patient encounter procedure Basil Gardiner SCENIC ARTIST.INSOLE BEVELER Work Phone: [facility] Comment on above: Chest pressure (Prim jorge Dx) Start: 08-01-2023 End: 08-01-2023 ambulatory Ob Ultrasound Work Phone: OB/Gynecology Comment on above: Other (polyp) Start: 08-01-2023 End: 08-01-2023 Patient encounter procedure [facility] Work Phone: [facility] Start: 07-25-2023 End: 07-25-2023 Subsequent hospital visit by physician Diagnostic Mammo [facility] Start: 07-20-2023 End: 07-20-2023 Patient encounter procedure Sydni Munoz APRN.CNP Work Phone: OB/Gynecology Comment on above: Encounter for gyneco logical examination with abnormal finding (Primary Dx); Endocervical polyp; Encounter for screening mammogram for breast cancer; Heterogeneously dense tissue of both breasts on mammography; Pseudoangiomatous stromal hyperplasia of breast Start: 07-20-2023 End: 07-20-2023 Patient encounter status Sydni Munoz APRN.INSOLE BEVELER Work Phone: [facility] Work Phone: Start: 06-07-2023 End: 06-07-2023 ambulatory RAYSA WONG APRN-INSOLE BEVELER Facility:[facility] Start: 05-28-2023 End: 05-28-2023 ambulatory RAYSA WONG APRN-INSOLE BEVELER Facility:[facility] Start: 05-28-2023 End: 05-28-2023 Patient encounter procedure RAYSA WONG APRN-INSOLE BEVELER [facility] Start: 05-28-2023 End: 05-28-2023 Emergency department patient visit [facility]-Emergency Department Work Phone: Start: 01-23-2023 End: 01-23-2023 ambulatory RAYSA WONG APRN-INSOLE BEVELER Facility:B Start: 01-23-2023 End: 01-23-2023 Patient encounter procedure RAYSA WONG APRN-INSOLE BEVELER [facility] Start: 01-13-2023 End: 01-13-2023 Patient encounter procedure Veronica Vivas APRN.INSOLE BEVELER Work Phone: [facility] Comment on above: Burning sensation of skin [...] Subsequent hospital visit by physician Diagnostic Mammo [facility] Mammogram Comment on above: Abnormal mammogram [ R92.8] Start: 06-10-2022 End: 06-10-2022 Patient encounter procedure RAYSA WONG APRN-INSOLE BEVELER [facility] Start: 05-17-2022 Documentation procedure Mammography Coordinator [facility] Start: 05-17-2022 Letter encounter Mammography Coordinator [facility] Department Start: 05-16-2022 End: 05-16-2022 Patient encounter procedure Sydni Munoz APRN.INSOLE BEVELER Work Phone: OB/Gynecology Comment on above: Encounter for gyneco logical examination (general) (routine) without abnormal findings (Primary Dx); Encounter for screening mammogram for breast cancer; Dense breast tissue Start: 05-16-2022 End: 05-16-2022 Patient encounter status Sydni Munoz APRN.INSOLE BEVELER Work Phone: OB/Gynecology Start: 05-16-2022 End: 05-16-2022 Subsequent hospital visit by physician Screen Mammo [facility] Mammogram Comment on above: Encounter for gyneco logical examination (general) (routine) without abnormal findings [Z01.419] Start: 02-21-2022 Telephone encounter Veronica Harrell APRN.INSOLE BEVELER Work Phone: [facility] Comment on above: Results, Lab Start: 02-20-2022 Telephone encounter Lennie South PA-C Work Phone: [facility] Comment on above: Results Start: 02-20-2022 End: 02-20-2022 [facility] Comment on above: Acute right-sided lo w back pain without sciatica [M54.50] Start: 07-10-2020 End: 07-10-2020 Discharged Recurring [facility]-Immunizations Procedures Date Procedure Procedure Detail Performing Clinician Start: 01-29-2025 Ultrasonography of abdomen Raysa Wong SAND SLINGER-C Work Phone: Start: 09-16-2024 Plain X-ray of femur El devi Wong SAND SLINGER-C Work Phone: Start: 09-16-2024 Plain X-ray of tibia and fibula Raysa Wong SAND SLINGER-C Work Phone: Start: 02-25-2024 Radex spine cervical 4 or 5 views Kassandra PAULINO Work Phone: Start: 08-21-2023 Plain chest X-ray Start: 08-01-2023 Us pelvic nonobstetr ic real-time image complete Sydni Munoz APRN.INSOLE BEVELER Work Phone: Start: 07-25-2023 Digital breast tomos ynthesis bilateral Sydni Munoz APRN.INSOLE BEVELER Work Phone: Start: 05-28-2023 Plain chest X-ray Start: 05-28-2023 Plain X-ray of shoulder Start: 07-17-2022 Bx breast w/device 1 st lesion stereotactic guid Ewa Olivo MD Work Phone: Start: 06-28-2022 Us breast uni real t bryon with image limited Burt Lenz MD Work Phone: Start: 06-13-2022 Us breast uni real t bryon with image limited Sydni Munoz APRN.INSOLE BEVELER Work Phone: Start: 06-13-2022 MARTY DIAG W DELFIN LEFT Am maynor Munoz APRN.INSOLE BEVELER Work Phone: Start: 05-16-2022 End: 05-16-2022 Mammography Sydni Munoz SCENIC ARTIST.INSOLE BEVELER Work Phone: Start: 02-20-2022 Radex spine lumbosac ral 2/3 views Lennie South PA-C Work Phone: Start: 05-10-2021 Mammography Lennie South PA-C Work Phone: Start: 02-09-2011 Lipid 1996 panel - S breanna or Plasma Us 1 Work Phone: Plan of Treatment Date Care Activity Detail Author Start: 09-16-2034 Urine microalbumin profile DTaP,Tdap,Td Vaccine (4 - Td or Tdap) [facility] Start: 05-14-2028 Urine microalbumin profile [facility] Start: 05-10-2026 HPV TESTING HPV TESTING [facility] Start: 05-10-2026 PAP TESTING PAP TESTING [facility] Start: 05-10-2026 Screening for malign ant neoplasm of cervix [facility] Start: 08-12-2025 End: 08-12-2025 Patient encounter procedure Mammogram Comment on above: MARTY SCREENING W DELFIN annual Start: 05-02-2025 Screening for malign ant neoplasm of breast Mammogram Screening [facility] Start: 03-04-2025 Screening for malign ant neoplasm of colon [facility] Start: 01-12-2025 Influenza vaccination Influenza Vacc ine (#1) [facility] Start: 2024 Pneumococcal Vaccine : 50+ (1 of 1 - PCV) Pneumococcal Vaccine: 50+ (1 of 1 - PCV) [facility] Start: 2024 Shingrix Vaccine (1 of 2) Shingrix Vaccine (1 of 2) [facility] Start: 09-16-2024 [facility] Start: 08-08-2024 End: 08-08-2024 Patient encounter procedure 08/08/2024 9:30 AM EDT Office Visit OB/Gynecology [address] [place], [place] [id number] Sydni Munoz APRN.INSOLE BEVELER [address] [place] [address] annual OB/Gynecology Comment on above: annual Start: 07-24-2024 Screening for malign ant neoplasm of breast Mammogram Screening [facility] Start: 07-22-2024 End: 07-22-2024 Patient encounter procedure 07/22/2024 9:00 AM EDT Office Visit OB/Gynecology [address] [place] [address] Sydni Munoz APRN.INSOLE BEVELER [address] [place] [address] annual exam OB/Gynecology Comment on above: annual exam Start: 01-13-2024 Covid-19 Vaccine () Covid-19 Vaccine () [facility] Start: 01-13-2024 Influenza vaccination [facility] Start: 10-10-2023 End: 10-10-2023 Patient encounter procedure 10/10/2023 9:20 AM EDT Office Visit OB/Gynecology [address] [place] [address] Meghan Da Silva MD [address] [place] [address] surgery 10/25 OB/Gynecology Comment on above: surgery 10/25 Start: 08-21-2023 [facility] Start: 08-21-2023 Blood chemistry [facility] Start: 08-21-2023 [facility] Start: 07-20-2023 End: 07-19-2024 US Pelvis PELVIC US [facility] Anc Imaging Routine Endocervical polyp Expected: 07/20/2023, Expires: 07/19/2024 [facility] Work Phone: Comment on above: Expected: 07/20/2023 , Expires: 07/19/2024 Start: 05-28-2023 [facility] Start: 05-16-2023 Mammography [facility] Start: 05-16-2023 Screening for malign ant neoplasm of breast Mammogram Screening [facility] Start: 05-14-2023 Behavioral Health Screening Behavioral Health Screening [facility] Start: 05-14-2023 Depression Assessment Depression Ass essment [facility] Start: 01-12-2023 Covid-19 Vaccine ( season) Covid-19 Vaccine ( season) [facility] Start: 01-12-2023 Influenza vaccination C [facility] Start: 05-14-2022 DEPRESSION ASSESSMENT DEPRESSION ASS ESSMENT [facility] Start: 05-10-2022 Mammography MAMMOGRAM [facility] Start: 01-12-2022 Influenza vaccination INFLUENZA (#1) [facility] Start: 07-06-2021 COVID-19 VACCINE (5 - Booster for Moderna series) COVID-19 VACCINE (5 - Booster for Moderna series) [facility] Start: 07-06-2021 COVID-19 VACCINE (5 - Moderna series) COVID-19 VACCINE (5 - Moderna series) [facility] Start: 05-14-2021 [facility] Start: 09-30-2020 COVID-19 VACCINE (3 - Booster for Moderna series) COVID-19 VACCINE (3 - Booster for Moderna series) [facility] Start: 12-05-2019 COLOGUARD (FIT-DNA) COLOGUARD (FIT-D NA) [facility] Start: 12-05-2019 Colonoscopy COLONOSCOPY [facility] Start: 12-05-2019 COLORECTAL CANCER SCREENING COLORECTAL CANCER SCREENING [facility] Start: 12-05-[address] COLONOGRAPHY [facility] Start: 12-05-2019 DIABETES SCREEN DIABETES SCREEN [facility] Start: 12-05-2019 Diabetes Screening Diabetes Screenin g [facility] Start: 12-05-2019 FECAL OCCULT BLOOD FECAL OCCULT BLOO D [facility] Start: 12-05-2019 Lipid 1996 panel - Serum or Plasma Lipid Screening [facility] Start: 12-05-2019 Lipid panel Lipid Screening [facility] Start: 12-05-2019 LIPID SCREEN LIPID SCREEN [facility] Start: 12-05-2019 Screening for malign ant neoplasm of colon [facility] Start: 12-05-2019 SIGMOIDOSCOPY SIGMOIDOSCOPY [facility] Start: 1993 Hepatitis B Vaccine (1 of 3 - 19+ 3-dose series) Hepatitis B Vaccine (1 of 3 - 19+ 3-dose series) [facility] Start: 1992 Anxiety Screening Anxiety Screening [facility] Start: 1992 Depression Screening Depression Scre krishna [facility] Start: 1992 HEPATITIS C SCREENING HEPATITIS C [facility] Start: 1992 Hepatitis C screening Hepatitis C [facility] Start: 1992 HIV SCREENING HIV SCREENING [facility] Start: 1992 HIV screening HIV Screening [facility] Start: 1974 HEPATITIS B (1 of 3 - 3-dose series) HEPATITIS B (1 of 3 - 3-dose series) [facility] Start: 1974 Hepatitis B Vaccine (1 of 3 - 3-dose series) Hepatitis B Vaccine (1 of 3 - 3-dose series) [facility] End: 07-28-2023 Bx breast w/device 1st lesion stereotactic guid MARTY STEREO BX BREAST LT Radiology Routine Abnormal finding on radiological examination of breast 1 Occurrences starting 06/28/2022 until 07/28/2023 [facility] Work Phone: Comment on above: 1 Occurrences starti ng 06/28/2022 until 07/28/2023 End: 08-18-2024 DBT Breast - bilateral screening MARTY SCREENING W DELFIN Radiology Routine Encounter for screening mammogram for breast cancer Heterogeneously dense tissue of both breasts on mammography Pseudoangiomatous stromal hyperplasia of breast 1 Occurrences starting 07/20/2023 until 08/18/2024 [facility] Work Phone: Comment on above: 1 Occurrences starti ng 07/20/2023 until 08/18/2024 DBT Breast - bilater al screening MARTY SCREENING W DELFIN Radiology Routine Encounter for screening mammogram for breast cancer Heterogeneously dense tissue of both breasts on mammography Pseudoangiomatous stromal hyperplasia of breast 05/02/2024 12:44 PM EST [facility] Work Phone: End: 09-07-2025 DBT Breast - bilateral screening MARTY SCREENING W DELFIN Radiology Routine Encounter for gynecological examination (general) (routine) without abnormal findings Encounter for screening mammogram for breast cancer 1 Occurrences starting 08/08/2024 until 09/07/2025 [facility] Work Phone: Comment on above: 1 Occurrences starti ng 08/08/2024 until 09/07/2025 End: 06-15-2023 MARTY SCREENING W DELFIN MARTY SCREENING W DELFIN Radiology Routine Encounter for screening mammogram for breast cancer Dense breast tissue 1 Occurrences starting 05/16/2022 until 06/15/2023 [facility] Work Phone: Comment on above: 1 Occurrences starti ng 05/16/2022 until 06/15/2023 Patient Education [facility] Work Phone: [facility] referral [facility] Work Phone: SURGICAL PATHOLOGY [facility] Work Phone: Comment on above: Release Upon Orderin g for 1 Occurrences starting 07/17/2022, 1 completed End: 03-24-2025 XR Cervical spine AP and Lateral and oblique XR CERV OTHER 4V AP/LAT/OBL Radiology STAT Cervical pain Acute pain of right shoulder 1 Occurrences starting 02/23/2024 until 03/24/2025 [facility] Comment on above: 1 Occurrences starti ng 02/23/2024 until 03/24/2025 End: 03-24-2025 XR Shoulder - right 3 Views XR SHOULDER GENERAL 3V OR MORE AP/TRUE AP/OTHER RIGHT Radiology STAT Cervical pain Acute pain of right shoulder 1 Occurrences starting 02/23/2024 until 03/24/2025 [facility] Work Phone: Comment on above: 1 Occurrences starti ng 02/23/2024 until 03/24/2025 [facility] Immunizations Immunization Date Immunization Notes Care Provider [facility] 09-16-2024 tetanus toxoid, reduced diphtheria toxoid, and acellular pertussis vaccine, adsorbed Raysa Wong SAND SLINGER-C Work Phone: [facility] 05-11-2021 SARS-CoV-2 mRNA (tozinameran) vaccine RAYSA WONG SCENIC ARTIST-INSOLE BEVELER [facility] 08-22-2020 SARS-CoV-2 (COVID-19 ) Ad26 vaccine, recombinant RAYSA WONG SCENIC ARTIST-INSOLE BEVELER [facility] 08-05-2020 Covid (Moderna) [facility] 07-08-2020 Covid (Moderna) [facility] Comment on above: Result Comment: 2022: TPV23 04-30-2019 influenza virus vaccine, unspecified formulation RAYSA JUDITH SCENIC ARTIST-INSOLE BEVELER [facility] 05-14-2018 tetanus toxoid, reduced diphtheria toxoid, and acellular pertussis vaccine, adsorbed Lennie South PA-C Work Phone: [facility] 02-07-2018 influenza virus vaccine, unspecified formulation RAYSA JUDITH SCENIC ARTIST-INSOLE BEVELER [facility] 06-05-2016 influenza virus vaccine, unspecified formulation RAYSA JUDITH SCENIC ARTIST-INSOLE BEVELER [facility] 07-30-2014 tetanus toxoid, reduced diphtheria toxoid, and acellular pertussis vaccine, adsorbed RAYSA JUDITH SCENIC ARTIST-INSOLE BEVELER [facility] Payers Date Payer Category Payer Self-pay [id number] 2018 Private Health Insurance [id number] 2018 Unknown [id number] 2018 Unknown [id number] 1974 Unknown [id number] 2.16.8 [id number] 1974 Unknown [id number] ..[id number] 40.1.576127.3.579.2. 1974 Unknown [id number] ..[id number] 40.1.461951.3.579.2. 1974 Unknown [id number] ..[id number] 40.1.907804.3.579.2. 1974 Unknown [id number] .. 40.1.736258.3.579.2. 1974 Unknown [id number] ..[id number] 40.1.123674.3.579.2. 1974 Unknown [id number] . 840.1.245606.3.579.2. 1974 Unknown [id number] . 840.1.309503.3.579.2. 1974 Unknown [id number] . 40.1.812871.3.579.2.627 Unknown [id number] Unknown [id number] 40.1.997939.3.579.2.462 Unknown [id number] ..[id number] 40.1.866684.3.579.2.462 Unknown [id number] .16.8 40.1.462119.3.579.2.462 Unknown [id number] .16.8 40.1.158474.3.579.2.462 Unknown [id number] .16.8 40.1.589670.3.579.2.462 Unknown [id number] .[id number] 40.1.545484.3.579.2.462 Unknown [id number] .16.8 40.1.719874.3.579.2.462 Unknown [id number] .16.8 40.1.548993.3.579.2.462 Unknown [id number] .16.8 40.1.064943.3.579.2.462 Unknown [id number] 2.16.8 40.1.405771.3.579.2.462 Unknown [id number] 2.16.8 40.1.269908.3.579.2.462 Unknown [id number] 2.16.8 40.1.242686.3.579.2.462 Unknown [id number] 2.16.8 40.1.596762.3.579.2.462 Social History Date Type Detail Facility Start: 09-21-2017 End: 08-21-2023 Tobacco smoking status KYIS Unknown if ever smoked [facility] Start: 1975 Sex Assigned At Female [facility] Start: 02-20-2022 End: 03-10-2025 Tobacco smoking status KYIS Never smoked tobacco [facility] Work Phone: Start: 02-20-2022 Tobacco use and exposure Smokeless tobacco non-user [facility] Work Phone: Start: 02-20-2022 End: 12-22-2024 Alcohol intake Current non-drinker of alcohol (finding) [facility] Start: 05-05-2020 History SDOH Social Connections Phone 5 [facility] Start: 05-05-2020 History SDOH Social Connections Get Together 2 [facility] Start: 05-05-2020 History SDOH Social Connections Membership 1 [facility] Start: 05-05-2020 History SDOH Social Connections Meetings 3 [facility] Start: 05-05-2020 History SDOH Physical Activity MPS 6 [facility] Start: 02-10-2022 End: 02-20-2022 Exposure to SARS-CoV-2 (event) Not sure [facility] Work Phone: Sex Assigned At [facility] Start: 05-05-2020 End: 07-20-2023 History of Social function [facility] Work Phone: Start: 05-05-2020 End: 07-20-2023 Social connection and isolation panel [facility] Work Phone: Do you belong to any clubs or organizations such as muslim groups, unions, fraternal or athletic groups, or school groups? Yes [facility] Work Phone: Are you now , , , , never or living with a partner? [facility] Work Phone: Do you feel stress - tense, restless, nervous, or anxious, or unable to sleep at night because your mind is troubled all the time - these days [OSQ] Only a little [facility] Work Phone: Start: 04-14-2012 National Score (1-100), lower number is lower risk 63 [facility] Start: 02-20-2022 Sexual orientation Heterosexual (finding) [facility] Start: 02-02-2016 End: 09-16-2024 Sex Female (finding) [facility] Medical Equipment Procedure Code Equipment Code [...] muscle cramping with R 90-90 hamstring: [facility] 05-09-2014 Are you deaf, or do you have serious difficulty hearing No 05/09/2014 8:00 AM Genet Bean LPN No [facility] 05-09-2014 Are you blind, or do you have serious difficulty seeing, even when wearing glasses No 05/09/2014 8:00 AM Genet Bean LPN No [facility] 05-09-2014 Do you have serious difficulty walking or climbing stairs No 05/09/2014 8:00 AM Genet Bean CERTIFIED PUBLIC ACCOUNTANT No [facility] 05-09-2014 Do you have difficul ty dressing or bathing No 05/09/2014 8:00 AM Genet Bean TAM No [facility] 05-09-2014 Because of a physica l, mental, or emotional condition, do you have difficulty doing errands alone such as visiting a physician's office or shopping No 05/09/2014 8:00 AM ELEUTERIO ChristieGenet benoit TAM No [facility] Mental Status Date Assessment Result Facility 08-21-2023 Cognitive function Voice/Name [facility] Work Phone: 05-09-2014 Because of a physica l, mental, or emotional condition, do you have serious difficulty concentrating, remembering, or making decisions No 05/09/2014 8:00 AM Genet Bean TAM No [facility] Clinical Notes 02-20-2022 to 03-23-2025 Anselmo Puentes APRN.INSOLE BEVELER - 12/22/2024 3:10 PM EDT Note Date & Type Note Facility 03-23-2025 Note [facility] Medical Records Department [address] [place] [address] History Physical Exam 03/23/25 0645 MR#: [id number] Acct: [id number] Name: GLADYS PETER Rep #: [id number] : 1975 49 From: Mikey Friend PCP: GENESIS Hernandez Status:[facility] Location: [place] [address] HPI - General General Date of Admission: 03/23/25 Date of Service: 03/23/25 Chief Complaint: abdominal pain HPI Narrative GLADYS DODD, is a 49 F who presents [ Chief Complaint: abd pain *BGI established 8.22.24 pt reports that she will have episodes [...] symptoms of concern at this time. OV 4 BGI established 01.02. pt reports that she will have episodes [...] first portion of the duodenum. Biopsied. HIDA ..24 normal 86% GET 10.30.24 normal 34.15 minutes [...] low dose to avoid upsetting her stomach. OV 03/18/2025 -upper abd pain x5 days -pain is sharp and intermittent (10x per day lasting seconds to a minute) in the RUQ and LUQ -not worse with oral intake -no n/v, no fevers, -no changes in her BM [facility] Medical History Gall stones Wears glasses Arthritis Back pain Gastric reflux Non-smoker Leg cramps TMJ syndrome Pelvic pain Anemia Migraine Home Medications ???Medication ???Instructions ???Recorded ???Last Taken ???Type esomeprazole magnesium 20 mg 20 mg PO DAILY 01/03/24 03/22/25 H istory capsule,delayed release (Nexium) ascorbic acid (vitamin C) 500 mg 500 mg PO BID 03/18/25 03/19/25 Hi story tablet cholecalciferol (vitamin D3) 50 50 mcg PO QDAY 03/18/25 03/22/25 H istory mcg (2,000 unit) capsule chromium picolinate 1,000 mcg 1,000 mcg PO QHS 03/18/25 03/21/25 History tablet ferrous sulfate 325 mg (65 mg 325 mg PO BID 03/18/25 Unknown His tory iron) tablet (FeroSul) grape seed extract 60 mg capsule 500 mg PO DAILY 03/18/25 03/19/25 History inulin 1.7 gram chewable tablet 1.7 g PO DAILY 03/18/25 03/21/25 H istory (Prebiotic Fiber Digestive) lactobacillus combination no.4 3 3,000 mmu cells PO QDAY 03/18/25 1 05/21/24 History billion cell capsule (Probiotic) sucralfate 1 gram tablet (Carafate) 1 g PO QAC PRN STOOL 03/18/25 U nknown History vitamin E (dl, acetate) 180 mg 180 mg PO QDAY 03/18/25 03/22/25 H istory (400 unit) capsule Allergy/AdvReac Type Severity Reaction Status Date / Time No Known Allergies Allergy Verified 11/10/25 06:29 Family History (Reviewed 03/23/25 @ 06:46 (more content not included)... [facility] 01-30-2025 Note . MICRO - Microbiology PROCEDURE: [...] Locations *1: This test was performed at: [facility], [address] [place] [address], [phone] , [facility] 01-29-2025 Radiology Diagnostic study note [facility] Imaging Services [address] [place] [id number] Abdomen Limited MR#: [id number] Acct: [id number] Name: GLADYS PETER Rep #: [id number] : 1975 F 49 From: Tiburcio Owusu MD PCP: GENESIS Hernandez Status: RE G CLI Study:Abdomen Limited Date of Exam: 01/12 01/05 Exam# [id number] Ordering Dr: Cosmo Solares DO PROCEDURE: ABDOMEN [...] unremarkable right upper quadrant ultrasound Reading Location: [id number] CC: GENESIS Wong; Mikey Friend, DO ~ Can Vacuum Tester: Signed [facility] 12-22-2024 Note HNO ID: [id number] Author: ANSELMO PUENTES APRN.INSOLE BEVELER Service: ? Author Type: Nurse Practitioner Type: Progress Notes Filed: 12/22/2024 15:30 Note Text: URGENT CARE [facility] Gladys Dodd is a 49 year old [...] of care. This note was generated using [employer] software. It may contain errors in wording, punctuation, or spelling. Anselmo Puentes APRN.[facility] History and Record Review Clinical information obtained from an independent historian. History obtained from or confirmed by: parent. External record(s) reviewed: prior outpatient record. Disposition The patient was discharged. OTC Medications were advised: Procedures [facility] 12-22-2024 History of Present illness Narrative [...] of care. This note was generated using [employer] software. It may contain errors in wording, punctuation, or spelling. Anselmo Puentes APRN.INSOLE BEVELER History and Record Review Clinical information obtained from an independent historian. History obtained from or confirmed by: parent. External record(s) reviewed: prior outpatient record. Disposition The patient was discharged. OTC Medications were advised: Procedures documented in this encounter [facility] 12-01-2024 Evaluation note Diagnosis Onset Date Resolution Cholelithiasis acute December 01, 2024 9:59am GERD (gastroesophageal reflux disease) acute December 01, 2024 9:59am Leg cramps acute December 01 9:59am Weight loss acute December 01 9:59am Nausea and vomiting noneactive December 01, 2024 9:59am [facility] Work Phone: 1(726) 149-172205-06-2025 Discharge summary [facility] Medical Records Department [address] [place] [address] Emergency Department Summary 09/16/24 MR#: [id number] Acct: [id number] Name: GLADYS PETER Rep #:[id number] : 1975 48 From: Bhupendra Gonzalez MD PCP: Raysa Wong NP-C Status:RE G ER [...] states that she has an 85 pound Martiniquais Salcedo, and a 35 pound Congolese Salcedo. This is the second time that [...] than 5 years. She denies other injuries. [facility] Medical History Gall stones Wears glasses [...] orally. For analgesia she was administered 1 [place] tablet here. I will start her on [...] she was given a prescription for 12 [place] tablets as she states she is still [...] bite of left lower leg, Need for otrwfoltvh-zhrgneq-yinwwkkdv (Tdap) vaccine Instructions: ED Dog Bite Prescriptions: New amoxicillin-pot clavulanate 875-125 mg tablet 1 tab PO BID 5 Days Qty: 10 0RF hydrocodone-acetaminophen 5-325 mg tablet 1 tab PO Q6H PRN (Reason: pain) 3 Days Qty: 12 0RF No Action esomeprazole magnesium [Nexium] 20 mg capsule,delayed release(DR/EC) 20 mg PO DAILY Primary Care Provider: Raysa Wong NP Referrals: Raysa Wong NP, SAND SLINGER-C [Primary Care Provider] - 3-5 Days Activity Restrictions/Additional Instructions: Antibiotics as directed. Follow-up with your primary care provider in the next 3 to 5 days for wound check. Return with fever, increased redness to wounds, drainage of pus from wounds, new or worsening symptoms. Print Language: Malay Disposition Disposition: Home, Self Care What to do if you have Problems For any increased pain, shortness of breath, bleeding, nausea or vomiting, chestpain, or any unexpected problems, contact your Primary Care Provider. Call [facility] ([phone]) or report tothe closest Emergency Room. Call 911 if necessary. 09/16/241815 Cosigner Signature (if applicable): CC: GENESIS Wong ~ Signed [facility]05-06-2025 Radiology Diagnostic study note [facility] Imaging Services [address] [place] [address] Tibia & Fibula 2 Views MR#: [id number] Acct: [id number] Name: GLADYS PETER Rep #: [id number] : 1975 F 48 From: Rose Calle MD PCP: GENESIS Hernandez Status: [facility] ER Study:Tibia & Fibula 2 Views Date of Exam: 09/16/24 Exam# [id number] Ordering Dr: Bhupendra Gonzalez MD EXAM: RIGHT TIBIA AND FIBULA, TWO VIEWS CLINICAL HISTORY: DOG BITE. TRAUMA. COMPARISON: NO RELEVANT PRIOR. TECHNIQUE: AP AND LATERAL. FINDINGS: Bones: No fractures or other osseous abnormalities. Joints: No subluxations or dislocations. Soft tissues: Unremarkable. RAD/Tibia & Fibula 2 Views IMPRESSION: No acute osseous findings. Reading Location: [facility] CC: GENESIS Wong; Dr. Bhupendra Gonzalez MD ~ Can Vacuum Tester: Signed [facility]05-06-2025 Radiology Diagnostic study note [facility] Imaging Services [address] [place] [address] Femur Min 2 Views MR#: [id number] Acct: [id number] Name: GLADYS PETER Rep #: [id number] : 1975 F 48 From: Rose Calle MD PCP: BREANN HernandezC Status: RE [facility]iral ER Study:Femur Min 2 Views Date of Exam: Exam# [id number] Ordering Dr: Bhupendra oGnzalez MD EXAM: RIGHT FEMUR, TWO VIEWS CLINICAL HISTORY: Dog bite. Trauma. COMPARISON: No relevant prior. TECHNIQUE: AP and lateral projections of the femur. FINDINGS: Bones: No fractures or other osseous abnormalities. Joints: No subluxations or dislocations. Soft tissues: Unremarkable. RAD/Femur Min 2 Views IMPRESSION: NO ACUTE OSSEOUS ABNORMALITIES. Reading Location: [facility] CC: SAND SLINGER-C aRysa Wong; Dr. Bhupendra Gonzalez MD ~ Can Vacuum Tester: Signed [facility]05-06-2025 Discharge summary Author Bhupendra Gonzalez [facility] Note Date/Time September 16, 2024 6:16pm [facility] Medical Records Department [address] [place] [address] Emergency Department Summary 09/16/24 MR#: [id number] Acct: [id number] Name: GLADYS PETER Rep #:[id number] : 1975 48 From: Bhupendra Gonzalez MD [...] states that she has an 85 pound Martiniquais Salcedo, and a 35 pound Congolese Salcedo. This is the second time that [...] than 5 years. She denies other injuries. [facility] Medical History Gall stones Wears glasses [...] orally. For analgesia she was administered 1 [place] tablet here. I will start her on [...] she was given a prescription for 12 [place] tablets as she states she is still [...] IMPRESSION: NO ACUTE OSSEOUS ABNORMALITIES. Reading Location: [facility] Tibia/Fibula X-Ray 09/16/24 17:12 IMPRESSION: No acute osseous findings. Reading Location: [facility] Discharge Plan Triage Chief Complaint: Bite ED Provider: Bhupendra Gonzalez Dx/Rx/DC Orders Clinical Impression: Dog bite of right thigh, Dog bite of left lower leg, Need for ooeibcvnnc-batcekh-nmepfyoll (Tdap) vaccine Instructions: ED Dog Bite Prescriptions: New amoxicillin-pot clavulanate 875-125 mg tablet 1 tab PO BID 5 Days Qty: 10 0RF hydrocodone-acetaminophen 5-325 mg tablet 1 tab PO Q6H PRN (Reason: pain) 3 Days Qty: 12 0RF No Action esomeprazole magnesium [Nexium] 20 mg capsule,delayed release(DR/EC) 20 mg PO DAILY Primary Care Provider: Raysa Wong NP Referrals: Raysa Wong NP, SAND SLINGER-C [Primary Care Provider] - 3-5 Days Activity Restrictions/Additional Instructions: Antibiotics as directed. Follow-up with your primary care provider in the next 3 to 5 days for wound check. Return with fever, increased redness to wounds, drainage of pus from wounds, new or worsening symptoms. Print Language: Malay Disposition Disposition: Home, Self Care What to do if you have Problems For any increased pain, shortness of breath, bleeding, nausea or vomiting, chestpain, or any unexpected problems, contact your Primary Care Provider. Call [facility] ([phone]) or report to the closest Emergency Room. Call 911 if necessary. 09/16/241815 <Electronically signed by Bhupendra Gonzalez MD> Cosigner Signature (if applicable): CC: SAND SLINGER-C Raysa Wong ~ Signed [facility] Work Phone: 1(660) 794-741305-06-2025 Hospital Discharge instructions Additional Instructions Antibiotics as directed. Follow-up with your primary care provider in the next 3 to 5 days for wound check. Return with fever, increased redness to wounds, drainage of pus from wounds, new or worsening symptoms.[facility] Work Phone: 1(884) 189-142404-02-2025 Evaluation note* Diagnosis Onset Date Resolution Status Admit Date Cholelithiasis acute August 13, 2024 3:30pm GERD (gastroesophageal reflu x disease) acute August 13, 2024 3:30pm [facility] Work Phone: 1(574) 726-866803-28-2025 Instructions* Patient Instructions* Sydni Munoz APRN.CNP - [...] if it is covered and what your bdo-zl-vhwtfk expense will be. Please reach out through [employer] or by phone if you would like an order placed or if you would like to schedule an appointment to discuss furtherwith an available provider. Whole breast ultrasound does not replace annual mammograms; this test is in addition to regular mammograms which are the most important way to screen for breast cancer. Sydni Munoz APRN.CNP documented in this encounterC[facility]-28-2025 NoteHNO ID: [id number] Author: SYDNI MUNOZ APRN.CNP Service: ? Author Type: Nurse Practitioner Type: Progress Notes Filed: 08/08/2024 10:06 Note Text: Construction Job Titles offered: Patient declinesHilary Chávez is a 48 [...] discussed with the Patient or Patient's Authorized Table Machine Operator. As applicable, any other physician, advance practice provider, medical student, or other health professional student that will be observing or involved in the sensitive examination for educational or training purposes was discussed with the Patient or Authorized Table Machine Operator. The Patient or Authorized Table Machine Operator has agreed to proceed with the sensitive [...] external genitalia normal, normal Bartholin's glands, urethra, [place]'s glands, no vulvar lesions, no cervical lesions, [...] year or sooner as needed Sydni Munoz APRN.[facility]03-28-2025 History of Present illness Narrative* Sydni Munoz APRN.[facility] - 08/08/2024 9:05 AM EDT Construction Job Titles offered: Patient declines. Gladys is a 48 [...] discussed with the Patient or Patient's Authorized Table Machine Operator. As applicable, any other physician, advance practice provider, medical student, or other health professional student that will be observing or involved in the sensitive examination for educational or training purposes was discussed with the Patient or Authorized Table Machine Operator. The Patient or Authorized Table Machine Operator has agreed to proceed with the sensitive [...] external genitalia normal, normal Bartholin's glands, urethra, [place]anceyville's glands, no vulvar lesions, no cervical lesions, [...] year or sooner as needed Sydni Munoz APRN.INSOLE BEVELER documented in this encounterC[facility]01-21-2025 Evaluation note* Diagnosis Onset Date Resolution Status Admit Date Cholelithiasis acute June 032024 7:56am GERD (gastroesophageal reflu x disease) acute June 03 7:56am Nausea and vomiting noneactive Mayua 2024 7:56am Cholelithiasis acute August 13, 2024 3:30pm GERD (gastroesophageal reflu x disease) acute August 13, 2024 3:30pm [facility] Work Phone: [phone] 357-164312-20-2024 History of Present illness Narrative* Ana Romano [...] PATIENT PRESENTS WITH AN IMPLANTABLE OR ATTACHED TAB BUILDER: No RADIOLOGY DEPARTMENT: Mammography PERIPHERAL IV DATA: Not applicable SIGNED BY: Melchor Ivy May 02, 2024 1:12 PM documented in this encounterCleveland Clinic [facility]12-20-2024 NoteHNO ID: [id number] Author: ANA ROMANO Mammo Tech Service: ? Author Type: Spanish Tutor Type: Progress Notes Filed: 05/02/2024 13:13 Note [...] PATIENT PRESENTS WITH AN IMPLANTABLE OR ATTACHED TAB BUILDER: No RADIOLOGY DEPARTMENT: Mammography PERIPHERAL IV DATA: Not applicable SIGNED BY: Melchor Ivy May 02, 2024 1:12 [facility]10-14-2024 Miscellaneous Notes* Telephone Encounter - Tianna Yi [...] symptoms. Please advise patient. documented in this encounterCleveland Clinic [facility]10-14-2024 Telephone encounter Note * Telephone Encounter - Tianna Yi LPN - 02/25/2024 5:38 PM EDT Patient notified and verbalized understanding of instructions given.Tianna Yi LPN [facility]10-14-2024 Telephone encounter Note* Telephone Encounter - Herlinda Alba APRN.SHAMAR - 02/25/2024 4:58 PM EDT Xray of cervical spine normal. Xray of shoulder normal Continue treatment plan and medicines at time of evaluatoin. Follow up with PCP and or ortho for continued symptoms. Please advise patient. [facility] Work Phone: [phone]) 336-736510-14-2024 History of Present illness Narrative* Melina Thorne RT(R) - 02/25/2024 4:20 PM EDT Radiology [...] PATIENT PRESENTS WITH AN IMPLANTABLE OR ATTACHED TAB BUILDER: No RADIOLOGY DEPARTMENT: General X-ray: Exam(s) Completed: Spine X-Ray(s): Cervical AP / LAT / OBL Upper Extremity X-Ray(s): Shoulder, AP / TRUE AP / AXILLARY right PERIPHERAL IV DATA: Not applicable SIGNED BY: RT Shimon(Cosmo) February 25, 2024 4:19 PM documented in this encounterCleveland Clinic [facility]10-14-2024 NoteHNO ID: [id number] Author: MELINA THORNE RT(R) Service: Radiology Author [...] PATIENT PRESENTS WITH AN IMPLANTABLE OR ATTACHED TAB BUILDER: No RADIOLOGY DEPARTMENT: General X-ray: Exam(s) Completed: Spine X-Ray(s): Cervical AP / LAT / OBL Upper Extremity X-Ray(s): Shoulder, AP / TRUE AP / AXILLARY right PERIPHERAL IV DATA: Not applicable SIGNED BY: RT Shimon(R) February 25, 2024 4:19 [facility]10-12-2024 NoteHNO ID: [id number] Author: KASSANDRA CABELLO PA Service: ? Author Type: Physician Special Education Instructor Type: Progress Notes Filed: 02/23/2024 15:29 Note Text: This note was created using Snapetteriter. Subjective Gladys Dodd is a 48 year [...] - XR SHOULDER GEN (more content not included)...[facility] 02-23-2024 History of Present illness Narrative* Kassandra Cabello PA - 02/23/2024 3:26 PM EDT This note was created using Snapetteriter. Subjective Gladys Dodd is a 48 year [...] ER evaluation. LORA Melara documented in this encounterCleveland Clinic [facility]05-29-2024 History of Present illness Narrative* Meghan Da Silva MD - 10/10/2023 9:44 AM EDT documented in this encounterCleveland Clinic [facility]05-29-2024 History and physical note * Meghan [...] history, medications and allergies Meghan Redd MD [facility]05-29-2024 History and physical note* Meghan Da [...] BX OF BREAST; INCISIONAL Left 2022 PAS PAST SURGICAL HISTORY OF cyst removed from [...] allergies Meghan Redd MD documented in this encounterCleveland Clinic [facility]04-09-2024 History of Present illness Narrative* Basil Gardiner APRN.CNP - 08/21/2023 6:52 PM EDT Patient tri[facility]. Here today with worsening left chest pressure/shoulder pain. Also having dull ache in left leg/nagging. Patient concerned for heart related problem. I will refer to ER. Patient in no apparent distress at time of triage. documented in this encounterCleveland Clinic [facility]04-09-2024 Discharge summary Author Donald Holguin [facility] August 21, 2023 8:28pm Note Date/Time August 21, 2023 8:28 pm [facility] Medical Records Department [address] [place] [address] Emergency Department Summary 08/21/23 MR#: [id number] Acct: [id number] Name: GLADYS PETER Rep #:[id number] : 1975 47 From: Donald Holguin DO [...] She said that she currently feels better. [facility] Medical History Anemia Chronic GERD HTN [...] % (Auto) 65.0 Lymph % (Auto) 27.4 [place] % (Auto) 6.0 Eos % (Auto) 0.8 [...] Raysa Wong NP Referrals: Raysa Wong NP, SAND SLINGER-C [Primary Care Provider] - Disposition Disposition: Home, Self Care What to do if you have Problems For any increased pain, shortness of breath, bleeding, nausea or vomiting, chestpain, or any unexpected problems, contact your Primary Care Provider. Call [facility] ([phone]) or report to the closest Emergency Room. Call 911 if necessary. 08/21/232027 <Electronically signed by Donald Holguin DO> Cosigner Signature (if applicable): CC: SAND SLINGERLiam Wong ~ Signed [facility] Work Phone: 1(238) 818-287003-13-2024 History of Present illness Narrative* Antony Cunha [...] PATIENT PRESENTS WITH AN IMPLANTABLE OR ATTACHED TAB BUILDER: No RADIOLOGY DEPARTMENT: Mammography PERIPHERAL IV DATA: Not applicable SIGNED BY: Melchor Peralta July 25, 2023 1:52 PM documented in this encounterCleveland Clinic [facility]03-08-2024 History of Present illness Narrative* Sydni Munoz APRN.INSOLE BEVELER - 07/20/2023 9:00 AM EST Construction Job Titles offered: Patient declines. Gladys is a 47 [...] L2 SAB0 IAB0 Ectopic0 Multiple0 Live Births2 Unloader History LMP: 07/13/2023, Having periods Age at Menarche: Age at First : Age at Menopause: Unloader History Comments: Sexual Activity: Yes; Male; [...] external genitalia normal, normal Bartholin's glands, urethra, [place]'s glands, no vulvar lesions, good vaginal support, [...] year or sooner as needed. Sydni Munoz APRN.CNP documented in this encounterCleveland Clinic [facility]01-12-2024 Evaluation + Plan note Future Scheduled Tests Radiology* US Abdomen Limited 05/25/23 [facility] 09-02-2023 Instructions* Patient Instructions* Veronica Vivas [...] Discussed expected course of illness Veronica Vivas APRN.INSOLE BEVELER documented in this encounterCleveland Clinic [facility]09-02-2023 History of Present illness Narrative* Veronica Vivas APRN.[facility]AMAR - 01/13/2023 8:31 AM EDT Images from [...] Discussed expected course of illness Veronica Vivas APRN.INSOLE BEVELER documented in this encounterC[facility] Clinic [facility]03-06-2023 Miscellaneous Notes* Patient Education - RT [...] instructions REFERRAL (RECOMMENDATION): None documented in this encounterCleveland Clinic [facility] Hospital01-31-2023 History of Present illness Narrative* Lisa [...] 13, 2022 2:59 PM documented in this encounterCleveland Clinic [facility]01-04-2023 Miscellaneous Notes* Letter - Mammography Coordinator - 05/17/2022 11:45 AM EST May 17, 2022 PID: [id number] Gladys Dodd [address] [place] [address] Dear Ms. Faizan Dodd, Your recent breast [...] who ordered/prescribed your screening mammogram: Please call [phone] or [phone] to schedule an appointment for your additional [...] and reports are kept on file at [facility] as part of your permanent medical record, and are available for your continuing care. Thank you for allowing us to help in meeting your health care needs. Sincerely, Dr. Duncan Interpreting Radiologist [facility] (Additional imaging) documented in this encounterCleveland Clinic [facility]01-03-2023 History of Present illness Narrative* Lisa [...] 16, 2022 1:55 PM documented in this encounterCleveland Clinic [facility]01-03-2023 History of Present illness Narrative* Sydni Munoz APRN.[facility] - 05/16/2022 12:52 PM EST Construction Job Titles offered: Patient declines. Gladys is a 46 [...] L2 SAB0 IAB0 Ectopic0 Multiple0 Live Births2 Unloader History LMP: 04/21/2021 (Exact Date), Having periods Age at Menarche: Age at First : Age at Menopause: Unloader History Comments: Sexual Activity: Yes; Male; has had vasectomy Contraception: Vasectomy PAST MEDICAL HISTORY Diagnosis Date Other specified anemias PMS (premenstrual syndrome) Seasonal allergies Springtime. PAST SURGICAL HISTORY Procedure Laterality Date PAST SURGICAL HISTORY OF cyst removed from right wrist TYMPANOSTOMY LOCAL/TOPICAL ANESTHESIA 1980 FAMILY HISTORY Problem Relation Age of Onset [...] external genitalia normal, normal Bartholin's glands, urethra, [place]ance[place]'s glands, no vulvar lesions, no cervical lesions, [...] needed Sydni Munoz APRN.SHAMAR documented in this encounterCleveland Clinic [facility]10-11-2022 Miscellaneous Notes* Telephone Encounter - Marlee Kwong - 02/21/2022 10:04 AM EDT Patient given results and verbalized understanding of instructions given. Marlee Kwong * Telephone Encounter - Marlee Kwong - 02/21/2022 10:04 AM EDT ----- Message from Veronica Vivas APRN.INSOLE BEVELER sent at 02/21/2022 9:55 AM EDT ----- Urine culture did not show clear evidence of infection, however it appears sample may have been contaminated with skin bacteria during collection. If not improving, recommend follow up with PCP. Veronica Vivas CNP documented in this encounterCleveland Clinic [facility]10-10-2022 Miscellaneous Notes* Telephone Encounter - Marlee [...] Lennie South PA-C 02/20/2022 documented in this encounterCleveland Clinic [facility] Hospital10-10-2022 History of Present illness Narrative* Melina [...] 20, 2022 8:02 AM documented in this encounterCleveland Clinic Medina HospitalEvaluation + Plan note No data available for this section [facility] Future Appointments Appointment Date:01/08/2024 01:30:00 PM Scheduled Provider:SANDIE CHAVIS DO Location:[facility] Appointment Type:PC Office Procedure OMT [facility] Evrehebwjy note* Diagnosis Encounter for gynecological examination (general) (routine) without abnormal findings- Primary Encounter for screening mammogram for breast cancer Dense breast tissue [facility]* Diagnosis Abnormal finding on radiological examination of breast- Primary Other (abnormal) findings on radiological examination of breast documented [facility] this [facility]* Diagnosis Abnormal mammogram Abnormal mammogram, unspecified [facility]* Diagnosis Abnormal finding on radiological examination of breast Other (abnormal) findings on radiological examination of breast documented [facility]* Diagnosis Burning sensation of skin- Primary documented [facility]* Diagnosis Encounter for gynecological examination (general) (routine) without abnormal findings Encounter for screening mammogram for breast cancer documented [facility]* Diagnosis Abnormal mammogram Abnormal mammogram, unspecified documented [facility]* Diagnosis Abnormal mammogram Abnormal mammogram, unspecified documented in this encounter [facility] noteNo assessment information availableWSelect [facility] Work Phone: Evaluation note* Diagnosis Encounter for gynecological examination with abnormal finding- Primary Routine gynecological examination Endocervical polyp Mucous polyp of cervix Encounter for screening mammogram for breast cancer Heterogeneously dense tissue of both breasts on mammography 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 documented in this encounter [facility]* Diagnosis Abnormal mammogram Abnormal mammogram, unspecified documented [facility] this [facility]* Diagnosis Endocervical polyp Mucous polyp of cervix documented in this encounter [facility]* Diagnosis Chest pressure- Primary Other chest pain [facility] this [facility]* Diagnosis Endocervical polyp- Primary Mucous polyp of cervix Pre-op exam Preoperative examination, unspecified documented in this encounter [facility] note* Diagnosis Acute right-sided low back pain without sciatica documented in this encounter [facility] note* Diagnosis Cervical pain- Primary Cervicalgia Acute pain of right shoulder documented in this encounter [facility] note* Diagnosis Cervical pain Cervicalgia Acute pain of right shoulder documented in this encounter [facility] note* Diagnosis Encounter for screening mammogram for breast cancer Heterogeneously dense tissue of both breasts on mammography 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 documented in this encounter [facility] note* Diagnosis Encounter for gynecological examination (general) (routine) without abnormal findings- Primary Encounter for screening mammogram for breast cancer documented in this encounter [facility] note* Diagnosis Allergic reaction to insect sting, accidental or unintentional, initial encounter- Primary documented in this encounter [facility] Discharge instructions No data available for this section [facility] Progress note No data available for this section [facility] Reason for referral (narrative)* Diagnostic Procedure Only (Routine) - Pending Review Specialty Diagnoses / Procedures Referred By Cassius espinoza Referred To Contact [facility] Diagnoses Encounter for screening mammogram for breast cancer Dense breast tissue Procedures MARTY SCREENING W DELFIN SCREENING DIGITAL BREAST TOMOSYNTHESIS BI SCREENING MAMMOGRAPHY BI 2-VIEW BREAST INC Sydni Arzate APRN.CNP [address] [place] [address] [facility] [address] [place] [phone] Referral ID Status Reason Start Date Expiration Date Visits Requested Visits Authorized [id number] Pending Review Auto-Generat ed Referral 05/16/2022 06/15/2023 1 1 [facility] [facility] Diagnostic Procedure Only (Routine) - Authorized Specialty Diagnoses / Procedures Referred By Cassius espinoza Referred To Contact BR IMAGING Diagnoses Abnormal finding on radiological examination of breast Procedures MATRY STEREO BX BREAST LT BX BREAST W/DEVICE 1ST [facility] STEREOTACTIC Ewa Gale MD [address] [place] [address] [facility] [address] [place] [address] Referral ID Status Reason Start Date Expiration Date Visits Requested Visits Authorized [id number] Authorized Auto-Generat ed Referral 06/28/2022 07/28/2023 1 1 [facility] for referral (narrative)* Diagnostic Procedure Only (Routine) - Closed Specialty Diagnoses / Procedures Referred By Contac t Referred To Contact BR IMAGING Diagnoses Abnormal finding on radiological examination of breast Procedures MARTY STEREO BX BREAST LT BX BREAST W/DEVICE 1ST [facility] STEREOT[facility] Ewa Gale MD [address] [place] [id number] [facility] [address] [place] [phone] Referral ID Status Reason Start Date Expiration Date V isits Requested Visits Authorized [id number] Closed Auto-Generate d Referral 06/28/2022 07/28/2023 1 1 [facility] for referral (narrative)* Diagnostic Procedure Only (Routine) - Closed Specialty Diagnoses / Procedures Referred By Contac t Referred To Contact BR IMAGING Diagnoses Encounter for gynecological examination (general) (routine) without abnormal findings Encounter for screening mammogram for breast cancer Procedures [facility] SCREENING SCREENING MAMMOGRAPHY BI 2-VIEW BREAST INC Sydni Arzate APRN.INSOLE BEVELER [address] [place] [address] [facility] Imaging [address] [place] [phone] Referral ID Status Reason Start Date Expiration Date V isits Requested Visits Authorized [id number] Closed Auto-Generate d Referral 05/10/2021 06/09/2022 1 1 [facility] for referral (narrative)* Diagnostic Procedure Only (Routine) - Closed Specialty Diagnoses / Procedures Referred By Cassius espinoza Referred To Contact BR IMAGING Diagnoses Abnormal mammogram Procedures US BREAST LTD LT US BREAST UNI REAL TIME WITH IMAGE LIMITED Sydni Munoz APRN.CNP [address] [place] [address] [facility] Imaging [address] [place] [address] Referral ID Status Reason Start Date Expiration Date V isits Requested Visits Authorized [id number] Closed Auto-Generate d Referral 05/17/2022 06/16/2023 1 1 [facility] for referral (narrative)* Diagnostic Procedure Only (Routine) - Authorized Specialty Diagnoses / Procedures Referred By Cassius espinoza Referred To Contact [facility] Diagnoses Endocervical polyp Procedures PELVIC US WHI US PELVIC NONOBSTETRIC REAL-TIME IMAGE COMPLETE Sydni Munoz APRN.INSOLE BEVELER [address] [place] [address] [facility] [address] [place] [address] Referral ID Status Reason Start Date Expiration Date Visits Requested Visits Authorized [id number] Authorized Auto-Generat ed Referral 07/20/2023 07/19/2024 1 [...] BI 2-VIEW BREAST INC CAD Sydni Munoz APRN.INSOLE BEVELER [address] [place] [address] Br Imaging [address] [place] [address] Referral ID Status Reason Start Date Expiration Date Visits Requested Visits Authorized [id number] Pending Review Auto-Generat ed Referral 07/20/2023 08/18/2024 1 1 [facility] for referral (narrative)* Diagnostic Procedure Only (Urgent) - Closed Specialty Diagnoses / Procedures Referred By Contac t Referred To Contact XR IMAGING Diagnoses Acute bilateral low back pain without sciatica Procedures XR LUMBAR GENERAL 3V AP/LAT/L5-S1 RADEX SPINE LUMBOSACRAL 2/3 VIEWS Lennie South PA-C [address] [place] [address] [place] [address] Referral ID Status Reason Start Date Expiration Date V isits Requested Visits Authorized [id number] Closed Auto-Generate d Referral 02/20/2022 03/22/2023 1 1 [facility] for referral (narrative)* Diagnostic Procedure Only (Urgent) - New Request Specialty Diagnoses / Procedures Referred By Contac t Referred To Contact XR IMAGING Diagnoses Cervical pain Acute pain of right shoulder Procedures XR CERV OTHER 4V AP/LAT/OBL RADEX SPINE CERVICAL 4 OR 5 VIEWS Kassandra Cabello PA [address] [place] [address] [place] [address] Referral ID Status Reason Start Date Expiration Date Visits Requested Visits Authorized [id number] New Request Auto-Generat ed Referral 03/24/2025 1 1 * Diagnostic Procedure Only (Urgent) - New Request Specialty Diagnoses / Procedures Referred By Contac t Referred To Contact XR IMAGING Diagnoses Cervical pain Acute pain of right shoulder Procedures XR SHOULDER GENERAL 3V OR MORE AP/TRUE AP/OTHER RIGHT RADEX SHOULDER COMPLETE MINIMUM 2 VIEWS Kassandra Cabello PA [address] [place] [address] [place] [address] Referral ID Status Reason Start Date Expiration Date Visits Requested Visits Authorized [id number] New Request Auto-Generat ed Referral 03/24/2025 1 1 [facility] for referral (narrative)* Diagnostic Procedure Only (Urgent) - Closed Specialty Diagnoses / Procedures Referred By Contac t Referred To Contact XR IMAGING Diagnoses Cervical pain Acute pain of right shoulder Procedures XR CERV OTHER 4V AP/LAT/OBL RADEX SPINE CERVICAL 4 OR 5 VIEWS Kassandra Cabello PA [address] [place] [address] [place] [address] Referral ID Status Reason Start Date Expiration Date V isits Requested Visits Authorized [id number] Closed Auto-Generate d Referral 02/23/2024 03/24/2025 1 1 * Diagnostic Procedure Only (Urgent) - Closed Specialty Diagnoses / Procedures Referred By Contac t Referred To Contact XR IMAGING Diagnoses Cervical pain Acute pain of right shoulder Procedures XR SHOULDER GENERAL 3V OR MORE AP/TRUE AP/OTHER RIGHT RADEX SHOULDER COMPLETE MINIMUM 2 VIEWS Kassandra Cabello PA [address] [place] [address] Xr Imaging [facility] Referral ID Status Reason Start Date Expiration Date V isits Requested Visits Authorized [id number] Closed Auto-Generate d Referral 02/23/2024 03/24/2025 1 1 [facility] for referral (narrative)No reason for referral information availableWSelect [facility] Work Phone: Reason for visit Narrative* Diagnostic Procedure Only (Routine) - Closed Specialty Diagnoses / Procedures Referred By Contac t Referred To Contact BR IMAGING Diagnoses Abnormal mammogram Procedures US BIOPSY BREAST LT BX BREAST W/DEVICE 1ST [facility] ULTRASOUND Burt Flwoer MD [address] [place], [place] [id number] [facility] [address] [place] [address] Referral ID Status Reason Start Date Expiration Date V isits Requested Visits Authorized [id number] Closed Auto-Generate d Referral 06/14/2022 07/14/2023 1 1 [facility] for visit Narrative* Diagnostic Procedure Only (Routine) - Closed Specialty Diagnoses / Procedures Referred By Contac t Referred To Contact BR IMAG[facility] Diagnoses Abnormal finding on radiological examination of breast Procedures MARTY STEREO BX BREAST LT BX BREAST W/DEVICE 1ST [facility] STERE[facility] GUID Ewa Olivo MD [address] [place] [address] [facility] Imaging [address] [place] [phone] Referral ID Status Reason Start Date Expiration Date V isits Requested Visits Authorized [id number] Closed Auto-Generate d Referral 06/28/2022 07/28/2023 1 1 [facility] for visit Narrative* Diagnostic Procedure Only (Routine) - Closed Specialty Diagnoses / Procedures Referred By Contac t Referred To Contact BR IMAGING Diagnoses Encounter for gynecological examination (general) (routine) without abnormal findings Encounter for screening mammogram for breast cancer Procedures [facility] SCREENING SCREENING MAMMOGRAPHY BI 2-VIEW BREAST INC CAD Sydni Munoz, ANTONIETTA.INSOLE BEVELER [address] [place] [address] [facility] Imaging [address] [place] [address] Referral ID Status Reason Start Date Expiration Date V isits Requested Visits Authorized [id number] Closed Auto-Generate d Referral 05/10/2021 06/09/2022 1 1 [facility] for visit Narrative* Diagnostic Procedure Only (Routine) - Closed Specialty Diagnoses / Procedures Referred By Contac t Referred To Contact BR IM[facility] Diagnoses Abnormal mammogram Procedures MARTY DIAGNOSTIC LT DIAGNOSTIC MAMMOGRAPHY COMPUTER-AIDED DETCJ UNI Sydni Munoz APRN.INSOLE BEVELER [address] [place] [address] [facility] [address] [place] [address] Referral ID Status Reason Start Date Expiration Date V isits Requested Visits Authorized [id number] Closed Auto-Generate d Referral 05/17/2022 06/16/2023 1 1 [facility] for visit Narrative* Diagnostic Procedure Only (Routine) - Closed Specialty Diagnoses / Procedures Referred By Contac t Referred To Contact BR IM[facility] Diagnoses Abnormal mammogram Procedures US BREAST LTD LT US BREAST UNI REAL TIME WITH IMAGE LIMITED Sydni Munoz APRN.INSOLE BEVELER [address] [place] [address] [facility] Imaging [address] [place] [address] Referral ID Status Reason Start Date Expiration Date V isits Requested Visits Authorized [id number] Closed Auto-Generate d Referral 05/17/2022 06/16/2023 1 1 [facility] for visit Narrative* Diagnostic Procedure Only (Routine) - Closed Specialty Diagnoses / Procedures [facility] Referred To Contact [facility] Diagnoses Abnormal mammogram Procedures MARTY DIAGNOSTIC BILATERAL DIAGNOSTIC MAMMOGRAPHY COMPUTER-AIDED DETCJ BI Sydni Munoz, ANTONIETTA.INSOLE BEVELER [address] [place] [address] [facility] Imaging [address] [place] [address] Referral ID Status Reason Start Date Expiration Date V isits Requested Visits Authorized [id number] Closed Auto-Generate d Referral 07/25/2023 02/23/2024 1 1 [facility] for visit Narrative* Diagnostic Procedure Only (Urgent) - Closed Specialty Diagnoses / Procedures [facility] Referred To Contact XR IMAGING Diagnoses Acute bilateral low back pain without sciatica Procedures XR LUMBAR GENERAL 3V AP/LAT/L5-S1 RADEX SPINE LUMBOSACRAL 2/3 VIEWS Lennie South PA-C [address] [place] [address] [place] [address] Referral ID Status Reason Start Date Expiration Date V isits Requested Visits Authorized [id number] Closed Auto-Generate d Referral 02/20/2022 03/22/2023 1 1 [facility] for visit Narrative* Diagnostic Procedure Only (Urgent) - Closed Specialty Diagnoses / Procedures Referred By Contac t Referred To Contact XR IMAGING Diagnoses Cervical pain Acute pain of right shoulder Procedures XR CERV OTHER 4V AP/LAT/OBL RADEX SPINE CERVICAL 4 OR 5 VIEWS Kassandra Cabello PA [address] [place] [address] [place] [address] Referral ID Status Reason Start Date Expiration Date V isits Requested Visits Authorized [id number] Closed Auto-Generate d Referral 02/23/2024 03/24/2025 1 1 [facility] Diagnostic Procedure Only (Routine) - Closed Specialty Diagnoses / Procedures Referred By Cassius espinoza Referred To Contact BR IMAGING Diagnoses Encounter for screening mammogram for breast cancer Heterogeneously dense tissue of both breasts on mammography Pseudoangiomatous stromal hyperplasia of breast Procedures [facility] SCREENING W DELFIN SCREENING DIGITAL BREAST TOMOSYNTHESIS BI SCREENING MAMMOGRAPHY BI 2-VIEW BREAST INC Sydni Arzate, ANTONIETTA.INSOLE BEVELER [address] [place] [address] Br Imaging [address] [place] [address] Referral ID Status Reason Start Date Expiration Date V isits Requested Visits Authorized [id number] Closed Auto-Generate d Referral 07/20/2023 08/18/2024 1 1 [facility] Chief Complaint and Reason for Visit [...] September 21, 2017 1 0:36am Power of Cereal Chemist No September 21, 2017 10:36am Advance Directive Response Recorded Date/ Time Living Will No May 28 1:29am Power of Cereal Chemist No May 28, 2023 1:29am Advance Directive Response Recorded Date/ Time Name of Medical Power of Cereal Chemist Tc buenrostro August 21, 2023 7:10pm Living Will Yes August 21, 2023 7:10pm Power of Cereal Chemist Yes August 20 7:10pm Advance Directive Response Recorded Date/ Time Do you have a Healthcare Power of Cereal Chemist? No September 16, 2024 4:30pm Assessments No [...] or prosecute any alcohol or drug abuse patient.[facility] the event this information is protected by the Federal Confidentiality of Alcohol and Drug Abuse Patient Records regulations: The Federal rules restrict any use of the information to criminally investigate or prosecute any alcohol or drug abuse patient.[facility] the event this information is protected by the Federal Confidentiality of Alcohol and Drug Abuse Patient Records regulations: The Federal rules restrict any use of the information to criminally investigate or prosecute any alcohol or drug abuse patient.[facility] the event this information is protected by the Federal Confidentiality of Alcohol and Drug Abuse Patient Records regulations: The Federal rules restrict any use of the information to criminally investigate or prosecute any alcohol or drug abuse patient.[facility] Hospital[facility] the event this information is protected by the Federal Confidentiality of Alcohol and Drug Abuse Patient Records regulations: The Federal rules restrict any use of the information to criminally investigate or prosecute any alcohol or drug abuse patient.[facility] Hospital[facility] the event this information is protected by the Federal Confidentiality of Alcohol and Drug Abuse Patient Records regulations: The Federal rules restrict any use of the information to criminally investigate or prosecute any alcohol or drug abuse patient.[facility] HospitalIn the event this information is protected by the Federal Confidentiality of Alcohol and Drug Abuse Patient Records regulations: The Federal rules restrict any use of the information to criminally investigate or prosecute any alcohol or drug abuse patient.[facility] Hospital[facility] the event this information is protected by the Federal Confidentiality of Alcohol and Drug Abuse Patient Records regulations: The Federal rules restrict any use of the information to criminally investigate or prosecute any alcohol or drug abuse patient.[facility] HospitalIn the event this information is protected by the Federal Confidentiality of Alcohol and Drug Abuse Patient Records regulations: The Federal rules restrict any use of the information to criminally investigate or prosecute any alcohol or drug abuse patient.[facility] Hospital[facility] the event this information is protected by the Federal Confidentiality of Alcohol and Drug Abuse Patient Records regulations: The Federal rules restrict any use of the information to criminally investigate or prosecute any alcohol or drug abuse patient.[facility] HospitalIn the event this information is protected by the Federal Confidentiality of Alcohol and Drug Abuse Patient Records regulations: The Federal rules restrict any use of the information to criminally investigate or prosecute any alcohol or drug abuse patient.[facility] Hospital[facility] the event this information is protected by the Federal Confidentiality of Alcohol and Drug Abuse Patient Records regulations: The Federal rules restrict any use of the information to criminally investigate or prosecute any alcohol or drug abuse patient.[facility] Hospital[facility] the event this information is protected by the Federal Confidentiality of Alcohol and Drug Abuse Patient Records regulations: The Federal rules restrict any use of the information to criminally investigate or prosecute any alcohol or drug abuse patient.[facility] HospitalIn the event this information is protected by the Federal Confidentiality of Alcohol and Drug Abuse Patient Records regulations: The Federal rules restrict any use of the information to criminally investigate or prosecute any alcohol or drug abuse patient.[facility] HospitalIn the event this information is protected by the Federal Confidentiality of Alcohol and Drug Abuse Patient Records regulations: The Federal rules restrict any use of the information to criminally investigate or prosecute any alcohol or drug abuse patient.[facility] HospitalIn the event this information is protected by the Federal Confidentiality of Alcohol and Drug Abuse Patient Records regulations: The Federal rules restrict any use of the information to criminally investigate or prosecute any alcohol or drug abuse patient.[facility] Hospital[facility] the event this information is protected by the Federal Confidentiality of Alcohol and Drug Abuse Patient Records regulations: The Federal rules restrict any use of the information to criminally investigate or prosecute any alcohol or drug abuse patient.[facility] Hospital[facility] the event this information is protected by the Federal Confidentiality of Alcohol and Drug Abuse Patient Records regulations: The Federal rules restrict any use of the information to criminally investigate or prosecute any alcohol or drug abuse patient.[facility] Hospital[facility] the event this information is protected by the Federal Confidentiality of Alcohol and Drug Abuse Patient Records regulations: The Federal rules restrict any use of the information to criminally investigate or prosecute any alcohol or drug abuse patient.[facility] HospitalIn the event this information is protected by the Federal Confidentiality of Alcohol and Drug Abuse Patient Records regulations: The Federal rules restrict any use of the information to criminally investigate or prosecute any alcohol or drug abuse patient.[facility] HospitalIn the event this information is protected by the Federal Confidentiality of Alcohol and Drug Abuse Patient Records regulations: The Federal rules restrict any use of the information to criminally investigate or prosecute any alcohol or drug abuse patient.[facility] HospitalIn the event this information is protected by the Federal Confidentiality of Alcohol and Drug Abuse Patient Records regulations: The Federal rules restrict any use of the information to criminally investigate or prosecute any alcohol or drug abuse patient.[facility] Hospital[facility] the event this information is protected by the Federal Confidentiality of Alcohol and Drug Abuse Patient Records regulations: The Federal rules restrict any use of the information to criminally investigate or prosecute any alcohol or drug abuse patient.[facility] Hospital[facility] the event this information is protected by the Federal Confidentiality of Alcohol and Drug Abuse Patient Records regulations: The Federal rules restrict any use of the information to criminally investigate or prosecute any alcohol or drug abuse patient.[facility] Hospital[facility] the event this information is protected by the Federal Confidentiality of Alcohol and Drug Abuse Patient Records regulations: The Federal rules restrict any use of the information to criminally investigate or prosecute any alcohol or drug abuse patient.[facility] Reason for Visit (unrecogniz ed section and content) Reason Comments Results Reason Comments Results, Lab Reason Comments Well Woman Reason Comments Derm Problem Bug bite R thigh and rash on back with bite x 1.5 wks Reason Comments Well Woman Reason Comments Other polyp Specialty Diagnoses / Procedures Referred By Contac t Referred To Contact [facility] Diagnoses Endocervical polyp Procedures PELVIC US WHI US PELVIC NONOBSTETRIC REAL-TIME IMAGE COMPLETE Sydni Munoz, SCENIC ARTIST.INSOLE BEVELER [address] [place] [address] [facility] [address] [place] [address] Referral ID Status Reason Start Date Expiration Date V isits Requested Visits Authorized [id number] Closed Auto-Generate d Referral 07/20/2023 07/19/2024 1 1 Reason Comments Pain (Shoulder Pain) chest to shoulder p ain left side and left thigh pain x 3 days Reason Comments Pre-Op Exam Reason Comments right shoulder and neck pain X several m [facility] Reason Comments Trauma Insect bite/sting on right forearm x 1 day Care Teams (unrecognized sec tion and content) Manager Of Health Relationship Specialty Start Date End Date Tameka Garcia APRN.INSOLE BEVELER [address] [place] [address] PCP - General Family Medicine 02/20/22 Manager Of Health Relationship Specialty Start Date End Date Tameka Garcia APRN.INSOLE BEVELER [address] [place] [address] PCP - General Family Medicine 02/20/22 Manager Of Health Relationship Specialty Start Date End Date Tameka Garcia APRN.INSOLE BEVELER [address] [place] [address] PCP - General Family Medicine 02/20/22 Manager Of Health Relationship Specialty Start Date End Date Tameka Garcia, SCENIC ARTIST.INSOLE BEVELER [address] [place] [address] PCP - General Family Medicine 02/20/22 Manager Of Health Relationship Specialty Start Date End Date Tameka Garcia, SCENIC ARTIST.INSOLE BEVELER [address] [place] [address] PCP - General Family Medicine 02/20/22 Manager Of Health Relationship Specialty Start Date End Date Tameka Garcia, SCENIC ARTIST.INSOLE BEVELER [address] [place] [address] PCP - General Family Medicine 02/20/22 Manager Of Health Relationship Specialty Start Date End Date Tameka Garcia, SCENIC ARTIST.INSOLE BEVELER [address] [place] [address] PCP - General Family Medicine 02/20/22 Manager Of Health Relationship Specialty Start Date End Date Tameka Garcia, SCENIC ARTIST.INSOLE BEVELER [address] [place] [address] PCP - General Family Medicine 02/20/22 Team Status: Active Member Role Status Dates Dr. Sydni Mathis MD Family Provider Active Raysa Wong SAND SLINGER, SAND SLINGER-C Primary Care Provider Activ e Team Status: Inactive Member Role Status Dates Dr. Tc Polo , DO Emergency Provider Active Raysa Wong SAND SLINGER, SAND SLINGER-C Primary Care Provider Activ e Manager Of Health Relationship Specialty Start Date End Date Raysa Wong CNP [address] [place] [address] PCP - General Family Medicine 07/20/23 Manager Of Health Relationship Specialty Start Date End Date Raysa Wong CNP [address] [place] [address] PCP - General Family Medicine 07/20/23 Manager Of Health Relationship Specialty Start Date End Date Raysa Wong CNP [address] [place] [id number] PCP - General Family Medicine 07/20/23 Team Status: Inactive Member Role Status Dates Dr. Tc Polo , DO Attending Provider, Emergency P chichi Active Raysa Wong SAND SLINGER, SAND SLINGER-C Primary Care Provider Activ e Team Status: Inactive Member Role Status Dates Raysa Wong NP, SAND SLINGER-C Primary Care Provider Activ e Dr. Donald Holguin , DO Emergency Provider Active Manager Of Health Relationship Specialty Start Date End Date Raysa Wong CNP [address] [place], [place] [address], [place] [address] PCP - General Family Medicine 07/20/23 Manager Of Health Relationship Specialty Start Date End Date Raysa Wong CNP [address] [place] [address] [place] [address] PCP - General Family Medicine 07/20/23 Manager Of Health Relationship Specialty Start Date End Date Tameka Garcia, SCENIC ARTIST.INSOLE BEVELER [address] [place] [address] [place] [address] PCP - General Family Medicine 02/20/22 07/19/23 Manager Of Health Relationship Specialty Start Date End Date Raysa Wong CNP [address] [place] [address] PCP - General Family Medicine 07/20/23 Manager Of Health Relationship Specialty Start Date End Date Raysa Wong CNP [address] [place] [address] [place] [address] PCP - General Family Medicine 07/20/23 Manager Of Health Relationship Specialty Start Date End Date Raysa Wong CNP [address] [place] [address] [place] [address] PCP - General Family Medicine 07/20/23 Manager Of Health Relationship Specialty Start Date End Date Raysa Wong CNP [address] [place] [address] [place] [address] PCP - General Family Medicine 07/20/23 Team Status: Active Member Role Status Dates Raysa Wong SAND SLINGER, SAND SLINGER-C Primary Care Provider Activ e Team Status: Inactive Member Role Status Dates Raysa Wong SAND SLINGER, SAND SLINGER-C Primary Care Provider Activ e Start: June 03, 2024 End: June 03, 2024 Raysa Wong SAND SLINGER, SAND SLINGER-C Referring Provider Active Start: June 03, 2024 End: June 03, 2024 Dr. Mikey Solares DO Attending Provider Active Start: June 03, 2024 End: June 03, 2024 Team Status: Inactive Member Role Status Dates Raysa Wong SAND SLINGER, SAND SLINGER-C Primary Care Provider Activ e Start: August 13, 2024 End: August 13, 2024 Raysa Wong SAND SLINGER, SAND SLINGER-C Referring Provider Active Start: August 13, 2024 End: August 13, 2024 LORA Baltazar Attending Provider Active Start: August 13, 2024 End: August 13, 2024 Team Status: Inactive Member Role Status Dates Raysa Wong SAND SLINGER, SAND SLINGER-C Primary Care Provider Activ e Start: September 16, 2024 End: September 16, 2024 Bhupendra Gonzalez MD Emergency Provider Active Star t: September 16, 2024 End: September 16, 2024 Team Status: Active Member Role/Relationship Status Dates Raysa Wong SAND SLINGER, SAND SLINGER-C Primary Care Provider Activ e Team Status: Inactive Member Role/Relationship Status Dates Raysa Wong SAND SLINGER, SAND SLINGER-C Primary Care Provider Activ e Start: August 13, 2024 End: August 13, 2024 Raysa Wong SAND SLINGER, SAND SLINGER-C Referring Provider Active Start: August 13, 2024 End: August 13, 2024 LORA Baltazar Attending Provider Active Start: August 13, 2024 End: August 13, 2024 Team Status: Inactive Member Role/Relationship Status Dates aRysa Wong SAND SLINGER, SAND SLINGER-C Primary Care Provider Activ e Start: September 16, 2024 End: September 16, 2024 Bhupendra Gonzalez MD Attending Provider Active Star t: September 16, 2024 End: September 16, 2024 Bhupendra Gonzalez MD Emergency Provider Active Star t: September 16, 2024 End: September 16, 2024 Team Status: Inactive Member Role/Relationship Status Dates Raysa Judith SAND SLINGER, SAND SLINGER-C Primary Care Provider Activ e Start: December 01, 2024 End: December 01, 2024 Raysa Wong NP, SAND SLINGER-C Referring Provider Active Start: December 01, 2024 End: December 01, 2024 Dr. Mikey Solares DO Attending Provider Active Start: December 01, 2024 End: December 01, 2024 Manager Of Health Relationship Specialty Start Date End Date Raysa Wong CNP [address] [place] [address] PCP - General Family Medicine 07/20/23 Team Status: Active Member Role/Relationship Status Dates Raysa Wong SAND SLINGER, SAND SLINGER-C Primary care physician Acti ve Team Status: Inactive Member Role/Relationship Status Dates Raysa Wong NP, SAND SLINGER-C Primary care physician Acti ve Start: December 01, 2024 End: December 01, 2024 Raysa Wong NP, SAND SLINGER-C Referring Provider Active Start: December 01, 2024 End: December 01, 2024 Dr. Mikey Solares DO Attending physician Active Start: December 01, 2024 End: December 01, 2024 Team Status: Inactive Member Role/Relationship Status Dates Raysa Wong NP, SAND SLINGER-C Primary care physician Acti ve Start: January [...] Role: Primary Care Physician Address: Address: [address], [place] [address] Care Team Related Persons Name: TC DODD INFORMATION SOURCE (unrecogn ized section and content) DATE CREATED AUTHOR 06/29/2022 [facility] DATE CREATED AUTHOR AUTHOR'S ORGANIZ ATION 01/07/2024 [facility] ([place]) DATE CREATED AUTHOR AUTHOR'S ORGANIZ ATION 12/23/2024 [facility] DATE CREATED AUTHOR AUTHOR'S ORGANIZ ATION 03/15/2025 [facility] DATE CREATED AUTHOR AUTHOR'S ORGANIZ ATION 03/23/2025 [facility] Goals (unrecognized section and content) Goals [...] BE BASED ON THE PRIMARY CLINICAL RECORDS. [employer] [facility]. provides no warranty or guarantee of the accuracy or completeness of information in this document.
== END | disposition home or self-care (01) ==
LOC: US 07:21
PROVIDERS: PCP Registered Nurse; Referring Provider Student in an Organized Health Care Education/Training Program; Visit Provider Student in an Organized Health Care Education/Training Program
DX: K80.20 Calculus of gallbladder without cholecystitis without obstruction (principal); K21.9 Gastro-esophageal reflux disease without esophagitis
CPT/HCPCS: 76705